=== PATIENT | male | born 1970 | race Caucasian/White ===

== ENCOUNTER → 2018-10-06 16:59 | Outpatient (CLI) | payer BC, SELFPAY | PROVIDERS: Family Provider Preventive Medicine Occupational Medicine; PCP Preventive Medicine Occupational Medicine; Referring Provider Urology; Visit Provider Urology | DX: R31.9 Hematuria, unspecified (principal) | CPT/HCPCS: 87086 ==

== ENCOUNTER → 2019-03-13 12:06 | Outpatient (CLI) | payer BC, SELFPAY ==
--- NOTE | 2019-03-13 14:14 | NEURO ---
NCS and/or EMG Patient Report HPI: Patient is a 48-year-old male who presented with complaints of numbness, tingling and pain in her forearms and hands, left hand worse than the right hand. He is right-hand dominant and had left shoulder rotator cuff surgery 10 years ago. 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 Symptoms have been present for several years and pain, numbness and tingling are awakening him at night. He denies being diabetic or or any H/O neck injuries. He feels that his left hand and arm is weaker. Physical Exam: Mild tenderness of the left and right wrists anteriorly. Tinel's sign slightly positive on the left wrist and negative on right wrist. Tinel's sign negative over left elbow. Mild tenderness at left elbow. No tenderness at right elbow. Tenderness at left shoulder joint. Range of motion slightyl limited at left shoulder joint. spasm and tenderness at cervical spine. ROM slightly limited at cervical spine. Findings: 1. There is evidence of prolongation of distal latency of the right median sensory nerve response. 2. There is evidence of prolongation of latencies of left median sensory and motor nerve responses 3. Normal right and left ulnar nerve conduction studies 4. Normal needle examination of bilateral upper extremities including bilateral cervical paraspinal muscle Impression: 1. 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 2. No electrodiagnostic evidence of cervical radiculopathy, brachial plexopathy or ulnar neuropathy in bilateral upper extremities Recommendation: 1. Patient recommended to wear hand splints as much as possible. 2. Patient recommended to avoid repetitive use of both hands and heavy lifting from both. 3. Patient recommended to see a hand surgeon for evaluation and possible surgical release of carpal tunnel syndrome.
== END ==
PROVIDERS: Family Provider Preventive Medicine Occupational Medicine; PCP Preventive Medicine Occupational Medicine; Referring Provider Orthopaedic Surgery; Visit Provider Orthopaedic Surgery
DX: G56.03 Carpal tunnel syndrome, bilateral upper limbs (principal)
CPT/HCPCS: 95886; 95910

== ENCOUNTER → 2021-03-01 07:00 | Outpatient (CLI) | payer BC, SELFPAY ==
--- NOTE | 2021-03-01 07:02 | CT_ITS ---
STUDY: CT LUMBAR SPINE WITHOUT CONTRAST REASON FOR EXAM: Male, 50 years old. SPINAL STENOSIS LUMBAR RADIATION DOSAGE (If Supplied By Facility): CTDIvol = ( 43.24 ) mGy, DLP = ( 1300.04 ) mGycm TECHNIQUE: The patient was scanned in a multi detector CT scanner. High resolution transaxial imaging was performed. Images were obtained from L1 to S1 vertebral levels. Sagittal and coronal images were reconstructed. Individualized dose optimization techniques were used for this CT. COMPARISON: Comparison is made with prior examination dated 10/08/2013. FINDINGS: Normal lumbar lordosis. There is no substantial scoliosis. Normal vertebrae of the lumbar spine. L1-2: Normal endplates. Normal disc height and morphology. Normal bilateral facet joints. Normal central canal and bilateral lateral recesses. Normal bilateral intervertebral neural foramina. L2-3: Normal endplates. Normal disc height and morphology. Normal bilateral facet joints. Normal central canal and bilateral lateral recesses. Normal bilateral intervertebral neural foramina. L3-4: Normal endplates. Normal disc height and morphology. Normal bilateral facet joints. Normal central canal and bilateral lateral recesses. Normal bilateral intervertebral neural foramina. L4-5: Minimal anterior listhesis of L4 on L5. Facet joint osteoarthritis and hypertrophy with bilateral neural foraminal stenosis is worse on the right side. Mild degree of diffuse posterior disc bulge slightly more prominent on the left side of the midline. L5-S1: The patient is status post laminectomy and interpedicular screw fixation at the L5-S1 level with prosthetic disc placement. Normal visualized paraspinous soft tissue structures. CT/Spine Lumbar without Contrast IMPRESSION: Minimal degree of anterolisthesis of L4 on L5 with bilateral neural foraminal stenosis worse on the right side and mild degree of diffuse posterior disc bulge. Electronically Signed: Corky Yi MD at 9:41 EDT , Service support ,
--- NOTE | 2021-03-01 07:08 | CT_ITS ---
STUDY: CT LUMBAR SPINE WITHOUT CONTRAST REASON FOR EXAM: Male, 50 years old. SPINAL STENOSIS LUMBAR RADIATION DOSAGE (If Supplied By Facility): CTDIvol = ( 43.24 ) mGy, DLP = ( 1300.04 ) mGycm TECHNIQUE: The patient was scanned in a multi detector CT scanner. High resolution transaxial imaging was performed. Images were obtained from L1 to S1 vertebral levels. Sagittal and coronal images were reconstructed. Individualized dose optimization techniques were used for this CT. COMPARISON: Comparison is made with prior examination dated 10/08/2013. FINDINGS: Normal lumbar lordosis. There is no substantial scoliosis. Normal vertebrae of the lumbar spine. L1-2: Normal endplates. Normal disc height and morphology. Normal bilateral facet joints. Normal central canal and bilateral lateral recesses. Normal bilateral intervertebral neural foramina. L2-3: Normal endplates. Normal disc height and morphology. Normal bilateral facet joints. Normal central canal and bilateral lateral recesses. Normal bilateral intervertebral neural foramina. L3-4: Normal endplates. Normal disc height and morphology. Normal bilateral facet joints. Normal central canal and bilateral lateral recesses. Normal bilateral intervertebral neural foramina. L4-5: Minimal anterior listhesis of L4 on L5. Facet joint osteoarthritis and hypertrophy with bilateral neural foraminal stenosis is worse on the right side. Mild degree of diffuse posterior disc bulge slightly more prominent on the left side of the midline. L5-S1: The patient is status post laminectomy and interpedicular screw fixation at the L5-S1 level with prosthetic disc placement. Normal visualized paraspinous soft tissue structures. CT/Coronals Sag Multi Obl 3-D Rec IMPRESSION: Minimal degree of anterolisthesis of L4 on L5 with bilateral neural foraminal stenosis worse on the right side and mild degree of diffuse posterior disc bulge. Electronically Signed: Corky Yi MD at 9:41 EDT , Service support ,
== END ==
PROVIDERS: PCP Preventive Medicine Occupational Medicine; Visit Provider Orthopaedic Surgery
DX: M96.1 Postlaminectomy syndrome, not elsewhere classified (principal); M48.061 Spinal stenosis, lumbar region without neurogenic claudication
CPT/HCPCS: 72131; 76377

== ENCOUNTER 2021-05-30 07:10 | Inpatient (IN) | payer BC, OTHER, SELFPAY ==
--- NOTE | 2021-05-23 09:25 | EKG12_ITS ---
Test Reason : ROUTINE Blood Pressure : / mmHG Vent. Rate : 076 BPM Atrial Rate : 076 BPM P-R Int : 166 ms QRS Dur : 092 ms QT Int : 392 ms P-R-T Axes : 059 022 004 degrees QTc Int : 441 ms Normal sinus rhythm Low voltage QRS Borderline ECG Confirmed by NELY CONCEPCION, CALEB ([id number]), editor newspaper SHAINA HUNT ([id number]) on 05/24/2021 9:59:12 AM Referred By: Huy Kilpatrick Confirmed By:CLAEB MCKAY MD
--- NOTE | 2021-05-23 09:33 | RAD_ITS ---
STUDY: X-RAY CHEST REASON FOR EXAM: Male, 50 years old. PREOP TECHNIQUE: PA and lateral views of the chest. COMPARISON: None. FINDINGS: The lungs are clear and expanded. There is no demonstrated pleural abnormality. There is borderline cardiomegaly. Normal mediastinum and ramirez. Normal visualized pulmonary arteries. Normal visualized aortic arch and descending thoracic aorta. There is no demonstrated abnormality of the visualized soft tissue structures of the upper abdomen. RAD/Chest PA and Lateral IMPRESSION: No acute abnormal cardiac pulmonary finding. Electronically Signed: Cameron Snachez MD at 6:01 EST Tel , Service support ,
[2021-05-23 11:09] LABS: Absolute Lymphocyte Count 2.15 X10^3/uL (0.83-4.51); Absolute Neutrophil Count 6.2 X10^3/uL (2.0-7.7); Basophil# 0.04 X10^3/uL; Basophil% 0.4 % (0-1); Eosinophil# 0.18 X10^3/uL; Eosinophils% 1.9 % (0-5); Hematocrit 48.4 % (40-54); Hemoglobin 16.3 g/dL (13.0-16.5); Lymphocyte # 2.15 X10^3/ul (0.83-4.51); Lymphocyte % 23.1 % (19-41); Mean Corp Hgb Conc 33.7 g/dL (32-36); Mean Corpuscular Hgb 31.7 pg (27.0-32.0); Mean Platelet Vol. 9.4 fl (6.2-12.0); Monocyte# 0.76 X10^3/uL; Monocyte% 8.2 % (0-10); NRBC Flagged by Analyzer 0 % (0-5); Neutrophil # 6.15 X10^3/uL (2.7-7.7); Platelet Count 249 K/mm3 (150-450); RBC Distribution Width CV 12.7 % (11.6-14.6); RBC Distribution Width SD 43.8 fl (35.1-43.9); Red Blood Count 5.15 M/mm3 (4.6-6.2); White Blood Count 9.3 K/mm3 (4.4-11.0)
[2021-05-23 11:18] LABS: Prothrombin Time (Protime)PT. 12.6 SECONDS (11.7-14.9)
[2021-05-23 11:19] LABS: Partial Thromboplast Time 30.2 Seconds (24.1-36.2)
[2021-05-23 11:41] LABS: Anion Gap 6 (5-15); BUN 14 mg/dL (7-18); Calcium,Total 9.5 mg/dL (8.5-10.1); Chloride 105 mmol/L (98-107); Creatinine, Serum 0.88 mg/dL (0.70-1.30); EST Glomerular Filtration Rate 98 mL/min (>60); Est Glom Filt Rate - Afr Amer 119 mL/min (>60); Glucose 123 mg/dL (74-106); Potassium 3.7 mmol/L (3.5-5.1); Sodium Level 139 mmol/L (136-145)
[2021-05-30] VITALS (19 sets, daily range): BP systolic 115–154; BP diastolic 63–93; PULSE 83–109; RESP 16–28; TEMP 36.3–36.9; O2SAT 88–96; BMI 41.5; BMI 43.1
[2021-05-30] MEDS: Lactated Ringers 1,000 ML 15 ML IV (06:22)
--- NOTE | 2021-05-30 07:08 | PCM.OPRPT ---
Problems Associated Problem List Diagnoses (1) Lumbar stenosis: Report of Operation Date of Procedure: 05/30/21 Pre-Operative Diagnosis: 1. Lumbar stenosis L4-5 with spondylosis 2. Lumbar degenerative disc disease L4-5 3. Postlaminectomy syndrome Post-Operative Diagnosis: 1. Lumbar stenosis L4-5 with spondylosis 2. Lumbar degenerative disc disease L4-5 3. Postlaminectomy syndrome Surgery/Procedure Performed:: 1. L4-5 posterior lumbar interbody fusion 2. Insertion of intervertebral biomechanical device x1 3. Structural allograft for spinal fusion 4. L4 bilateral laminectomies, foraminotomies, facetectomies, decompression of bilateral L4 nerve roots 5. L5 bilateral foraminotomies, decompression of bilateral L5 nerve roots 6. Hardware removal L5-S1 7. L4-5 posterior lateral fusion 8. Revision L5-S1 posterior lateral fusion 9. Pedicle screw fixation 10. Local autograft for spinal fusion 11. Neuro monitoring bilateral upper and bilateral lower extremities Description of Surgical Findings:: Statement of medical necessity: The patient is a 50-year-old male with intractable back and leg pain. Image studies confirm the above diagnoses. He has failed conservative treatment to include medication, physical therapy, and injections. The patient opted for operative intervention understanding the risks to include, but not limited to, infection, bleeding, damage to nerves arteries and veins, possibility of spinal fluid leak, nonunion, hardware failure, continued pain, need for further surgery, deep vein thrombosis, pulmonary embolism, heart attack, risk of stroke or . Description of the procedure: The patient was identified in the preoperative holding area. There, he received preoperative IV antibiotics, Ancef, and was then transferred to the operative suite. Once in the operative suite, after general endotracheal anesthesia was established, the patient was transferred to the [facility] operating table in the prone position. All bony prominences were padded accordingly. The lumbar spine was prepped and draped in a standard surgical fashion. Bear hugger's were not turned on until the drapes were placed and sealed with Ioban. A midline incision was made and taken down to the level of the lumbodorsal fascia. The fascia was then divided and subperiosteal dissection was taken down to the level of the transverse processes of L4 and L5 and the sacral ala of S1 bilaterally. Deep retractors were placed. The setscrews, rods, and pedicle screws were removed from L5 and S1 bilaterally. Then a bone scalpel was used to make cuts in the lamina of L4. A series of rongeurs and Kerrisons were then used removing the spinous process and lamina at L4. Then facetectomies of greater than 50% were performed as well as foraminotomies, decompressing the bilateral L4 and L5 nerve roots. Given the severity of the stenosis, I needed to perform wide bilateral laminectomies and near complete facetectomies in order to decompress the neural elements, therefore creating instability and necessitating the fusion. At this point the dura and nerve roots were retracted medially and a left-sided annulotomy was performed at L4-5. A series of curettes and pituitaries were used to remove disc material. The endplates were prepared with a rasp. An appropriate sized intervertebral peek cage device measuring 10 mm in height was packed with morselized cancellous allograft and then impacted into position completing the posterior lumbar interbody fusion at L4-5. I then proceeded with pedicle screw fixation. The starting points were found at the junction of the superior articular process and transverse process of L4. A power bur was used for the starting points. Pedicle probes were placed bilaterally and then 6.5 x 45 mm screws were placed at L4 and L5 on the left. 6.5 x 40 mm screws were placed at L4 and L5 on the right, and at S1 bilaterally. The screws were tested with intraoperative neurophysiologic monitoring and they tested within normal limits. Connector rods were then placed and secured to place with set screws. I then proceeded with the posterior lateral fusion. This was accomplished by decorticating the transverse processes bilaterally at L4 and L5 and the sacral ala bilaterally at S1. This decorticated bone was then bridged with local autograft from the decompression as well as morselized cancellous allograft, completing the posterior lateral fusion at L4-5 and L5-S1. The incision was then thoroughly irrigated. Tisseel was placed over the dura as a hemostatic agent. A deep drain was placed. The fascia was closed with #1 Vicryl, subcutaneous with 2-0 Vicryl, and skin with 2-0 nylon. A sterile dressing was applied with 4 x 4's ABDs and tape. Sponge instrument needle counts were correct at the end of the case. Neurophysiologic monitoring was maintained at baseline during the entire duration of the case. The patient was extubated and taken to the PACU without incident. Surgeon: Huy Kilpatrick Type of Anesthesia: General Specimen's removed: None Drains: Hemovac Estimated Blood Loss (mL): 700 cc. Fluids Replaced: 4300 cc Grafts/Implants Used: Unified spine, Jihan Elite biologic, DBM by [employer] Squared[employer] [place] Complications None Admit VTE Documentation VTE Present on Admission: No
--- NOTE | 2021-05-30 07:09 | DS.PCM_ITS ---
Providers Date of Admission: 05/30/21 Primary Care Physician: Dr. Rainer Mills DO Reason For Visit: LUMBAR 4 LAMINECTOMY DECOMPRESSION L4-5..... Diagnosis Discharge Diagnosis (1) Lumbar stenosis: Status: Acute Code(s): M48.061 - Spinal stenosis, lumbar region without neurogenic claudication Medications at Discharge Home Medications albuterol sulfate 1 puff INHALATION Q6H PRN 05/17/21 amlodipine-benazepril 1 cap PO DAILY 05/17/21 budesonide-formoterol [Symbicort] 2 puff INHALATION BID 05/17/21 montelukast [Singulair] 10 mg PO DAILY 05/17/21 multivitamin 1 cap PO DAILY 05/17/21 omeprazole 40 mg PO DAILY 05/17/21 hydrocodone-acetaminophen 1 tab PO Q6H 7 Days #28 tab 05/30/21 Hospital Course Operations - (L4 laminectomy decompression, L4-5 posterior lumbar interbody fusion, L5-S1 hardware removal, posterior spinal fusion with instrumentation L4-5, L5-S1, use of allograftt) Summary of Care Provided Hospital Course: The patient is a 50-year-old male who underwent revision lumbar fusion on 05/30/2021. He was subsequently admitted to the floor. The hospitalist was consulted for medical management. At about 5:00 in the morning on postoperative day 1 he was complaining of increasing pain, paresthesias, and swelling in the anterior lateral thighs bilaterally. He was also complaining of paresthesias in the right upper extremity. The patient was seen and examined by myself, and compartment syndrome of the bilateral anterolateral thighs was a concern. I subsequently contacted [facility], and spoke with Dr. Cruzito Lombardi, who agreed to have the patient transferred there for evaluation and management of possible compartment syndrome. He was subsequently transferred on 05/31/21. His drain was pulled before transfer. Physical Exam Const alert and oriented x3 Constitutional Narrative: The patient was seen and examined postoperative day 1. He is sitting up in a chair. He is complaining of pain and paresthesias in the bilateral anterolateral thighs. He also is complaining of decreased sensation in the right upper extremity. The patient is in obvious discomfort because of pain in the bilateral anterolateral thighs. General Appearance: cooperative Orientation / Consciousness: awake, oriented to person, oriented to place and oriented to time HEENT HEENT Narrative: There is a small superficial blister underneath the bottom lip Eyes EOMs intact bilaterally and conjunctivae normal Neck full ROM General: normal visual inspection Chest Chest Narrative: There is an area of mild erythema over the anterior chest and upper abdomen with minimal tenderness Resp normal respiratory effort and normal air movement Cardio regular rate, regular rhythm and peripheral pulses 2+ throughout Peripheral Pulses: pulses 2+ throughout GI soft to palpation, non-tender and non-distended Back/Spine Back/Spine Narrative: Dressing clean dry and intact. Incision well approximated with interrupted sutures in place. Minimal tenderness. Minimal erythema. Minimal drainage. No fluctuance. Drain pulled intact without complication Cervical Spine: cervical ROM normal Thoracic Spine / Upper Back: normal to inspection Lumbar Spine / Lower Back: normal to inspection Extremity normal capillary refill and no calf tenderness Extremity Narrative: Examination of the bilateral lower extremity shows significant tenderness to light touch on the anterolateral thighs bilaterally. Decreased sensation in the bilateral lateral thighs. Otherwise sensation intact grossly in the lower extremities and remaining dermatomes. Some firmness of the anterior compartments of the thighs on palpation. 4 out of 5 strength in bilateral hip flexion, 4 out of 5 strength in bilateral knee extension. 5 out o f 5 strength in ankle dorsiflexion and EHL bilaterally. Pain in the anterior thighs with 45 degrees of knee flexion passively bilaterally. Peripheral Pulses: Yes pulses 2+ throughout Skin no rashes or lesions noted General Skin Exam: no breakdown Neuro oriented x3, CN's II-XII intact bilaterally, moves all extremities, no focal motor deficits and deep tendon reflexes 2+ bilaterally Neuro Narrative: Examination of the right upper extremity shows decreased sensation in the brachium and forearm. Strength is normal in the right upper extremity and finger flexion, finger abduction, wrist flexion and extension, elbow flexion and extension. Examination of the left upper extremity shows sensation and motor intact grossly, with no focal deficits Weight / BMI Weight Weight: 314 lb 13.121 oz Body Mass Index (BMI) 41.5 ABG / Lab / Microbiology Data Result Diagrams: 05/31/21 06:32 05/31/21 06:32 D/C Instructions Discharge Diet: No restrictions Discharge Activity: - (No repetitive bending twisting or lifting greater than 5 pounds) Weight Bearing Status: Weight bearing as tolerated Lifting Restricted to (Lbs): 5 Lifting Restrictions: 5 pounds Additional Activity Instructions: No repetitive bending twisting or lifting greater than 5 pounds Call your doctor if your incision/area has: Continuous Slow Oozing, Sudden Increased Bleeding, Increased Pain/ Swelling, Increased Redness, Foul Smelling Discharge and Swelling at the incision site Call your doctor if you observe: Fever of 101 or Higher, Coldness, Increased Pain, Numbness or Tingling, Change in Color, Inability to urinate, Inability to have a bowel movement, Using more than 1 pad per hour, Shortness of breath, Diz ziness, Fainting spells, Swelling in the ankles, Chest pain, Prolonged hiccupping, Increased palpitations (irregular heartbeat), Calf discomfort and Uncontrolled pain Change Dressing in: Daily Remove Dressing in: Daily Additional Dressing/Incision Instructions: Daily dressing changes with iodine to incision. Gauze and tape. [place] dressing for shower Please Follow Up With: Huy Kilpatrick DO When: 3 weeks Meaningful Use Info Meaningful Use Diagnoses (Choose all that apply): None applicable Discharge Plan Admission Admit Date/Time: 05/30/21 07:10 Attending Provider: Huy Kilpatrick Primary Care Provider: Rainer Mills Consulting Providers: Yana Torrez ; Naomi Mike ; Stuart Myers ; Chris Torres ; Placido Buck ; Luisito Avendano ; Duncan Ritchie ; Joe Waters ; Dominguez Nascimento ; Sudheer Herrera ; Roxy Boateng ; Vinicius Hendrickson ; Ana Winn ; Jaison Bonilla ; Sebastián Roa ; Cameron Reed ; Ravindra Hong ; Diandra Sullivan ; Aminta Kelly NP ; Namita Barnes ; Bhavana Jennings Instructions Additional Instructions / Restrictions: 1. During your procedure, you received sedation through your IV. Please follow these instructions for the next 24 hours: Do not drive a motor vehicle, do not drink any alcoholic beverages, and do not sign any legal documents or make personal or business decisions. A responsible adult should stay with you at least 6 hours after the procedure. 2. Keep your surgical site/incision clean and the dressing dry and intact. You may sponge bathe, but no showering or sitting in a bathtub. You may use an ice pack at the surgical site to reduce any swelling or discomfort. 3. Monitor the incision site for any signs or symptoms of infection. Watch for redness, excessive swelling or drainage, or continued pain at the incision site after 3 days. Contact your physician immediately for a fever, chills or a temperature of 101.5? F or greater. 4. Take your medication exactly as prescribed by your physician. Do not attempt to wean yourself off any of your medications even though your pain is improving. This process needs to be carefully monitored by your doctor. Take any antibio tics prescribed exactly as directed and until they are gone. 5. Avoid stretching, bending, pulling, twisting or any sudden movements. Do not bend or twist at the waist. 6. No lifting greater than 5 pounds. 7. Do not operate a motor vehicle, equipment or a power tool while taking pain medication 8. Do not have any manipulation done by a chiropractor or any other physician without first consulting with the surgeon 9. Please contact our office if you are even scheduled for a CT scan or an MRI. 10. Please call us if you have any questions, problems or concerns. Follow-up with Dr. Kilpatrick in 3 weeks Discharge Orders/Prescriptions Prescriptions: New hydrocodone-acetaminophen 5-325 mg tablet 1 tab PO Q6H 7 Days Qty: 28 RF: 0 Continued omeprazole 40 mg Capsule,Delayed Release(Dr/Ec) 40 mg PO DAILY RF: 0 montelukast [Singulair] 10 mg Tablet 10 mg PO DAILY RF: 0 albuterol sulfate 90 mcg/actuation Hfa Aerosol Inhaler 1 puff INHALATION Q6H PRN (Reason: SOB) RF: 0 multivitamin Capsule 1 cap PO DAILY RF: 0 amlodipine-benazepril 10-20 mg Capsule 1 cap PO DAILY RF: 0 budesonide-formoterol [Symbicort] 160-4.5 mcg/actuation Hfa Aerosol Inhaler 2 puff INHALATION BID RF: 0 Discontinued aspirin [Aspir-81] 81 mg Tablet,Delayed Release (Dr/Ec) 81 mg PO DAILY RF: 0 Referrals / Follow Up: Huy Kilpatrick DO [STAFF PHYSICIAN] - Rainer Mills DO [Primary Care Provider] -
--- NOTE | 2021-05-30 07:09 | PCM.PN.ORT ---
Subjective Subjective The patient was seen postoperatively in the PACU. He is resting comfortably. He is having some soreness at the surgery site in his lower back. He denies any other complaints including numbness tingling or weakness. Objective Data Objective Data Vital Signs: Vital Signs Temp Pulse Resp BP Pulse Ox 97.9 F 84 16 154/87 H 96 05/30/21 06:17 05/30/21 06:17 05/30/21 06:17 05/30/21 06:17 05/30/21 06:17 Oxygen Delivery Method Room Air Weight: 314 lb 13.121 oz Body Mass Index (BMI) 41.5 Lab / Micro Data Result Diagrams: 05/23/21 09:41 05/23/21 09:41 Physical Exam Const alert, oriented x3 and no apparent distress General Appearance: cooperative and comfortable HEENT head/scalp atraumatic Eyes EOMs intact bilaterally and conjunctivae normal Neck full ROM General: normal visual inspection Resp normal respiratory effort and normal air movement Cardio regular rate and regular rhythm Peripheral Pulses: pulses 2+ throughout GI soft to palpation, non-tender and non-distended Back/Spine Back/Spine Narrative: Dressing clean dry and intact. Drain in place and functioning. A small amount of serosanguineous fluid present in the drain Cervical Spine: cervical ROM normal Thoracic Spine / Upper Back: normal to inspection Lumbar Spine / Lower Back: normal to inspection Extremity normal to inspection, full ROM, normal capillary refill, no clubbing, cyanosis or edema and no calf tenderness Peripheral Pulses: Yes pulses 2+ throughout Skin no rashes or lesions noted General Skin Exam: no breakdown Neuro oriented x3, CN's II-XII intact bilaterally, moves all extremities, no focal motor deficits, no sensory deficits noted and deep tendon reflexes 2+ bilaterally Motor Exam: strength 5/5 throughout and muscle tone normal throughout Assessment & Plan Assessment/Plan (1) Lumbar stenosis: PLAN: Admit to floor See orders Back brace on at all times, okay to remove brace to sleep Continue antibiotics while drain in place Pain control and mobilization as tolerated Advance diet as tolerated
[2021-05-30] MEDS: Heparin 10,000 UNITS/10 ML Vial 10000 UNITS (07:30)
[2021-05-30] MEDS: THROMBIN (RECOMBINANT) 20,000 UNIT VIAL 20000 UNIT TOPICAL (07:30)
--- NOTE | 2021-05-30 07:30 | RAD_ITS ---
PROCEDURE: Lumbar spine X-ray DATE OF EXAMINATION: 05/30/2021 INDICATION: Male, 50 years old intraoperative study. PHYSICIAN: Addy Queen MD FLUOROSCOPY TIME (if supplied): (3:49 minutes/seconds) FLUOROSCOPY IMAGES: 8 FINDINGS: Bipedicular posterior internal fixation of the L4, L5 and S1 vertebral bodies is seen. Intervertebral disc spaces visualized at L4-L5 and L5-S1. Lumbar spine is visualized from L4 No radiologist was present for the procedure. Please refer to operative report for details. RAD/Lumbar Spine 2 or 3 Views IMPRESSION: Intraoperative fluoroscopy. Please refer to operative report for details. Electronically Signed: Andre Queen MD at 16:59 EST Tel , Service support ,
[2021-05-30] MEDS: Bupivacaine 0.25% 30 ML Vial (15:26)
--- NOTE | 2021-05-30 17:07 | SUR.PREOP ---
unable to follow commands, restless and flinging arms and legs
[2021-05-30] MEDS: Cefazolin 1 GM/50 ML BAG IV (17:43)
[2021-05-30] MEDS: Lactated Ringers 1,000 ML 100 ML IV (17:46)
--- NOTE | 2021-05-30 20:45 | PCM.PN.HOSP ---
Subjective Subjective Mr. Buchanan is a 50-year-old morbidly obese white male who was admitted following an elective lumbar fusion/laminectomy/decompression at L4-L5. He had failed outpatient nonoperative therapy including medications, physical therapy, and lumbar injections and was feeling that his symptoms were affecting his activities of daily living and therefore wanted to proceed with surgical options. His procedure was performed on 05/30/2021 and we were consulted for postoperative management. Patient is currently lying in bed with his at the bedside. He is complaining of right upper extremity numbness but able to move his arm without any issue. This apparently, per discussion with nursing, was discussed in PACU with Dr. Kilpatrick and evidently the patient had an extended period of time lying on his right side and its felt that this was related to nerve compression. Other than sensory changes, his neurological exam is normal with normal cranial nerves. He is still fairly groggy and evidently got 8 mg of Dilaudid in PACU. Objective Data Objective Data Vital Signs: Vital Signs Temp Pulse Resp BP Pulse Ox 98.4 F 109 H 18 139/91 H 93 05/30/21 20:04 05/30/21 20:04 05/30/21 20:04 05/30/21 20:04 05/30/21 20:04 Oxygen Flow Rate (L/min) 4 Oxygen Delivery Method Nasal Cannula Weight: 147.5 kg Body Mass Index (BMI) 43.1 Intake & Output: Intake and Output for Last 24 Hours 05/28/21 05/29/21 05/30/21 23:59 23:59 23:59 Intake Total 4165 / 4165 Output Total 650 / 650 Balance 3515 / 3515 Lab / Micro Data Result Diagrams: 05/23/21 09:41 05/23/21 09:41 Radiography Diagnostic Testing: Radiology Impression Lumbar Spine X-Ray 05/30/21 07:30 IMPRESSION: Intraoperative fluoroscopy. Please refer to operative report for details. Electronically Signed: Andre Queen MD at 16:59 EST Tel , Service support , Physical Exam Const alert, oriented x3 and no apparent distress Constitutional Narrative: Morbidly obese white male lying in bed, at bedside, nursing at bedside, appears comfortable in no acute distress, currently being placed on his nocturnal CPAP Exam Limitations: no limitations HEENT head/scalp atraumatic HEENT Narrative: Mucous membranes are dry, dentition is fair, Mallampati is 3 Head and Scalp: normocephalic Neck Neck Narrative: Short thick neck Resp normal respiratory effort, no retractions, no use of accessory muscles and clear to auscultation bilaterally Resp Narrative: Distant secondary to body habitus Auscultation: Negative for crackles, rales, rhonchi or wheezes Cardio regular rate, regular rhythm, S1 normal heart sound, S2 normal heart sound, no murmurs, no rub, no gallops, no clicks and no JVD GI normal to inspection, nondistended, normoactive bowel sounds, soft to palpation, non-tender and non-distended Extremity no clubbing, cyanosis or edema Peripheral Pulses: Yes pulses 2+ throughout Neuro oriented x3, CN's II-XII intact bilaterally, moves all extremities, no focal motor deficits and No no sensory deficits noted Neuro Narrative: Decreased sensation right lower extremity and right upper extremity Sensorium / Orientation: awake and alert Speech: speech normal Assessment & Plan Assessment/Plan (1) Lumbar stenosis: (2) Paresthesia of right upper extremity: PLAN: Lumbar stenosis status post L4-L5 posterior lumbar interbody fusion with allograft and bilateral laminectomies, for an at the knees, facetectomies and decompression/pedicle screw fixation/hardware removal from L5-S1 -Operative management per primary service -Pain management per primary service -We will add bowel regimen -Consider decreasing or discontinuing IV fluids if p.o. intake is adequate -Check a.m. lab Right upper paresthesias -This was addressed in PACU with Dr. Kilpatrick -Evidently patient was lying on his right side for an extended period of time and is felt that this is related to ulnar nerve compression given distribution -Patient is otherwise neurologically intact other than his baseline deficits related to his low back issues -Continue to monitor and consider further work-up if is persistent History of hypertension -Continue amlodipine/lisinopril GERD -Continue PPI History of asthma -Continue home Singulair -Continue home Symbicort -Continue as needed albuterol FEDE -Continue home CPAP -O2 bleed as needed Morbid obesity -Recommend weight loss -BMI is 43.1 -Complicates overall treatment, prognosis, outcomes DVT prophylaxis -Per primary service Charges/Coding Visit Charges OBSV E&M: 89892 Initial observation care L2
[2021-05-30] MEDS: 0.9% Saline Lock 10 ML Syringe IV ×2 (20:53→22:56)
[2021-05-30] MEDS: Morphine 2 MG/ML Syringe IV ×2 (20:53→22:56)
[2021-05-31] VITALS (18 sets, daily range): BP systolic 127–166; BP diastolic 60–107; PULSE 100–113; RESP 16–20; TEMP 35.9–38.2; O2SAT 91–96; BMI 43.1
[2021-05-31] MEDS: Cefazolin 1 GM/50 ML BAG IV (00:14)
[2021-05-31] MEDS: 0.9% Saline Lock 10 ML Syringe IV ×7 (01:26→23:49)
[2021-05-31] MEDS: Lidocaine/Prilocaine HCl 5 GM Tube 1 GM TOPICAL (01:27)
[2021-05-31] MEDS: Morphine 2 MG/ML Syringe IV ×3 (01:27→06:10)
--- NOTE | 2021-05-31 01:46 | PCS.PANDOC ---
PANDEMIC DOCUMENTATION INITIATED: Date:05/29/2021 Time: 1951
[2021-05-31] MEDS: oxyCODONE 5 MG Tablet PO ×2 (03:39→20:17)
[2021-05-31] MEDS: Ondansetron 4 MG/2 ML Vial IV (03:41)
[2021-05-31] MEDS: Lactated Ringers 1,000 ML 100 ML IV ×2 (04:03→16:00)
[2021-05-31] MEDS: DiphenhydrAMINE 50 MG/ML Syringe 25 MG IV (05:33)
[2021-05-31] MEDS: MethylPREDNISolone 125 MG/2 ML Vial IV (05:33)
--- NOTE | 2021-05-31 06:43 | PCM.HOSP.N ---
Hospitalist Note Called secondary to the development of an erythematous patch in his upper central abdomen and bilateral thighs. The patient states his thighs also feel swollen and tender. Upon evaluation he has a round area of erythema on his abdomen and bilateral patches that are rectangular in his bilateral thighs. They are tender to touch and firm in the area of the erythema. Right upper extremity is also still with paresthesias although motor function appears to be intact and reflexes are normal. Will check CT head. It does appear that these erythematous patches are more related to areas of pressure during surgery. Will check stat CK given tenderness. Dr. Kilpatrick was notified by nursing.
[2021-05-31 07:08] LABS: Absolute Lymphocyte Count 0.95 X10^3/uL (0.83-4.51); Absolute Neutrophil Count 14.9 X10^3/uL (2.0-7.7); Basophil# 0.04 X10^3/uL; Basophil% 0.2 % (0-1); Eosinophil# 0.01 X10^3/uL; Eosinophils% 0.1 % (0-5); Hematocrit 44.3 % (40-54); Hemoglobin 14.9 g/dL (13.0-16.5); Lymphocyte # 0.95 X10^3/ul (0.83-4.51); Lymphocyte % 5.4 % (19-41); Mean Corp Hgb Conc 33.6 g/dL (32-36); Mean Corpuscular Hgb 31.7 pg (27.0-32.0); Mean Corpuscular Volume 94.3 fL (80-94); Mean Platelet Vol. 9.2 fl (6.2-12.0); Monocyte# 1.64 X10^3/uL; Monocyte% 9.3 % (0-10); NRBC Flagged by Analyzer 0 % (0-5); Neutrophil % 84.5 % (47-70); POSITIVE DIFFERENTIAL YES; Platelet Count 170 K/mm3 (150-450); RBC Distribution Width CV 13.2 % (11.6-14.6); RBC Distribution Width SD 46.3 fl (35.1-43.9); White Blood Count 17.6 K/mm3 (4.4-11.0)
[2021-05-31 07:12] LABS: Differential Indicated SCAN CRITERIA MET
[2021-05-31 07:28] LABS: Anion Gap 11 (5-15); BUN 19 mg/dL (7-18); BUN/Creat Ratio 10.3 RATIO (10-20); Chloride 100 mmol/L (98-107); Creatinine, Serum 1.85 mg/dL (0.70-1.30); EST Glomerular Filtration Rate 41 mL/min (>60); Est Glom Filt Rate - Afr Amer 50 mL/min (>60); Estimated Creatinine Clearance 53.02 ml/min; Glucose 190 mg/dL (74-106); Potassium 4.5 mmol/L (3.5-5.1); Sodium Level 134 mmol/L (136-145)
--- NOTE | 2021-05-31 07:56 | CPS ---
started by nursing
--- NOTE | 2021-05-31 08:42 | PN.HOSP_ITS ---
Subjective Subjective Seen and examined. Discussed with the spine surgeon Dr. Kilpatrick. Patient has severe muscle pain in anterior aspect of thigh and calf and numbness in feet and toes. Had a lumbar spine surgery in prone position with pressure on thighs and upper extremities and trunk. Objective Data Objective Data Vital Signs: Vital Signs Temp Pulse Resp BP Pulse Ox 97.7 F L 111 H 18 147/98 H 96 05/31/21 04:00 05/31/21 04:00 05/31/21 04:00 05/31/21 04:00 05/31/21 04:00 Oxygen Flow Rate (L/min) 3 Oxygen Delivery Method Nasal Cannula Weight: 325 lb 2.909 oz Body Mass Index (BMI) 43.1 Intake & Output: Intake and Output for Last 24 Hours 05/29/21 05/30/21 05/31/21 23:59 23:59 23:59 Intake Total 4165 / 4815 3250 / 3250 Output Total 650 / 1250 1360 / 1360 Balance 3515 / 3565 1890 / 1890 Lab / Micro Data Result Diagrams: 05/31/21 06:32 05/31/21 06:32 Labs: Laboratory Results - last 24 hr 05/31/21 06:32: WBC 17.6 H, RBC 4.70, Hgb 14.9, Hct 44.3, MCV 94.3 H, MCH 31.7, MCHC 33.6, RDW Std Deviation 46.3 H, RDW Coeff of [place] 13.2, Plt Count 170, MPV 9.2, Immature Gran % (Auto) 0.500, Neut % (Auto) 84.5 H, Lymph % (Auto) 5.4 L, [place] % (Auto) 9.3, Eos % (Auto) 0.1, Baso % (Auto) 0.2, Absolute Neuts (auto) 14.9 H, Absolute Lymphs (auto) 0.95, Nucleated RBC % 0, Diff Path Review October05/31/21 06:32: Sodium 134 L, Potassium 4.5, Chloride 100, Carbon Dioxide 23.0, Anion Gap 11, BUN 19 H, Creatinine 1.85 H, Estim Creat Clear Calc 53.02, Est GFR (MDRD) Af Amer 50 L, Est GFR (MDRD) Non-Af 41 L, BUN/Creatinine Ratio 10.3, Glucose 190 H, Calcium 8.0 L Radiography Diagnostic Testing: Radiology Impression Lumbar Spine X-Ray 05/30/21 07:30 IMPRESSION: Intraoperative fluoroscopy. Please refer to operative report for details. Electronically Signed: Andre Queen MD at 16:59 EST Tel , Service support , Physical Exam Narrative General: Alert, Oriented x3, Cooperative in severe pain HEENT: Atraumatic, PERRLA, EOMI, Normocephalic Oral: No Gingival or Mucosal Lesions/ Ulcerations Neck: Supple, No JVD, Negative Carotid Bruits Lungs: Air entry diminished in bilateral lung bases. No crepitation/rhonchi Cardiovascular: Regular rate, Regular Rhythm, Normal S1, Normal S2, No murmurs Abdomen: Bowel Sounds sluggish, soft, Non Tender, nondistended : No renal angle tenderness. No suprapubic tenderness. Extremities: Mild edema of lower legs Skin: Erythematous patch over bilateral thighs and abdominal area on the point of contact during position during surgery Musculoskeletal: Tenderness present over thigh muscles bilaterally. No Tenderness to Palpation of Joints or Extremities Neurological: Cranial nerves II-XII grossly intact, paresthesia over feet and toes Psych/Mental Status: Flat affect. Assessment & Plan Assessment/Plan (1) Lumbar stenosis: (2) Paresthesia of right upper extremity: PLAN: Lumbar stenosis status post L4-L5 posterior lumbar interbody fusion with allograft and bilateral laminectomies, for an at the knees, facetectomies and decompression/pedicle screw fixation/hardware removal from L5-S1: Discussed with the surgeon Dr. Kilpatrick today. Patient has symptoms complex of compartment syndrome with severe pain in thighs, paresthesia but toes and feet and erythe matous patch over thigh and central abdomen on point of contact during surgery. CK is ordered but results pending. Dr. Kilpatrick has already talked to accepting physician for evaluation for compartment syndrome. Patient has been on prone position, right upper Leslee as he was on prone position for extended period of time during surgery. Patient also has low-grade fever, T-max 100.7 Fahrenheit with leukocytosis with left shift. On IV cefazolin. hypertension -Continue amlodipine/lisinopril GERD -Continue PPI asthma: On Singulair Symbicort and as needed albuterol FEDE -Continue home CPAP -O2 bleed as needed Morbid obesity -BMI is 43.1 -Complicates overall treatment, prognosis, outcomes DVT prophylaxis As per primary service. Pharmacological prophylaxis recommended depending on risk/benefit evaluation Charges/Coding Visit Charges Inpatient E&M: 87499 Subs Hosp L2
[2021-05-31] MEDS: HYDROmorphone 1 MG/ML Syringe IV ×5 (08:46→23:50)
[2021-05-31] MEDS: Pantoprazole Sodium 40 MG Tablet PO (08:51)
[2021-05-31] MEDS: Lisinopril 20 MG Tablet PO (08:51)
[2021-05-31] MEDS: amLODIPine 10 MG Tablet PO (08:51)
[2021-05-31 08:52] LABS: CPK Total, Creatine Kinase 36790 U/L (39-308)
--- NOTE | 2021-05-31 09:51 | CASEMGMT ---
Insurance review for hospitals In-network with [place] Insurance is as follows: [facility], [facility], [facility], [facility], [facility], [facility], [facility]), and . Jesi JOHNSONN RN CM
--- NOTE | 2021-05-31 12:34 | PN.ORTHO_ITS ---
Subjective Subjective The patient was seen and examined postoperative day 1. He has been complaining of increasing pain and tenderness in the anterior thighs since about 5 AM. He is also describing decreased sensation in the lateral thighs and anterolateral legs below the knees. Objective Data Objective Data Vital Signs: Vital Signs Temp Pulse Resp BP Pulse Ox 99.0 F 107 H 20 H 137/86 H 92 05/31/21 12:20 05/31/21 12:20 05/31/21 12:20 05/31/21 12:20 05/31/21 12:20 Oxygen Flow Rate (L/min) 2 Oxygen Delivery Method Nasal Cannula Weight: 325 lb 2.909 oz Body Mass Index (BMI) 43.1 Intake & Output: Intake and Output for Last 24 Hours 05/29/21 05/30/21 05/31/21 23:59 23:59 23:59 Intake Total 4165 / 4815 3250 / 3250 Output Total 650 / 1250 2510 / 2510 Balance 3515 / 3565 740 / 740 Lab / Micro Data Result Diagrams: 05/31/21 06:32 05/31/21 06:32 Labs: Laboratory Results - last 24 hr 05/31/21 06:32: WBC 17.6 H, RBC 4.70, Hgb 14.9, Hct 44.3, MCV 94.3 H, MCH 31.7, MCHC 33.6, RDW Std Deviation 46.3 H, RDW Coeff of [place] 13.2, Plt Count 170, MPV 9.2, Immature Gran % (Auto) 0.500, Neut % (Auto) 84.5 H, Lymph % (Auto) 5.4 L, [place] % (Auto) 9.3, Eos % (Auto) 0.1, Baso % (Auto) 0.2, Absolute Neuts (auto) 14.9 H, Absolute Lymphs (auto) 0.95, Nucleated RBC % 0, Diff Path Review October oll 05/31/21 06:32: Sodium 134 L, Potassium 4.5, Chloride 100, Carbon Dioxide 23.0, Anion Gap 11, BUN 19 H, Creatinine 1.85 H, Estim Creat Clear Calc 53.02, Est GFR (MDRD) Af Amer 50 L, Est GFR (MDRD) Non-Af 41 L, BUN/Creatinine Ratio 10.3, Glucose 190 H, Calcium 8.0 L 05/31/21 06:32: Total Creatine Kinase 54705 H Radiography Diagnostic Testing: Radiology Impression Lumbar Spine X-Ray 05/30/21 07:30 IMPRESSION: Intraoperative fluoroscopy. Please refer to operative report for details. Electronically Signed: Andre Queen MD at 16:59 EST Tel , Service support , Physical Exam Const alert and oriented x3 General Appearance: cooperative HEENT HEENT Narrative: Small superficial blister below the bottom lip on the anterior chin Head and Scalp: normal to inspection Eyes EOMs intact bilaterally and conjunctivae normal Neck full ROM General: normal visual inspection Chest Chest Narrative: Mild erythema to the anterior chest and upper abdomen. Minimal tenderness. Resp normal respiratory effort and normal air movement Effort and Inspection: able to speak in complete sentences Cardio regular rate, regular rhythm and peripheral pulses 2+ throughout Peripheral Pulses: pulses 2+ throughout GI soft to palpation, non-tender and non-distended Back/Spine Back/Spine Narrative: Dressing clean dry and intact. Drain in place and functioning with small amount of serosanguineous fluid in the drain. Incision well approximated with interrupted sutures in place. Minimal erythema and tenderness. No drainage or fluctuance Cervical Spine: cervical ROM normal Thoracic Spine / Upper Back: normal to inspection Lumbar Spine / Lower Back: normal to inspection Extremity Extremity Narrative: The patient has firmness on the anterior compartments of cristiana th thighs with tenderness to light touch on the anterior and lateral bilateral thighs. The patient describes decreased sensation on the lateral aspects of the bilateral thighs. 4 - strength in bilateral hip flexion and knee extension. Pain in the anterior lateral thighs with passive knee flexion of about 30 degrees. 5 out of 5 strength in ankle dorsiflexion, EHL, ankle plantar flexion bilaterally. The patient also has decreased sensation globally in the right upper extremity with 5 out of 5 strength in elbow flexion and extension, wrist flexion and extension, finger flexion and abduction. Examination of the left upper extremity shows sensation and motor intact without focal deficits. Peripheral Pulses: Yes pulses 2+ throughout Skin no rashes or lesions noted General Skin Exam: no breakdown Neuro oriented x3, CN's II-XII intact bilaterally and deep tendon reflexes 2+ bilaterally Assessment & Plan Assessment/Plan (1) Lumbar stenosis: (2) Paresthesia of right upper extremity: (3) Compartment syndrome of both lower extremities due to exertion: PLAN: I had a lengthy discussion with the patient and his , who was present. The patient has clinical signs of compartment syndrome of the bilateral anterior thigh compartments. I feel this is likely secondary to the patient's weight during prone positioning for his revision lumbar fusion. After discussing the risks, benefits, and alternatives and answering all of his questions I recommend a bilateral thigh fasciotomy with application of wound VAC. We discussed the procedure in detail along with expected outcome and recovery. I did explain to the patient that this is an emergent surgery to prevent any worsening of the condition, and that any musculoskeletal or neurologic deficits that are present are not guaranteed to return after surgery. The patient agrees to proceed. We will get him scheduled for emergent surgery. He understands and agrees with the treatment plan.
--- NOTE | 2021-05-31 12:43 | PCM.OPRPT ---
Problems Associated Problem List Diagnoses (1) Compartment syndrome of both lower extremities due to exertion: Report of Operation Date of Procedure: 05/31/21 Pre-Operative Diagnosis: 1. Compartment syndrome of the bilateral thighs, anterior/lateral compartments Post-Operative Diagnosis: 1. Compartment syndrome of the bilateral thighs, anterior/lateral compartments Surgery/Procedure Performed:: 1. Bilateral anterolateral thigh fasciotomies 2. Application of wound VAC to bilateral thighs Surgeon: Huy Kilpatrick Type of Anesthesia: General Specimen's removed: None Drains: None Complications None Admit VTE Documentation VTE Present on Admission: No
--- NOTE | 2021-05-31 13:11 | CONS.ORTHO ---
HPI Consult Data Date of Consult: 05/31/21 HPI Narrative HPI Narrative: ARNOLD BETH is an emergent consult from my partner Dr. Kilpatrick after a routine multilevel spinal surgery where he is in the prone position yesterday. Patient had exquisite pain and tenderness in his anterior thighs as well as profound swelling noted this morning. There is concern for compartment syndrome. Dr. Kilpatrick attempted to transfer the patient but was unable to in a timely fashion. He elected to proceed with emergent anterior compartment fasciotomies of bilateral thighs. Due to lack of privileges for fasciotomies, Dr. Tong contacted me to be involved in patient's care. I saw the patient in the preoperative holding area prior to the fasciotomies. At time of examination he was noting severe pain in the anterior thighs which was not present prior to surgery. He notes some numbness and tingling in both feet, noted some right lower extremity paresthesias prior to surgery. [facility] Medical History (Updated 05/31/21 @ 12:[address] Huy Kilpatrick, DO) Alcohol use Anxiety Arthritis Asthma Back pain CPAP (continuous positive airway pressure) dependence Gastric reflux History of pain when walking Hx of pilonidal cyst Hypertension Migraine headache Non-smoker Restless legs Wears glasses Home Medications albuterol sulfate 1 puff INHALATION Q6H PRN 05/17/21 [History Last Taken 05/30/21 05:15] amlodipine-benazepril 1 cap PO DAILY 05/17/21 [History Last Taken 05/30/21 05:15] budesonide-formoterol [Symbicort] 2 puff INHALATION BID 05/17/21 [History Last Taken 05/30/21 05:15] montelukast [Singulair] 10 mg PO DAILY 05/17/21 [History Last Taken 05/30/21 05:15] multivitamin 1 cap PO DAILY 05/17/21 [History Last Taken Unknown] omeprazole 40 mg PO DAILY 05/17/21 [History Last Taken 05/30/21 05:15] hydrocodone-acetaminophen 1 tab PO Q6H 7 Days #28 tab 05/30/21 [Rx Last Taken Unknown] Allergy/AdvReac Type Severity Reaction Status Date / Time No Known Allergies Allergy Verified 05/30/21 06:16 Surgical History (Updated 05/17/21 @ 15:25 by Nichelle Ling) History of ankle surgery History of carpal tunnel surgery of left wrist History of carpal tunnel surgery of right wrist History of cystoscopy History of esophagogastroduodenoscopy (EGD) History of lumbar fusion Hx of appendectomy Hx of myringotomy Hx of repair of left rotator cuff Hx of tonsillectomy Social History Smoking Status: Never smoker ROS ROS Narrative Negative unless otherwise noted in HPI. Vital Signs Vital Signs Vital Signs: 05/30/21 16:01 05/30/21 16:15 05/30/21 16:30 Temperature 98.3 F Temperature Source Temporal Pulse Rate 83 84 86 Pulse Strength Respiratory Rate 18 28 H 20 H Respiratory Effort Respiratory Depth Respiratory Pattern Normal Blood Pressure 115/63 128/75 H 136/85 H Blood Pressure Mean 80 92 102 Blood Pressure Source Monitor Monitor Monitor Blood Pressure Position Semi-Fowlers Semi-Fowlers Semi-Fowlers Blood Pressure Location Left Arm Left Arm Left Arm Baseline BP 154/87 154/87 154/87 Pulse Ox 94 92 88 Oxygen Delivery Method Simple Mask Nasal Cannula Nasal Cannula Oxygen Flow Rate (L/min) 10 6 6 05/30/21 16:45 05/30/21 17:00 05/30/21 17:15 Temperature Temperature Source Pulse Rate 89 88 91 Pulse Strength Respiratory Rate 22 H 18 20 H Respiratory Effort Respiratory Depth Respiratory Pattern Blood Pressure 134/83 H 139/86 H 137/83 H Blood Pressure Mean 100 103 101 Blood Pressure Source Monitor Monitor Monitor Blood Pressure Position Semi-Fowlers Semi-Fowlers Semi-Fowlers Blood Pressure Location Left Arm Left Arm Left Arm Baseline BP 154/87 154/87 154/87 Pulse Ox 93 90 88 Oxygen Delivery Method Nasal Cannula CPAP CPAP Oxygen Flow Rate (L/min) 6 05/30/21 17:30 05/30/21 17:45 05/30/21 18:00 Temperature Temperature Source Pulse Rate 94 90 Pulse Strength Respiratory Rate 20 H 20 H 20 H Respiratory Effort Respiratory Depth Respiratory Pattern Blood Pressure 153/86 H 147/90 H 145/83 H Blood Pressure Mean 108 109 103 Blood Pressure Source Monitor Monitor Monitor Blood Pressure Position Semi-Fowlers Semi-Fowlers Semi-Fowlers Blood Pressure Location Left Arm Left Arm Left Arm Baseline BP 154/87 154/87 154/87 Pulse Ox 92 93 91 Oxygen Delivery Method CPAP CPAP Nasal Cannula Oxygen Flow Rate (L/min) 4 4 4 05/30/21 18:15 05/30/21 18:30 05/30/21 18:45 Temperature 97.4 F L Temperature Source Temporal Pulse Rate 95 99 103 H Pulse Strength Respiratory Rate 24 H 20 H 20 H Respiratory Effort Respiratory Depth Respiratory Pattern Blood Pressure 139/82 H 134/87 H 138/75 H Blood Pressure Mean 101 102 96 Blood Pressure Source Monitor Monitor Monitor Blood Pressure Position Semi-Fowlers Semi-Fowlers Semi-Fowlers Blood Pressure Location Left Arm Left Arm Left Arm Baseline BP 154/87 154/87 154/87 Pulse Ox 93 94 93 Oxygen Delivery Method Nasal Cannula Nasal Cannula Nasal Cannula Oxygen Flow Rate (L/min) 4 4 4 05/30/21 19:00 05/30/21 19:15 05/30/21 20:04 Temperature 98.4 F Temperature Source Oral Pulse Rate 95 109 H Pulse Strength Respiratory Rate 18 18 Respiratory Effort Normal Respiratory Depth Normal Respiratory Pattern Normal Blood Pressure 140/78 H 139/91 H Blood Pressure Mean 98 107 Blood Pressure Source Monitor Monitor Blood Pressure Position Left Lateral Left Lateral Blood Pressure Location Right Arm Left Forearm Baseline BP 154/87 154/87 Pulse Ox 93 93 Oxygen Delivery Method CPAP Nasal Cannula Oxygen Flow Rate (L/min) 4 4 05/30/21 20:41 05/30/21 21:24 05/30/21 22:03 Temperature Temperature Source Pulse Rate 109 H Pulse Strength Normal (2+) Respiratory Rate Respiratory Effort Respiratory Depth Respiratory Pattern Blood Pressure Blood Pressure Mean Blood Pressure Source Blood Pressure Position Blood Pressure Location Baseline BP Pulse Ox 92 Oxygen Delivery Method CPAP Oxygen Flow Rate (L/min) 3 05/30/21 22:10 05/31/21 00:03 05/31/21 00:04 Temperature 98.1 F 100.7 F H 98.7 F Temperature Source Oral Axillary Oral Pulse Rate 103 H 113 H Pulse Strength Respiratory Rate 18 18 Respiratory Effort Respiratory Depth Respiratory Pattern Blood Pressure 153/93 H 146/100 H Blood Pressure Mean 113 115 Blood Pressure Source Monitor Monitor Blood Pressure Position Semi-Fowlers Semi-Fowlers Blood Pressure Location Left Arm Left Arm Baseline BP Pulse Ox 91 94 Oxygen Delivery Method Room Air Room Air Oxygen Flow Rate (L/min) 05/31/21 00:27 05/31/21 02:01 05/31/21 04:00 Temperature 97.7 F L Temperature Source Oral Pulse Rate 100 113 H 111 H Pulse Strength Respiratory Rate 18 Respiratory Effort Respiratory Depth Respiratory Pattern Blood Pressure 147/98 H Blood Pressure Mean 114 Blood Pressure Source Monitor Blood Pressure Position Sitting Blood Pressure Location Left Arm Baseline BP Pulse Ox 91 96 Oxygen Delivery Method CPAP Nasal Cannula Oxygen Flow Rate (L/min) 4 3 05/31/21 07:55 05/31/21 08:30 05/31/21 12:20 Temperature 97.6 F L 99.0 F Temperature Source Oral Temporal Pulse Rate 112 H 107 H Pulse Strength Respiratory Rate 16 20 H Respiratory Effort Respiratory Depth Respiratory Pattern Blood Pressure 166/107 H 137/86 H Blood Pressure Mean 126 103 Blood Pressure Source Monitor Monitor Blood Pressure Position Semi-Fowlers Sitting Blood Pressure Location Left Arm Left Arm Baseline BP Pulse Ox 94 92 Oxygen Delivery Method Nasal Cannula Nasal Cannula Nasal Cannula Oxygen Flow Rate (L/min) 3 2 2 Weight Weight: 325 lb 2.909 oz Body Mass Index (BMI) 43.1 Physical Exam Narrative General-alert and oriented x3, appears uncomfortable Respiratory -normal work of breathing, no intercostal retractions. CV -pulses regular, brisk capillary refill ?4 limbs. Abdomen-soft, nontender, nondistended. No guarding, rigidity, rebound tenderness. Musculoskeletal/neurologic -tenderness palpation along the entirety of the anterior compartments bilaterally. Soft tissue swelling is noted. Compartments are firm. DF, PF, EHL intact. DP, PT 2+. Skin of the lower extremities is intact without lacerations, abrasions. No ecchymosis noted. Sensation is intact to light touch throughout all dermatomes of the lower extremities. Pain with passive stretch of the quads bilaterally. Lab / Micro Data Result Diagrams: 05/31/21 06:32 05/31/21 06:32 Labs: Laboratory Results - last 24 hr 05/31/21 06:32: WBC 17.6 H, RBC 4.70, Hgb 14.9, Hct 44.3, MCV 94.3 H, MCH 31.7, MCHC 33.6, RDW Std Deviation 46.3 H, RDW Coeff of Ambrose 13.2, Plt Count 170, MPV 9.2, Immature Gran % (Auto) 0.500, Neut % (Auto) 84.5 H, Lymph % (Auto) 5.4 L, [place] % (Auto) 9.3, Eos % (Auto) 0.1, Baso % (Auto) 0.2, Absolute Neuts (auto) 14.9 H, Absolute Lymphs (auto) 0.95, Nucleated RBC % 0, Diff Path Review October05/31/21 06:32: Sodium 134 L, Potassium 4.5, Chloride 100, Carbon Dioxide 23.0, Anion Gap 11, BUN 19 H, Creatinine 1.85 H, Estim Creat Clear Calc 53.02, Est GFR (MDRD) Af Amer 50 L, Est GFR (MDRD) Non-Af 41 L, BUN/Creatinine Ratio 10.3, Glucose 190 H, Calcium 8.0 L 05/31/21 06:32: Total Creatine Kinase 84048 H Radiology Impression Lumbar Spine X-Ray 05/30/21 07:30 IMPRESSION: Intraoperative fluoroscopy. Please refer to operative report for details. Electronically Signed: Andre Queen MD at 16:59 EST Tel , Service support , Assessment & Plan Assessment/Plan (1) Compartment syndrome of both lower extremities due to exertion: PLAN: Patient's exam is consistent with bilateral anterior compartment compartment syndrome. Plan to proceed with emergent anterior compartment fasciotomies. The risks, benefits, terms of the procedure reviewed with patient at length and he agreed to proceed. Further recommendations pending surgery.
--- NOTE | 2021-05-31 13:36 | WOUNDNOTE ---
Received a call from Dr Kilpatrick about plan for bilateral thigh fasciotomy d/t compartment syndrome. plan is for wound VAC placement in the OR and hoping for discharge home tomorrow with the wound VAC and home health for VAC changes. the wound VAC authorization form initiated. discussed with MARISA Hutchinson CM as well who will start working on finding a home health agency.
--- NOTE | 2021-05-31 14:28 | OP.PCM_ITS ---
Report of Operation Date of Procedure: 05/31/21 Description of Surgical Findings:: Preoperative diagnosis: Bilateral anterior thigh compartment syndrome Postoperative diagnosis: Bilateral anterior thigh compartment syndrome Procedure: Bilateral anterior compartment fasciotomy with application of bilateral wound vacs Primary Surgeon: Jaison Omalley DO Cosurgeon: Huy Kilpatrick DO EBL: 50 cc IV fluids: 300 cc crystalloid Urine output: 200 emptied from Torres catheter Implants: None Complications: None apparent Specimen: None Packing/drains: Wound VAC black sponge bilateral lateral thighs Intraoperative findings: Bilateral anterior compartment compartment syndrome with contractile quadriceps musculature. Herniation of muscle past the skin after fascia release. Preoperative indications: This was an emergent consult from my partner Dr. Kilpatrick after a routine multilevel spinal surgery where he is in the prone position yesterday. Patient had exquisite pain and tenderness in his anterior thighs as well as profound swelling noted this morning. There is concern for compartment syndrome. Dr. Kilpatrick attempted to transfer the patient but was unable to in a timely fashion. He elected to proceed with emergent anterior compartment fasciotomies of bilateral thighs. Due to lack of privileges for fasciotomies, Dr. Tong contacted me to be involved in patient's care. I saw the patient in the preoperative holding area prior to the fasciotomies. At time of examination he was noting severe pain in the anterior thighs which was not present prior to surgery. He notes some numbness and tingling in both feet, noted some right lower extremity paresthesias prior to surgery. His exam was consistent with bilateral anterior thigh compartment syndrome. I recommended bilateral anterior compartment thigh fasciotomies with application wound vacs. The risks, benefits, and alternatives to procedure reviewed with patient at length he agreed to proceed. Risks included but were not limited to bleeding, infection, loss of life or limb, need for additional surgery, necrotic muscle tissue, rhabdomyolysis, neurovascular injury, nonhealing wounds, need for reconstructive soft tissue procedures, persistent pain. Patient expressed understands risks and wished to proceed with surgery. He also expressed understanding of the emergent nature of his conditions. Description of procedure: Patient was identified in the preoperative holding area where I perform my consultation. Informed consent was obtained. All questions were answered to patient satisfaction. His bilateral thighs were marked with a surgical marker. He was then brought to the operative suite and positioned supine on a standard operating table. Prior to transferring the patient to the table for pain control, he was induced with anesthesia and intubated successfully. After securing the tube, he was transferred to a stand ebatris operating table with all bony prominences well-padded. I performed a anal examination under anesthesia which confirmed my concern for compartment syndrome of both anterior compartments. His medial and posterior compartments of his thigh were soft. We then prepped and draped bilateral thighs in a normal, sterile orthopedic fashion. We performed a timeout with all parties in attendance in agreement with the sides, sites, and operations to be performed. No concerns were voiced and we elected to proceed with surgery. 3 g Ancef was administered prior to the incision by the anesthesia staff. Working simultaneously to expedite the procedure, Dr. Kilpatrick and myself made incisions on the lateral aspect of the thighs approximately 20 cm in length. Skin was sharply incised with 10 blade scalpel. Superficial hemostasis obtained with Bovie cautery. The anterior compartment fascia was then encountered and noted to be bulging. The fascia was released sharply and immediate herniation of the muscle past the skin edge was noted from the anterior compartment. The muscle appeared to be well perfused, normal red color, and contractile. Using Metzenbaum scissors the fascia was subsequently released proximal and distal to the skin incisions approximately another 10 cm in each direction. The anterior compartment was then palpated through the anterior skin and felt to be much softer. There was some bowstringing of the anterior posterior edges of the fascia. We performed perpendicular relief cuts in the fascia approximately 2 cm in either direction, which further relieve pressure in the compartment. We bluntly dissected with her fingers across the anterior compartment freeing any intracompartmental adhesions. Wounds were then copiously irrigated with normal saline solution. A black sponge wound VAC was placed over top of the vastus lateralis musculature and secured down with Bioclusive dressings in standard fashion for application of the wound VAC. The wound VAC was then attached to suction at 125 mmHg continuous. Anesthesia was then reversed. Patient was safely extubated in the operative suite and transferred to his hospital bed in stable condition.
--- NOTE | 2021-05-31 14:48 | PN.ORTHO_ITS ---
Subjective Subjective The patient was seen and examined postop in the PACU. He is resting comfortably. He states the pain in his thighs has improved significantly. He denies any other complaints at this time. Objective Data Objective Data Vital Signs: Vital Signs Temp Pulse Resp BP Pulse Ox 99.0 F 107 H 20 H 137/86 H 92 05/31/21 12:20 05/31/21 12:20 05/31/21 12:20 05/31/21 12:20 05/31/21 12:20 Oxygen Flow Rate (L/min) 2 Oxygen Delivery Method Nasal Cannula Weight: 325 lb 2.909 oz Body Mass Index (BMI) 43.1 Intake & Output: Intake and Output for Last 24 Hours 05/29/21 05/30/21 05/31/21 23:59 23:59 23:59 Intake Total 4165 / 4815 3365 / 3365 Output Total 650 / 1250 2710 / 2710 Balance 3515 / 3565 655 / 655 Lab / Micro Data Result Diagrams: 05/31/21 06:32 05/31/21 06:32 Labs: Laboratory Results - last 24 hr 05/31/21 06:32: WBC 17.6 H, RBC 4.70, Hgb 14.9, Hct 44.3, MCV 94.3 H, MCH 31.7, MCHC 33.6, RDW Std Deviation 46.3 H, RDW Coeff of Ambrose 13.2, Plt Count 170, MPV 9.2, Immature Gran % (Auto) 0.500, Neut % (Auto) 84.5 H, Lymph % (Auto) 5.4 L, [place] % (Auto) 9.3, Eos % (Auto) 0.1, Baso % (Auto) 0.2, Absolute Neuts (auto) 14.9 H, Absolute Lymphs (auto) 0.95, Nucleated RBC % 0, Diff Path Review October05/31/21 06:32: Sodium 134 L, Potassium 4.5, Chloride 100, Carbon Dioxide 23.0, Anion Gap 11, BUN 19 H, Creatinine 1.85 H, Estim Creat Clear Calc 53.02, Est GFR (MDRD) Af Amer 50 L, Est GFR (MDRD) Non-Af 41 L, BUN/Creatinine Ratio 10.3, Glucose 190 H, Calcium 8.0 L 05/31/21 06:32: Total Creatine Kinase 85500 H Radiography Diagnostic Testing: Radiology Impression Lumbar Spine X-Ray 05/30/21 07:30 IMPRESSION: Intraoperative fluoroscopy. Please refer to operative report for details. Electronically Signed: Andre Queen MD at 16:59 EST Tel , Service support , Physical Exam Const alert, oriented x3 and no apparent distress General Appearance: cooperative and comfortable HEENT HEENT Narrative: Small superficial blister on the anterior chin below the bottom lip Head and Scalp: normal to inspection Eyes EOMs intact bilaterally and conjunctivae normal Neck full ROM Resp normal respiratory effort and normal air movement Cardio regular rate and regular rhythm Peripheral Pulses: pulses 2+ throughout GI soft to palpation, non-tender and non-distended Back/Spine Back/Spine Narrative: Back dressing clean dry and intact. Bilateral lower extremity wound vacs in place and functioning Cervical Spine: cervical ROM normal Thoracic Spine / Upper Back: normal to inspection Lumbar Spine / Lower Back: normal to inspection Extremity normal to inspection, full ROM, normal capillary refill, no clubbing, cyanosis or edema and no calf tenderness Peripheral Pulses: Yes pulses 2+ throughout Skin no rashes or lesions noted General Skin Exam: no breakdown Neuro oriented x3, CN's II-XII intact bilaterally, moves all extremities, no focal motor deficits and deep tendon reflexes 2+ bilaterally Neuro Narrative: Patient does have global decreased sensation in the right upper extremity consistent with preop exam, no significant weakness. Left upper extremity shows sensation and motor intact grossly without focal defi cit. Bilateral lower extremity shows mild tingling in the bilateral lateral thighs. 4 out of 5 strength in hip flexion and knee extension bilaterally. 5 out of 5 strength in ankle dorsiflexion, EHL, plantar flexion bilaterally Motor Exam: muscle tone normal throughout Assessment & Plan Assessment/Plan (1) Compartment syndrome of both lower extremities due to exertion: PLAN: Okay to transfer back to floor Continue preop orders Wound care nurse consulted for discharge planning, likely home health care for wound VAC changes Plan for discharge home to follow-up with Dr. Kilpatrick next week (2) Lumbar stenosis:
--- NOTE | 2021-05-31 15:34 | CASEMGMT ---
Addendum entered by Jasper Cobb 05/31/21 17:08: Pt has arrived to room from surgery. @ bedside. RN CM to room to discuss discharge planning. Pt states wishes to return home and pt and are agreeable to HHC. They were made aware of HHC staffing issues and many are unable to accept, but still are awaiting response back from [facility]. , Luz, states their's daughter's boyfriends mother is a nurse (her name is Gabi Acosta) and she used to be a wound nurse and has experience w/wound vac's and has offered to assist them, if needed. Addendum entered by Jasper Cobb 05/31/21 15:58: TC back from Nichelle @ [facility]--they do not service pt's area. Addendum entered by Jasper Cobb 05/31/21 15:41: Referral packet faxed to [facility]. Spoke w/Jackie @ [facility]--she was made aware anticipate d/c tomorrow and SOC to be Fri or Sat as next wound vac change will be due at that time. Original Note: RN JOYCE NOTE: Per wound nurse, Lissy, wound vac to be applied today and plan is for discharge home tomorrow. Pt will need HHC. Call placed to the following agencies and none of them are able to accept d/t staffing: [facility], [facility], [facility], [facility], [facility], [facility], [facility], [facility], [facility], [facility], and [facility]. Call placed to [facility]--they are not able to accept d/t not currently taking [place]. VM left w/[facility]--awaiting call back. TC to [facility] and referral packet faxed--awaiting response. Jesi JOHNSONN MARISA COOK
[2021-05-31 15:46] LABS: Pathologist Review Reviewed
[2021-05-31] MEDS: dexAMETHasone 4 MG/ML Vial 6 MG IV ×2 (17:33→23:49)
[2021-05-31 17:48] LABS: Anion Gap 7 (5-15); BUN 21 mg/dL (7-18); Calcium,Total 8.3 mg/dL (8.5-10.1); Chloride 102 mmol/L (98-107); Creatinine, Serum 1.91 mg/dL (0.70-1.30); EST Glomerular Filtration Rate 40 mL/min (>60); Est Glom Filt Rate - Afr Amer 48 mL/min (>60); Estimated Creatinine Clearance 51.35 ml/min; Glucose 172 mg/dL (74-106); Potassium 4.7 mmol/L (3.5-5.1); Sodium Level 136 mmol/L (136-145)
[2021-05-31] MEDS: 0.9% Normal Saline 1,000 ML 150 ML IV (20:18)
[2021-06-01] VITALS (9 sets, daily range): BP systolic 131–146; BP diastolic 68–89; PULSE 85–104; RESP 16–18; TEMP 36.5–37.2; O2SAT 91–96
[2021-06-01] MEDS: HYDROmorphone 1 MG/ML Syringe IV ×4 (02:50→15:31)
[2021-06-01] MEDS: 0.9% Saline Lock 10 ML Syringe IV ×2 (02:51→06:08)
[2021-06-01] MEDS: 0.9% Normal Saline 1,000 ML 150 ML IV ×4 (02:53→23:07)
[2021-06-01 06:00] LABS: Absolute Lymphocyte Count 0.78 X10^3/uL (0.83-4.51); Absolute Neutrophil Count 17.8 X10^3/uL (2.0-7.7); Basophil# 0.02 X10^3/uL; Basophil% 0.1 % (0-1); Hematocrit 37.6 % (40-54); Hemoglobin 12.5 g/dL (13.0-16.5); Lymphocyte # 0.78 X10^3/ul (0.83-4.51); Lymphocyte % 3.8 % (19-41); Mean Corp Hgb Conc 33.2 g/dL (32-36); Mean Corpuscular Hgb 31.4 pg (27.0-32.0); Mean Corpuscular Volume 94.5 fL (80-94); Mean Platelet Vol. 9.2 fl (6.2-12.0); Monocyte# 1.58 X10^3/uL; Monocyte% 7.8 % (0-10); NRBC Flagged by Analyzer 0 % (0-5); Neutrophil # 17.77 X10^3/uL (2.7-7.7); Neutrophil % 87.6 % (47-70); POSITIVE DIFFERENTIAL YES; Platelet Count 137 K/mm3 (150-450); RBC Distribution Width CV 13.2 % (11.6-14.6); RBC Distribution Width SD 45.3 fl (35.1-43.9); Red Blood Count 3.98 M/mm3 (4.6-6.2); White Blood Count 20.3 K/mm3 (4.4-11.0)
[2021-06-01 06:01] LABS: Differential Indicated SCAN CRITERIA MET
[2021-06-01] MEDS: dexAMETHasone 4 MG/ML Vial 6 MG IV ×4 (06:07→23:06)
[2021-06-01 06:51] LABS: ALB/GLOB Ratio 0.6 RATIO (0.9-2.4); AST(SGOT) 905 U/L (15-37); Alanine Aminotransfer ALT/SGPT 869 U/L (16-61); Albumin, Serum 2.2 g/dL (3.2-5.0); Alkaline Phosphatase 93 U/L (45-117); Anion Gap 5 (5-15); BUN 23 mg/dL (7-18); BUN/Creat Ratio 14.4 RATIO (10-20); Calcium,Total 8.3 mg/dL (8.5-10.1); Chloride 105 mmol/L (98-107); EST Glomerular Filtration Rate 49 mL/min (>60); Est Glom Filt Rate - Afr Amer 59 mL/min (>60); Globulin 3.5 g/dL (2.2-4.2); Glucose 169 mg/dL (74-106); Potassium 4.8 mmol/L (3.5-5.1); Protein, Total 5.7 g/dL (6.4-8.2); Sodium Level 136 mmol/L (136-145)
--- NOTE | 2021-06-01 07:14 | PCM.PN.ORT ---
Subjective Subjective The patient was seen and examined. He is postop day 1 status post bilateral thigh fasciotomies, and postop day 2 status post revision lumbar fusion. He is doing well. He is in bed resting comfortably. His pain in the legs has improved dramatically since his fasciotomies. 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 He has not yet been up and walking with physical therapy. Objective Data Objective Data Vital Signs: Vital Signs Temp Pulse Resp BP Pulse Ox 98.9 F 85 18 131/72 H 93 06/01/21 06:17 06/01/21 06:17 06/01/21 06:17 06/01/21 06:17 06/01/21 06:17 Oxygen Flow Rate (L/min) 3 Oxygen Delivery Method Room Air Weight: 328 lb 7.82 oz Body Mass Index (BMI) 43.1 Intake & Output: Intake and Output for Last 24 Hours 05/30/21 05/31/21 06/01/21 23:59 23:59 23:59 Intake Total 4165 / 4815 5035 / 5435 2107.5 / 2107.5 Output Total 650 / 1250 2960 / 3885 1775 / 1775 Balance 3515 / 3565 2075 / 1550 332.5 / 332.5 Lab / Micro Data Result Diagrams: 06/01/21 05:36 06/01/21 05:36 Labs: Laboratory Results - last 24 hr 05/31/21 06:32: Diff Path Review Reviewed 05/31/21 06:32: Sodium 134 L, Potassium 4.5, Chloride 100, Carbon Dioxide 23.0, Anion Gap 11, BUN 19 H, Creatinine 1.85 H, Estim Creat Clear Calc 53.02, Est GFR (MDRD) Af Amer 50 L, Est GFR (MDRD) Non-Af 41 L, BUN/Creatinine Ratio 10.3, Glucose 190 H, Calcium 8.0 L 05/31/21 06:32: Total Creatine Kinase 95545 H 05/31/21 17:30: Sodium 136, Potassium 4.7, Chloride 102, Carbon Dioxide 27.0, Anion Gap 7, BUN 21 H, Creatinine 1.91 H, Estim Creat Clear Calc 51.35, Est GFR (MDRD) Af Amer 48 L, Est GFR (MDRD) Non-Af 40 L, BUN/Creatinine Ratio 11.0, Glucose 172 H, Calcium 8.3 L 06/01/21 05:36: WBC 20.3 H, RBC 3.98 L, Hgb 12.5 L, Hct 37.6 L, MCV 94.5 H, MCH 31.4, MCHC 33.2, RDW Std Deviation 45.3 H, RDW Coeff of [place] 13.2, Plt Count 137 L, MPV 9.2, Immature Gran % (Auto) 0.700, Neut % (Auto) 87.6 H, Lymph % (Auto) 3.8 L, [place] % (Auto) 7.8, Eos % (Auto) 0.0, Baso % (Auto) 0.1, Absolute Neuts (auto) 17.8 H, Absolute Lymphs (auto) 0.78 L, Nucleated RBC % 0, Diff Path Review October06/01/21 05:36: Sodium 136, Potassium 4.8, Chloride 105, Carbon Dioxide 26.0, Anion Gap 5, BUN 23 H, Creatinine 1.60 H, Estim Creat Clear Calc 61.30, Est GFR (MDRD) Af Amer 59 L, Est GFR (MDRD) Non-Af 49 L, BUN/Creatinine Ratio 14.4, Glucose 169 H, Calcium 8.3 L, Magnesium 2.0, Total Bilirubin 0.60, AST 905 H, ALT 869 H, Alkaline Phosphatase 93, Total Protein 5.7 L, Albumin 2.2 L, Globulin 3.5, Albumin/Globulin Ratio 0.6 L Physical Exam Const alert, oriented x3 and no apparent distress General Appearance: cooperative and comfortable HEENT HEENT Narrative: Superficial blister noted to the anterior chin Eyes EOMs intact bilaterally and conjunctivae normal Neck full ROM General: normal visual inspection Chest inspection of chest normal Chest Narrative: Area of superficial ecchymosis and tenderness to the upper chest has mostly resolved Resp normal respiratory effort and normal air movement Cardio regular rate and regular rhythm GI soft to palpation, non-tender and non-distended Back/Spine Back/Spine Narrative: Back dressing clean dry and intact. Bilateral lower extremity wound vacs in place and functioning Cervical Spine: cervical ROM normal Lumbar Spine / Lower Back: normal to inspection Extremity Extremity Narrative: Examination of the right upper extremity shows some decrease sensation in the right ulnar hand, ring and small fingers. 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 Sensation in the remainder of the right upper extremity is within normal limits. Motor function is functionally intact and the remainder of the upper extremity Examination of the left upper extremity shows sensation and motor intact grossly without focal deficits. Examination of the bilateral lower extremity shows bilateral wound vacs applied to the lateral thighs which are in place and functioning properly. The patient has mild tenderness of the anterior thighs. Sensation intact grossly without focal deficits. 3+ out of 5 strength in hip flexion and knee extension. 5 out of 5 strength in ankle dorsiflexion and plantar flexion and EHL function. Thigh compartments are soft and supple bilaterally. Peripheral Pulses: Yes pulses 2+ throughout Skin no rashes or lesions noted General Skin Exam: no breakdown Neuro oriented x3, CN's II-XII intact bilaterally and deep tendon reflexes 2+ bilaterally Assessment & Plan Assessment/Plan (1) Compartment syndrome of both lower extremities due to exertion: PLAN: Keep wound vacs intact and functioning on continuous at 125 mmHg (2) Lumbar stenosis: PLAN: Daily dressing changes to the back with iodine to incision. Back brace on at all times. Mobilize with physical therapy Continue pain control Okay to discontinue Torres catheter Plan for discharge once pain is controlled and patient is mobilizing independently
--- NOTE | 2021-06-01 08:11 | PN.HOSP_ITS ---
Subjective Subjective Patient had bilateral anterior thigh compartment fasciectomy with application of bilateral wound vacs for bilateral anterior thigh compartment syndrome yesterday done as emergent surgery. Earlier there is plan to transfer the patient but could not get that in a timely fashion therefore emergent surgery was done. Objective Data Objective Data Vital Signs: Vital Signs Temp Pulse Resp BP Pulse Ox 98.9 F 85 18 131/72 H 93 06/01/21 06:17 06/01/21 06:17 06/01/21 06:17 06/01/21 06:17 06/01/21 06:17 Oxygen Flow Rate (L/min) 3 Oxygen Delivery Method Room Air Weight: 328 lb 7.82 oz Body Mass Index (BMI) 43.1 Intake & Output: Intake and Output for Last 24 Hours 05/30/21 05/31/21 06/01/21 23:59 23:59 23:59 Intake Total 4165 / 4815 5035 / 5435 2107.5 / 2107.5 Output Total 650 / 1250 2960 / 3885 1775 / 1775 Balance 3515 / 3565 2075 / 1550 332.5 / 332.5 Lab / Micro Data Result Diagrams: 06/01/21 05:36 06/01/21 05:36 Labs: Laboratory Results - last 24 hr 05/31/21 06:32: Diff Path Review Reviewed 05/31/21 06:32: Total Creatine Kinase 32193 H 05/31/21 17:30: Sodium 136, Potassium 4.7, Chloride 102, Carbon Dioxide 27.0, Anion Gap 7, BUN 21 H, Creatinine 1.91 H, Estim Creat Clear Calc 51.35, Est GFR (MDRD) Af Amer 48 L, Est GFR (MDRD) Non-Af 40 L, BUN/Creatinine Ratio 11.0, Glucose 172 H, Calcium 8.3 L 06/01/21 05:36: WBC 20.3 H, RBC 3.98 L, Hgb 12.5 L, Hct 37.6 L, MCV 94.5 H, MCH 31.4, MCHC 33.2, RDW Std Deviation 45.3 H, RDW Coeff of [place] 13.2, Plt Count 137 L, MPV 9.2, Immature Gran % (Auto) 0.700, Neut % (Auto) 87.6 H, Lymph % (Auto) 3.8 L, [place] % (Auto) 7.8, Eos % (Auto) 0.0, Baso % (Auto) 0.1, Absolute Neuts (auto) 17.8 H, Absolute Lymphs (auto) 0.78 L, Nucleated RBC % 0, Diff Path Review October06/01/21 05:36: Sodium 136, Potassium 4.8, Chloride 105, Carbon Dioxide 26.0, Anion Gap 5, BUN 23 H, Creatinine 1.60 H, Estim Creat Clear Calc 61.30, Est GFR (MDRD) Af Amer 59 L, Est GFR (MDRD) Non-Af 49 L, BUN/Creatinine Ratio 14.4, Glucose 169 H, Calcium 8.3 L, Magnesium 2.0, Total Bilirubin 0.60, AST 905 H, ALT 869 H, Alkaline Phosphatase 93, Total Protein 5.7 L, Albumin 2.2 L, Globulin 3.5, Albumin/Globulin Ratio 0.6 L Physical Exam Narrative General: Alert, Oriented x3, Cooperative in severe pain HEENT: Atraumatic, PERRLA, EOMI, Normocephalic Oral: No Gingival or Mucosal Lesions/ Ulcerations Neck: Supple, No JVD, Negative Carotid Bruits Lungs: Air entry diminished in bilateral lung bases. On CPAP no crepitation/rhonchi Cardiovascular: Regular rate, Regular Rhythm, Normal S1, Normal S2, No murmurs Abdomen: Bowel Sounds sluggish, soft, Non Tender, nondistended : No renal angle tenderness. No suprapubic tenderness. Extremities: Mild edema of lower legs Skin: Mild erythema over abdomen. Mostly tender resolved Musculoskeletal: Bilateral fasciectomy with wound VAC. Ankle and toe extension 4+/5. Did not perform quadriceps muscle testing. Neurological: Cranial nerves II-XII grossly intact, tingling sensation over feet otherwise better than yesterday Psych/Mental Status: Flat affect. Assessment & Plan Assessment/Plan (1) Lumbar stenosis: (2) Paresthesia of right upper extremity: PLAN: Lumbar stenosis status post L4-L5 posterior lumbar interbody fusion with allograft and bilateral laminectomies, for an at the knees, facetectomies and decompression/pedicle screw fixation/hardware removal from L5-S1: Discussed with the surgeon Dr. Kilpatrick today. Patient has symptoms complex of compartment syndrome with severe pain in thighs, paresthesia but toes and feet and erythematous patch over thigh and central abdomen on point of contact during surgery. CK is ordered but results pending. Dr. Kilpatrick has already talked to accepting physician for evaluation for compartment syndrome. Patient has been on prone position, right upper Leslee as he was on prone position for extended period of time during surgery. Patient also has low-grade fever, T-max 100.7 Fahrenheit with leukocytosis with left shift. On IV cefazolin. 06/01: Patient had bilateral anterior thigh fasciectomy with wound VAC for bilateral thigh compartment syndrome with neurological symptoms. Pain improved after fasciectomy. Currently neurovascular system is intact. Seen by Ortho and orthospine surgeon. hypertension and ANA: Serial creatinine is getting better. Lisinopril dose was decreased. Continue amlodipine Rhabdomyolysis: CK, ALT and AST are elevated. Magnesium level normal.. Serum phosphorus ordered GERD -Continue PPI asthma: On Singulair Symbicort and as needed albuterol FEDE -Continue home CPAP -O2 bleed as needed Morbid obesity -BMI is 43.1 -Complicates overall treatment, prognosis, outcomes DVT prophylaxis As per primary service. Pharmacological prophylaxis recommended depending on risk/benefit evaluation Charges/Coding Visit Charges Inpatient E&M: 52891 Subs Hosp L2
[2021-06-01 08:53] LABS: CPK Total, Creatine Kinase 14781 U/L (39-308)
[2021-06-01] MEDS: Polyethylene Glycol 3350 17 GM PACKET PO (09:14)
[2021-06-01] MEDS: amLODIPine 10 MG Tablet PO (09:15)
[2021-06-01] MEDS: Pantoprazole Sodium 40 MG Tablet PO (09:15)
--- NOTE | 2021-06-01 09:39 | CASEMGMT ---
MARISA COOK received call from Alfredo at [facility] that they are able to accept the patient with anticipated start of care for Saturday06/02/21. MARISA COOK updated Dr. Kilpatrick regarding [facility] setup. Dr Kilpatrick stated that patient is requiring assistance with ambulation and will not discharge today. Per Dr. Kilpatrick patient may discharge over the weekend and return Saturday to go back to OR for wound closure. MARISA COOK updated Alfredo at [facility] regarding possible discharge over the weekend and planned start of care for Saturday. MARISA COOK updated chargeback specialist regarding plan. MARISA COOK updated patient and , no questions or concerns at this time.
[2021-06-01 09:40] LABS: Phosphorus 2.8 mg/dL (2.5-4.9)
[2021-06-01] MEDS: oxyCODONE 5 MG Tablet PO ×3 (11:02→23:06)
[2021-06-01] MEDS: Lisinopril 10 MG Tablet PO (11:03)
--- NOTE | 2021-06-01 12:01 | WOUNDNOTE ---
wound photo: chin
--- NOTE | 2021-06-01 12:01 | WOUNDNOTE ---
wound photo: chest
--- NOTE | 2021-06-01 13:25 | CASEMGMT ---
RN CM in to discuss with patient and had any further needs at discharge. states that patient has walker at home and decline further DME needs at discharge. Green sheet placed on chart for [facility] at discharge. CM will continue to follow this patient and plan for safe discharge.
[2021-06-01 13:48] LABS: Pathologist Review Reviewed
[2021-06-02 03:54] VITALS: BP 135/78; PULSE 84; RESP 16; TEMP 36.6; O2SAT 92
[2021-06-02] MEDS: oxyCODONE 5 MG Tablet PO ×5 (04:09→21:42)
[2021-06-02] MEDS: 0.9% Normal Saline 1,000 ML 150 ML IV ×4 (04:12→23:47)
[2021-06-02] MEDS: dexAMETHasone 4 MG/ML Vial 6 MG IV ×4 (06:05→23:46)
--- NOTE | 2021-06-02 06:31 | PCM.DC.SUM ---
Providers Date of Admission: 05/30/21 Primary Care Physician: Dr. Rainer Mills, DO Consultations 05/30/21 16:00 Consult: Hospitalist Routine Consulting Provider: Lilia Alexis Reason for Consult: Medical Management EMERGENT Consult: No MD Notified: Yes Date Notified: 05/30/21 Time Notified: 07:11 Method of Notification: Text Comments:: Dr Boateng Called this nurse to discuss patient. Reason For Visit: LUMBAR 4 LAMINECTOMY DECOMPRESSION L4-5..... Diagnosis Discharge Diagnosis (1) Lumbar stenosis: Status: Acute Code(s): M48.061 - Spinal stenosis, lumbar region without neurogenic claudication (2) Paresthesia of right upper extremity: Status: Acute Code(s): R20.2 - Paresthesia of skin (3) Compartment syndrome of both lower extremities due to exertion: Status: Acute Code(s): M79.A21 - Nontraumatic compartment syndrome of right lower extremity; M79.A22 - Nontraumatic compartment syndrome of left lower extremity Medications at Discharge Home Medications albuterol sulfate 1 puff INHALATION Q6H PRN 05/17/21 amlodipine-benazepril 1 cap PO DAILY 05/17/21 budesonide-formoterol [Symbicort] 2 puff INHALATION BID 05/17/21 montelukast [Singulair] 10 mg PO DAILY 05/17/21 multivitamin 1 cap PO DAILY 05/17/21 omeprazole 40 mg PO DAILY 05/17/21 hydrocodone-acetaminophen 1 tab PO Q6H 7 Days #28 tab 05/30/21 Hospital Course Operations - (1. L4-5 decompression, posterior lumbar interbody fusion, revision lumbar fusion L4-S1. 2. Bilateral thigh fasciotomies) Summary of Care Provided Hospital Course: The patient is a 50-year-old male who underwent L4-5 decompression, posterior lumbar interbody fusion, L5-S1 hardware removal, and revision L4-S1 posterior spinal fusion with instrumentation with use of allograft on 05/30/2021. He was subsequently admitted to the floor. He was seen and evaluated postoperative day 1 and found to have compartment syndrome of the bilateral thighs. Orthopedics was consulted on 05/31/2021 and concurred that the patient did indeed have compartment syndrome of the bilateral anterior thighs. He was taken for emergent bilateral thigh fasciotomy on 05/31/2021 with application of wound vacs. He was subsequently readmitted to the floor. The hospitalist was consulted for medical management. The patient's pain was controlled and he progressed with physical therapy eventually able to walk around the room with a walker. The patient was taken back to the OR on 06/06/2021 for closure of fasciotomies of the bilateral thighs. He was deemed stable for discharge and He was subsequently discharged to rehab on 06/08/21 to follow-up with Dr. Kilpatrick in 2 weeks. Physical Exam Const alert, oriented x3 and no apparent distress General Appearance: cooperative and comfortable HEENT HEENT Narrative: Superficial pressure sore to the anterior chin, resolving Eyes EOMs intact bilaterally and conjunctivae normal Neck full ROM General: normal visual inspection Chest inspection of chest normal and palpation of chest normal Resp normal respiratory effort and normal air movement Cardio regular rate and regular rhythm Peripheral Pulses: pulses 2+ throughout GI soft to palpation, non-tender and non-distended Back/Spine Back/Spine Narrative: Dressing clean dry and intact. Incision well approximated with interrupted sutures in place. No erythema tenderness drainage or fluctuance Cervical Spine: cervical ROM normal Thoracic Spine / Upper Back: normal to inspection Lumbar Spine / Lower Back: normal to inspection Extremity Extremity Narrative: Dressings CDI Examination of the lower extremities shows sensation intact grossly bilaterally. Strength 4- out of 5 in hip flexion and knee extension. Strength 5 out of 5 in ankle dorsiflexion and plantar flexion and EHL. Examination of the right upper extremity Examination of the left upper extremity shows sensation motor intact grossly without focal deficit. Skin no rashes or lesions noted General Skin Exam: no breakdown Neuro oriented x3, CN's II-XII intact bilaterally, moves all extremities and deep tendon reflexes 2+ bilaterally Weight / BMI Weight Weight: 330 lb 7.567 oz Body Mass Index (BMI) 43.1 ABG / Lab / Microbiology Data Result Diagrams: 06/08/21 06:22 06/08/21 06:22 Laboratory: Laboratory Results - last 24 hr 06/01/21 05:36: Diff Path Review Reviewed 06/01/21 05:36: Sodium 136, Potassium 4.8, Chloride 105, Carbon Dioxide 26.0, Anion Gap 5, BUN 23 H, Creatinine 1.60 H, Estim Creat Clear Calc 61.30, Est GFR (MDRD) Af Amer 59 L, Est GFR (MDRD) Non-Af 49 L, BUN/Creatinine Ratio 14.4, Glucose 169 H, Calcium 8.3 L, Magnesium 2.0, Total Bilirubin 0.60, AST 905 H, ALT 869 H, Alkaline Phosphatase 93, Total Protein 5.7 L, Albumin 2.2 L, Globulin 3.5, Albumin/Globulin Ratio 0.6 L 06/01/21 05:36: Total Creatine Kinase 24848 H 06/01/21 05:36: Phosphorus 2.8 D/C Instructions Discharge Diet: No restrictions Weight Bearing Status: Weight bearing as tolerated Lifting Restricted to (Lbs): 5 Additional Activity Instructions: No repetitive bending twisting or lifting greater than 5 pounds Call your doctor if your incision/area has: Continuous Slow Oozing, Sudden Increased Bleeding, Increased Pain/ Swelling, Increased Redness, Foul Smelling Discharge and Swelling at the incision site Call your doctor if you observe: Fever of 101 or Higher, Coldness, Increased Pain, Numbness or Tingling, Change in Color, Inability to urinate, Inability to have a bowel movement, Using more than 1 pad per hour, Shortness of breath, Dizziness, Fainting spells, Swelling in the ankles, Chest pain, Prolonged hiccupping, Increased palpitations (irregular heartbeat), Calf discomfort and Uncontrolled pain Additional Dressing/Incision Instructions: Daily dressing changes with iodine to incisions (Back and Legs). Gauze and tape. Palms dressings for shower Please Follow Up With: Huy Kilpatrick DO When: 2 weeks Meaningful Use Info Meaningful Use Diagnoses (Choose all that apply): None applicable Discharge Plan Admission Admit Date/Time: 05/30/21 19:52 Attending Provider: Roxy Boateng Primary Care Provider: Rainer Mills Consulting Providers: Yana Torrez ; Naomi Mike ; Stuart Myers ; Chris Torres ; Placido Buck ; Luisito Avendano ; Duncan Ritchie ; Joe Waters ; Dominguez Nascimento ; Sudheer Herrera ; Roxy Boateng ; Vinicius Hendrickson ; Ana Winn ; Jaison Bonilla ; Sebastián Roa ; Cameron Reed ; Ravindra Hong ; Diandra Sullivan ; Aminta Kelly PHARMACY BUYER ; Namita Barnes ; Bhavana Jennings Instructions Additional Instructions / Restrictions: 1. Keep your surgical sites/incisions clean and the dressing dry and intact. Change dressings daily with iodine to incisions, gauze and tape. You may use an ice pack at the surgical sites to reduce any swelling or discomfort. Change all dressings daily with iodine to incisions and gauze and tape 3. Monitor the incision site for any signs or symptoms of infection. Watch for redness, excessive swelling or drainage, or continued pain at the incision site after 3 days. Contact your physician immediately for a fever, chills or a temperature of 101.5? F or greater. 4. Take your medication exactly as prescribed by your physician. Do not attempt to wean yourself off any of your medications even though your pain is improving. This process needs to be carefully monitored by your doctor. Take any antibiotics prescribed exactly as directed and until they are gone. 5. Avoid stretching, bending, pulling, twisting or any sudden movements. Do not bend or twist at the waist. 6. No lifting greater than 5 pounds. Wear back brace at all times when out of bed. 7. Do not operate a motor vehicle, equipment or a power tool while taking pain medication 8. Do not have any manipulation done by a chiropractor or any other physician without first consulting with the surgeon 9. Please contact our office if you are even scheduled for a CT scan or an MRI. 10. Please call us if you have any questions, problems or concerns. Follow-up with Dr. Kilpatrick in 2 weeks Discharge Orders/Prescriptions Prescriptions: New hydrocodone-acetaminophen 5-325 mg tablet 1 tab PO Q6H 7 Days Qty: 28 RF: 0 Continued omeprazole 40 mg Capsule,Delayed Release(Dr/Ec) 40 mg PO DAILY RF: 0 montelukast [Singulair] 10 mg Tablet 10 mg PO DAILY RF: 0 albuterol sulfate 90 mcg/actuation Hfa Aerosol Inhaler 1 puff INHALATION Q6H PRN (Reason: SOB) RF: 0 multivitamin Capsule 1 cap PO DAILY RF: 0 amlodipine-benazepril 10-20 mg Capsule 1 cap PO DAILY RF: 0 budesonide-formoterol [Symbicort] 160-4.5 mcg/actuation Hfa Aerosol Inhaler 2 puff INHALATION BID RF: 0 Discontinued aspirin [Aspir-81] 81 mg Tablet,Delayed Release (Dr/Ec) 81 mg PO DAILY RF: 0 Referrals / Follow Up: Huy Kilpatrick DO [STAFF PHYSICIAN] - Rainer Mills DO [Primary Care Provider] - Disposition Discharge Orders: Discharge Patient (Routine); Ordered 06/08/21 Ordered By: Dr. Huy Kilpatrick
--- NOTE | 2021-06-02 06:38 | PCM.PN.ORT ---
Subjective Subjective The patient was seen and examined postoperative day 3 status post revision lumbar fusion, postoperative day 2 status post bilateral thigh fasciotomy. He is lying in bed resting comfortably. His pain is controlled. He did get out of bed yesterday with assistance and urinated without complication. He is still having some tenderness in the bilateral thighs. No other complaints of pain elsewhere. He is complaining of some weakness in bilateral hip flexion and knee extension that is noticeable when standing. His right upper extremity paresthesias have improved dramatically and are mostly localized to the ulnar hand and ring and small finger. He denies any other acute numbness tingling weakness or changes in bowel or bladder function. Objective Data Objective Data Vital Signs: Vital Signs Temp Pulse Resp BP Pulse Ox 97.9 F 84 16 135/78 H 92 06/02/21 03:54 06/02/21 03:54 06/02/21 03:54 06/02/21 03:54 06/02/21 03:54 Oxygen Flow Rate (L/min) 3 Oxygen Delivery Method Room Air Weight: 330 lb 7.567 oz Body Mass Index (BMI) 43.1 Intake & Output: Intake and Output for Last 24 Hours 05/31/21 06/01/21 06/02/21 23:59 23:59 23:59 Intake Total 5035 / 5435 5680.0 / 5680.0 1762.5 / 1762.5 Output Total 2960 / 3885 2925 / 2925 1999 / 1999 Balance 2075 / 1550 2755.0 / 2755.0 -237.5 / -237.5 Lab / Micro Data Result Diagrams: 06/01/21 05:36 06/01/21 05:36 Labs: Laboratory Results - last 24 hr 06/01/21 05:36: Diff Path Review Reviewed 06/01/21 05:36: Sodium 136, Potassium 4.8, Chloride 105, Carbon Dioxide 26.0, Anion Gap 5, BUN 23 H, Creatinine 1.60 H, Estim Creat Clear Calc 61.30, Est GFR (MDRD) Af Amer 59 L, Est GFR (MDRD) Non-Af 49 L, BUN/Creatinine Ratio 14.4, Glucose 169 H, Calcium 8.3 L, Magnesium 2.0, Total Bilirubin 0.60, AST 905 H, ALT 869 H, Alkaline Phosphatase 93, Total Protein 5.7 L, Albumin 2.2 L, Globulin 3.5, Albumin/Globulin Ratio 0.6 L 06/01/21 05:36: Total Creatine Kinase 82826 H 06/01/21 05:36: Phosphorus 2.8 Physical Exam Const alert, oriented x3 and no apparent distress General Appearance: cooperative and comfortable HEENT HEENT Narrative: Superficial pressure sore to the anterior chin is resolving Eyes EOMs intact bilaterally and conjunctivae normal Neck full ROM General: normal visual inspection Chest inspection of chest normal and palpation of chest normal Resp normal respiratory effort and normal air movement Cardio regular rate, regular rhythm and peripheral pulses 2+ throughout GI soft to palpation, non-tender and non-distended Back/Spine Back/Spine Narrative: Back dressing clean dry and intact. Lumbar incision well approximated with interrupted sutures in place. No erythema tenderness drainage or fluctuance. Cervical Spine: cervical ROM normal Thoracic Spine / Upper Back: normal to inspection Lumbar Spine / Lower Back: normal to inspection Extremity normal capillary refill, no clubbing, cyanosis or edema and no calf tenderness Extremity Narrative: Examination of the bilateral lower extremities shows wound vacs in place and functioning bilaterally. Thigh compartments soft and supple. Mild tenderness to palpation of the anterior thighs. Hip flexion strength 4- out of 5 bilaterally. Knee extension strength 4- out of 5 bilaterally. Ankle dorsiflexion, plantarflexion, and EHL 5 out of 5. Sensation intact grossly. Examination of the right upper extremity shows mild decrease sensation in the right ulnar hand and small and ring finger. Otherwise sensation intact. Strength 4+ out of 5 throughout the right upper extremity Examination of the left upper extremity shows sensation and motor intact grossly without focal deficits. Peripheral Pulses: Yes pulses 2+ throughout Skin no rashes or lesions noted General Skin Exam: no breakdown Neuro oriented x3, CN's II-XII intact bilaterally, moves all extremities and deep tendon reflexes 2+ bilaterally Assessment & Plan Assessment/Plan (1) Compartment syndrome of both lower extremities due to exertion: (2) Lumbar stenosis: PLAN: Continue pain control and mobilization as tolerated, back brace on at all times while out of bed Maintain wound vacs in place and functioning Continue daily dressing changes to back with iodine to incision Daily BMP and CPK Continue IV fluids at 125 Plan for return to OR on Saturday for primary closure of bilateral thigh fasciotomies
[2021-06-02 07:22] LABS: Absolute Lymphocyte Count 0.76 X10^3/uL (0.83-4.51); Absolute Neutrophil Count 14.8 X10^3/uL (2.0-7.7); Basophil# 0.02 X10^3/uL; Basophil% 0.1 % (0-1); Hematocrit 35.7 % (40-54); Lymphocyte # 0.76 X10^3/ul (0.83-4.51); Lymphocyte % 4.4 % (19-41); Mean Corp Hgb Conc 33.6 g/dL (32-36); Mean Corpuscular Hgb 31.7 pg (27.0-32.0); Mean Corpuscular Volume 94.2 fL (80-94); Mean Platelet Vol. 9.5 fl (6.2-12.0); Monocyte# 1.34 X10^3/uL; Monocyte% 7.8 % (0-10); NRBC Flagged by Analyzer 0 % (0-5); Neutrophil # 14.78 X10^3/uL (2.7-7.7); Neutrophil % 86.5 % (47-70); Platelet Count 157 K/mm3 (150-450); RBC Distribution Width SD 44.8 fl (35.1-43.9); Red Blood Count 3.79 M/mm3 (4.6-6.2); White Blood Count 17.1 K/mm3 (4.4-11.0)
[2021-06-02 07:48] LABS: Anion Gap 4 (5-15); BUN 24 mg/dL (7-18); BUN/Creat Ratio 18.9 RATIO (10-20); Calcium,Total 8.5 mg/dL (8.5-10.1); Chloride 102 mmol/L (98-107); Creatinine, Serum 1.27 mg/dL (0.70-1.30); EST Glomerular Filtration Rate 64 mL/min (>60); Est Glom Filt Rate - Afr Amer 77 mL/min (>60); Estimated Creatinine Clearance 77.23 ml/min; Glucose 154 mg/dL (74-106); Potassium 4.7 mmol/L (3.5-5.1); Sodium Level 136 mmol/L (136-145)
[2021-06-02 07:50] VITALS: BP 144/75; PULSE 78; RESP 16; TEMP 36.6; O2SAT 93
[2021-06-02 07:56] LABS: Phosphorus 2.8 mg/dL (2.5-4.9)
[2021-06-02] MEDS: Pantoprazole Sodium 40 MG Tablet PO (07:57)
[2021-06-02] MEDS: Polyethylene Glycol 3350 17 GM PACKET PO (07:57)
[2021-06-02] MEDS: amLODIPine 10 MG Tablet PO (07:57)
[2021-06-02] MEDS: Lisinopril 10 MG Tablet PO (07:58)
--- NOTE | 2021-06-02 09:31 | PN.HOSP_ITS ---
Subjective Subjective Patient sitting on the toilet seat. Bilateral thighs are painful but able to extend knees. Transfer out of bed. Objective Data Objective Data Vital Signs: Vital Signs Temp Pulse Resp BP Pulse Ox 98 F 78 16 144/75 H 93 06/02/21 07:50 06/02/21 07:50 06/02/21 07:50 06/02/21 07:50 06/02/21 07:50 Oxygen Flow Rate (L/min) 3 Oxygen Delivery Method Room Air Weight: 330 lb 7.567 oz Body Mass Index (BMI) 43.1 Intake & Output: Intake and Output for Last 24 Hours 05/31/21 06/01/21 06/02/21 23:59 23:59 23:59 Intake Total 5035 / 5435 5680.0 / 5680.0 1762.5 / 1762.5 Output Total 2960 / 3885 2925 / 2925 1999 / 1999 Balance 2075 / 1550 2755.0 / 2755.0 -237.5 / -237.5 Lab / Micro Data Result Diagrams: 06/02/21 06:44 06/02/21 06:44 Labs: Laboratory Results - last 24 hr 06/01/21 05:36: Diff Path Review Reviewed 06/01/21 05:36: Phosphorus 2.8 06/02/21 06:44: Sodium 136, Potassium 4.7, Chloride 102, Carbon Dioxide 30.0, Anion Gap 4 L, BUN 24 H, Creatinine 1.27, Estim Creat Clear Calc 77.23, Est GFR (MDRD) Af Amer 77, Est GFR (MDRD) Non-Af 64, BUN/Creatinine Ratio 18.9, Glucose 154 H, Calcium 8.5 06/02/21 06:44: WBC 17.1 H, RBC 3.79 L, Hgb 12.0 L, Hct 35.7 L, MCV 94.2 H, MCH 31.7, MCHC 33.6, RDW Std Deviation 44.8 H, RDW Coeff of [place]rose 13.0, Plt Count 157, MPV 9.5, Immature Gran % (Auto) 1.200 H, Neut % (Auto) 86.5 H, Lymph % (Auto) 4.4 L, [place] % (Auto) 7.8, Eos % (Auto) 0.0, Baso % (Auto) 0.1, Absolute Neuts (auto) 14.8 H, Absolute Lymphs (auto) 0.76 L, Nucleated RBC % 0 06/02/21 06:44: Phosphorus 2.8 Physical Exam Narrative General: Alert, Oriented x3, Cooperative in severe pain HEENT: Atraumatic, PERRLA, EOMI, Normocephalic Oral: No Gingival or Mucosal Lesions/ Ulcerations Neck: Supple, No JVD, Negative Carotid Bruits Lungs: Air entry diminished in bilateral lung bases. On home CPAP. No crepitation/rhonchi Cardiovascular: Regular rate, Regular Rhythm, Normal S1, Normal S2, No murmurs Abdomen: Bowel Sounds sluggish, soft, Non Tender, nondistended : No renal angle tenderness. No suprapubic tenderness. Extremities: Mild edema of upper thighs. Tenderness of bilateral thighs present . Skin: Mild erythema over abdomen. Mostly tender resolved Musculoskeletal: Bilateral fasciectomy with wound VAC. Ankle and toe extension 4+/5. Did not perform quadriceps muscle testing. Neurological: Cranial nerves II-XII grossly intact Psych/Mental Status: Flat affect. Assessment & Plan Assessment/Plan (1) Lumbar stenosis: (2) Paresthesia of right upper extremity: PLAN: Lumbar stenosis status post L4-L5 posterior lumbar interbody fusion with allograft and bilateral laminectomies, for an at the knees, facetectomies and decompression/pedicle screw fixation/hardware removal from L5-S1: Discussed with the surgeon Dr. Kilpatrick today. Patient has symptoms complex of compartment syndrome with severe pain in thighs, paresthesia but toes and feet and erythematous patch over thigh and central abdomen on point of contact during surgery. CK is ordered but results pending. Dr. Kilpatrick has already talked to accepting physician for evaluation for compartment syndrome. Patient has been on prone position, right upper Leslee as he was on prone position for extended period of time during surgery. Patient also has low-grade fever, T-max 100.7 Fahrenheit with leukocytosis with left shift. On IV cefazolin. 06/01: Patient had bilateral anterior thigh fasciectomy with wound VAC for bilateral thigh compartment syndrome with neurological symptoms. Pain improved after fasciectomy. Currently neurovascular system is intact. Seen by Ortho and orthospine surgeon. 06/02: Plan for OR on Saturday for closure of fasciotomy wound. Seen by orthospine surgeon.No fever. PT and OT on board. hypertension and ANA: Serial creatinine is getting better. Lisinopril dose was decreased. Continue amlodipine Rhabdomyolysis: CK, ALT and AST are elevated. Magnesium level normal.. Serum phosphorus ordered 06/02: CK, liver profile, magnesium are pending. Phosphorus 2.8. Calcium 8.5 GERD -Continue PPI asthma: On Singulair Symbicort and as needed albuterol FEDE -Continue home CPAP -O2 bleed as needed Morbid obesity -BMI is 43.1 -Complicates overall treatment, prognosis, outcomes DVT prophylaxis As per primary service. Pharmacological prophylaxis recommended depending on risk/benefit evaluation Charges/Coding Visit Charges Inpatient E&M: 12959 Subs Hosp L2
[2021-06-02 09:36] LABS: AST(SGOT) 435 U/L (15-37); Alanine Aminotransfer ALT/SGPT 605 U/L (16-61); Albumin, Serum 2.3 g/dL (3.2-5.0); Alkaline Phosphatase 85 U/L (45-117); Bilirubin, Direct 0.12 mg/dL (0.00-0.30); Globulin 3.9 g/dL (2.2-4.2); Protein, Total 6.2 g/dL (6.4-8.2)
[2021-06-02 10:04] LABS: CPK Total, Creatine Kinase 10287 U/L (39-308); Magnesium 2.4 mg/dL (1.6-2.6)
[2021-06-02] MEDS: Bisacodyl 10 MG Suppository RC (10:15)
[2021-06-02] MEDS: HYDROmorphone 1 MG/ML Syringe IV (14:03)
[2021-06-02 14:11] VITALS: BP 137/73; PULSE 76; RESP 16; TEMP 36.6; O2SAT 92
[2021-06-02 20:42] VITALS: BP 143/75; PULSE 77; RESP 18; TEMP 36.4; O2SAT 94
[2021-06-02] MEDS: Montelukast 10 MG Tablet PO (21:00)
[2021-06-03 03:55] VITALS: BP 142/93; PULSE 74; RESP 18; TEMP 36.6; O2SAT 95
[2021-06-03 04:13] LABS: Absolute Lymphocyte Count 0.87 X10^3/uL (0.83-4.51); Absolute Neutrophil Count 13.3 X10^3/uL (2.0-7.7); Basophil# 0.04 X10^3/uL; Basophil% 0.3 % (0-1); Hematocrit 37.8 % (40-54); Hemoglobin 12.4 g/dL (13.0-16.5); Lymphocyte # 0.87 X10^3/ul (0.83-4.51); Lymphocyte % 5.5 % (19-41); Mean Corp Hgb Conc 32.8 g/dL (32-36); Mean Corpuscular Hgb 30.9 pg (27.0-32.0); Mean Corpuscular Volume 94.3 fL (80-94); Mean Platelet Vol. 9.2 fl (6.2-12.0); NRBC Flagged by Analyzer 0 % (0-5); Neutrophil # 13.32 X10^3/uL (2.7-7.7); Neutrophil % 84.4 % (47-70); Platelet Count 222 K/mm3 (150-450); RBC Distribution Width SD 44.6 fl (35.1-43.9); Red Blood Count 4.01 M/mm3 (4.6-6.2); White Blood Count 15.8 K/mm3 (4.4-11.0)
[2021-06-03] MEDS: 0.9% Saline Lock 10 ML Syringe IV ×2 (04:23→17:50)
[2021-06-03] MEDS: oxyCODONE 5 MG Tablet PO ×4 (04:26→23:51)
[2021-06-03 04:45] LABS: Anion Gap 7 (5-15); BUN 30 mg/dL (7-18); BUN/Creat Ratio 24.2 RATIO (10-20); Calcium,Total 8.5 mg/dL (8.5-10.1); Chloride 102 mmol/L (98-107); Creatinine, Serum 1.24 mg/dL (0.70-1.30); EST Glomerular Filtration Rate 66 mL/min (>60); Est Glom Filt Rate - Afr Amer 80 mL/min (>60); Estimated Creatinine Clearance 79.09 ml/min; Glucose 172 mg/dL (74-106); Magnesium 2.8 mg/dL (1.6-2.6); Potassium 4.1 mmol/L (3.5-5.1); Sodium Level 137 mmol/L (136-145)
[2021-06-03 04:56] LABS: Phosphorus 3.4 mg/dL (2.5-4.9)
[2021-06-03 05:33] LABS: AST(SGOT) 276 U/L (15-37); Alanine Aminotransfer ALT/SGPT 434 U/L (16-61); Albumin, Serum 2.6 g/dL (3.2-5.0); Alkaline Phosphatase 86 U/L (45-117); Bilirubin, Direct 0.13 mg/dL (0.00-0.30); CPK Total, Creatine Kinase 7827 U/L (39-308); Globulin 3.9 g/dL (2.2-4.2); Protein, Total 6.5 g/dL (6.4-8.2)
[2021-06-03] MEDS: 0.9% Normal Saline 1,000 ML 150 ML IV (07:00)
[2021-06-03] MEDS: dexAMETHasone 4 MG/ML Vial 6 MG IV (07:00)
--- NOTE | 2021-06-03 07:49 | PCM.PN.HOSP ---
Subjective Subjective No fever. Leukocytosis improving. Improvement in pain and swelling in the thighs. Objective Data Objective Data Vital Signs: Vital Signs Temp Pulse Resp BP Pulse Ox 97.8 F 74 18 142/93 H 95 06/03/21 03:55 06/03/21 03:55 06/03/21 03:55 06/03/21 03:55 06/03/21 03:55 Oxygen Flow Rate (L/min) 3 Oxygen Delivery Method Room Air Weight: 334 lb 14.115 oz Body Mass Index (BMI) 43.1 Intake & Output: Intake and Output for Last 24 Hours 06/01/21 06/02/21 06/03/21 23:59 23:59 23:59 Intake Total 5680.0 / 5680.0 5892.5 / 5892.5 1000 / 1000 Output Total 2925 / 2925 2150 / 2150 825 / 825 Balance 2755.0 / 2755.0 3742.5 / 3742.5 175 / 175 Lab / Micro Data Result Diagrams: 06/03/21 03:55 06/03/21 03:55 Labs: Laboratory Results - last 24 hr 06/02/21 06:44: Magnesium 2.4, Total Creatine Kinase 12557 H 06/02/21 06:44: Phosphorus 2.8 06/02/21 06:44: Total Bilirubin 0.40, Direct Bilirubin 0.12, AST 435 H, ALT 605 H, Alkaline Phosphatase 85, Total Protein 6.2 L, Albumin 2.3 L, Globulin 3.9 06/03/21 03:55: Sodium 137, Potassium 4.1, Chloride 102, Carbon Dioxide 28.0, Anion Gap 7, BUN 30 H, Creatinine 1.24, Estim Creat Clear Calc 79.09, Est GFR (MDRD) Af Amer 80, Est GFR (MDRD) Non-Af 66, BUN/Creatinine Ratio 24.2 H, Glucose 172 H, Calcium 8.5, Magnesium 2.8 H 06/03/21 03:55: WBC 15.8 H, RBC 4.01 L, Hgb 12.4 L, Hct 37.8 L, MCV 94.3 H, MCH 30.9, MCHC 32.8, RDW Std Deviation 44.6 H, RDW Coeff of [place] 13.0, Plt Count 222, MPV 9.2, Immature Gran % (Auto) 2.800 H, Neut % (Auto) 84.4 H, Lymph % (Auto) 5.5 L, [place] % (Auto) 7.0, Eos % (Auto) 0.0, Baso % (Auto) 0.3, Absolute Neuts (auto) 13.3 H, Absolute Lymphs (auto) 0.87, Nucleated RBC % 0 06/03/21 03:55: Phosphorus 3.4 06/03/21 03:55: Total Bilirubin 0.40, Direct Bilirubin 0.13, AST 276 H, ALT 434 H, Alkaline Phosphatase 86, Total Creatine Kinase 7827 H, Total Protein 6.5, Albumin 2.6 L, Globulin 3.9 Physical Exam Narrative No fever. Patient had good sleep. General: Alert, Oriented x3, Cooperative in severe pain HEENT: Atraumatic, PERRLA, EOMI, Normocephalic Oral: No Gingival or Mucosal Lesions/ Ulcerations Neck: Supple, No JVD, Negative Carotid Bruits Lungs: Air entry diminished in bilateral lung bases. On home CPAP. No crepitation/rhonchi Cardiovascular: Regular rate, Regular Rhythm, Normal S1, Normal S2, No murmurs Abdomen: Bowel Sounds sluggish, soft, Non Tender, nondistended : No renal angle tenderness. No suprapubic tenderness. Extremities: Improvement in tenderness, edema of upper thighs. Skin: Mild erythema over abdomen. Mostly tender resolved Musculoskeletal: Bilateral fasciectomy with wound VAC. Ankle and toe extension 4+/5. Limited ROM at knee and hip joints Neurological: Cranial nerves II-XII grossly intact Psych/Mental Status: Appropriate Assessment & Plan Assessment/Plan (1) Lumbar stenosis: (2) Paresthesia of right upper extremity: PLAN: Lumbar stenosis status post L4-L5 posterior lumbar interbody fusion with allograft and bilateral laminectomies, with intraoperative bilateral thigh compartment syndrome with neurological symptoms status post bilateral fasciotomy and decompression/pedicle screw fixation/hardware removal from L5-S1: Patient has symptoms complex of compartment syndrome with severe pain in thighs, paresthesia but toes and feet and erythematous patch over thigh and central abdomen on point of contact during surgery. Dr. Kilpatrick has already talked to accepting physician for evaluation for compartment syndrome. Patient has been on prone position, right upper Leslee as he was on prone position for extended period of time during surgery. Patient also has low-grade fever, T-max 100.7 Fahrenheit with leukocytosis with left shift. On IV cefazolin. 06/01: Patient had bilateral anterior thigh fasciectomy with wound VAC for bilateral thigh compartment syndrome with neurological symptoms. Pain improved after fasciectomy. Currently neurovascular system is intact. Seen by Ortho and orthospine surgeon. 06/02: Plan for OR on Saturday for closure of fasciotomy wound. Seen by orthospine surgeon.No fever. PT and OT on board. 06/03: Magnesium 2.8, phosphorus 3.4, potassium 4.1. Leukocytosis improving. hypertension and ANA: Serial creatinine is getting better. Lisinopril dose was decreased. Continue amlodipine 06/03 creatinine 1.24. BUN 30 Rhabdomyolysis: CK, ALT and AST are elevated. Magnesium level normal.. Serum phosphorus ordered 06/02: CK, liver profile, magnesium are pending. Phosphorus 2.8. Calcium 8.5 GERD -Continue PPI 06/03/2021: CK improving. From about 37,000 to 7827. asthma: On Singulair Symbicort and as needed albuterol FEDE -Continue home CPAP -O2 bleed as needed Morbid obesity -BMI is 43.1 -Complicates overall treatment, prognosis, outcomes DVT prophylaxis As per primary service. Pharmacological prophylaxis recommended depending on risk/benefit evaluation Charges/Coding Visit Charges Inpatient E&M: 96744 Subs Hosp L2
[2021-06-03 08:30] VITALS: O2SAT 93
[2021-06-03 09:55] VITALS: BP 148/77; PULSE 76; RESP 16; TEMP 36.4; O2SAT 95
--- NOTE | 2021-06-03 10:45 | PN.ORTHO_ITS ---
Subjective Subjective The patient was seen and examined. He is lying in bed resting comfortably. He is accompanied by his who contributed to the medical history. He is doing well and his pain continues to improve. He still has some tenderness in the bilateral anterior thighs. He is progressing well with mobilization and walked around the room 4 times yesterday with physical therapy. His back pain is minimal. His right upper extremity paresthesias continue to improve. He did have a small bowel movement yesterday. Objective Data Objective Data Vital Signs: Vital Signs Temp Pulse Resp BP Pulse Ox 97.5 F L 76 16 148/77 H 95 06/03/21 09:55 06/03/21 09:55 06/03/21 09:55 06/03/21 09:55 06/03/21 09:55 Oxygen Flow Rate (L/min) 3 Oxygen Delivery Method Room Air Weight: 334 lb 14.115 oz Body Mass Index (BMI) 43.1 Intake & Output: Intake and Output for Last 24 Hours 06/01/21 06/02/21 06/03/21 23:59 23:59 23:59 Intake Total 5680.0 / 5680.0 5892.5 / 5892.5 1000 / 1000 Output Total 2925 / 2925 2150 / 2150 825 / 825 Balance 2755.0 / 2755.0 3742.5 / 3742.5 175 / 175 Lab / Micro Data Result Diagrams: 06/03/21 03:55 06/03/21 03:55 Labs: Laboratory Results - last 24 hr 06/03/21 03:55: Sodium 137, Potassium 4.1, Chloride 102, Carbon Dioxide 28.0, Anion Gap 7, BUN 30 H, Creatinine 1.24, Estim Creat Clear Calc 79.09, Est GFR (MDRD) Af Amer 80, Est GFR (MDRD) Non-Af 66, BUN/Creatinine Ratio 24.2 H, Glucose 172 H, Calcium 8.5, Magnesium 2.8 H 06/03/21 03:55: WBC 15.8 H, RBC 4.01 L, Hgb 12.4 L, Hct 37.8 L, MCV 94.3 H, MCH 30.9, MCHC 32.8, RDW Std Deviation 44.6 H, RDW Coeff of [place]rose 13.0, Plt Count 222, MPV 9.2, Immature Gran % (Auto) 2.800 H, Neut % (Auto) 84.4 H, Lymph % (Auto) 5.5 L, [place] % (Auto) 7.0, Eos % (Auto) 0.0, Baso % (Auto) 0.3, Absolute Neuts (auto) 13.3 H, Absolute Lymphs (auto) 0.87, Nucleated RBC % 0 06/03/21 03:55: Phosphorus 3.4 06/03/21 03:55: Total Bilirubin 0.40, Direct Bilirubin 0.13, AST 276 H, ALT 434 H, Alkaline Phosphatase 86, Total Creatine Kinase 7827 H, Total Protein 6.5, Albumin 2.6 L, Globulin 3.9 Physical Exam Const alert, oriented x3 and no apparent distress General Appearance: cooperative and comfortable HEENT HEENT Narrative: Superficial blister on anterior chin resolving Eyes EOMs intact bilaterally and conjunctivae normal Neck full ROM General: normal visual inspection Chest inspection of chest normal and palpation of chest normal Chest Narrative: Mild tenderness on the lower chest upper abdomen Resp normal respiratory effort and normal air movement Cardio regular rate and regular rhythm Peripheral Pulses: pulses 2+ throughout GI soft to palpation, non-tender and non-distended Back/Spine Back/Spine Narrative: Dressing clean dry and intact Cervical Spine: cervical ROM normal Thoracic Spine / Upper Back: normal to inspection Lumbar Spine / Lower Back: normal to inspection Extremity Extremity Narrative: Wound vacs intact and functioning on bilateral thighs. Sensation of the lower extremities intact grossly. Mild tingling in the bilateral feet. Hip flexion and knee extension 4 out of 5 bilaterally. Ankle dorsiflexion plantarflexion and EHL 5 out of 5 bilaterally Left upper extremity shows sensation and motor intact grossly without focal def icit Examination of the right upper extremity shows sensation decreased in the right small finger. Otherwise sensation intact grossly. 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 Otherwise normal strength in the right upper extremity Peripheral Pulses: Yes pulses 2+ throughout Skin no rashes or lesions noted General Skin Exam: no breakdown Neuro oriented x3, CN's II-XII intact bilaterally, moves all extremities and deep tendon reflexes 2+ bilaterally Assessment & Plan Assessment/Plan (1) Compartment syndrome of both lower extremities due to exertion: (2) Lumbar stenosis: PLAN: I had a lengthy discussion with the patient. AST, ALT, and T CK are still elevated, but improving. The plan is to keep him here with the wound vacs in place. Return to OR on Saturday to attempt closure of bilateral thigh fasciotomies. Continue pain control and mobilization as tolerated in the meantime. Plan for discharge home versus rehab depending on how patient is mobilizing independently. If unable to perform primary closure of the bilateral thigh fasciotomies, the patient will follow up with plastics for possible grafting. The patient understands and agrees with the treatment plan.
[2021-06-03] MEDS: Polyethylene Glycol 3350 17 GM PACKET PO (13:02)
[2021-06-03] MEDS: Lisinopril 10 MG Tablet PO (13:02)
[2021-06-03] MEDS: Pantoprazole Sodium 40 MG Tablet PO (13:03)
[2021-06-03] MEDS: amLODIPine 10 MG Tablet PO (13:03)
[2021-06-03] MEDS: dexAMETHasone 4 MG/ML Vial IV ×2 (13:23→21:17)
[2021-06-03 14:18] VITALS: BP 156/87; PULSE 80; RESP 16; TEMP 36.4; O2SAT 95
--- NOTE | 2021-06-03 15:07 | NURSING ---
Pt sat up in chair for 2hrs today. Back in bed now.
[2021-06-03] MEDS: HYDROmorphone 1 MG/ML Syringe IV (17:50)
[2021-06-03 21:12] VITALS: BP 154/96; PULSE 77; RESP 18; TEMP 36.8; O2SAT 96
[2021-06-03] MEDS: Montelukast 10 MG Tablet PO (21:17)
[2021-06-04 02:45] VITALS: BP 144/94; PULSE 69; RESP 18; TEMP 36.4; O2SAT 94
[2021-06-04] MEDS: oxyCODONE 5 MG Tablet PO ×4 (04:49→19:13)
[2021-06-04] MEDS: dexAMETHasone 4 MG/ML Vial IV ×3 (04:51→21:27)
[2021-06-04 05:14] LABS: Absolute Lymphocyte Count 0.89 X10^3/uL (0.83-4.51); Absolute Neutrophil Count 12.9 X10^3/uL (2.0-7.7); Basophil# 0.06 X10^3/uL; Basophil% 0.4 % (0-1); Hematocrit 37.4 % (40-54); Hemoglobin 12.6 g/dL (13.0-16.5); Lymphocyte # 0.89 X10^3/ul (0.83-4.51); Lymphocyte % 5.7 % (19-41); Mean Corp Hgb Conc 33.7 g/dL (32-36); Mean Corpuscular Hgb 31.4 pg (27.0-32.0); Mean Corpuscular Volume 93.3 fL (80-94); Mean Platelet Vol. 9.2 fl (6.2-12.0); Monocyte# 1.07 X10^3/uL; Monocyte% 6.9 % (0-10); NRBC Flagged by Analyzer 0 % (0-5); Neutrophil # 12.92 X10^3/uL (2.7-7.7); Neutrophil % 83.1 % (47-70); Platelet Count 224 K/mm3 (150-450); RBC Distribution Width SD 44.3 fl (35.1-43.9); Red Blood Count 4.01 M/mm3 (4.6-6.2); White Blood Count 15.6 K/mm3 (4.4-11.0)
[2021-06-04 05:39] LABS: Anion Gap 10 (5-15); BUN 29 mg/dL (7-18); BUN/Creat Ratio 21.8 RATIO (10-20); Calcium,Total 8.5 mg/dL (8.5-10.1); Chloride 99 mmol/L (98-107); Creatinine, Serum 1.33 mg/dL (0.70-1.30); EST Glomerular Filtration Rate 61 mL/min (>60); Est Glom Filt Rate - Afr Amer 73 mL/min (>60); Estimated Creatinine Clearance 73.74 ml/min; Glucose 221 mg/dL (74-106); Potassium 4.1 mmol/L (3.5-5.1); Sodium Level 135 mmol/L (136-145)
[2021-06-04 06:23] LABS: AST(SGOT) 155 U/L (15-37); Alanine Aminotransfer ALT/SGPT 333 U/L (16-61); Albumin, Serum 2.5 g/dL (3.2-5.0); Alkaline Phosphatase 81 U/L (45-117); Bilirubin, Direct 0.13 mg/dL (0.00-0.30); CPK Total, Creatine Kinase 3591 U/L (39-308); Globulin 3.7 g/dL (2.2-4.2); Protein, Total 6.2 g/dL (6.4-8.2)
[2021-06-04] MEDS: Polyethylene Glycol 3350 17 GM PACKET PO (07:18)
--- NOTE | 2021-06-04 07:46 | PN.HOSP_ITS ---
Subjective Subjective Patient has wound VAC on bilateral thigh fasciotomy wounds. Wound gaping increasing. Edema both eyes. No fever. Leukocytosis but did not increase Objective Data Objective Data Vital Signs: Vital Signs Temp Pulse Resp BP Pulse Ox 97.6 F L 69 18 144/94 H 94 06/04/21 02:45 06/04/21 02:45 06/04/21 02:45 06/04/21 02:45 06/04/21 02:45 Oxygen Flow Rate (L/min) 3 Oxygen Delivery Method Room Air Weight: 328 lb 10.061 oz Body Mass Index (BMI) 43.1 Intake & Output: Intake and Output for Last 24 Hours 06/02/21 06/03/21 06/04/21 23:59 23:59 23:59 Intake Total 5892.5 / 5892.5 2900 / 2900 600 / 600 Output Total 2150 / 2150 2100 / 2100 925 / 925 Balance 3742.5 / 3742.5 800 / 800 -325 / -325 Lab / Micro Data Result Diagrams: 06/04/21 04:50 06/04/21 04:50 Labs: Laboratory Results - last 24 hr 06/04/21 04:50: Sodium 135 L, Potassium 4.1, Chloride 99, Carbon Dioxide 26.0, Anion Gap 10, BUN 29 H, Creatinine 1.33 H, Estim Creat Clear Calc 73.74, Est GFR (MDRD) Af Amer 73, Est GFR (MDRD) Non-Af 61, BUN/Creatinine Ratio 21.8 H, Glucose 221 H, Calcium 8.5 06/04/21 04:50: WBC 15.6 H, RBC 4.01 L, Hgb 12.6 L, Hct 37.4 L, MCV 93.3, MCH 31.4, MCHC 33.7, RDW Std Deviation 44.3 H, RDW Coeff of [place]rose 13.0, Plt Count 224, MPV 9.2, Immature Gran % (Auto) 3.900 H, Neut % (Auto) 83.1 H, Lymph % (Auto) 5.7 L, [place] % (Auto) 6.9, Eos % (Auto) 0.0, Baso % (Auto) 0.4, Absolute Neuts (auto) 12.9 H, Absolute Lymphs (auto) 0.89, Nucleated RBC % 0 06/04/21 04:50: Total Bilirubin 0.50, Direct Bilirubin 0.13, AST 155 H, ALT 333 H, Alkaline Phosphatase 81, Total Creatine Kinase 3591 H, Total Protein 6.2 L, Albumin 2.5 L, Globulin 3.7 Physical Exam Narrative General: Alert, Oriented x3, Cooperative in severe pain HEENT: Atraumatic, PERRLA, EOMI, Normocephalic Oral: No Gingival or Mucosal Lesions/ Ulcerations Neck: Supple, No JVD, Negative Carotid Bruits Lungs: Air entry diminished in bilateral lung bases. On home CPAP. No crepitation/rhonchi Cardiovascular: Regular rate, Regular Rhythm, Normal S1, Normal S2, No murmurs Abdomen: Bowel Sounds sluggish, soft, Non Tender, nondistended : No renal angle tenderness. No suprapubic tenderness. Extremities: Improvement in tenderness, edema of upper thighs. Skin: Erythema resolved. Wound gap over bilateral surgical fasciotomy wounds Musculoskeletal: Bilateral fasciotomy with wound VAC. Ankle and toe extension 4+/5. Limited ROM at knee and hip joints Neurological: Cranial nerves II-XII grossly intact Psych/Mental Status: Appropriate Assessment & Plan Assessment/Plan (1) Lumbar stenosis: (2) Paresthesia of right upper extremity: PLAN: Lumbar stenosis status post L4-L5 posterior lumbar interbody fusion with allograft and bilateral laminectomies, with intraoperative bilateral thigh compartment syndrome with neurological symptoms status post bilateral fasciotomy and decompression/pedicle screw fixation/hardware removal from L5-S1: Patient has symptoms complex of compartment syndrome with severe pain in thighs, paresthesia but toes and feet and erythematous patch over thigh and central abdomen on point of contact during surgery. Dr. Kilpatrick has already talked to accepting physician for evaluation for compartment syndrome. Patient has been on prone position, right upper Leslee as he was on prone position for extended period of time during surgery. Patient also has low-grade fever, T-max 100.7 Fahrenheit with leukocytosis with left shift. On IV cefazolin. 06/01: Patient had bilateral anterior thigh fasciectomy with wound VAC for bilateral thigh compartment syndrome with neurological symptoms. Pain improved after fasciectomy. Currently neurovascular system is intact. Seen by Ortho and orthospine surgeon. 06/02: Seen by orthospine surgeon.No fever. PT and OT on board. 06/03: Magnesium 2.8, phosphorus 3.4, potassium 4.1. Leukocytosis improving. 06/04: Recommend surgeon follow-up as there is one gap increasing on bilateral thigh fasciotomy. Plan for OR on Saturday hypertension and ANA: Serial creatinine is getting better. Lisinopril dose was decreased. Continue amlodipine 06/03 creatinine 1.24. BUN 30. CK 3591. ALT and AST are improving. 06/04: Creatinine 1.33 on baseline. ANA resolved Rhabdomyolysis: CK, ALT and AST are elevated. Magnesium level normal.. Serum phosphorus ordered 06/02: CK, liver profile, magnesium are pending. Phosphorus 2.8. Calcium 8.5 06/04: CK 3591. ALT and AST are improving. GERD -Continue PPI 06/03/2021: CK improving. From about 37,000 to 7827. asthma: On Singulair Symbicort and as needed albuterol FEDE -Continue home CPAP -O2 bleed as needed Morbid obesity -BMI is 43.1 -Complicates overall treatment, prognosis, outcomes DVT prophylaxis As per primary service. Pharmacological prophylaxis recommended depending on risk/benefit evaluation Charges/Coding Visit Charges Inpatient E&M: 02482 Subs Hosp L2
[2021-06-04 09:42] VITALS: BP 141/79; PULSE 69; RESP 18; TEMP 36.3; O2SAT 95
[2021-06-04] MEDS: Lisinopril 10 MG Tablet PO (09:44)
[2021-06-04] MEDS: Pantoprazole Sodium 40 MG Tablet PO (09:45)
[2021-06-04] MEDS: amLODIPine 10 MG Tablet PO (09:45)
[2021-06-04] MEDS: Senna/Docusate Sodium 1 Tablet 2 TABLET PO ×2 (11:08→21:27)
[2021-06-04 15:49] VITALS: BP 141/87; PULSE 69; RESP 18; TEMP 36.6; O2SAT 96
[2021-06-04] MEDS: HYDROmorphone 1 MG/ML Syringe IV (15:55)
--- NOTE | 2021-06-04 18:45 | PN.ORTHO_ITS ---
Subjective Subjective The patient was seen and examined. He is accompanied by his who contributed to the medical history. He is doing well. His pain is controlled with medications. He was out of bed and walking around the room today with physical therapy. No bowel movement today. He is tolerating his diet. Objective Data Objective Data Vital Signs: Vital Signs Temp Pulse Resp BP Pulse Ox 97.8 F 69 18 141/87 H 96 06/04/21 15:49 06/04/21 15:49 06/04/21 15:49 06/04/21 15:49 06/04/21 15:49 Oxygen Flow Rate (L/min) 3 Oxygen Delivery Method Room Air Weight: 328 lb 10.061 oz Body Mass Index (BMI) 43.1 Intake & Output: Intake and Output for Last 24 Hours 06/02/21 06/03/21 06/04/21 23:59 23:59 23:59 Intake Total 5892.5 / 5892.5 2900 / 2900 1200 / 1200 Output Total 2150 / 2150 2100 / 2100 1225 / 1225 Balance 3742.5 / 3742.5 800 / 800 -25 / -25 Lab / Micro Data Result Diagrams: 06/04/21 04:50 06/04/21 04:50 Labs: Laboratory Results - last 24 hr 06/04/21 04:50: Sodium 135 L, Potassium 4.1, Chloride 99, Carbon Dioxide 26.0, Anion Gap 10, BUN 29 H, Creatinine 1.33 H, Estim Creat Clear Calc 73.74, Est GFR (MDRD) Af Amer 73, Est GFR (MDRD) Non-Af 61, BUN/Creatinine Ratio 21.8 H, Glucose 221 H, Calcium 8.5 06/04/21 04:50: WBC 15.6 H, RBC 4.01 L, Hgb 12.6 L, Hct 37.4 L, MCV 93.3, MCH 31.4, MCHC 33.7, RDW Std Deviation 44.3 H, RDW Coeff of Ambrose 13.0, Plt Count 224, MPV 9.2, Immature Gran % (Auto) 3.900 H, Neut % (Auto) 83.1 H, Lymph % (Auto) 5.7 L, [place] % (Auto) 6.9, Eos % (Auto) 0.0, Baso % (Auto) 0.4, Absolute Neuts (auto) 12.9 H, Absolute Lymphs (auto) 0.89, Nucleated RBC % 0 06/04/21 04:50: Total Bilirubin 0.50, Direct Bilirubin 0.13, AST 155 H, ALT 333 H, Alkaline Phosphatase 81, Total Creatine Kinase 3591 H, Total Protein 6.2 L, Albumin 2.5 L, Globulin 3.7 Physical Exam Const alert, oriented x3 and no apparent distress General Appearance: cooperative and comfortable HEENT HEENT Narrative: Superficial blister to the anterior chin continues to heal Eyes EOMs intact bilaterally and conjunctivae normal Neck full ROM Resp normal respiratory effort Cardio regular rate and regular rhythm Peripheral Pulses: pulses 2+ throughout GI soft to palpation, non-tender and non-distended Back/Spine Back/Spine Narrative: Dressing clean dry and intact on lower back Cervical Spine: cervical ROM normal Thoracic Spine / Upper Back: normal to inspection Lumbar Spine / Lower Back: normal to inspection Extremity normal capillary refill and no calf tenderness Extremity Narrative: Wound vacs in place and functioning on bilateral thighs. Thigh compartments soft and supple Sensation and motor intact grossly in bilateral lower extremities. 4 out of 5 strength in bilateral hip flexion and knee extension. 5 out of 5 strength in bilateral dorsiflexion, plantarflexion, EHL Sensation and motor intact grossly in the left upper extremity, no focal deficits The patient does have some decrease sensation in the right ulnar hand, ring and small finger. Otherwise sensation normal and good functional strength in all muscle groups Peripheral Pulses: Yes pulses 2+ throughout Skin no rashes or lesions noted General Skin Exam: no breakdown Neuro oriented x3, CN's II-XII intact bilaterally, moves all extremities and deep tendon reflexes 2+ bilaterally Assessment & Plan Assessment/Plan (1) Compartment syndrome of both lower extremities due to exertion: (2) Lumbar stenosis: PLAN: Continue pain control and mobilization Lab work trends continue to improve including TCK Plan for return to OR Saturday for primary closure of bilateral thigh fasciotomies If unable to close fasciotomies plan for reapplication of bilateral thigh wound vacs and referral to plastics Discharge, likely inpatient rehab on Saturday
[2021-06-04] MEDS: Montelukast 10 MG Tablet PO (21:27)
[2021-06-04 21:28] VITALS: BP 158/92; PULSE 72; RESP 18; TEMP 36.4; O2SAT 96
[2021-06-05] VITALS (7 sets, daily range): BP systolic 142–167; BP diastolic 84–96; PULSE 58–90; RESP 16–18; TEMP 36.2–36.9; O2SAT 94–99
[2021-06-05] MEDS: oxyCODONE 5 MG Tablet PO ×5 (01:17→21:00)
[2021-06-05] MEDS: 0.9% Saline Lock 10 ML Syringe IV ×3 (05:52→13:09)
[2021-06-05] MEDS: dexAMETHasone 4 MG/ML Vial IV ×2 (05:52→21:00)
[2021-06-05 05:55] LABS: Absolute Lymphocyte Count 1.01 X10^3/uL (0.83-4.51); Absolute Neutrophil Count 14.9 X10^3/uL (2.0-7.7); Basophil# 0.11 X10^3/uL; Basophil% 0.6 % (0-1); Hematocrit 38.1 % (40-54); Hemoglobin 12.9 g/dL (13.0-16.5); Lymphocyte # 1.01 X10^3/ul (0.83-4.51); Lymphocyte % 5.6 % (19-41); Mean Corp Hgb Conc 33.9 g/dL (32-36); Mean Corpuscular Hgb 31.1 pg (27.0-32.0); Mean Corpuscular Volume 91.8 fL (80-94); Mean Platelet Vol. 9.3 fl (6.2-12.0); Monocyte# 1.34 X10^3/uL; Monocyte% 7.4 % (0-10); NRBC Flagged by Analyzer 0.1 % (0-5); Neutrophil # 14.93 X10^3/uL (2.7-7.7); Neutrophil % 82.4 % (47-70); Platelet Count 263 K/mm3 (150-450); RBC Distribution Width CV 12.9 % (11.6-14.6); RBC Distribution Width SD 42.9 fl (35.1-43.9); Red Blood Count 4.15 M/mm3 (4.6-6.2); White Blood Count 18.1 K/mm3 (4.4-11.0)
[2021-06-05 06:20] LABS: AST(SGOT) 98 U/L (15-37); Alanine Aminotransfer ALT/SGPT 254 U/L (16-61); Albumin, Serum 2.4 g/dL (3.2-5.0); Alkaline Phosphatase 76 U/L (45-117); Anion Gap 8 (5-15); BUN 29 mg/dL (7-18); BUN/Creat Ratio 25.9 RATIO (10-20); Bilirubin, Direct 0.15 mg/dL (0.00-0.30); Calcium,Total 8.5 mg/dL (8.5-10.1); Chloride 100 mmol/L (98-107); Creatinine, Serum 1.12 mg/dL (0.70-1.30); EST Glomerular Filtration Rate 74 mL/min (>60); Est Glom Filt Rate - Afr Amer 90 mL/min (>60); Estimated Creatinine Clearance 87.57 ml/min; Globulin 3.7 g/dL (2.2-4.2); Glucose 205 mg/dL (74-106); Potassium 4.5 mmol/L (3.5-5.1); Protein, Total 6.1 g/dL (6.4-8.2); Sodium Level 134 mmol/L (136-145)
[2021-06-05] MEDS: HYDROmorphone 1 MG/ML Syringe IV ×4 (07:38→23:42)
[2021-06-05 08:49] LABS: CPK Total, Creatine Kinase 1616 U/L (39-308)
--- NOTE | 2021-06-05 09:04 | PN.HOSP_ITS ---
Subjective Subjective Patient was seen by orthopedic surgeon Dr. Kilpatrick last night. CK level has come down. Plan for OR Saturday. Objective Data Objective Data Vital Signs: Vital Signs Temp Pulse Resp BP Pulse Ox 97.2 F L 58 L 16 145/96 H 97 06/05/21 08:17 06/05/21 08:17 06/05/21 08:17 06/05/21 08:17 06/05/21 08:17 Oxygen Flow Rate (L/min) 3 Oxygen Delivery Method Room Air Weight: 318 lb 2.032 oz Body Mass Index (BMI) 43.1 Intake & Output: Intake and Output for Last 24 Hours 06/03/21 06/04/21 06/05/21 23:59 23:59 23:59 Intake Total 2900 / 2900 1200 / 1200 600 / 600 Output Total 2100 / 2100 1875 / 1875 1175 / 1175 Balance 800 / 800 -675 / -675 -575 / -575 Lab / Micro Data Result Diagrams: 06/05/21 05:25 06/05/21 05:25 Labs: Laboratory Results - last 24 hr 06/05/21 05:25: Sodium 134 L, Potassium 4.5, Chloride 100, Carbon Dioxide 26.0, Anion Gap 8, BUN 29 H, Creatinine 1.12, Estim Creat Clear Calc 87.57, Est GFR (MDRD) Af Amer 90, Est GFR (MDRD) Non-Af 74, BUN/Creatinine Ratio 25.9 H, Glucose 205 H, Calcium 8.5, Total Bilirubin 0.50, Direct Bilirubin 0.15, AST 98 H, ALT 254 H, Alkaline Phosphatase 76, Total Protein 6.1 L, Albumin 2.4 L, Gl obulin 3.7 06/05/21 05:25: WBC 18.1 H, RBC 4.15 L, Hgb 12.9 L, Hct 38.1 L, MCV 91.8, MCH 31.1, MCHC 33.9, RDW Std Deviation 42.9, RDW Coeff of Ambrose 12.9, Plt Count 263, MPV 9.3, Immature Gran % (Auto) 4.000 H, Neut % (Auto) 82.4 H, Lymph % (Auto) 5.6 L, [place] % (Auto) 7.4, Eos % (Auto) 0.0, Baso % (Auto) 0.6, Absolute Neuts (auto) 14.9 H, Absolute Lymphs (auto) 1.01, Nucleated RBC % 0.1 06/05/21 05:25: Total Creatine Kinase 1616 H Physical Exam Narrative Patient is still complaining of pain over bilateral thighs. General: Alert, Oriented x3, Cooperative in severe pain HEENT: Atraumatic, PERRLA, EOMI, Normocephalic Oral: No Gingival or Mucosal Lesions/ Ulcerations Neck: Supple, No JVD, Negative Carotid Bruits Lungs: Air entry diminished in bilateral lung bases. On home CPAP. No crepita tion/rhonchi Cardiovascular: Regular rate, Regular Rhythm, Normal S1, Normal S2, No murmurs Abdomen: Bowel Sounds sluggish, soft, Non Tender, nondistended : No renal angle tenderness. No suprapubic tenderness. Extremities: Improvement in tenderness, edema of upper thighs. Skin: Erythema resolved. Wound gap over bilateral surgical fasciotomy wounds Musculoskeletal: Bilateral thigh fasciotomy with wound VAC. Ankle and toe extension 4+/5. Limited ROM at knee and hip joints Neurological: Cranial nerves II-XII grossly intact Psych/Mental Status: Appropriate Assessment & Plan Assessment/Plan (1) Lumbar stenosis: (2) Paresthesia of right upper extremity: PLAN: Lumbar stenosis status post L4-L5 posterior lumbar interbody fusion with allograft and bilateral laminectomies, with intraoperative bilateral thigh compartment syndrome with neurological symptoms status post bilateral fasciotomy and decompression/pedicle screw fixation/hardware removal from L5-S1: Patient has symptoms complex of compartment syndrome with severe pain in thighs, paresthesia but toes and feet and erythematous patch over thigh and central abdomen on point of contact during surgery. Dr. Kilpatrick has already talked to accepting physician for evaluation for compartment syndrome. Patient has been on prone position, right upper Leslee as he was on prone position for extended period of time during surgery. Patient also has low-grade fever, T-max 100.7 Fahrenheit with leukocytosis with left shift. On IV cefazolin. 06/01: Patient had bilateral anterior thigh fasciectomy with wound VAC for bilateral thigh compartment syndrome with neurological symptoms. Pain improved after fasciectomy. Currently neurovascular system is intact. Seen by Ortho and orthospine surgeon. 06/02: Seen by orthospine surgeon.No fever. PT and OT on board. 06/03: Magnesium 2.8, phosphorus 3.4, potassium 4.1. Leukocytosis improving. 06/04: Recommend surgeon follow-up as there is one gap increasing on bilateral thigh fasciotomy. Plan for OR on Monday 06/05: Patient was seen by Dr. Kilpatrick and planning for OR on Saturday. We will try to close the thigh fasciotomy wound but if not then will take help of plastic surgeon. Hypertension and ANA: Serial creatinine is getting better. Lisinopril dose was decreased. Continue amlodipine 06/03 creatinine 1.24. BUN 30. CK 3591. ALT and AST are improving. 06/04: Creatinine 1.33 on baseline. ANA resolved Rhabdomyolysis: CK, ALT and AST are elevated. Magnesium level normal.. Serum phosphorus ordered 06/02: CK, liver profile, magnesium are pending. Phosphorus 2.8. Calcium 8.5 06/04: CK 3591. ALT and AST are improving. 06/05 CK 1616. ALT AST downward trend. GERD -Continue PPI 06/03/2021: CK improving. From about 37,000 to 7827. asthma: On Singulair Symbicort and as needed albuterol FEDE -Continue home CPAP -O2 bleed as needed Morbid obesity -BMI is 43.1 -Complicates overall treatment, prognosis, outcomes DVT prophylaxis As per primary service. Pharmacological prophylaxis recommended depending on risk/benefit evaluation Charges/Coding Visit Charges Inpatient E&M: 24090 Subs Hosp L2
[2021-06-05] MEDS: Polyethylene Glycol 3350 17 GM PACKET PO (09:45)
[2021-06-05] MEDS: Pantoprazole Sodium 40 MG Tablet PO (09:46)
[2021-06-05] MEDS: amLODIPine 10 MG Tablet PO (09:46)
[2021-06-05] MEDS: Senna/Docusate Sodium 1 Tablet 2 TABLET PO ×2 (09:47→21:01)
[2021-06-05] MEDS: Lisinopril 5 MG Tablet PO (09:47)
[2021-06-05] MEDS: Bisacodyl 10 MG Suppository RC (11:04)
--- NOTE | 2021-06-05 12:01 | CASEMGMT ---
Social Work Note SW updated that pt is requesting [facility] at discharge. SW placed a call to Patricia with [facility] and provided referral. [facility] is able to accept pt pending pre-cert. SW in to speak with pt. Pt's Luz met this worker in the doorway stating pt is currently on commode. SW spoke with pt and Luz regarding discharge. Luz confirms that plan is [facility]. SW informed Luz that [facility] is able to accept pt pending pre-cert. Luz states understanding. Luz was provided a list of SNF providers including quality and resource use data and consistent with the patient?s preferred geographic region, medical needs, and insurance network Plan: [facility] pending pre-cert Jackie Bansal BLIND CLEANER, WASTEWATER TREATMENT PLANT OPERATOR
--- NOTE | 2021-06-05 12:49 | PCM.PN.ORT ---
Subjective Subjective The patient was seen and examined. He is sitting up on the side of the bed accompanied by his . He is currently bathing at bedside. He is doing very well. He has been up mobilizing around the room today with a walker and he feels his legs are getting stronger. He did have a bowel movement today. His back pain is minimal. His right upper extremity still shows some decrease sensation mostly localized to the right ulnar hand, ring and small finger. He also complains of some tingling in the skin of the lower chest upper abdomen. He denies any other acute numbness tingling weakness or changes in bowel or bladder function. Objective Data Objective Data Vital Signs: Vital Signs Temp Pulse Resp BP Pulse Ox 97.2 F L 58 L 16 145/96 H 98 06/05/21 08:17 06/05/21 08:17 06/05/21 08:17 06/05/21 08:17 06/05/21 08:25 Oxygen Flow Rate (L/min) 3 Oxygen Delivery Method Room Air Weight: 318 lb 2.032 oz Body Mass Index (BMI) 43.1 Intake & Output: Intake and Output for Last 24 Hours 06/03/21 06/04/21 06/05/21 23:59 23:59 23:59 Intake Total 2900 / 2900 1200 / 1200 1050 / 1050 Output Total 2100 / 2100 1875 / 1875 1175 / 1175 Balance 800 / 800 -675 / -675 -125 / -125 Lab / Micro Data Result Diagrams: 06/05/21 05:25 06/05/21 05:25 Labs: Laboratory Results - last 24 hr 06/05/21 05:25: Sodium 134 L, Potassium 4.5, Chloride 100, Carbon Dioxide 26.0, Anion Gap 8, BUN 29 H, Creatinine 1.12, Estim Creat Clear Calc 87.57, Est GFR (MDRD) Af Amer 90, Est GFR (MDRD) Non-Af 74, BUN/Creatinine Ratio 25.9 H, Glucose 205 H, Calcium 8.5, Total Bilirubin 0.50, Direct Bilirubin 0.15, AST 98 H, ALT 254 H, Alkaline Phosphatase 76, Total Protein 6.1 L, Albumin 2.4 L, Globulin 3.7 06/05/21 05:25: WBC 18.1 H, RBC 4.15 L, Hgb 12.9 L, Hct 38.1 L, MCV 91.8, MCH 31.1, MCHC 33.9, RDW Std Deviation 42.9, RDW Coeff of Ambrose 12.9, Plt Count 263, MPV 9.3, Immature Gran % (Auto) 4.000 H, Neut % (Auto) 82.4 H, Lymph % (Auto) 5.6 L, [place] % (Auto) 7.4, Eos % (Auto) 0.0, Baso % (Auto) 0.6, Absolute Neuts (auto) 14.9 H, Absolute Lymphs (auto) 1.01, Nucleated RBC % 0.1 06/05/21 05:25: Total Creatine Kinase 1616 H Physical Exam Const alert, oriented x3 and no apparent distress General Appearance: cooperative and comfortable HEENT HEENT Narrative: Resolving superficial blister to the anterior chin with scab formation Eyes EOMs intact bilaterally and conjunctivae normal Neck full ROM General: normal visual inspection Chest Chest Narrative: Mild decrease sensation across the lower chest/upper abdomen Resp normal respiratory effort and normal air movement Cardio regular rate, regular rhythm and peripheral pulses 2+ throughout Peripheral Pulses: pulses 2+ throughout GI soft to palpation, non-tender and non-distended Back/Spine no thoracic nor lumbar tenderness Back/Spine Narrative: Back dressing clean dry and intact Cervical Spine: cervical ROM normal Thoracic Spine / Upper Back: normal to inspection Lumbar Spine / Lower Back: normal to inspection Extremity Extremity Narrative: Wound vacs in place and functioning on the bilateral thighs. Thigh compartments soft and supple Sensation in the lower extremities intact grossly Strength 4 out of 5 in bilateral hip flexion and knee extension. 5 out of 5 in bilateral dorsiflexion, plantarflexion, EHL Sensation in the right upper extremity is decreased in the right ulnar hand, small and ring fingers. Otherwise sensation intact in the right upper extremity. Good functional strength throughout the right upper extremity Sensation of the left upper extremity shows sensation and motor intact without focal deficit Skin no rashes or lesions noted General Skin Exam: no breakdown Neuro oriented x3, CN's II-XII intact bilaterally, moves all extremities and deep tendon reflexes 2+ bilaterally Assessment & Plan Assessment/Plan (1) Compartment syndrome of both lower extremities due to exertion: PLAN: Continue pain control and mobilization Maintain wound vacs to bilateral lower extremities N.p.o. after midnight Plan for return to OR tomorrow for attempted closure of bilateral thigh fasciotomies Plan for discharge to rehab tomorrow Labs reviewed, T CK continues to trend down (2) Lumbar stenosis:
[2021-06-05] MEDS: Juven (unflavored) Packet 1 PACKET PO (17:01)
[2021-06-05] MEDS: Montelukast 10 MG Tablet PO (21:01)
[2021-06-06] VITALS (14 sets, daily range): BP systolic 122–177; BP diastolic 74–102; PULSE 64–93; RESP 16–18; TEMP 36.2–37.6; O2SAT 93–98; BMI 41.1
[2021-06-06] MEDS: oxyCODONE 5 MG Tablet PO ×2 (02:29→19:29)
--- NOTE | 2021-06-06 07:23 | PN.HOSP_ITS ---
Subjective Subjective Seen and examined. Plan for OR today Objective Data Objective Data Vital Signs: Vital Signs Temp Pulse Resp BP Pulse Ox 97.8 F 67 18 159/102 H 96 06/06/21 03:00 06/06/21 03:00 06/06/21 03:00 06/06/21 03:00 06/06/21 03:00 Oxygen Flow Rate (L/min) 3 Oxygen Delivery Method Room Air Weight: 310 lb 8 oz Body Mass Index (BMI) 43.1 Intake & Output: Intake and Output for Last 24 Hours 06/04/21 06/05/21 06/06/21 23:59 23:59 23:59 Intake Total 1200 / 1200 1700 / 2100 450 / 450 Output Total 1875 / 1875 1575 / 1575 400 / 400 Balance -675 / -675 125 / 525 50 / 50 Lab / Micro Data Result Diagrams: 06/06/21 07:35 06/06/21 07:35 Labs: Laboratory Results - last 24 hr 06/05/21 05:25: Total Creatine Kinase 1616 H Physical Exam Narrative Patient is still complaining of pain over bilateral thighs. Patient had bowel movement yesterday. Right upper extremity decreased sensation over right distal ulnar nerve distribution, ring and small finger. Bilateral thighs soft and less painful General: Alert, Oriented x3, Cooperative in severe pain HEENT: Atraumatic, PERRLA, EOMI, Normocephalic Oral: No Gingival or Mucosal Lesions/ Ulcerations Neck: Supple, No JVD, Negative Carotid Bruits Lungs: Air entry diminished in bilateral lung bases. On home CPAP. No crepitation/rhonchi Cardiovascular: Regular rate, Regular Rhythm, Normal S1, Normal S2, No murmurs Abdomen: Bowel Sounds sluggish, soft, Non Tender, nondistended : No renal angle tenderness. No suprapubic tenderness. Extremities: Improvement in tenderness, edema of upper thighs. Skin: Erythema resolved. Wound gap over bilateral surgical fasciotomy wounds Musculoskeletal: Bilateral thigh fasciotomy with wound VAC. Ankle and toe e xtension 4+/5. Limited ROM at knee and hip joints Neurological: Cranial nerves II-XII grossly intact. Decreased touch sensation to right little and ring finger and overall right forearm and arm sensory less than left upper extremity. Sensation in left lower extremity decreased in right lower extremity mainly over thigh region. Psych/Mental Status: Appropriate Assessment & Plan Assessment/Plan (1) Lumbar stenosis: (2) Paresthesia of right upper extremity: PLAN: Lumbar stenosis status post L4-L5 posterior lumbar interbody fusion with allograft and bilateral laminectomies, with intraoperative bilateral thigh compartment syndrome with neurological symptoms status post bilateral fasciotomy and decompression/pedicle screw fixation/hardware removal from L5-S1: Patient has symptoms complex of compartment syndrome with severe pain in thighs, paresthesia but toes and feet and erythematous patch over thigh and central abdomen on point of contact during surgery. Dr. Kilpatrick has already talked to accepting physician for evaluation for compartment syndrome. Patient has been on prone position, right upper Leslee as he was on prone position for extended period of time during surgery. Patient also has low-grade fever, T-max 100.7 Fahrenheit with leukocytosis with left shift. On IV cefazolin. 06/01: Patient had bilateral anterior thigh fasciectomy with wound VAC for bilateral thigh compartment syndrome with neurological symptoms. Pain improved after fasciectomy. Currently neurovascular system is intact. Seen by Ortho and orthospine surgeon. 06/02: Seen by orthospine surgeon.No fever. PT and OT on board. 06/03: Magnesium 2.8, phosphorus 3.4, potassium 4.1. Leukocytosis improving. 06/04: Recommend surgeon follow-up as there is one gap increasing on bilateral thigh fasciotomy. Plan for OR on Monday 06/05: Patient was seen by Dr. Kilpatrick and planning for OR on Saturday. We will try to close the thigh fasciotomy wound but if not then will take help of plastic surgeon. 06/06: Plan for OR today and closure of fasciotomy wound. Leukocytosis due to dexamethasone. Dose decreased Hypertension and ANA: Serial creatinine is getting better. Lisinopril dose was decreased. Continue amlodipine 06/03 creatinine 1.24. BUN 30. CK 3591. ALT and AST are improving. 06/04: Creatinine 1.33 on baseline. ANA resolved Rhabdomyolysis: CK, ALT and AST are elevated. Magnesium level normal.. Serum phosphorus ordered 06/02: CK, liver profile, magnesium are pending. Phosphorus 2.8. Calcium 8.5 06/04: CK 3591. ALT and AST are improving. 06/05 CK 1616. ALT AST downward trend. 06/06 CK 702. GERD -Continue PPI 06/03/2021: CK improving. From about 37,000 to 7827. asthma: On Singulair Symbicort and as needed albuterol FEDE -Continue home CPAP -O2 bleed as needed Morbid obesity -BMI is 43.1 -Complicates overall treatment, prognosis, outcomes DVT prophylaxis As per primary service. Pharmacological prophylaxis recommended depending on risk/benefit evaluation Patient hemodynamically stable for surgery today Charges/Coding Visit Charges Inpatient E&M: 92806 Subs Hosp L2
[2021-06-06 07:51] LABS: Absolute Lymphocyte Count 1.49 X10^3/uL (0.83-4.51); Absolute Neutrophil Count 18.7 X10^3/uL (2.0-7.7); Basophil# 0.14 X10^3/uL; Basophil% 0.6 % (0-1); Eosinophil# 0.01 X10^3/uL; Hematocrit 41.4 % (40-54); Hemoglobin 13.8 g/dL (13.0-16.5); Lymphocyte # 1.49 X10^3/ul (0.83-4.51); Lymphocyte % 6.4 % (19-41); Mean Corp Hgb Conc 33.3 g/dL (32-36); Mean Corpuscular Hgb 31.3 pg (27.0-32.0); Mean Corpuscular Volume 93.9 fL (80-94); Monocyte# 1.89 X10^3/uL; Monocyte% 8.1 % (0-10); NRBC Flagged by Analyzer 0 % (0-5); Neutrophil # 18.74 X10^3/uL (2.7-7.7); Neutrophil % 80.7 % (47-70); POSITIVE DIFFERENTIAL YES; Platelet Count 307 K/mm3 (150-450); RBC Distribution Width CV 13.2 % (11.6-14.6); RBC Distribution Width SD 45.1 fl (35.1-43.9); Red Blood Count 4.41 M/mm3 (4.6-6.2); White Blood Count 23.3 K/mm3 (4.4-11.0)
[2021-06-06 07:53] LABS: Differential Indicated SCAN CRITERIA MET
[2021-06-06] MEDS: HYDROmorphone 1 MG/ML Syringe IV ×4 (08:00→21:01)
[2021-06-06 08:27] LABS: Anion Gap 7 (5-15); BUN 29 mg/dL (7-18); BUN/Creat Ratio 24.8 RATIO (10-20); CPK Total, Creatine Kinase 702 U/L (39-308); Calcium,Total 8.6 mg/dL (8.5-10.1); Chloride 100 mmol/L (98-107); Creatinine, Serum 1.17 mg/dL (0.70-1.30); EST Glomerular Filtration Rate 70 mL/min (>60); Est Glom Filt Rate - Afr Amer 85 mL/min (>60); Estimated Creatinine Clearance 83.83 ml/min; Glucose 133 mg/dL (74-106); Potassium 4.1 mmol/L (3.5-5.1); Sodium Level 136 mmol/L (136-145)
[2021-06-06 08:38] LABS: Differential Comment SCANNED
[2021-06-06] MEDS: dexAMETHasone 4 MG/ML Vial IV (10:54)
[2021-06-06] MEDS: 0.9% Normal Saline 1,000 ML 125 ML IV ×2 (11:07→19:28)
--- NOTE | 2021-06-06 12:12 | CASEMGMT ---
SOCIAL WORK Reviewed chart. Patient to have surgery this afternoon. Call to Patricia with [facility]. Gomez to submit for precert tomorrow with [employer]. Maxwell Valenzuela, ASSISTANT BOILER OPERATOR, GAS PLANT SPECIALIST
--- NOTE | 2021-06-06 12:47 | PCM.OPRPT ---
Problems Associated Problem List Diagnoses (1) Compartment syndrome of both lower extremities due to exertion: Report of Operation Date of Procedure: 06/06/21 Pre-Operative Diagnosis: Status post bilateral thigh fasciotomies Post-Operative Diagnosis: Status post bilateral thigh fasciotomies Surgery/Procedure Performed:: 1. Irrigation and debridement, wound exploration, bilateral thigh fasciotomies 2. Primary closure bilateral thigh fasciotomies Description of Surgical Findings:: The patient is a 50-year-old male who underwent bilateral thigh fasciotomies on 05/31/2021 for acute compartment syndrome. Wound vacs were applied after his fasciotomies and the patient was readmitted to the floor. He was closely monitored. He was seen and examined today and found to have soft and supple thigh compartments. He was brought back to the OR today for primary closure of his bilateral thigh fasciotomies understanding the risks to include, but not limited to, infection, bleeding, damage to nerves arteries and veins, continued pain, need for further surgery, deep vein thrombosis, pulmonary embolism, heart attack, risk of stroke or . The patient was identified in the preoperative holding area. There he received preoperative IV antibiotics, Ancef, and was then transferred to the operative suite. Once in the operative suite after general endotracheal anesthesia was established, the patient was positioned supine on the operating table. All bony prominences were padded accordingly. Bear hugger's were not turned on until the drapes were applied and sealed with Ioban. The bilateral lower extremities were prepped and draped in a sterile fashion. Prior wound vacs were removed showing viable muscle and soft tissue at the bilateral fasciotomy sites. No significant drainage or bleeding was encountered. The bilateral wounds were thoroughly irrigated with 3000 cc from a pulse improvement coordinator. Then the fasciotomies were closed with #1 Vicryl for deep, 2-0 Vicryl for subcutaneous, and 2-0 nylon for skin. Sterile dressings were applied with Xeroform, 4 x 4's, ABDs, web roll, Cueva cotton, and Layo bandages. Sponge instrument and needle counts were correct at the end of the case. The patient was extubated and taken to the PACU without incident. Surgeon: Huy Kilpatrick Type of Anesthesia: General Specimen's removed: None Drains: None Estimated Blood Loss (mL): 25 cc Fluids Replaced: 700 cc Grafts/Implants Used: None Complications None Admit VTE Documentation VTE Present on Admission: No
--- NOTE | 2021-06-06 12:48 | PCM.PN.ORT ---
Subjective Subjective The patient was seen and examined postoperatively in the PACU status post closure of bilateral thigh fasciotomies. He is resting comfortably. His pain is controlled. He denies any complaints at this time. Objective Data Objective Data Vital Signs: Vital Signs Temp Pulse Resp BP Pulse Ox 97.5 F L 82 16 122/82 H 97 06/06/21 11:56 06/06/21 11:56 06/06/21 11:56 06/06/21 11:56 06/06/21 11:56 Oxygen Flow Rate (L/min) 3 Oxygen Delivery Method Room Air Weight: 310 lb 8 oz Body Mass Index (BMI) 41.1 Intake & Output: Intake and Output for Last 24 Hours 06/04/21 06/05/21 06/06/21 23:59 23:59 23:59 Intake Total 1200 / 1200 1700 / 2100 450 / 450 Output Total 1875 / 1875 1575 / 1575 400 / 400 Balance -675 / -675 125 / 525 50 / 50 Lab / Micro Data Result Diagrams: 06/06/21 07:35 06/06/21 07:35 Labs: Laboratory Results - last 24 hr 06/06/21 07:35: WBC 23.3 H, RBC 4.41 L, Hgb 13.8, Hct 41.4, MCV 93.9, MCH 31.3, MCHC 33.3, RDW Std Deviation 45.1 H, RDW Coeff of Ambrose 13.2, Plt Count 307, MPV 9.0, Immature Gran % (Auto) 4.200 H, Neut % (Auto) 80.7 H, Lymph % (Auto) 6.4 L, [place] % (Auto) 8.1, Eos % (Auto) 0.0, Baso % (Auto) 0.6, Absolute Neuts (auto) 18.7 H, Absolute Lymphs (auto) 1.49, Nucleated RBC % 0, Differential Comment SCANNED, Diff Path Review October06/06/21 07:35: Sodium 136, Potassium 4.1, Chloride 100, Carbon Dioxide 29.0, Anion Gap 7, BUN 29 H, Creatinine 1.17, Estim Creat Clear Calc 83.83, Est GFR (MDRD) Af Amer 85, Est GFR (MDRD) Non-Af 70, BUN/Creatinine Ratio 24.8 H, Glucose 133 H, Calcium 8.6, Total Creatine Kinase 702 H Physical Exam Const alert, oriented x3 and no apparent distress General Appearance: cooperative and comfortable HEENT head/scalp atraumatic HEENT Narrative: Prior superficial blister scab noted to the anterior chin. Eyes EOMs intact bilaterally and conjunctivae normal Neck full ROM General: normal visual inspection Chest inspection of chest normal and palpation of chest normal Resp normal respiratory effort and normal air movement Cardio regular rate and regular rhythm Peripheral Pulses: pulses 2+ throughout GI soft to palpation, non-tender and non-distended Back/Spine Back/Spine Narrative: Back dressing clean dry and intact Cervical Spine: cervical ROM normal Thoracic Spine / Upper Back: normal to inspection Lumbar Spine / Lower Back: normal to inspection Extremity normal to inspection, normal capillary refill, no clubbing, cyanosis or edema and no calf tenderness Extremity Narrative: Bilateral lower extremities clean dry and intact. All compartments soft and supple. Peripheral Pulses: Yes pulses 2+ throughout Skin no rashes or lesions noted General Skin Exam: no breakdown Neuro oriented x3, CN's II-XII intact bilaterally, moves all extremities and deep tendon reflexes 2+ bilaterally Assessment & Plan Assessment/Plan (1) Compartment syndrome of both lower extremities due to exertion: PLAN: Okay to readmit to floor. Pain control and mobilization as tolerated Leave bilateral lower extremity dressings in place for the next 3 days Continue with daily dressing changes for back dressing Plan for discharge to TCU
[2021-06-06] MEDS: Lisinopril 5 MG Tablet PO (17:45)
[2021-06-06] MEDS: amLODIPine 10 MG Tablet PO (17:46)
[2021-06-06] MEDS: 0.9% Saline Lock 10 ML Syringe IV (17:53)
--- NOTE | 2021-06-06 18:07 | WOUNDNOTE ---
Pt resting in bed. dressings and MARIA ESTHER wraps to bilateral thighs dry and intact. Pt medicated with IV dilaudid per request. states bilateral thighs with some burning. present at bedside. pt denies further needs at this time. water and coke given per request. small scab noted to lópez. pressure injury much improved. minimal redness noted to chest as well.
[2021-06-06] MEDS: Montelukast 10 MG Tablet PO (21:08)
[2021-06-06] MEDS: Senna/Docusate Sodium 1 Tablet 2 TABLET PO (21:08)
[2021-06-07] MEDS: HYDROmorphone 1 MG/ML Syringe IV ×6 (00:45→20:15)
[2021-06-07] MEDS: 0.9% Normal Saline 1,000 ML 125 ML IV (03:14)
[2021-06-07] MEDS: oxyCODONE 5 MG Tablet PO ×2 (03:14→10:17)
[2021-06-07 05:20] VITALS: BP 134/80; PULSE 75; RESP 18; TEMP 36.8; O2SAT 96
--- NOTE | 2021-06-07 05:39 | NURSING ---
b/l legs parul wrap re-wrapped. sutures intact. minimal drng noted.
[2021-06-07 05:48] LABS: Absolute Lymphocyte Count 1.62 X10^3/uL (0.83-4.51); Absolute Neutrophil Count 14.6 X10^3/uL (2.0-7.7); Basophil# 0.09 X10^3/uL; Basophil% 0.5 % (0-1); Eosinophil# 0.06 X10^3/uL; Eosinophils% 0.3 % (0-5); Hematocrit 38.2 % (40-54); Hemoglobin 12.5 g/dL (13.0-16.5); Lymphocyte # 1.62 X10^3/ul (0.83-4.51); Lymphocyte % 8.5 % (19-41); Mean Corp Hgb Conc 32.7 g/dL (32-36); Mean Corpuscular Hgb 31.3 pg (27.0-32.0); Mean Corpuscular Volume 95.5 fL (80-94); Mean Platelet Vol. 8.8 fl (6.2-12.0); Monocyte# 1.74 X10^3/uL; Monocyte% 9.2 % (0-10); NRBC Flagged by Analyzer 0 % (0-5); Neutrophil # 14.59 X10^3/uL (2.7-7.7); Neutrophil % 76.9 % (47-70); POSITIVE DIFFERENTIAL YES; Platelet Count 282 K/mm3 (150-450); RBC Distribution Width CV 13.5 % (11.6-14.6); RBC Distribution Width SD 47.1 fl (35.1-43.9)
[2021-06-07 05:50] LABS: Differential Indicated SCAN CRITERIA MET
[2021-06-07 06:07] LABS: Differential Comment SCANNED
[2021-06-07 06:13] LABS: Anion Gap 6 (5-15); BUN 24 mg/dL (7-18); BUN/Creat Ratio 22.9 RATIO (10-20); CPK Total, Creatine Kinase 517 U/L (39-308); Calcium,Total 7.9 mg/dL (8.5-10.1); Chloride 102 mmol/L (98-107); Creatinine, Serum 1.05 mg/dL (0.70-1.30); EST Glomerular Filtration Rate 80 mL/min (>60); Est Glom Filt Rate - Afr Amer 96 mL/min (>60); Estimated Creatinine Clearance 93.41 ml/min; Glucose 113 mg/dL (74-106); Potassium 3.9 mmol/L (3.5-5.1); Sodium Level 136 mmol/L (136-145)
[2021-06-07] MEDS: 0.9% Saline Lock 10 ML Syringe IV ×5 (08:24→20:13)
--- NOTE | 2021-06-07 08:47 | CASEMGMT ---
Social Work SW spoke w/Patricia in Rehab, she is starting precert. She will let SW know if pt's insurance approves him, SW will continue to follow. TABATHA Echavarria
[2021-06-07 10:13] VITALS: BP 140/81; PULSE 82; RESP 18; TEMP 36.4; O2SAT 94
[2021-06-07] MEDS: Pantoprazole Sodium 40 MG Tablet PO (10:18)
[2021-06-07] MEDS: Juven (unflavored) Packet 1 PACKET PO ×2 (10:18→17:51)
[2021-06-07] MEDS: amLODIPine 10 MG Tablet PO (10:18)
[2021-06-07] MEDS: Lisinopril 5 MG Tablet PO (10:19)
[2021-06-07] MEDS: Senna/Docusate Sodium 1 Tablet 2 TABLET PO ×2 (10:19→22:14)
--- NOTE | 2021-06-07 12:09 | NURSING ---
PT VERY PAINFUL THIS MORNING EVEN AFTER RECEIVING PAIN MEDICATIONS. REFUSED TO WORK WITH THERAPY EARLIER IN AM DUE TO PAIN. PT DID JUST NOW WORK WITH THERAPY. SPOKE TO DR BRADLEY REGARDING ADJUSTING PAIN MEDICATIONS - NEW ORDERS RECEIVED.
[2021-06-07] MEDS: oxyCODONE HCl Cr 10 MG Tablet 20 MG PO ×2 (13:15→22:12)
[2021-06-07 13:19] LABS: Pathologist Review Reviewed
[2021-06-07 13:23] LABS: Pathologist Review Reviewed
[2021-06-07 14:07] VITALS: O2SAT 94
--- NOTE | 2021-06-07 14:17 | CASEMGMT ---
Social Work Pt is approved to go to rehab. SW let pt know, he is agreeable when ready. TABATHA Echavarria
[2021-06-07 16:00] VITALS: BP 129/84; PULSE 96; RESP 18; TEMP 36.3; O2SAT 96
--- NOTE | 2021-06-07 17:30 | PN.HOSP_ITS ---
Subjective Subjective Patient with closure of bilateral thigh fasciotomies yesterday and is having increased pain today. No paresthesias at this time. Patient indicates he slept poorly last night. Objective Data Objective Data Vital Signs: Vital Signs Temp Pulse Resp BP Pulse Ox 97.5 F L 82 18 140/81 H 94 06/07/21 10:13 06/07/21 10:13 06/07/21 10:13 06/07/21 10:13 06/07/21 14:07 Oxygen Flow Rate (L/min) 2 Oxygen Delivery Method Room Air Weight: 140.5 kg Body Mass Index (BMI) 41.1 Intake & Output: Intake and Output for Last 24 Hours 06/05/21 06/06/21 06/07/21 23:59 23:59 23:59 Intake Total 1700 / 2100 1565 / 1565 2847.91 / 2847.91 Output Total 1575 / 1575 1900 / 1900 950 / 950 Balance 125 / 525 -335 / -335 1897.91 / 1897.91 Lab / Micro Data Result Diagrams: 06/07/21 05:25 06/07/21 05:25 Labs: Laboratory Results - last 24 hr 06/06/21 07:35: Diff Path Review Reviewed 06/07/21 05:25: WBC 19.0 H, RBC 4.00 L, Hgb 12.5 L, Hct 38.2 L, MCV 95.5 H, MCH 31.3, MCHC 32.7, RDW Std Deviation 47.1 H, RDW Coeff of Ambrose 13.5, Plt Count 282, MPV 8.8, Immature Gran % (Auto) 4.600 H, Neut % (Auto) 76.9 H, Lymph % (Auto) 8.5 L, [place] % (Auto) 9.2, Eos % (Auto) 0.3, Baso % (Auto) 0.5, Absolute Neuts (auto) 14.6 H, Absolute Lymphs (auto) 1.62, Nucleated RBC % 0, Differential Comment SCANNED, Diff Path Review Reviewed 06/07/21 05:25: Sodium 136, Potassium 3.9, Chloride 102, Carbon Dioxide 28.0, Anion Gap 6, BUN 24 H, Creatinine 1.05, Estim Creat Clear Calc 93.41, Est GFR (MDRD) Af Amer 96, Est GFR (MDRD) Non-Af 80, BUN/Creatinine Ratio 22.9 H, Glucose 113 H, Calcium 7.9 L, Total Creatine Kinase 517 H Physical Exam Const alert, oriented x3, no apparent distress and well nourished Constitutional Narrative: Middle-aged morbidly obese white male lying in bed with CPAP in place however awakens easily and appropriately interactive Exam Limitations: no limitations Nutritional Appearance: morbidly obese HEENT head/scalp atraumatic and moist oral mucous membranes HEENT Narrative: Mallampati 4, good dentition, no thrush Head and Scalp: normocephalic Resp normal respiratory effort, no retractions, no use of accessory muscles and clear to auscultation bilaterally Auscultation: Negative for crackles, rales, rhonchi or wheezes Cardio regular rate, regular rhythm, S1 normal heart sound, S2 normal heart sound, no murmurs, no rub, no gallops, no clicks and no JVD GI normal to inspection, nondistended, normoactive bowel sounds, soft to palpation, non-tender and non-distended Extremity Extremity Narrative: Bilateral thigh dressings in place, mild edema, no clubbing or cyanosis Peripheral Pulses: Yes pulses 2+ throughout Neuro oriented x3 and moves all extremities Sensorium / Orientation: awake and alert Speech: speech normal Psych Psych Narrative: Affect is flat Mood & Affect: depressed Assessment & Plan Assessment/Plan (1) Lumbar stenosis: (2) Paresthesia of right upper extremity: (3) Compartment syndrome of both lower extremities due to exertion: (4) Rhabdomyolysis: (5) ANA (acute kidney injury): PLAN: Lumbar stenosis status post L4-L5 posterior lumbar interbody fusion with allograft and bilateral laminectomies, with intraoperative bilateral thigh compartment syndrome with neurological symptoms status post bilateral fasciotomy and decompression/pedicle screw fixation/hardware removal from L5-S1 -Patient is clinically stable at this time -Pain management per primary service Bilateral thigh compartment syndrome -related to prone positioning during surgery -Patient underwent bilateral thigh fasciotomies on 05/31/2021 -Bilateral wound vacs placed in the immediate postoperative period -Significant clinical improvement after surgery -Status post wound closure at fasciotomy sites on 06/06/2020 -Pain management per primary service -Plan is for discharge to rehab once stable--> possibly the next 24 hours of pain is managed well Acute rhabdomyolysis -Solved Hypertension -Continue amlodipine 10 mg daily -Continue lisinopril 5 mg daily ANA secondary to rhabdomyolysis -Resolved GERD -Continue PPI Asthma -On Singulair Symbicort and as needed albuterol FEDE -Continue home CPAP -O2 bleed as needed Insomnia -Add low-dose Ambien Morbid obesity -BMI is 43.1 -Complicates overall treatment, prognosis, outcomes DVT prophylaxis -SCDs with management per primary service Charges/Coding Visit Charges Inpatient E&M: 36762 Subs Hosp L2
[2021-06-07] MEDS: dexAMETHasone 4 MG/ML Vial IV (17:42)
--- NOTE | 2021-06-07 18:34 | PN.ORTHO_ITS ---
Subjective Subjective The patient was seen and examined. He is postoperative day 1 status post closure of bilateral thigh fasciotomy sites. He is up in a chair resting and eating dinner. He is accompanied by his who contributed to the medical history. He is doing well. He states his pain is controlled on his medications. He did get up and walk around the room today. He is complaining of some soreness in the thighs as well as in the lower back. He denies any other complaints at this time. Objective Data Objective Data Vital Signs: Vital Signs Temp Pulse Resp BP Pulse Ox 97.4 F L 96 18 129/84 H 96 06/07/21 16:00 06/07/21 16:00 06/07/21 16:00 06/07/21 16:00 06/07/21 16:00 Oxygen Flow Rate (L/min) 2 Oxygen Delivery Method Room Air Weight: 309 lb 11.991 oz Body Mass Index (BMI) 41.1 Intake & Output: Intake and Output for Last 24 Hours 06/05/21 06/06/21 06/07/21 23:59 23:59 23:59 Intake Total 1700 / 2100 1565 / 1565 3687.91 / 3687.91 Output Total 1575 / 1575 1900 / 1900 950 / 950 Balance 125 / 525 -335 / -335 2737.91 / 2737.91 Lab / Micro Data Result Diagrams: 06/07/21 05:25 06/07/21 05:25 Labs: Laboratory Results - last 24 hr 06/06/21 07:35: Diff Path Review Reviewed 06/07/21 05:25: WBC 19.0 H, RBC 4.00 L, Hgb 12.5 L, Hct 38.2 L, MCV 95.5 H, MCH 31.3, MCHC 32.7, RDW Std Deviation 47.1 H, RDW Coeff of Ambrose 13.5, Plt Count 282, MPV 8.8, Immature Gran % (Auto) 4.600 H, Neut % (Auto) 76.9 H, Lymph % (Auto) 8.5 L, [place] % (Auto) 9.2, Eos % (Auto) 0.3, Baso % (Auto) 0.5, Absolute Neuts (auto) 14.6 H, Absolute Lymphs (auto) 1.62, Nucleated RBC % 0, Differential Comment SCANNED, Diff Path Review Reviewed 06/07/21 05:25: Sodium 136, Potassium 3.9, Chloride 102, Carbon Dioxide 28.0, Anion Gap 6, BUN 24 H, Creatinine 1.05, Estim Creat Clear Calc 93.41, Est GFR (MDRD) Af Amer 96, Est GFR (MDRD) Non-Af 80, BUN/Creatinine Ratio 22.9 H, Glucose 113 H, Calcium 7.9 L, Total Creatine Kinase 517 H Physical Exam Const alert, oriented x3 and no apparent distress General Appearance: cooperative and comfortable HEENT normocephalic HEENT Narrative: Superficial blister on anterior chin continues to resolve Eyes EOMs intact bilaterally and conjunctivae normal Neck full ROM General: normal visual inspection Chest inspection of chest normal and palpation of chest normal Resp normal respiratory effort and normal air movement Cardio regular rate, regular rhythm and peripheral pulses 2+ throughout Peripheral Pulses: pulses 2+ throughout GI soft to palpation, non-tender and non-distended Back/Spine Back/Spine Narrative: Dressing clean dry and intact Cervical Spine: cervical ROM normal Thoracic Spine / Upper Back: normal to inspection Lumbar Spine / Lower Back: normal to inspection Extremity normal capillary refill, no clubbing, cyanosis or edema and no calf tenderness Extremity Narrative: Bilateral thigh dressings clean dry and intact Skin no rashes or lesions noted General Skin Exam: no breakdown Neuro oriented x3, CN's II-XII intact bilaterally, moves all extremities and deep tendon reflexes 2+ bilaterally Neuro Narrative: Strength 3+ out of 5 in bilateral hip flexion and knee extension. 5 out of 5 strength in bilateral dorsiflexion plantarflexion and EHL Sensation and motor intact grossly in the bilateral upper extremities, mild decrease sensation in the right ulnar hand and ring and small finger. Assessment & Plan Assessment/Plan (1) Compartment syndrome of both lower extremities due to exertion: PLAN: Keep postoperative dressings in place, reinforce as needed. (2) Lumbar stenosis: PLAN: Continue daily dressing changes with iodine to incision. Continue pain control and mobilization Plan for discharge to rehab once pain is controlled on oral medications.
[2021-06-07 19:58] VITALS: BP 130/74; PULSE 80; RESP 16; TEMP 36.6; O2SAT 96
[2021-06-07] MEDS: Zolpidem Tartrate 5 MG Tablet PO (22:12)
[2021-06-07] MEDS: Montelukast 10 MG Tablet PO (22:19)
[2021-06-08] MEDS: oxyCODONE 5 MG Tablet PO ×3 (00:14→13:50)
[2021-06-08] MEDS: dexAMETHasone 4 MG/ML Vial IV ×3 (00:18→11:21)
[2021-06-08] MEDS: 0.9% Saline Lock 10 ML Syringe IV ×3 (00:19→11:22)
[2021-06-08 06:42] VITALS: BP 153/87; PULSE 68; RESP 16; TEMP 36.3; O2SAT 96
[2021-06-08 06:47] LABS: Absolute Lymphocyte Count 1.01 X10^3/uL (0.83-4.51); Absolute Neutrophil Count 16.2 X10^3/uL (2.0-7.7); Basophil# 0.06 X10^3/uL; Basophil% 0.3 % (0-1); Eosinophil# 0.01 X10^3/uL; Eosinophils% 0.1 % (0-5); Hematocrit 41.7 % (40-54); Hemoglobin 13.5 g/dL (13.0-16.5); Lymphocyte # 1.01 X10^3/ul (0.83-4.51); Lymphocyte % 5.3 % (19-41); Mean Corp Hgb Conc 32.4 g/dL (32-36); Mean Corpuscular Hgb 30.7 pg (27.0-32.0); Mean Corpuscular Volume 94.8 fL (80-94); Mean Platelet Vol. 8.9 fl (6.2-12.0); Monocyte# 0.93 X10^3/uL; Monocyte% 4.9 % (0-10); NRBC Flagged by Analyzer 0 % (0-5); Neutrophil # 16.16 X10^3/uL (2.7-7.7); Platelet Count 287 K/mm3 (150-450); RBC Distribution Width CV 13.3 % (11.6-14.6)
[2021-06-08 07:16] LABS: ALB/GLOB Ratio 0.6 RATIO (0.9-2.4); AST(SGOT) 44 U/L (15-37); Alanine Aminotransfer ALT/SGPT 126 U/L (16-61); Albumin, Serum 2.6 g/dL (3.2-5.0); Alkaline Phosphatase 79 U/L (45-117); Anion Gap 5 (5-15); BUN 23 mg/dL (7-18); BUN/Creat Ratio 21.7 RATIO (10-20); Chloride 99 mmol/L (98-107); Creatinine, Serum 1.06 mg/dL (0.70-1.30); EST Glomerular Filtration Rate 79 mL/min (>60); Est Glom Filt Rate - Afr Amer 95 mL/min (>60); Estimated Creatinine Clearance 92.53 ml/min; Globulin 4.1 g/dL (2.2-4.2); Glucose 148 mg/dL (74-106); Potassium 4.4 mmol/L (3.5-5.1); Protein, Total 6.7 g/dL (6.4-8.2); Sodium Level 135 mmol/L (136-145)
[2021-06-08 09:02] VITALS: BP 163/84; PULSE 73; RESP 16; TEMP 36.6; O2SAT 95
[2021-06-08] MEDS: Polyethylene Glycol 3350 17 GM PACKET PO (09:22)
[2021-06-08] MEDS: Pantoprazole Sodium 40 MG Tablet PO (09:23)
[2021-06-08] MEDS: Lisinopril 5 MG Tablet PO (09:23)
[2021-06-08] MEDS: Senna/Docusate Sodium 1 Tablet 2 TABLET PO (09:23)
[2021-06-08] MEDS: oxyCODONE HCl Cr 10 MG Tablet 20 MG PO (09:26)
[2021-06-08] MEDS: amLODIPine 10 MG Tablet PO (09:27)
--- NOTE | 2021-06-08 11:19 | PN.HOSP_ITS ---
Subjective Subjective Patient states his pain is better controlled today. He was able to get up early this morning to get to the chair. He did sit up yesterday in the chair although he had more pain with this. The long-acting oxycodone has helped significantly. There is a possibility for discharge to rehab later today. Objective Data Objective Data Vital Signs: Vital Signs Temp Pulse Resp BP Pulse Ox 97.9 F 73 16 163/84 H 95 06/08/21 09:02 06/08/21 09:02 06/08/21 09:02 06/08/21 09:02 06/08/21 09:02 Oxygen Flow Rate (L/min) 2 Oxygen Delivery Method Room Air Weight: 136.259 kg Body Mass Index (BMI) 41.1 Intake & Output: Intake and Output for Last 24 Hours 06/06/21 06/07/21 06/08/21 23:59 23:59 23:59 Intake Total 1565 / 1565 3687.91 / 3687.91 Output Total 1900 / 1900 1350 / 1750 800 / 800 Balance -335 / -335 2337.91 / 1937.91 -800 / -800 Lab / Micro Data Result Diagrams: 06/08/21 06:22 06/08/21 06:22 Labs: Laboratory Results - last 24 hr 06/06/21 07:35: Diff Path Review Reviewed 06/07/21 05:25: Diff Path Review Reviewed 06/08/21 06:22: WBC 19.0 H, RBC 4.40 L, Hgb 13.5, Hct 41.7, MCV 94.8 H, MCH 30.7, MCHC 32.4, RDW Std Deviation 47.0 H, RDW Coeff of Ambrose 13.3, Plt Count 287, MPV 8.9, Immature Gran % (Auto) 4.400 H, Neut % (Auto) 85.0 H, Lymph % (Auto) 5.3 L, [place] % (Auto) 4.9, Eos % (Auto) 0.1, Baso % (Auto) 0.3, Absolute Neuts (auto) 16.2 H, Absolute Lymphs (auto) 1.01, Nucleated RBC % 0 06/08/21 06:22: Sodium 135 L, Potassium 4.4, Chloride 99, Carbon Dioxide 31.0, Anion Gap 5, BUN 23 H, Creatinine 1.06, Estim Creat Clear Calc 92.53, Est GFR (MDRD) Af Amer 95, Est GFR (MDRD) Non-Af 79, BUN/Creatinine Ratio 21.7 H, Glucose 148 H, Calcium 9.0, Total Bilirubin 0.60, AST 44 H, ALT 126 H, Alkaline Phosphatase 79, Total Protein 6.7, Albumin 2.6 L, Globulin 4.1, Albumin/Globulin Ratio 0.6 L Physical Exam Const alert, oriented x3, no apparent distress and well nourished Constitutional Narrative: Middle-aged morbidly obese white male sitting up in chair at the bedside, appears comfortable, appropriately interactive Exam Limitations: no limitations Nutritional Appearance: morbidly obese HEENT head/scalp atraumatic and moist oral mucous membranes HEENT Narrative: Mallampati 3-4, well-healing lesion on his chin related to pressure Head and Scalp: normocephalic Resp normal respiratory effort, no retractions, no use of accessory muscles and clear to auscultation bilaterally Auscultation: Negative for crackles, rales, rhonchi or wheezes Cardio regular rate, regular rhythm, S1 normal heart sound, S2 normal heart sound, no murmurs, no rub, no gallops, no clicks and no JVD GI normal to inspection, nondistended, normoactive bowel sounds, soft to palpation, non-tender and non-distended Extremity no clubbing, cyanosis or edema Extremity Narrative: Bilateral thigh dressings in place, mild edema, no clubbing or cyanosis, tenderness proximal but not distal to fasciotomy sites Skin Skin Narrative: See above Neuro oriented x3, moves all extremities and no focal motor deficits Sensorium / Orientation: awake and alert Speech: speech normal Psych Psych Narrative: Affect was less flat today and patient was more interactive Assessment & Plan Assessment/Plan (1) Lumbar stenosis: (2) Paresthesia of right upper extremity: (3) Compartment syndrome of both lower extremities due to exertion: (4) Rhabdomyolysis: (5) ANA (acute kidney injury): PLAN: Lumbar stenosis status post L4-L5 posterior lumbar interbody fusion with allograft and bilateral laminectomies, with intraoperative bilateral thigh compartment syndrome with neurological symptoms status post bilateral fasciotomy and decompression/pedicle screw fixation/hardware removal from L5-S1 -Patient is clinically stable at this time -Pain management per primary service Bilateral thigh compartment syndrome -related to prone positioning during surgery -Patient underwent bilateral thigh fasciotomies on 05/31/2021 -Bilateral wound vacs placed in the immediate postoperative period -Significant clinical improvement after surgery -Status post wound closure at fasciotomy sites on 06/06/2020 -Pain management per primary service -Pain is much improved in last 24 hours -Plan is for discharge to rehab possible discharge today -Patient is stable for discharge from a medical standpoint Acute rhabdomyolysis -Resolved Hypertension -Continue amlodipine 10 mg daily -Continue lisinopril 5 mg daily ANA secondary to rhabdomyolysis -Resolved GERD -Continue PPI Asthma -On Singulair Symbicort and as needed albuterol FEDE -Continue home CPAP -O2 bleed as needed Insomnia -low-dose Ambien Morbid obesity -BMI is 43.1 -Complicates overall treatment, prognosis, outcomes DVT prophylaxis -SCDs with management per primary service Charges/Coding Visit Charges Inpatient E&M: 58066 Subs Hosp L2
[2021-06-08 13:42] VITALS: BP 141/82; PULSE 91; RESP 18; TEMP 36.6; O2SAT 94
--- NOTE | 2021-06-08 15:01 | CASEMGMT ---
Social Work SW spoke with Patricia in [facility] and they are able to accept pt when he is medically ready. SW met with pt in room and he is agreeable to transfer to inpatient rehab and to 3 hours of therapy a day. Pt aware he can be discharged to Rehab unit when physician allows. Green Sheet placed on chart in event of discharge later today. Plan: Inpaitent Rehab, when medically ready TEVIN Hoover
--- NOTE | 2021-06-09 09:28 | PCM.OPRPT ---
Problems Associated Problem List Diagnoses (1) Compartment syndrome of both lower extremities due to exertion: Report of Operation Date of Procedure: 05/31/21 Pre-Operative Diagnosis: Bilateral anterior thigh compartment syndrome Post-Operative Diagnosis: Bilateral anterior thigh compartment syndrome Surgery/Procedure Performed:: Bilateral anterior compartment thigh fasciotomy with application of bilateral wound vacs Description of Surgical Findings:: The patient is a 50-year-old male who underwent a revision lumbar fusion on 05/30/21. He was subsequently seen and evaluated on postoperative day 1 complaints of pain and tenderness of the bilateral thighs. He was determined to have acute compartment syndrome of the bilateral anterior thighs. Orthopedics was consulted for evaluation and concurred that the patient did in fact have acute anterior compartment syndrome of the bilateral thighs. After discussing the risks benefits and alternatives and answering all of the patient's questions he was recommended that he undergo emergent bilateral thigh fasciotomy. The patient agreed to proceed understanding the risks to include but not limited to Infection, Loss of life or limb, need for additional surgery, necrotic muscle tissue, rhabdomyolysis, neurovascular injury, nonhealing wounds, need for reconstructive soft tissue procedures, persistent pain. The patient was identified in the preoperative holding area. The patient's identity and surgery site were confirmed by the patient, staff, anesthesia and the surgeon. The patient was given perioperative antibiotics, Ancef. Dr. Jaison Omalley was co-surgeon And did evaluate the patient preoperatively as well. He was brought to the operative suite, Given the appropriate amount of sedation by anesthesia, and positioned supine on the operative table. All bony prominences were padded.We then prepped and draped the bilateral anterior thighs in standard surgical fashion. Working simultaneously to expedite the procedure, Dr. Omalley and myself made incisions on the lateral aspect of the thighs, Dr. Omalley On the right lower extremity and myself on the left lower extremity, Approximately 20 cm in length. The skin was sharply incised with a 10 blade scalpel. Superficial hemostasis was obtained with Bovie cautery. The anterior compartment fascia was then encountered and noted to be bulging. The fascia was released sharply in line with the skin incision. Immediate herniation of the muscle was noted. The muscle was tested with Bovie cautery and found to be contractile. Using scissors, the fascia release was then extended superiorly and inferiorly past the extent of the skin incision to release the full compartment. The muscles of the anterior compartment were then palpated and found to be soft and supple. Perpendicular relief cuts made to the fascia about 1 inch in length anteriorly and posteriorly to prevent bowstringing of the fascia. Blunt dissection was performed underneath the fascia to release any adhesions. The wounds were then copiously irrigated with normal saline solution. A black sponge wound vacs were placed in the bilateral incisions. These were then secured with Bioclusive dressings in the standard application of a wound VAC system. The wound vacs were then attached and suction was turned on to 125 mmHg continuous. Sponge instrument needle counts were correct at the end of the case. The patient was extubated and taken to the PACU without incident. Co-surgeon: Dr. Omalley Surgeon: Huy Kilpatrick Type of Anesthesia: General Specimen's removed: None Drains: Wound vacs to bilateral thighs Estimated Blood Loss (mL): 50 cc Fluids Replaced: 300 cc Complications None Admit VTE Documentation VTE Present on Admission: No
== END 2021-06-08 17:55 | DRG 460 ==
LOC: SDC 16:31 → MS2 16:31
PROVIDERS: Internal Medicine; Student in an Organized Health Care Education/Training Program; Admitting Provider Orthopaedic Surgery; PCP Preventive Medicine Occupational Medicine; Referring Provider Orthopaedic Surgery; Visit Provider Internal Medicine
PROC: 01NB0ZZ Release Lumbar Nerve, Open Approach (ICD-10-PCS; principal; 2021-05-30 07:00)
PROC: 0KNR0ZZ Release Left Upper Leg Muscle, Open Approach (ICD-10-PCS; principal; 2021-05-31 14:35)
PROC: 0JDM0ZZ Extraction of Left Upper Leg Subcutaneous Tissue and Fascia, Open Approach (ICD-10-PCS; principal; 2021-06-06 13:00)
DX: M48.061 Spinal stenosis, lumbar region without neurogenic claudication (principal); Z68.41 Body mass index [BMI] 40.0-44.9, adult; T79.A22A Traumatic compartment syndrome of left lower extremity, initial encounter; T79.A21A Traumatic compartment syndrome of right lower extremity, initial encounter; M62.82 Rhabdomyolysis; N17.9 Acute kidney failure, unspecified; T88.8XXA Other specified complications of surgical and medical care, not elsewhere classified, initial encounter; R20.2 Paresthesia of skin; I10 Essential (primary) hypertension; K21.9 Gastro-esophageal reflux disease without esophagitis; G47.33 Obstructive sleep apnea (adult) (pediatric); E66.01 Morbid (severe) obesity due to excess calories; J45.909 Unspecified asthma, uncomplicated; M51.36 Other intervertebral disc degeneration, lumbar region; G25.81 Restless legs syndrome; M96.1 Postlaminectomy syndrome, not elsewhere classified; Z90.49 Acquired absence of other specified parts of digestive tract
CPT/HCPCS: 36415; 71046; 72100; 76000; 80048; 80053; 80076; 82550; 83735; 84100; 85025; 85610; 85730; 93005; 97110; 97116; 97162; 97166; 97530; 97802; 97803; 99251; 99406; C1713; J7030; J7120; A4216; G0463; J1940; J2405

== ENCOUNTER 2021-06-08 18:29 | Inpatient (IN) | payer BC, OTHER, SELFPAY ==
[2021-06-08 18:36] VITALS: BP 158/88; PULSE 83; RESP 16; TEMP 36.3; O2SAT 83; BMI 40.7
--- NOTE | 2021-06-08 18:36 | HP.PCM_ITS ---
HPI - General General Date of Admission: 06/08/21 HPI Narrative ARNODL BETH, is a 50 YO male M who present presented to [facility] on 05/30/21 for an elective lumbar laminectomy by Dr. Kilpatrick. After reviewing the records it looks like he checked in at 0600 and got to PACU around 4. On POD# 1 he had severe BL thigh pain and had a erythema on the central abdomen and the BL anterior thighs. There was also a pressure ulcer on the chin. The thighs were markedly swollen and he had decreased sensation in the lateral thighs and the anterolateral legs distal to the knees. A stat CK was obtained and was markedly elevated at 36,790. He returned to surgery on 05/31/21 and had BL anterior fasciotomies. Wound vacs were applied. He went to surgery again on 06/06/21 and the fasciotomies were closed. He was seen by PT/OT during his admission and they felt he would be a good candidate for acute rehab. He was transferred to the acute rehab unit at [facility] on 06/08/21 for 3 hours of therapy daily to restore function at or near his prior level of function. Kory is c/o numbness in the upper abd and the lower chest and is also having numbness of the 4th and 5th fingers of the R hand due to ulnar neuropathy. He continues to have pain in the anterior thighs and also in the BL groin and the lateral thighs. It gets worse with sitting. The pain is described as burning. He has a eschar on the chin due to a pressure ulcer and it is unstageable at this time due to eschar. there is no DC from the ulcer and there is no erythema. The numbness and weakness in the R ring and little fingers has improved somewhat and he is able to make a loose fist at this time. Fine motor coordination in the R hand is still impaired. He has not been sleeping well due to the pain. I can not find that he has been on any pharmacologic DVT prophylaxis.....will discuss with pharmacy in the AM. Due to his limited mobility, prolonged hospitalization and obesity I feel he should be getting pharmacologic prophylaxis. He is 9 days Post op after laminectomy. Hospitalist service has been deferring to orthopedics for DVT prophylaxis. [facility] Medical History (Updated 06/12/21 @ 15:[address] Jana Houser, ) Alcohol use Anxiety Arthritis Asthma Back pain CPAP (continuous positive airway pressure) dependence Esophageal stenosis Gastric reflux History of nephrolithiasis History of pain when walking Hx of pilonidal cyst Hypertension Migraine headache Non-smoker FEDE (obstructive sleep apnea) Restless legs Wears glasses Home Medications albuterol sulfate 1 puff INHALATION Q6H PRN 05/17/21 [History Last Taken 05/30/21 05:15] amlodipine-benazepril 1 cap PO DAILY 05/17/21 [History Last Taken 05/30/21 05:15] budesonide-formoterol [Symbicort] 2 puff INHALATION BID 05/17/21 [History Last Taken 05/30/21 05:15] montelukast [Singulair] 10 mg PO DAILY 05/17/21 [History Last Taken 05/30/21 05:15] multivitamin 1 cap PO DAILY 05/17/21 [History Last Taken Unknown] omeprazole 40 mg PO DAILY 05/17/21 [History Last Taken 05/30/21 05:15] oxycodone [OxyContin] 20 mg PO BID 06/08/21 [History Last Taken Unknown] Allergy/AdvReac Type Severity Reaction Status Date / Time No Known Allergies Allergy Verified 05/30/21 06:16 Family History unable to obtain Surgical History (Updated 06/12/21 @ 15:[address] Jana Houser DO) History of ankle surgery History of carpal tunnel surgery of left wrist History of carpal tunnel surgery of right wrist History of cystoscopy History of esophagogastroduodenoscopy (EGD) History of fasciotomy History of lumbar fusion History of lumbar laminectomy Hx of appendectomy Hx of myringotomy Hx of repair of left rotator cuff Hx of tonsillectomy Social History (Updated 06/12/21 @ 15:[address] Jana Houser DO) household members: spouse housing: other details: Has a bilevel house. Smoking Status: Never smoker details: occasional ETOH substance use type: does not use ROS Constitutional Constitutional: Reports change in weight, difficulty sleeping, weakness and other Details: wt has been increased since he had his last sleep study in 2012 ; Denies anorexia, chills, fatigue, fever(s), headache(s) or night sweats Eyes Eyes: Denies blurry vision, change in vision, eye pain or loss of vision ENT HEENT: Denies abnormal hearing, dysphagia, headache(s), hearing loss, nasal congestion or sore throat Cardiovascular Cardiovascular: Denies chest pain, dyspnea on exertion, edema, lightheadedness, orthopnea, palpitations, paroxysmal nocturnal dyspnea or syncope Respiratory/Chest Respiratory/Chest: Denies change in mental status, chest tightness, cough, dyspnea, shortness of breath at rest, shortness of breath with exertion or wheezing Gastrointestinal Gastrointestinal: Denies abdominal pain, constipation, diarrhea, dyspepsia, hematemesis, hematochezia, nausea or vomiting Genitourinary Genitourinary: Denies dysuria, hematuria, nocturia, urinary frequency, urinary hesitancy, urinary incontinence or urinary urgency Musculoskeletal Musculoskeletal: Reports difficulty walking, extremity pain, muscle weakness, myalgias, radiating pain into limb and other Details: denies back pain since he had the laminectomy on 05/30/21 ; Denies back pain, joint pain, joint swelling or neck pain Integumentary Integumentary: Reports skin swelling and other Details: BL lateral fasciotomy incisions of the thighs and a pressure ulcer on the chin which is unstageable ; Denies change in pigmentation, changing lesions or jaundice Neurologic Neurologic: Reports focal weakness and paresthesias; Denies confusion, disequilibrium, dizziness, headache(s), seizures or tremor(s) Psychiatric Psychiatric: Denies anxiety, depression, homicidal ideation or suicidal ideation Endocrine Endocrinology: Denies change in body appearance, polydipsia or polyuria Hematologic/Lymphatic Hematologic/Lymphatic: Denies easy bleeding, easy bruising or lymphadenopathy Allergic/Immunologic Allergic/Immunologic: Reports asthma; Denies rhinitis or eczemia Physical Exam Const alert and oriented x3 Constitutional Narrative: Appears to be in pain but, he is pleasant and making good eye contact and is talkative. General Appearance: well kempt and well developed HEENT normocephalic HEENT Narrative: He has a pressure ulcer of the chin with a dry dark eschar - unstageable Eyes PERRL, EOMs intact bilaterally, conjunctivae normal and no scleral icterus Neck no meningeal signs General: normal visual inspection and trachea midline Chest Chest Narrative: He has decreased sensation of the anterior chest since the laminectomy Chest: symmetrical chest wall rise Resp normal respiratory effort, normal air movement and clear to auscultation bilaterally Effort and Inspection: able to speak in complete sentences Cardio regular rate, regular rhythm, S1 normal heart sound, S2 normal heart sound, no murmurs, no rub and no gallops Cardio Narrative: No ectopy GI normal to inspection, nondistended, normoactive bowel sounds, soft to palpation and non-tender GI Narrative: mild decreased sensation in the upper abdomen Back/Spine Back/Spine Narrative: incision is intact with no dehiscence and with no erythema or purulent DC. No tender to palpation in the venus-incisional areas Extremity no calf tenderness Extremity Narrative: No clubbing. the DP and PT pulses in both LE's are 3/3. He is able to feel me touch his toes and has equal sensation in both feet. Minimal ankle edema. No swollen joints on the extremities. Decreased fine motor coordination of the Left hand and decreased sensation in the ring finger and the little finger. General Extremity: Negative for cyanosis Skin Skin Narrative: see above for the description of the wounds and incisions Rashes: no rashes Neuro oriented x3 and CN's II-XII intact bilaterally Neuro Narrative: The anterolateral thighs are extremely sensitive to even light touch. Psych mental status grossly normal, thought process normal, cooperative, affect normal, speech normal, activity/motor behavior normal, denies hallucinations, denies homicidal ideation and denies suicidal ideation Results Lab / Micro Data Result Diagrams: 06/10/21 08:35 06/12/21 11:10 Assessment & Plan Assessment/Plan (1) Physical debility: (2) Lumbar stenosis: (3) History of lumbar laminectomy: (4) Compartment syndrome: (5) History of fasciotomy: (6) Weakness of both legs: (7) Pain aggravated by physical activity: (8) Neuropathy: (9) Pressure ulcer: (10) ANA (acute kidney injury): (11) Rhabdomyolysis: (12) FEDE (obstructive sleep apnea): PLAN: PLAN PT for gait stability OT for ADL's Analgesics as needed - if he is going to be able to do therapy it is imperative we get the pain under control and we get him comfortable enough to sleep/rest Bowel protocol Fall precautions Assess for Anxiety/Depression GI prophylaxis with Protonix....which he takes for GERD DVT prophylaxis with enoxaparin Follow up with Ortho/PCP/pain management following DC from IP Rehab Add Gabapentin for neuropathic pain in the thighs Consider pain management consult if pain is not adequately controlled by Saturday Must be able to do steps prior to DC so that he can get into and around his house. check lab on Saturday AM including CBCDIFF/BMP/CPK Try a lidocaine patch to anterior thighs to see if this helps with pain control and also try icing MARIA ESTHER wraps to the BL LE's to the knees. He can not tolerate thigh highs due to pain. Unit Exclusion This patient is an acute care inpatient being housed in the excluded unit because of capacity issues related to the disaster or emergency.: Yes Charges/Coding Visit Charges Inpatient E&M: 89651 Init Hosp L3
[2021-06-08 19:31] VITALS: BP 146/89; PULSE 84; RESP 18; TEMP 36.3; O2SAT 95
[2021-06-08] MEDS: oxyCODONE 5 MG Tablet 10 MG PO (19:38)
[2021-06-08] MEDS: Senna/Docusate Sodium 1 Tablet 2 TABLET PO (21:06)
[2021-06-08] MEDS: Gabapentin 400 MG Capsule PO (21:07)
[2021-06-08] MEDS: oxyCODONE HCl Cr 10 MG Tablet 20 MG PO (22:27)
[2021-06-08] MEDS: Montelukast 10 MG Tablet PO (22:27)
[2021-06-08] MEDS: Fluticasone/Salmeterol 232-14 Inhaler 1 PUFF INHALATION (22:28)
[2021-06-09] MEDS: oxyCODONE 5 MG Tablet 10 MG PO ×5 (00:44→23:34)
[2021-06-09 07:21] VITALS: BP 149/94; PULSE 69; RESP 18; TEMP 36.4; O2SAT 94
[2021-06-09] MEDS: Gabapentin 300 MG Capsule PO (07:56)
[2021-06-09] MEDS: amLODIPine 10 MG Tablet PO (07:56)
[2021-06-09] MEDS: Lisinopril 20 MG Tablet PO (07:57)
[2021-06-09] MEDS: Senna/Docusate Sodium 1 Tablet 2 TABLET PO ×2 (07:57→21:55)
[2021-06-09] MEDS: Fluticasone/Salmeterol 232-14 Inhaler 1 PUFF INHALATION ×2 (07:58→21:55)
[2021-06-09] MEDS: Pantoprazole Sodium 40 MG Tablet PO (07:58)
[2021-06-09] MEDS: Multivitamins,Therapeutic Tablet 1 TABLET PO (07:58)
[2021-06-09] MEDS: oxyCODONE HCl Cr 10 MG Tablet 20 MG PO ×2 (10:07→21:55)
--- NOTE | 2021-06-09 10:50 | REHABEVAL_ITS ---
Admission Information Primary Diagnosis:: Physical debility due to recent Lumbar laminectomy followed by fasciotomies BL thighs for compartment S. Status Changes from Prescreening?: No changes Identified Actual Problem List:: Skin Intergrity, Pain, ALteration in Cmfrt, Alteration in Sleep, Mobility Impaired, Self Care Deficit, BP, Hypertension and Alteration- Leisure Activ. Potential Problem List:: DVT, Infection, Skin Integrity and Depression Risk of Complications DVT: LMWH and CAITLIN Hose Bleeding: Monitor Lab Values, Nursing to Teach Precautions for anti-coagulation therapy., Wound, if applicable, to be assessed every shift. and Stroke patients assessed for lethargy or change in status. Infection: Clinical Staff to Monitor for S/S of infection: and S/S of infection include fever, redness, warmth, etc. Urinary Tract Infection: Monitor for frequency, burning, discomfort, or incontinence. and Nursing will obtain urine sample for urinalysis and C&S when ordered. Aspiration: Clinical staff will monitor for coughing, drooling, congestion., Speech will evaluate swallowing and dsyphasia. and Nursing will monitor patient swallowing during meals. Falls: Patient will be evaluated for Fall Precautions and Patient will be placed on Fall Precautions as indicated per protocol. Skin Breakdown: Nursing will assess skin daily using assessment tool. and Nursing will place on Skin Breakdown Precautions as indicated. Pain: Clinical staff will assess patient's pain level per protocol., Medications will be given, if needed, and the pain level reassessed. and Other methods: Massage, distraction, decrease stimulus, etc. used PRN. Plan of Care Patient requires physician specializing in physical medicine and rehab oversight to provide close medical supervision of rehab issues including: Pain Management, Sleep Problems, Bowel and Bladder, Medical and co-morbidity Management, DVT prophylaxis, Rehabilitation Leadership and Coordination of treatment team Patient needs Physical Therapy: For a minimum of 1 hour and At least 5 out of 7 days Patient needs Physical Therapy to improve:: Mobility, Strengthening, Transfers, Stretching, ROM, Endurance, Stairs, Gait and Balance Patient needs Occupational Therapy: For a minimum of 1 hour and At least 5 out of 7 days Patient needs Occupational Therapy to improve ADL's incl.: Eating, Grooming, Bathing, Dressing, Toileting, Toilet transfers, Community Reintegration, Higher functioning activities, Household tasks, Adaptive Equipment, Splinting and Other activities as determined Patient requires 24/ Rehabilitation Nursing for: Pain Issues, Identifying and preventing risk factors, Monitoring and reporting current medical conditions, Assisting with ambulation, transfer, and all ADL's, Teaching patients about disease process and medications, Family teaching, Providing safe environment, Bowel and Bladder Issues, Skin integrity and Medication Management Patient needs Admissions Evaluator/ Case Management for: Discharge Planning, Arranging Home Equipment or Services and Family Interventions Patient needs Dietary and Nutrition Services for: Adequate Nutrition, Nutritional Supplements and Nutritional Education Goals Patient will remain: free from falls and or injury at time of discharge. Patient will perform bed mobility at: MOD I level of assist. Patient will complete transfers from bed to chair at: MOD I level of assist. Patient will ambulate: with LRD and - (300 feet) Patient will complete upper body dressing at: MOD I level of assist. Patient will complete lower body dressing at: MOD I level of assist. (using Adaptive equipment ) Patient will complete toileting at: - (Will need adaptive equipment for posterior hygiene or min assist by his with wiping ) Patient will perform bathing at: MOD I level of assist. (PATRICIA or SBA) Patient will complete grooming at: MOD I level of assist. Patient will complete home management skills at: MOD I level of assist. Patient will achieve: - (1 curb step and 7 regular steps with 1 handrail and standby assist to enter his house and allow access to the bedroom/bathroom while in his house.) Patient will have pain level of: of 3 or less Patient's skin will: remain intact Patient will receive: adequate nutrition. Discharge Planning Pt Prognosis for Sig. Practical Improv. w/in Reasonable Time: Good Anticipated D/C Destination: Home Was Preadmission Assessment Accurate?: Yes
--- NOTE | 2021-06-09 11:04 | PCM.PN.BLA ---
Progress Note Afebrile VSS - BP's are elevated....suspect due to pain Maintaining appropriate oxygen saturation on RA This is day #3 without a BM. Discussed with nursing - no problems that need addressed Reviewed the PT/OT notes Medication list reviewed. States he slept the best he has slept since being in the hospital last night. Pain is better with the addition of the Gabapentin but, He was having severe pain after PT. He has hyperaesthesia of the skin on the anterolateral thighs......I can barely touch the skin without him withdrawing. He denies CP, SOB, calf pain. R leg is weak and he tells me that prior to surgery he had numbness and weakness in the R leg. Denies shaking chills. Denies back pain. Has not had a sleep study since 2012 and admits to gaining wt since then. Physical Exam Const alert and oriented x3 General Appearance: cooperative Chest Chest Narrative: Decreased sensation in the lower chest wall due to neuropathy Resp normal respiratory effort and clear to auscultation bilaterally Effort and Inspection: able to speak in complete sentences and symmetric chest movement Cardio regular rate, regular rhythm, S1 normal heart sound, S2 normal heart sound, no rub and no gallops GI normal to inspection, nondistended, normoactive bowel sounds, soft to palpation and non-tender Extremity Extremity Narrative: There is edema in both thighs.......not pitting. He is super sensitive to any touch of the anterolateral thighs....causes pain. No redness. Some ankle edema BL. Psych mental status grossly normal, thought process normal, cooperative and affect normal Assessment & Plan Assessment/Plan (1) Neuropathy: (2) Physical debility: (3) Pressure ulcer: (4) History of fasciotomy: (5) Weakness of both legs: (6) Compartment syndrome: (7) ANA (acute kidney injury): (8) Pain aggravated by physical activity: (9) Elevated BP without diagnosis of hypertension: PLAN: 1. Increase gabapentin to 400 mg twice daily and 600 mg at bedtime. Give the bedtime Gabapentin at 1999. 2. Add a Lidocaine patch to each anterolateral thigh. 3. Start Lovenox 40 mg SQ daily. DC the SCD's. 4. Check a CPK today - if this is elevated will discuss with Dr. Kilpatrick. 5. CBC with diff, Mag and a BMP in the AM. 6. Add Hydralazine PRN for BP > 160/90 Visit Charges Inpatient E&M: 97400 Subs Hosp L2
[2021-06-09] MEDS: Enoxaparin 40 MG/0.4 ML Syringe SC (11:37)
[2021-06-09] MEDS: Lidocaine 5% Patch 2 PATCH TOPICAL (11:46)
[2021-06-09 12:28] LABS: CPK Total, Creatine Kinase 341 U/L (39-308)
[2021-06-09 13:23] VITALS: O2SAT 94
[2021-06-09] MEDS: Gabapentin 400 MG Capsule PO (15:23)
[2021-06-09] MEDS: 0.9% Saline Lock 10 ML Syringe IV (15:23)
[2021-06-09] MEDS: Gabapentin 300 MG Capsule 600 MG PO (19:04)
[2021-06-09 19:26] VITALS: BP 141/70; PULSE 86; RESP 17; TEMP 36.5; O2SAT 93
[2021-06-09] MEDS: Psyllium 1 PACKET PO (21:55)
[2021-06-09] MEDS: Montelukast 10 MG Tablet PO (21:56)
[2021-06-09 22:00] VITALS: PULSE 82; RESP 17
[2021-06-09] MEDS: Acetaminophen 325 MG Tablet 650 MG PO (23:34)
--- NOTE | 2021-06-09 23:43 | NURSING ---
Oxyir and Tylenol PRN meds provided for pt. Pt claims he is unable to get comfortable or get to sleep. Staff assisted with repositioning pillows under bilat thighs and pt states he hopes he can finally get some sleep. Will continue to monitor
[2021-06-10] MEDS: oxyCODONE 5 MG Tablet 10 MG PO ×5 (03:56→20:27)
[2021-06-10 08:00] VITALS: BP 123/74; PULSE 78; RESP 16; TEMP 36.6; O2SAT 97
[2021-06-10] MEDS: Pantoprazole Sodium 40 MG Tablet PO (08:10)
[2021-06-10] MEDS: Gabapentin 400 MG Capsule PO ×2 (08:10→16:32)
[2021-06-10] MEDS: Lisinopril 20 MG Tablet PO (08:10)
[2021-06-10] MEDS: Multivitamins,Therapeutic Tablet 1 TABLET PO (08:10)
[2021-06-10] MEDS: Senna/Docusate Sodium 1 Tablet 2 TABLET PO ×2 (08:11→22:24)
[2021-06-10] MEDS: amLODIPine 10 MG Tablet PO (08:11)
[2021-06-10] MEDS: Enoxaparin 40 MG/0.4 ML Syringe SC (08:11)
[2021-06-10] MEDS: Fluticasone/Salmeterol 232-14 Inhaler 1 PUFF INHALATION ×2 (08:16→22:24)
[2021-06-10 08:42] LABS: Absolute Lymphocyte Count 1.93 X10^3/uL (0.83-4.51); Absolute Neutrophil Count 13.2 X10^3/uL (2.0-7.7); Basophil# 0.06 X10^3/uL; Basophil% 0.3 % (0-1); Eosinophil# 0.12 X10^3/uL; Eosinophils% 0.7 % (0-5); Hematocrit 39.5 % (40-54); Hemoglobin 13.3 g/dL (13.0-16.5); Lymphocyte # 1.93 X10^3/ul (0.83-4.51); Mean Corp Hgb Conc 33.7 g/dL (32-36); Mean Corpuscular Hgb 31.8 pg (27.0-32.0); Mean Corpuscular Volume 94.5 fL (80-94); Mean Platelet Vol. 8.7 fl (6.2-12.0); Monocyte# 1.74 X10^3/uL; Monocyte% 9.9 % (0-10); NRBC Flagged by Analyzer 0 % (0-5); Neutrophil % 75.1 % (47-70); POSITIVE DIFFERENTIAL YES; Platelet Count 287 K/mm3 (150-450); RBC Distribution Width CV 13.9 % (11.6-14.6); RBC Distribution Width SD 48.2 fl (35.1-43.9); Red Blood Count 4.18 M/mm3 (4.6-6.2); White Blood Count 17.6 K/mm3 (4.4-11.0)
[2021-06-10 08:43] LABS: Differential Indicated SCAN CRITERIA MET
[2021-06-10 09:02] LABS: Hemoglobin A1c 6.2 % (3.8-5.6)
[2021-06-10 09:04] LABS: Anion Gap 7 (5-15); BUN 26 mg/dL (7-18); Calcium,Total 8.5 mg/dL (8.5-10.1); Chloride 102 mmol/L (98-107); EST Glomerular Filtration Rate 62 mL/min (>60); Est Glom Filt Rate - Afr Amer 75 mL/min (>60); Estimated Creatinine Clearance 75.44 ml/min; Glucose 176 mg/dL (74-106); Potassium 4.3 mmol/L (3.5-5.1); Sodium Level 135 mmol/L (136-145)
[2021-06-10] MEDS: oxyCODONE HCl Cr 10 MG Tablet 20 MG PO ×2 (09:48→22:25)
[2021-06-10] MEDS: Psyllium 1 PACKET PO (09:49)
[2021-06-10] MEDS: Magnesium Hydroxide 30 ML UDC PO (10:02)
[2021-06-10] MEDS: Acetaminophen 325 MG Tablet 650 MG PO (11:49)
[2021-06-10] MEDS: Lidocaine 5% Patch 2 PATCH TOPICAL (11:49)
[2021-06-10 12:52] VITALS: O2SAT 97
[2021-06-10] MEDS: Bisacodyl 10 MG Suppository RC (18:22)
[2021-06-10 19:30] VITALS: BP 152/70; PULSE 80; RESP 17; TEMP 36.4; O2SAT 96
[2021-06-10] MEDS: Gabapentin 300 MG Capsule 600 MG PO (20:28)
[2021-06-10] MEDS: Montelukast 10 MG Tablet PO (22:25)
[2021-06-11] MEDS: oxyCODONE 5 MG Tablet 10 MG PO ×5 (00:33→18:31)
--- NOTE | 2021-06-11 02:01 | NURSING ---
Pt c/o pain in bilateral lower legs 01/10. States it is burning pain with radiation to back. Medicated per orders with good pain relief for pt.
[2021-06-11 08:00] VITALS: BP 133/78; PULSE 77; RESP 18; TEMP 36.3; O2SAT 97
[2021-06-11] MEDS: Lisinopril 20 MG Tablet PO (08:35)
[2021-06-11] MEDS: amLODIPine 10 MG Tablet PO (08:35)
[2021-06-11] MEDS: Multivitamins,Therapeutic Tablet 1 TABLET PO (08:36)
[2021-06-11] MEDS: Acetaminophen 325 MG Tablet 650 MG PO (08:36)
[2021-06-11] MEDS: Gabapentin 400 MG Capsule PO ×2 (08:36→16:33)
[2021-06-11] MEDS: Fluticasone/Salmeterol 232-14 Inhaler 1 PUFF INHALATION ×2 (08:39→20:45)
[2021-06-11] MEDS: Pantoprazole Sodium 40 MG Tablet PO (08:39)
[2021-06-11] MEDS: Senna/Docusate Sodium 1 Tablet 2 TABLET PO ×2 (08:40→20:47)
[2021-06-11] MEDS: Enoxaparin 40 MG/0.4 ML Syringe SC (09:46)
[2021-06-11] MEDS: oxyCODONE HCl Cr 10 MG Tablet 20 MG PO ×2 (09:46→22:00)
[2021-06-11 19:35] VITALS: BP 140/79; PULSE 104; RESP 18; TEMP 36; O2SAT 95
[2021-06-11] MEDS: Gabapentin 300 MG Capsule 600 MG PO (20:45)
[2021-06-11] MEDS: Montelukast 10 MG Tablet PO (20:47)
[2021-06-12] MEDS: oxyCODONE 5 MG Tablet 10 MG PO ×5 (01:26→23:15)
[2021-06-12] MEDS: Acetaminophen 325 MG Tablet 650 MG PO ×2 (03:49→23:16)
[2021-06-12 07:38] VITALS: BP 131/72; PULSE 88; RESP 18; TEMP 36.4; O2SAT 94
[2021-06-12] MEDS: Multivitamins,Therapeutic Tablet 1 TABLET PO (08:24)
[2021-06-12] MEDS: Gabapentin 400 MG Capsule PO (08:24)
[2021-06-12] MEDS: Pantoprazole Sodium 40 MG Tablet PO (08:25)
[2021-06-12] MEDS: Senna/Docusate Sodium 1 Tablet 2 TABLET PO ×2 (08:25→21:23)
[2021-06-12] MEDS: Fluticasone/Salmeterol 232-14 Inhaler 1 PUFF INHALATION ×2 (08:25→21:22)
[2021-06-12] MEDS: amLODIPine 10 MG Tablet PO (08:25)
[2021-06-12] MEDS: Enoxaparin 40 MG/0.4 ML Syringe SC (08:26)
[2021-06-12] MEDS: Lisinopril 20 MG Tablet PO (08:26)
[2021-06-12] MEDS: Povidone-Iodine Swabstick 3 PACKET TOPICAL (08:43)
--- NOTE | 2021-06-12 10:37 | PN_ITS ---
Progress Note Kory was seen on team rounds today. His Luz participated by phone. All questions were addressed and answered. Afebrile VSS Maintaining appropriate oxygen saturation on RA Oral intake is good Discussed with nursing - no problems that need addressed Reviewed the PT/OT notes. Not able to do stairs and he has a split level home and must be able to do stairs. Medication list reviewed. Creat had increased to 1.3 on Saturday with a BUN of 26. The CPK on Saturday was down to 341. HGB is WNL. All lab from today was personally reviewed. The WBC is still elevated at 17.6 which is down from 19.0 the end of last week. Left shift persists. Creatinine is back down to 1.1. CPK is normal at 308 today. Myoglobin is pending. HGBA1C is mildly elevated at 6.2 which is consistent with glucose intolerance. He continues to c/o burning in his thighs. It waxes and wanes. Had been sleeping better but had a few naps yesterday and then did not sleep well last night. Swelling in the ankles is down significantly today. No SOB, no calf pain. Denies back pain. Upper abd is still numb and also the lower chest wall. He has some mild atrophy in the Left pectoralis muscle inferiorly. Only really noticeable when standing. the Right hand ring and little finger are still numb and he has less coordination when writing but, this has been improving. Physical Exam Const alert and oriented x3 Constitutional Narrative: In obvious pain when he does anything that makes the quads contract. HEENT moist oral mucous membranes Resp clear to auscultation bilaterally Cardio regular rate and regular rhythm GI normal to inspection, nondistended, normoactive bowel sounds, soft to palpation and non-tender GI Narrative: numb with palpation in the upper quadrants. Extremity no calf tenderness Extremity Narrative: The ankle edema is much improved with the MARIA ESTHER wraps to the knee. Thigh high TEDS increased the pain greatly. He can not tolerate even light touch on the anterior thighs due to pain, he guards and retracts. He can not even tolerate the ice packs on the thighs. He has intact sensation in the toes and both feet are warm to the touch. Can wiggle the toes on both feet. The thighs have less edema and the skin is softer anteriorly but still with edema lateral thighs, likely because they are dependent . The R leg was weak prior to the laminectomy but when he is trying to do stairs now it is the left leg that he is circumducting to lift? Skin Skin Narrative: He has what appears to be heat rash or rash due to irritation from the tape. It is on the thighs mostly around the incisions and there are small non-confluent red papules, some with a white head. Denies pruritus. The incisions are intact and dry with no serosanguineous or purulent discharge. The dressings were dry when removed. There is some erythema of the R incision, mostly on the side facing down toward the bed......there is no warmth to touch.......this may be due to this being a dependent area of the body but, could be due to tight suture as well. It does not appear to be infected. The eschar on the chin continues to decrease in size and there is no erythema of the surrounding skin and no DC. There is no redness of the abd wall any longer. General Skin Exam: no breakdown Neuro Neuro Narrative: Decreased sensation in the R ring and little finger and in the lower chest/upper abdomen area. Burning pain in both thighs anterior and latera l. Psych mental status grossly normal, thought process normal, cooperative and affect normal Psych Narrative: Feels more tired with the increase in the dose of the Gabapentin. Assessment & Plan Assessment/Plan (1) Neuropathy: (2) Compartment syndrome: (3) Ulnar neuropathy: (4) History of lumbar laminectomy: (5) History of fasciotomy: (6) ANA (acute kidney injury): (7) Rhabdomyolysis: (8) Pain aggravated by physical activity: (9) Weakness of both legs: PLAN: 1. Pain is not adequately controlled. Pain is exacerbated by exercise and even light touch to the anterolateral thighs BL. I suspect this is due to injury plus neuropathy due to the compartment syndrome. Will increase the Gabapentin to 600 mg TID and increase the Oxycontin to 30 mg BID. Will consult Dr. Arauz to assist in pain management and then Kory will have someone to follow for pain control following DC. Would consider using Lyrica rather than Gabapentin because Yumiko is dosed twice a day. 2. Continue therapy 3. Reminded Kory he has medication to use for breakthrough pain if necessary.......he has not been taking this. 4. Check a myoglobin. 5. I examined the wounds with the wound care nurse who saw him when he was on the acute side and the swelling is much better. Will DC the dressing and allow the incisions to be open to the air.......will monitor the rash daily to see if it improves without the tape/bandage 6. Acute renal failure has resolved. Visit Charges Inpatient E&M: 08410 Subs Hosp L3
[2021-06-12] MEDS: oxyCODONE HCl Cr 10 MG Tablet 20 MG PO (10:50)
[2021-06-12 11:54] LABS: Anion Gap 6 (5-15); BUN 18 mg/dL (7-18); BUN/Creat Ratio 16.4 RATIO (10-20); CPK Total, Creatine Kinase 308 U/L (39-308); Calcium,Total 8.8 mg/dL (8.5-10.1); Chloride 102 mmol/L (98-107); EST Glomerular Filtration Rate 76 mL/min (>60); Est Glom Filt Rate - Afr Amer 91 mL/min (>60); Estimated Creatinine Clearance 89.16 ml/min; Glucose 112 mg/dL (74-106); Potassium 4.1 mmol/L (3.5-5.1); Sodium Level 136 mmol/L (136-145)
[2021-06-12] MEDS: Gabapentin 600 MG Tablet PO ×2 (13:17→21:22)
[2021-06-12 13:40] LABS: Pathologist Review Reviewed
--- NOTE | 2021-06-12 14:43 | WOUNDNOTE ---
wound photo: left lateral thigh
--- NOTE | 2021-06-12 14:43 | WOUNDNOTE ---
wound photo: right lateral thigh
--- NOTE | 2021-06-12 14:44 | WOUNDNOTE ---
wound photo: chin
[2021-06-12 19:01] VITALS: BP 141/67; PULSE 97; RESP 92; TEMP 36.5; O2SAT 98
[2021-06-12] MEDS: oxyCODONE CR 15 MG Tablet 30 MG PO (21:20)
[2021-06-12] MEDS: Montelukast 10 MG Tablet PO (21:25)
[2021-06-12 22:00] VITALS: PULSE 55; RESP 16; O2SAT 99
[2021-06-13] MEDS: oxyCODONE 5 MG Tablet 10 MG PO ×4 (03:30→23:32)
[2021-06-13] MEDS: Gabapentin 600 MG Tablet PO ×3 (05:46→21:01)
[2021-06-13 07:51] VITALS: BP 129/73; PULSE 77; RESP 16; TEMP 36.3; O2SAT 97
[2021-06-13] MEDS: amLODIPine 10 MG Tablet PO (08:45)
[2021-06-13] MEDS: Lisinopril 20 MG Tablet PO (08:45)
[2021-06-13] MEDS: Senna/Docusate Sodium 1 Tablet 2 TABLET PO ×2 (08:45→21:01)
[2021-06-13] MEDS: Psyllium 1 PACKET PO ×2 (08:45→21:02)
[2021-06-13] MEDS: Multivitamins,Therapeutic Tablet 1 TABLET PO (08:45)
[2021-06-13] MEDS: Pantoprazole Sodium 40 MG Tablet PO (08:45)
[2021-06-13 08:49] LABS: Myoglobin, Serum 334 ng/mL (28-72)
--- NOTE | 2021-06-13 10:02 | PCM.PN.BLA ---
Progress Note Afebrile VSS Maintaining appropriate oxygen saturation on RA Oral intake is good Discussed with nursing - no problems that need addressed Reviewed the PT/OT notes - He was able to do his therapy today with no complaints of pain. Medication list reviewed. Myoglobin yesterday was elevated at 334 but the total CK was normal at 308 and the creatinine came down from 1.3-1.0. I stressed to him it is important to drink a lot of water to wash the myoglobin out. He slept well last night and is comfortable with his pain relief as it is. He was seen by Dr. Arauz last evening and he will be following with Dr. Arauz post DC for pain management. He is asking why his left leg is now weak and I explained he had spinal stenosis and the left leg might have been weak as well prior to the surgery but the R leg was so bad he did not notice. I also explained the surgery causes some swelling and inflammation that may be causing some neuropathy in the left leg......he has pain in the buttock on the L also. I also told him there was muscle damage/loss due compression/compartment S and this is also likely contributing. I told him I suspect this will be transient. He denies calf pain, CP, SOB, hemoptysis, dysuria. Physical Exam Const alert, oriented x3 and no apparent distress Constitutional Narrative: pleasant. Making good eye contact. Smiling. Talkative. General Appearance: cooperative and comfortable Resp normal respiratory effort and clear to auscultation bilaterally Effort and Inspection: able to speak in complete sentences Cardio regular rate, regular rhythm and no murmurs GI normal to inspection, nondistended, normoactive bowel sounds, soft to palpation and non-tender GI Narrative: Still decreased sensation in the upper abd due to neuropathy. Extremity no calf tenderness and no pedal edema Extremity Narrative: the R ring and little fingers are still numb......some difficulty with fine motor control R hand.....noticeable difference when signing his signature Skin Wound Narrative: the fasciotomy incisions have no discharge and they are intact with no dehiscence The eschar/pressure ulcer on the chin continues to shrink in size Psych mental status grossly normal, thought process normal, cooperative and affect normal Assessment & Plan Assessment/Plan (1) Elevated BP without diagnosis of hypertension: PLAN: Blood pressure is now within normal limits since the pain has been adequately controlled. (2) Physical debility: PLAN: Continue therapy. Must be able to do stairs prior to discharge from rehab so that he may navigate in and around his home. (3) Pressure ulcer: PLAN: The pressure ulcer/eschar on the chin continues to shrink and requires no further attention at this time. (4) History of fasciotomy: PLAN: Incisions are clean, dry, intact with no dehiscence, no erythema and no purulent discharge. (5) Weakness of both legs: (6) Neuropathy: PLAN: Ulnar neuropathy on the right, neuropathy with decreased sensation in the upper abdominal wall and lower chest wall, neuropathy in the bilateral anterolateral thighs due to compartment syndrome with compression/dysfunction of the nerves (7) History of lumbar laminectomy: PLAN: Denies back pain. (8) Rhabdomyolysis: PLAN: resolved Visit Charges Inpatient E&M: 64161 Subs Hosp L2
[2021-06-13] MEDS: Enoxaparin 40 MG/0.4 ML Syringe SC (11:10)
[2021-06-13] MEDS: Fluticasone/Salmeterol 232-14 Inhaler 1 PUFF INHALATION ×2 (11:11→21:01)
[2021-06-13] MEDS: Povidone-Iodine Swabstick 3 PACKET TOPICAL (11:43)
[2021-06-13] MEDS: oxyCODONE CR 15 MG Tablet 30 MG PO ×2 (11:43→21:00)
[2021-06-13 19:26] VITALS: BP 125/75; PULSE 75; RESP 14; TEMP 36.6; O2SAT 95
[2021-06-13] MEDS: Montelukast 10 MG Tablet PO (21:01)
[2021-06-13 22:00] VITALS: PULSE 73; RESP 16; O2SAT 99
[2021-06-14] MEDS: oxyCODONE 5 MG Tablet 10 MG PO ×3 (05:35→18:25)
[2021-06-14] MEDS: Gabapentin 600 MG Tablet PO ×3 (05:35→20:57)
[2021-06-14] MEDS: Acetaminophen 325 MG Tablet 650 MG PO (05:36)
[2021-06-14 07:26] VITALS: BP 143/80; PULSE 86; RESP 20; TEMP 36.5; O2SAT 95
[2021-06-14] MEDS: Pantoprazole Sodium 40 MG Tablet PO (09:43)
[2021-06-14] MEDS: Lisinopril 20 MG Tablet PO (09:43)
[2021-06-14] MEDS: Multivitamins,Therapeutic Tablet 1 TABLET PO (09:43)
[2021-06-14] MEDS: Fluticasone/Salmeterol 232-14 Inhaler 1 PUFF INHALATION ×2 (09:43→20:56)
[2021-06-14] MEDS: amLODIPine 10 MG Tablet PO (09:43)
[2021-06-14] MEDS: Psyllium 1 PACKET PO ×2 (09:43→20:57)
[2021-06-14] MEDS: Senna/Docusate Sodium 1 Tablet 2 TABLET PO ×2 (09:43→20:57)
[2021-06-14] MEDS: oxyCODONE CR 15 MG Tablet 30 MG PO ×2 (09:44→21:06)
[2021-06-14] MEDS: Enoxaparin 40 MG/0.4 ML Syringe SC (09:44)
[2021-06-14] MEDS: Magnesium Hydroxide 30 ML UDC PO (09:46)
--- NOTE | 2021-06-14 11:03 | NURSING ---
spoke with Dr walker office to get lumbar suture dc date. office is to return call
[2021-06-14] MEDS: Povidone-Iodine Swabstick 3 PACKET TOPICAL (12:08)
[2021-06-14 19:22] VITALS: BP 148/84; PULSE 94; RESP 18; TEMP 36.1; O2SAT 97
[2021-06-14 20:51] VITALS: PULSE 74; RESP 16; O2SAT 98
[2021-06-14] MEDS: Montelukast 10 MG Tablet PO (20:58)
[2021-06-15] MEDS: oxyCODONE 5 MG Tablet 10 MG PO ×4 (01:09→18:01)
[2021-06-15] MEDS: Acetaminophen 325 MG Tablet 650 MG PO ×2 (01:10→22:01)
[2021-06-15] MEDS: Gabapentin 600 MG Tablet PO ×3 (05:00→21:15)
[2021-06-15 07:37] VITALS: BP 123/72; PULSE 80; RESP 16; TEMP 36.2; O2SAT 96
[2021-06-15] MEDS: Senna/Docusate Sodium 1 Tablet 2 TABLET PO ×2 (08:00→21:14)
[2021-06-15] MEDS: amLODIPine 10 MG Tablet PO (08:00)
[2021-06-15] MEDS: Fluticasone/Salmeterol 232-14 Inhaler 1 PUFF INHALATION ×2 (08:00→21:15)
[2021-06-15] MEDS: Pantoprazole Sodium 40 MG Tablet PO (08:00)
[2021-06-15] MEDS: Psyllium 1 PACKET PO ×2 (08:00→21:15)
[2021-06-15] MEDS: Multivitamins,Therapeutic Tablet 1 TABLET PO (08:00)
[2021-06-15] MEDS: Enoxaparin 40 MG/0.4 ML Syringe SC (08:00)
[2021-06-15] MEDS: Lisinopril 20 MG Tablet PO (08:01)
[2021-06-15] MEDS: oxyCODONE CR 15 MG Tablet 30 MG PO ×2 (11:28→22:01)
[2021-06-15] MEDS: Povidone-Iodine Swabstick 3 PACKET TOPICAL (13:44)
[2021-06-15 19:20] VITALS: BP 147/71; PULSE 99; RESP 14; TEMP 36.6; O2SAT 95
--- NOTE | 2021-06-15 19:20 | PCM.PN.BLA ---
Progress Note Afebrile VSS Maintaining appropriate oxygen saturation on RA Oral intake is good Discussed with nursing - no problems that need addressed Reviewed the PT/OT/ST notes Medication list reviewed. He is c/o more burning in the R thigh today. Feels as though it is more swollen. He slept well last night. He denies chest pain, shortness of breath, hemoptysis, calf pain, shaking chills, dysuria, cough, nausea/vomiting/abdominal pain. Physical Exam Resp normal respiratory effort and clear to auscultation bilaterally Effort and Inspection: able to speak in complete sentences Cardio regular rate, regular rhythm, no murmurs and no gallops GI normal to inspection, nondistended, normoactive bowel sounds, soft to palpation and non-tender Skin Skin Narrative: The R LE fasciotomy incision is intact but, there is increasing erythema, increased swelling, increased warmth to touch and there is increased rash on both LE's of the periwound area with papules and small white heads. Denies pruritus. The Left Leg incision has mild erythema at the proximal pole and increased papular rash despite leaving the incision open to air /eliminating tape. The lumbar incision is intact and has no erythema, no purulent DC and is healing nicely. Assessment & Plan Assessment/Plan (1) Cellulitis: (2) History of fasciotomy: PLAN: Open one of the pustules and send the Discharge for GM stain with C&S and also for MRSA PCR. Start Ancef 1 GM IV q 8H IF the PCR is + for MRSA will transition to VAncomycin Check a CBC with diff, BMP in the AM As an OP will focus on therapy but, also on weight loss to decreased the stress on the low back in hopes that he will not need any additional surgery going forward and that he will not develop DM II. Will have the clinical project assistant talk to him and his about weight loss and carb control prior to his DC. Will need ongoing PT/OT following DC Visit Charges Inpatient E&M: 75272 Subs Hosp L2
[2021-06-15] MEDS: Cefazolin 1 GM/50 ML BAG IV (20:27)
[2021-06-15 21:10] LABS: M R Staph aureus DNA By PCR Negative (Negative); Probe Check PASS; Specimen Processing Control PASS; Staph aureus DNA By PCR NEGATIVE (Negative)
[2021-06-15] MEDS: 0.9% Saline Lock 10 ML Syringe IV (21:11)
[2021-06-15] MEDS: Montelukast 10 MG Tablet PO (21:15)
[2021-06-16] MEDS: oxyCODONE 5 MG Tablet 10 MG PO ×5 (00:41→23:07)
[2021-06-16] MEDS: Acetaminophen 325 MG Tablet 650 MG PO ×3 (04:30→23:42)
[2021-06-16] MEDS: Gabapentin 600 MG Tablet PO ×3 (04:30→21:00)
[2021-06-16] MEDS: Cefazolin 1 GM/50 ML BAG IV ×3 (04:46→22:10)
[2021-06-16] MEDS: 0.9% Saline Lock 10 ML Syringe IV ×3 (05:15→23:35)
[2021-06-16 05:45] LABS: Absolute Lymphocyte Count 1.56 X10^3/uL (0.83-4.51); Absolute Neutrophil Count 5.7 X10^3/uL (2.0-7.7); Basophil# 0.03 X10^3/uL; Basophil% 0.4 % (0-1); Eosinophils% 1.2 % (0-5); Hemoglobin 10.8 g/dL (13.0-16.5); Lymphocyte # 1.56 X10^3/ul (0.83-4.51); Lymphocyte % 18.3 % (19-41); Mean Corp Hgb Conc 31.8 g/dL (32-36); Mean Corpuscular Hgb 30.3 pg (27.0-32.0); Mean Corpuscular Volume 95.5 fL (80-94); Mean Platelet Vol. 8.6 fl (6.2-12.0); Monocyte% 12.9 % (0-10); NRBC Flagged by Analyzer 0 % (0-5); Neutrophil # 5.69 X10^3/uL (2.7-7.7); Neutrophil % 66.5 % (47-70); Platelet Count 233 K/mm3 (150-450); RBC Distribution Width CV 13.3 % (11.6-14.6); RBC Distribution Width SD 47.3 fl (35.1-43.9); Red Blood Count 3.56 M/mm3 (4.6-6.2); White Blood Count 8.5 K/mm3 (4.4-11.0)
[2021-06-16 06:24] LABS: Anion Gap 5 (5-15); BUN 14 mg/dL (7-18); BUN/Creat Ratio 14.1 RATIO (10-20); Calcium,Total 8.7 mg/dL (8.5-10.1); Chloride 102 mmol/L (98-107); EST Glomerular Filtration Rate 85 mL/min (>60); Est Glom Filt Rate - Afr Amer 102 mL/min (>60); Estimated Creatinine Clearance 98.08 ml/min; Glucose 111 mg/dL (74-106); Sodium Level 136 mmol/L (136-145)
[2021-06-16 07:38] VITALS: BP 145/84; PULSE 84; RESP 16; TEMP 36.2; O2SAT 94
[2021-06-16] MEDS: Psyllium 1 PACKET PO (07:45)
[2021-06-16] MEDS: Enoxaparin 40 MG/0.4 ML Syringe SC (07:45)
[2021-06-16] MEDS: Fluticasone/Salmeterol 232-14 Inhaler 1 PUFF INHALATION ×2 (07:45→21:00)
[2021-06-16] MEDS: Multivitamins,Therapeutic Tablet 1 TABLET PO (07:45)
[2021-06-16] MEDS: Pantoprazole Sodium 40 MG Tablet PO (07:45)
[2021-06-16] MEDS: amLODIPine 10 MG Tablet PO (07:45)
[2021-06-16] MEDS: Lisinopril 20 MG Tablet PO (07:46)
[2021-06-16] MEDS: Senna/Docusate Sodium 1 Tablet 2 TABLET PO ×2 (07:46→21:00)
[2021-06-16] MEDS: oxyCODONE CR 15 MG Tablet 30 MG PO ×2 (10:45→22:07)
[2021-06-16] MEDS: Povidone-Iodine Swabstick 3 PACKET TOPICAL (10:45)
--- NOTE | 2021-06-16 11:11 | PCM.PN.BLA ---
Progress Note Day #2 Ancef Afebrile VSS Maintaining appropriate oxygen saturation on RA Oral intake is good Discussed with nursing - no problems that need addressed Reviewed the PT/OT notes Medication list reviewed. All lab was personally reviewed. The white blood cell count today is 8.5 with an unremarkable differential. Creatinine today is 1 which is within his baseline. The BUN is 14. Electrolytes are within normal limits. The staff aureus protein a PCR and MRSA PCR are both negative. Preliminary on the wound culture is rare staph species. There were no organisms seen on the Gram stain. Kory slept well last night. He states the increased warmth in the right thigh has decreased since yesterday and he feels the muscle is less tense. He denies chest pain but continues to have numbness in the lower chest wall and the upper abdomen. There is still some numbness in the right ring and little finger but his dexterity is improving. He denies chest pain, calf pain, shortness of breath. He would like to talk to someone from the hospital about what has happened to him since the laminectomy. Pain is adequately controlled. Had a BM last night and continues to take stool softeners. Physical Exam Const alert, oriented x3 and no apparent distress General Appearance: cooperative, comfortable, well kempt and well developed HEENT moist oral mucous membranes HEENT Narrative: the eschar on the chin continues to contract and there is no erythema and no DC from the wound. Cardio regular rate and regular rhythm Back/Spine Back/Spine Narrative: the sutures are intact and there is no dehiscence. Dr. Kilpatrick saw him today and okayed us to remove the sutures. There is no DC and no venus-incisional erythema. Still with quad weakness BL. He continues to circumduct the left leg when ambulating and when climbing steps........has done 3 steps with 2 HR's with some difficulty clearing the left foot due to quad weakness. He tells me that one of his neighbors has put a second HR in the house so that he can get up the stairs at home. Extremity no calf tenderness Extremity Narrative: The erythema of the R lateral thigh is less intense today and there is decreased warmth to touch. The white heads have decreased and the red papules are also decreasing. There is no purulent drainage from the incision. The rash on the left lateral thigh is much better today and the erythema at the proximal end of the incision has resolved. No white heads today. No increased warmth to touch. No DC from the incision which is intact. Neuro Neuro Narrative: hyperaesthesia of the anterior thighs has improved and he is able to do therapy without too much discomfort. Psych mental status grossly normal, thought process normal, cooperative and affect normal Assessment & Plan Assessment/Plan (1) Physical debility: (2) History of lumbar laminectomy: (3) Compartment syndrome: (4) History of fasciotomy: (5) Rhabdomyolysis: (6) Myopathy: (7) Neuropathy: (8) Cellulitis: PLAN: 1. Continue the IV Ancef through the weekend and transition to Duricef Saturday if everything is looking better (it is looking better already). 2. Remove the sutures from the lumbar incision today. 3. await the results of the culture of the drainage from 1 of the pustules 4. Continue therapy - needs to do better at stairs so that he can be safe at home Walked 110' slowly with cane today. Less steady when using the cane and was CGA still. 5. I called Luz (Kory's ) and updated her on the progress Kory has had this week and the infection. All questions were answered. She is anxious to have him home and if everything continues to improve I suspect we will be able to discharge him next week. Visit Charges Inpatient E&M: 06854 Subs Hosp L2
[2021-06-16 20:22] VITALS: BP 125/74; PULSE 86; RESP 18; TEMP 36.7; O2SAT 96
[2021-06-16] MEDS: Montelukast 10 MG Tablet PO (21:00)
--- NOTE | 2021-06-17 01:25 | PCM.HOSP.N ---
Hospitalist Note Patient with recent start on ancef and following 1st dose RN reported lip swelling. Will d/c this regimen and administer IV benadryl x 2 doses, IV famotidine x 2 doses and IV solumedrol dose x 1. Will change to doxycycline.
[2021-06-17] MEDS: Famotidine 200 MG/20 ML MDV 20 MG in 0.9% Normal Saline (Pres. free 8 ML 300 MG IV ×2 (02:15→09:53)
[2021-06-17] MEDS: DiphenhydrAMINE 50 MG/ML Syringe 25 MG IV ×3 (02:23→18:20)
[2021-06-17] MEDS: 0.9% Saline Lock 10 ML Syringe IV ×4 (02:25→22:32)
[2021-06-17] MEDS: oxyCODONE 5 MG Tablet 10 MG PO ×4 (03:13→21:04)
--- NOTE | 2021-06-17 04:10 | NURSING ---
0110; Spoke with Dr. Mike regarding pt swollen lower lip. Started with swelling on r side with pt stating it began around 1700. Pt received 2200 dose of ancef and lower lip swelled all the way across. at approx 0000. Pt denies any tongue swelling, sob, numbness, tingling, no rashes other than the once previously noted on legs and abd. No other complaints than swollen lower lip. Orders received. Pt given IVP pepcid, IVP benedryl, IVP solumedrol. See MAR for dosage and times. 0315; Pt is feeling better. Lip has gone down slightly.No issues with breathing or any other symptoms of swelling or rashes.
[2021-06-17] MEDS: Gabapentin 600 MG Tablet PO ×3 (05:45→21:13)
[2021-06-17 07:45] VITALS: BP 158/80; PULSE 90; RESP 18; TEMP 36.1; O2SAT 97
[2021-06-17] MEDS: Fluticasone/Salmeterol 232-14 Inhaler 1 PUFF INHALATION ×2 (08:35→21:14)
[2021-06-17] MEDS: Enoxaparin 40 MG/0.4 ML Syringe SC (08:35)
[2021-06-17] MEDS: Lisinopril 20 MG Tablet PO (08:36)
[2021-06-17] MEDS: amLODIPine 10 MG Tablet PO (08:36)
[2021-06-17] MEDS: Multivitamins,Therapeutic Tablet 1 TABLET PO (08:36)
[2021-06-17] MEDS: Pantoprazole Sodium 40 MG Tablet PO (08:36)
[2021-06-17] MEDS: Senna/Docusate Sodium 1 Tablet 2 TABLET PO ×2 (08:36→21:13)
[2021-06-17] MEDS: Povidone-Iodine Swabstick 3 PACKET TOPICAL (08:54)
[2021-06-17] MEDS: oxyCODONE CR 15 MG Tablet 30 MG PO ×2 (09:29→22:16)
[2021-06-17 19:24] VITALS: BP 136/78; PULSE 90; RESP 18; TEMP 36.8; O2SAT 98
[2021-06-17] MEDS: Montelukast 10 MG Tablet PO (21:13)
[2021-06-17] MEDS: Psyllium 1 PACKET PO (21:14)
[2021-06-18] MEDS: Acetaminophen 325 MG Tablet 650 MG PO ×3 (02:45→20:29)
[2021-06-18] MEDS: oxyCODONE 5 MG Tablet 10 MG PO ×5 (02:45→21:16)
[2021-06-18] MEDS: Gabapentin 600 MG Tablet PO ×2 (05:36→13:06)
[2021-06-18] MEDS: Multivitamins,Therapeutic Tablet 1 TABLET PO (07:23)
[2021-06-18] MEDS: Fluticasone/Salmeterol 232-14 Inhaler 1 PUFF INHALATION ×2 (07:23→20:31)
[2021-06-18] MEDS: Enoxaparin 40 MG/0.4 ML Syringe SC (07:23)
[2021-06-18] MEDS: amLODIPine 10 MG Tablet PO (07:24)
[2021-06-18] MEDS: Pantoprazole Sodium 40 MG Tablet PO (07:24)
[2021-06-18] MEDS: Senna/Docusate Sodium 1 Tablet 2 TABLET PO ×2 (07:24→20:30)
[2021-06-18] MEDS: Lisinopril 20 MG Tablet PO (07:25)
[2021-06-18 07:54] VITALS: BP 104/75; PULSE 82; RESP 16; TEMP 36.2; O2SAT 94
--- NOTE | 2021-06-18 09:30 | NURSING ---
pt ambulated around unit x2 with a SBA and wheeled walker. pt tolerated well. denies pain or discomfort. pt ambulates back to recliner. pt denies further needs. call light within reach.
[2021-06-18] MEDS: oxyCODONE CR 15 MG Tablet 30 MG PO (09:37)
[2021-06-18] MEDS: 0.9% Saline Lock 10 ML Syringe IV (09:37)
[2021-06-18] MEDS: Povidone-Iodine Swabstick 3 PACKET TOPICAL (09:37)
--- NOTE | 2021-06-18 11:55 | PCM.PN.BLA ---
Progress Note Day #4 antibiotics Day #2 doxycycline. Had angioedema of lips and the night hospitalist transitioned from Ancef to Doxy. No recurrence of angioedema......will continue to monitor because he is also on an MARIA ESTHER. Afebrile VSS Maintaining appropriate oxygen saturation on RA Oral intake is good Discussed with nursing - no problems that need addressed Reviewed the PT/OT notes Medication list reviewed. Wound culture is positive for methicillin sensitive staph aureus. Had some trouble sleeping last night due to burning in the thighs. Reported having some vivid dreams since the increasing the Oxycontin to 30 mg. He is having less pain now and may be able to decrease back to 20 mg and increase Gabapentin at HS. I can touch his thighs now without him withdrawing in severe pain. Still has some pain with a little deeper pressure. Physical Exam Const alert, oriented x3 and no apparent distress General Appearance: cooperative, comfortable, well kempt and well developed Resp normal respiratory effort Effort and Inspection: able to speak in complete sentences Cardio regular rate and regular rhythm Extremity no calf tenderness and no pedal edema Extremity Narrative: The incision on the R leg is still significantly erythematous......In fact I think it looks worse now that he is on Doxycycline than it did after 2 dose of Ancef. The Left leg incision looks good. No more pustules but he has a maculopapular rash the is on the thighs and extends up into the back and sides which is likely due to Ancef/allergic dermatitis. No purulent DC. the incisions are dry. there is still swelling in both of the thighs anteriorly, R>L. Assessment & Plan Assessment/Plan (1) Glucose intolerance: PLAN: I talked with Kory and Luz today and we discussed glucose intolerance and weight loss. They would like to talk with the sheet rock taper helper and get some meal plans prior to being discharged. They have worked out together in the past and enjoy doing so. When the pain and the weakness in the R leg got bad and he was off work he started to eat/gain weight. He stopped working out. I reinforced the need for regular exercise/core strengthening to help prevent need for additional surgeries going forward and losing weight to decrease strain on the back. Both of them are on board with this. (2) Myopathy: PLAN: Getting stronger. I observed him ambulating with a cane today and he has a good vilma with no LOB. (3) Cellulitis: PLAN: I am going to DC the Doxycycline because it is bacteriostatic and not bacteriocidal. Will avoid PCN because of the allergy to Ancef. Will start Levaquin. If the erythema does not improve significantly over the next few days will get a CT of the R thigh. (4) Physical debility: PLAN: Making good progress. Once the cellultis improves significantly will DC home. Recommend PT in [facility] pool at [facility] once the sutures are all removed. (5) History of fasciotomy: (6) Pain aggravated by physical activity: PLAN: Having increased pain at night. Will increase the Neurontin at Bedtime to 900 mg and decrease the Oxycontin to 20 mg Q12H to help with the vivid dreams. Continue the PRN Oxycodone. (7) Neuropathy: (8) Compartment syndrome: (9) History of lumbar laminectomy: (10) Obesity: PLAN: We discussed wt loss, diet, exercise today and he is on board with this. Will start Wellbutrin to help decrease appetite and help with some of the depression related to the many complications and prolonged hospitalization. Visit Charges Inpatient E&M: 45600 Subs Hosp L3
[2021-06-18] MEDS: levoFLOXacin 500 MG Tablet PO (17:17)
[2021-06-18 19:08] VITALS: BP 119/87; PULSE 88; RESP 16; TEMP 36.6; O2SAT 98
[2021-06-18] MEDS: Gabapentin 300 MG Capsule 900 MG PO (20:30)
[2021-06-18] MEDS: Psyllium 1 PACKET PO (20:30)
[2021-06-18] MEDS: Montelukast 10 MG Tablet PO (20:30)
[2021-06-18] MEDS: oxyCODONE HCl Cr 10 MG Tablet 20 MG PO (22:26)
[2021-06-19] MEDS: Acetaminophen 325 MG Tablet 650 MG PO ×2 (00:35→06:55)
[2021-06-19] MEDS: oxyCODONE 5 MG Tablet 10 MG PO ×4 (02:38→17:48)
[2021-06-19] MEDS: Gabapentin 600 MG Tablet PO ×2 (06:27→14:28)
[2021-06-19] MEDS: levoFLOXacin 500 MG Tablet PO (06:27)
[2021-06-19 07:39] VITALS: BP 144/77; PULSE 77; RESP 18; TEMP 36.3; O2SAT 94
[2021-06-19] MEDS: Fluticasone/Salmeterol 232-14 Inhaler 1 PUFF INHALATION ×2 (09:32→21:15)
[2021-06-19] MEDS: Enoxaparin 40 MG/0.4 ML Syringe SC (09:32)
[2021-06-19] MEDS: Pantoprazole Sodium 40 MG Tablet PO (09:33)
[2021-06-19] MEDS: Lisinopril 20 MG Tablet PO (09:33)
[2021-06-19] MEDS: amLODIPine 10 MG Tablet PO (09:33)
[2021-06-19] MEDS: Multivitamins,Therapeutic Tablet 1 TABLET PO (09:33)
[2021-06-19] MEDS: Senna/Docusate Sodium 1 Tablet 2 TABLET PO ×2 (09:33→21:16)
[2021-06-19] MEDS: buPROPion (XL) 150 MG TABLET.XL PO (09:33)
--- NOTE | 2021-06-19 09:55 | PCM.PN.BLA ---
Progress Note Day # 5 antibiotics......day #2 of Levaquin Afebrile VSS - BP is sometimes mildly elevated but he is not at his baseline. Will differ adjusting antihypertensives to PCP when he is home and the pain/stress is better Maintaining appropriate oxygen saturation on RA Oral intake is good Discussed with nursing - no problems that need addressed Reviewed the PT/OT notes Medication list reviewed. Starting Wellbutrin today to assist with appetite control/weight loss Slept well with the increase in the Neurontin at HS. Very alert today. Pain is adequately controlled. Walking with a cane today. Denies chest pain, shortness of breath, hemoptysis, calf pain, nausea/vomiting/abdominal pain, lightheadedness. Physical Exam Resp clear to auscultation bilaterally Cardio regular rate and regular rhythm Extremity Extremity Narrative: The incision in the R lateral thigh is less erythematous today. The swelling is down and the thigh is less tense. No complaint of pain or withdrawal with light touch today. The rash due to the Ancef is fading. No pustules. Very mild increase in warmth to touch around the wound. No purulent DC. The incision on the left lateral thigh is looking good with no erythema, no DC and the rash is fading. Psych mental status grossly normal, thought process normal, cooperative and affect normal Psych Narrative: pleasant, cooperative. Assessment & Plan Assessment/Plan (1) Cellulitis: (2) Myopathy: (3) History of fasciotomy: (4) Neuropathy: PLAN: 1. continue the Levaquin for a full 7 days. 2. Add a probiotic 3. Continue the current pain regimen. 4. Will follow up with Dr. Arauz post DC for pain management Visit Charges Inpatient E&M: 29647 Subs Hosp L2
[2021-06-19] MEDS: oxyCODONE HCl Cr 10 MG Tablet 20 MG PO ×2 (10:05→21:16)
[2021-06-19] MEDS: Povidone-Iodine Swabstick 3 PACKET TOPICAL (10:06)
--- NOTE | 2021-06-19 14:13 | WOUNDNOTE ---
Pt was seen in the therapy room. incisions to bilateral lateral thighs with some mild redness noted. edema and redness are both improved. patient states pain has improved as well. there is no drainage noted so incisions are JERED. patient states plan is for discharge home tomorrow and follow up appt with Dr Kilpatrick on 06/21/21.
--- NOTE | 2021-06-19 15:00 | CASEMGMT ---
Social Work IDT met with patient and via conference call with for Team meeting. Discussed patient's progress in PT/OT and nursing. Pt progressing well and requesting to DC home 06/20. IDT agreeable. Pt does have any DME needs. Pt agreeable to outpatient aquatic therapy at [facility] per recommendation. Referral made to [facility]. Plan: DC home with 06/20, [facility] aquatic PT Ashlee Taylor MSW PRODUCT DISTRIBUTION SPECIALIST
--- NOTE | 2021-06-19 18:09 | NURSING ---
Reviewed and agree with [employer]ES [employer]IVE [employer] charting and documentation
[2021-06-19 19:12] VITALS: BP 136/72; PULSE 76; RESP 17; TEMP 36.6; O2SAT 96
[2021-06-19 20:40] VITALS: PULSE 76; RESP 16
[2021-06-19] MEDS: Gabapentin 300 MG Capsule 900 MG PO (21:15)
[2021-06-19] MEDS: Psyllium 1 PACKET PO (21:15)
[2021-06-19] MEDS: Montelukast 10 MG Tablet PO (21:17)
[2021-06-20] MEDS: oxyCODONE 5 MG Tablet 10 MG PO ×2 (05:28→13:43)
[2021-06-20] MEDS: Gabapentin 600 MG Tablet PO ×2 (05:31→13:43)
[2021-06-20] MEDS: levoFLOXacin 500 MG Tablet PO (05:31)
[2021-06-20 07:15] VITALS: BP 134/70; PULSE 73; RESP 16; TEMP 36.6; O2SAT 99
--- NOTE | 2021-06-20 09:30 | PCM.DC ---
Discharge Instructions Follow Up Care Test Results: Test results from this visit will be discussed in further detail at your follow-up appointment, if applicable. Discharge Plan Admission Admit Date/Time: 06/08/21 18:29 Primary Reason for Your Visit: debility due to myopathy/neuropathy post compartment S. and BL fasciotomies Attending Provider: Jana Houser Primary Care Provider: Rainer Mills Consulting Providers: Amilcar Arauz Instructions Forms: Work / School Excuse Patient Instructions: Weight Management: Getting Started, Weight Management: Fact and Fiction, Metabolic Syndrome Weight Loss Additional Instructions / Restrictions: 1. WOW! You have a rough course since the back surgery. The back surgery went well and you no longer have back pain but, you have had many complications. Nerves heal slowly so be patient. You may get all the nerve function back and you might be left with some lingering problems. Hang in there.....it can take 1-2 years for a nerve to heal sometimes. 2. Being off work and unable to walk prior to the back surgery added some extra pounds. Time to get back to exercising. The pool is a great place for you to exercise because the water offloads weight making it easier on your back to exercise. Just walking in the pool is good exercise because the water provides resistance to make the walking harder. 3. Eat a healthy diet. Do not plan on losing weight quickly because it will come right back. Plan on losing 1/2 to 1 lb a week. Sometimes men can lose 2 lbs a week because they have more muscle mass than women. NO FAD DIETS! FAD diets do not work. I have had success with the paleo diet because it is a healthy diet and it helps decrease inflammation from arthritis. You have arthritis in your back. Arthritis gets worse as we age and losing weight will take strain off your back. 4. It is often easier to work out if you have a partner to work out with. Treat exercise like a prescription.......you would not miss your BP pill so DON'T miss scheduled workouts. 5. I am so sorry you experienced so many complications but, I am very glad to have met you and Luz! You are going to do well. It is just going to be slower than you want. I have started you on a medication called Wellbutrin. Wellbutrin is an antidepressant. It helps to suppress appetite and it also does NOT make you tired. Take it first thing in the morning when you are eating breakfast. If you take it too late in the day it can cause insomnia. Massimo of the biggest side effects with Wellbutrin are dry eyes and mouth and headaches. If you have any adverse reactions please discuss it with Dr. Mills, don't just stop the medication. There is another drug called Effexor that also helps suppress appetite, helps with depression/lack of motivation AND it can help with chronic pain. That would be an option if you don't tolerate the Wellbutrin. 6. If you have any questions after you leave please do not hesitate to call me. Office [phone] Stay healthy friend and be friendly to your back. Remember your back precautions. Discharge Orders/Prescriptions Prescriptions: New acetaminophen [Tylenol] 325 mg Tablet 650 mg PO Q4H PRN PRN (Reason: TEMP > 100.5 F) Qty: 0 RF: 0 bupropion HCl 150 mg Tablet Extended Release 24 Hr 150 mg PO DAILY Qty: 30 RF: 0 gabapentin 600 mg tablet See Rx Instructions .ROUTE .COMPLEX Qty: 105 RF: 0 sennosides-docusate sodium [Stool Softener-Stimulant Laxat] 8.6-50 mg Tablet 2 tab PO BID Qty: 60 RF: 0 levofloxacin 500 mg Tablet 500 mg PO DAILY@0600 Qty: 4 RF: 0 acidophilus-pectin, citrus 25 million cell -100 mg Tablet 1 tab PO TID Qty: 30 RF: 0 oxycodone 10 mg tablet 10 mg PO Q4H PRN (Reason: pain) 7 Days Qty: 30 RF: 0 oxycodone [OxyContin] 10 mg Tablet,Oral Only,Ext.Rel.12 Hr 20 mg PO BID 14 Days Qty: 56 RF: 0 Continued omeprazole 40 mg Capsule,Delayed Release(Dr/Ec) 40 mg PO DAILY RF: 0 montelukast [Singulair] 10 mg Tablet 10 mg PO DAILY RF: 0 albuterol sulfate 90 mcg/actuation Hfa Aerosol Inhaler 1 puff INHALATION Q6H PRN (Reason: SOB) RF: 0 multivitamin Capsule 1 cap PO DAILY RF: 0 amlodipine-benazepril 10-20 mg Capsule 1 cap PO DAILY RF: 0 budesonide-formoterol [Symbicort] 160-4.5 mcg/actuation Hfa Aerosol Inhaler 2 puff INHALATION BID RF: 0 Discontinued oxycodone [OxyContin] 10 mg tablet,oral only,ext.rel.12 hr 20 mg PO BID RF: 0 Referrals / Follow Up: Amilcar Arauz MD [STAFF PHYSICIAN] - 07/03/21 11:30 am Huy Kilpatrick DO [STAFF PHYSICIAN] - 06/21/21 1:45 am Rainer Mills DO [Primary Care Provider] - 06/26/21 10:00 am Disposition Disposition (needs filled in before D/C Order can be placed): Home, Self Care
[2021-06-20] MEDS: buPROPion (XL) 150 MG TABLET.XL PO (09:34)
[2021-06-20] MEDS: Multivitamins,Therapeutic Tablet 1 TABLET PO (09:34)
[2021-06-20] MEDS: Enoxaparin 40 MG/0.4 ML Syringe SC (09:34)
[2021-06-20] MEDS: Pantoprazole Sodium 40 MG Tablet PO (09:34)
[2021-06-20] MEDS: Lisinopril 20 MG Tablet PO (09:34)
[2021-06-20] MEDS: Fluticasone/Salmeterol 232-14 Inhaler 1 PUFF INHALATION (09:34)
[2021-06-20] MEDS: amLODIPine 10 MG Tablet PO (09:34)
[2021-06-20] MEDS: oxyCODONE HCl Cr 10 MG Tablet 20 MG PO (09:34)
[2021-06-20] MEDS: Senna/Docusate Sodium 1 Tablet 2 TABLET PO (09:35)
--- NOTE | 2021-06-20 10:31 | PCM.DC.SUM ---
Providers Date of Admission: 06/08/21 Primary Care Physician: Dr. Rainer Mills, DO Consultations 06/12/21 12:59 Consult: Pain Management Routine Consulting Provider: Amilcar Arauz Reason for Consult: pain EMERGENT Consult: No MD Notified: Yes Date Notified: 06/12/21 Time Notified: 12:59 Method of Notification: Answering Service Reason For Visit: LAMINECTOMY Diagnosis Discharge Diagnosis (1) Physical debility: Status: Acute Code(s): R53.81 - Other malaise (2) Lumbar stenosis: Status: Acute Code(s): M48.061 - Spinal stenosis, lumbar region without neurogenic claudication (3) History of lumbar laminectomy: Status: Acute Code(s): Z98.890 - Other specified postprocedural states (4) Compartment syndrome: Status: Resolved Code(s): T79.A0XA - Compartment syndrome, unspecified, initial encounter (5) History of fasciotomy: Status: Acute Code(s): Z98.890 - Other specified postprocedural states (6) Pressure ulcer: Status: Acute Code(s): L89.90 - Pressure ulcer of unspecified site, unspecified stage (7) Rhabdomyolysis: Status: Resolved Code(s): M62.82 - Rhabdomyolysis (8) ANA (acute kidney injury): Status: Resolved Code(s): N17.9 - Acute kidney failure, unspecified (9) Myopathy: Status: Acute Code(s): G72.9 - Myopathy, unspecified (10) Neuropathy: Status: Acute Code(s): G62.9 - Polyneuropathy, unspecified (11) Cellulitis: Status: Acute Code(s): L03.90 - Cellulitis, unspecified (12) Weakness of both legs: Status: Acute Code(s): R29.898 - Other symptoms and signs involving the musculoskeletal system (13) Pain aggravated by physical activity: Status: Acute Code(s): R52 - Pain, unspecified Plan: DC home for follow up with Dr. Kilpatrick, Dr. Arauz and Dr. Mills. OP PT at [facility] in the pool after suture removal 06/23/21. Medications at Discharge Home Medications albuterol sulfate 1 puff INHALATION Q6H PRN 05/17/21 amlodipine-benazepril 1 cap PO DAILY 05/17/21 budesonide-formoterol [Symbicort] 2 puff INHALATION BID 05/17/21 montelukast [Singulair] 10 mg PO DAILY 05/17/21 multivitamin 1 cap PO DAILY 05/17/21 omeprazole 40 mg PO DAILY 05/17/21 acetaminophen [Tylenol] 650 mg PO Q4H PRN PRN #0 tab 06/20/21 acidophilus-pectin, citrus 1 tab PO TID #30 tab 06/20/21 bupropion HCl 150 mg PO DAILY #30 tab 06/20/21 gabapentin See Rx Instructions .ROUTE .COMPLEX #105 tab 06/20/21 levofloxacin 500 mg PO DAILY@0600 #4 tab 06/20/21 morphine [MS Contin] 15 mg PO Q12H 14 Days #28 tab 06/20/21 oxycodone 10 mg PO Q4H PRN 7 Days #30 tab 06/20/21 sennosides-docusate sodium [Stool Softener-Stimulant Laxat] 2 tab PO BID #60 tab 06/20/21 Hospital Course Operations - (Lumbar lamiectomy followed by BL fasiotomies lateral thighs) Procedures None Summary of Care Provided Minutes Spent on Discharge: 45 Hospital Course: ARNOLD BETH, is a 50 YO male who presented to [facility] on 05/30/21 for an elective lumbar laminectomy for lumbar canal stenosis with neuropathy and myopathy by Dr. Kilpatrick. At night on the day of surgery he had severe BL thigh pain and had erythema on the central abdomen, chest, chin and the BL anterior thighs. The thighs were markedly swollen and he had decreased sensation in the lateral thighs and the anterolateral legs distal to the knees. A stat CK was obtained and was markedly elevated at 36,790. He returned to surgery on 05/31/21 and had BL fasciotomies of the thighs. Wound vacs were applied. He went to surgery again on 06/06/21 and the fasciotomies were closed. He was seen by PT/OT during his admission and they felt he would be a good candidate for acute rehab. He was transferred to the acute rehab unit at [facility] on 06/08/21 for 3 hours of therapy daily to restore function at or near his prior level of function. The pain was severe and Kory had not slept in several nights due to pain. The pain was described as burning in his thighs and lateral upper legs. He also had numbness in the upper abd/lower chest but, the erythema had resolved. There was some atrophy of the lower Pectoralis muscles, L>R. There was an eschar on the chin from a pressure ulcer. He had tingling in the ring and little finger of his hand and difficulty with fine motor coordination. Gabapentin was added to the drug regimen and this helped. The dose of the Gabapentin was walked up and the Oxycontin was increased to 20 mg BID and then to 30 mg BID before the pain was adequately controlled to allow him to do therapy for 3 hours and climb stairs which he had to be able to do prior to going home. He was seen in consult by Dr. Arauz to assist in pain management. Kory will follow up with Dr. Arauz for pain management as an OP. The R leg had been weak due to the spinal stenosis but, following the compartment S. and fasciotomies the left leg also got weak and he was circumducting the left leg with ambulation and unable to go up steps due to catching the Left foot on the step. He also had difficulty getting up out of a chair and was relying heavily on his arms. During the course of admission to rehab Kory developed cellulitis of the R thigh incision. He was started on Ancef and the culture grew MSSA. Unfortunately he developed a rash, swelling and angioedema of the lips while on Ancef and he was transitioned to Levaquin which he tolerated without adverse reaction. On the day he was discharged he had taken 3 doses of Levaquin and the erythema, swelling and pain have all regressed. There was no purulent DC and the incisions were intact. He was discharged home with a RX for 4 additional doses of Levaquin. Once the pain was controlled he did better with therapy and strength increased. The poison information specialist in his R hand increased and prior to DC the poison information specialist was back to baseline but, he still had some paresthesias of the ring and little finger. He has ambulated up to 500' in a reciprocal fashion at [facility] with a WW. He walked 110' with a ST cane using the wall as a support to maintain balance. He had ascended and descended 12 steps with 2 handrails. He was independent with eating, grooming, upper body dressing, toilet transfer. He requires some assistance with lower body dressing and showering. He still needs max assist with posterior care with toileting. His Luz was brought in for family training prior to DC to learn how best to safely assist Kory. 1 day prior to DC Luz and Kory practised getting in and out of the car and they were safely able to achieve this. He has an appt with Dr. Kilpatrick on 06/21/21 and the thigh sutures are due to come out on 06/23/21. He will get OP PT in the pool at [facility] after the sutures have been removed. He was seen by the oil field technician while in house and instructed in a healthy weight loss diet with carb control. He was started on Wellbutrin to help suppress his appetite and help with the depression associated with the many complications and prolonged hospital admission. He will follow up with Dr. Mills for primary Care. The BP has at times been mildly elevated in the hospital but, I suspect this is due to anxiety and pain. I think it will improve once he is home and I did not change his antihypertensives. HGBA1C is is elevated at 6.2 which is consistent with glucose intolerance/prediabetes. I suspect the HGBA1C and HTN will both improve with some weight loss. Kory was discharged home on 06/20/21. His pain was adequately controlled and his strength continues to improve. Physical Exam Const alert, oriented x3 and well nourished Constitutional Narrative: Sitting in the recliner and looks comfortable. He is pleasant and appropriate. He has been very cooperative throughout his admission to rehab and has worked hard. General Appearance: cooperative and well developed HEENT normocephalic and head/scalp atraumatic HEENT Narrative: The eschar on the chin is very small now. There is no erythema and no DC from the eschar. Eyes PERRL and EOMs intact bilaterally Eyes Narrative: no scleral icterus and no conjunctival irritation Neck supple Resp normal respiratory effort and clear to auscultation bilaterally Resp Narrative: Able to speak in complete sentencse Effort and Inspection: Negative for tachypneic or uses accessory muscles Auscultation: Negative for rales, rhonchi or wheezes Cardio regular rate, regular rhythm, S1 normal heart sound, S2 normal heart sound, no murmurs, no rub, no gallops and peripheral pulses 2+ throughout GI normal to inspection, nondistended, normoactive bowel sounds, soft to palpation and non-tender Extremity Extremity Narrative: He has mild pitting pretibial edema but, he does not have his compression stocking on because they were washed and are still drying. The edema in the thighs continues to decrease and the tissue is now soft and he does not complain of pain or withdraw when I touch the anterior thighs. He could not even tolerate very light touch at presentation to rehab. The R thigh incision has some erythema surrounding the incision but the incision is intact and has no purulent DC. The increased warmth to touch has resolved. There is still some residual rash due to the allergic reaction to Ancef. The incision on the left thigh is intact, dry and without erythema or purulent DC. There is some resolving allergic rash on the upper thigh and the L flank. General Extremity: edema; Negative for clubbing or cyanosis Skin General Skin Exam: no breakdown Neuro CN's II-XII intact bilaterally Neuro Narrative: The Legs are both weak, L>R now. He still has decreased sensation in the upper abdomen/lower chest and also in the R ring and little fingers. Psych affect normal Psych Narrative: He is anxious about finally getting out of the hospital after 3 weeks and he did not sleep well last night but, he had been sleeping well prior to last night. He is having some vivid freams and I suspect this is related to the narcotics. He is not bothered by these dreams. Appearance: appropriate Activity / Motor Behavior: Negative for restless Mood & Affect: anxious Weight / BMI Weight Weight: 308 lb 10.354 oz Body Mass Index (BMI) 40.7 ABG / Lab / Microbiology Data Result Diagrams: 06/16/21 05:27 06/16/21 05:27 Microbiology: Microbiology 06/15/21 18:00 Lesion - Leg Gram Stain - Final 06/15/21 18:00 Lesion - Leg Wound Culture - Final Staphylococcus aureus Gram positive bjorn Meaningful Use Info Meaningful Use Diagnoses (Choose all that apply): None applicable Discharge Plan Admission Admit Date/Time: 06/08/21 18:29 Primary Reason for Your Visit: debility due to myopathy/neuropathy post compartment S. and BL fasciotomies Attending Provider: Jana Houser Primary Care Provider: Rainer Mills Consulting Providers: Basali,Ayman Instructions Forms: Work / School Excuse Patient Instructions: Weight Management: Getting Started, Weight Management: Fact and Fiction, Metabolic Syndrome Weight Loss Additional Instructions / Restrictions: 1. WOW! You have a rough course since the back surgery. The back surgery went well and you no longer have back pain but, you have had many complications. Nerves heal slowly so be patient. You may get all the nerve function back and you might be left with some lingering problems. Hang in there.....it can take 1-2 years for a nerve to heal sometimes. 2. Being off work and unable to walk prior to the back surgery added some extra pounds. Time to get back to exercising. The pool is a great place for you to exercise because the water offloads weight making it easier on your back to exercise. Just walking in the pool is good exercise because the water provides resistance to make the walking harder. 3. Eat a healthy diet. Do not plan on losing weight quickly because it will come right back. Plan on losing 1/2 to 1 lb a week. Sometimes men can lose 2 lbs a week because they have more muscle mass than women. NO FAD DIETS! FAD diets do not work. I have had success with the paleo diet because it is a healthy diet and it helps decrease inflammation from arthritis. You have arthritis in your back. Arthritis gets worse as we age and losing weight will take strain off your back. 4. It is often easier to work out if you have a partner to work out with. Treat exercise like a prescription.......you would not miss your BP pill so DON'T miss scheduled workouts. 5. I am so sorry you experienced so many complications but, I am very glad to have met you and Luz! You are going to do well. It is just going to be slower than you want. I have started you on a medication called Wellbutrin. Wellbutrin is an antidepressant. It helps to suppress appetite and it also does NOT make you tired. Take it first thing in the morning when you are eating breakfast. If you take it too late in the day it can cause insomnia. Massimo of the biggest side effects with Wellbutrin are dry eyes and mouth and headaches. If you have any adverse reactions please discuss it with Dr. Mills, don't just stop the medication. There is another drug called Effexor that also helps suppress appetite, helps with depression/lack of motivation AND it can help with chronic pain. That would be an option if you don't tolerate the Wellbutrin. 6. If you have any questions after you leave please do not hesitate to call me. Office [phone] Stay healthy friend and be friendly to your back. Remember your back precautions. Discharge Orders/Prescriptions Prescriptions: New acetaminophen [Tylenol] 325 mg Tablet 650 mg PO Q4H PRN PRN (Reason: TEMP > 100.5 F) Qty: 0 RF: 0 bupropion HCl 150 mg Tablet Extended Release 24 Hr 150 mg PO DAILY Qty: 30 RF: 0 gabapentin 600 mg tablet See Rx Instructions .ROUTE .COMPLEX Qty: 105 RF: 0 sennosides-docusate sodium [Stool Softener-Stimulant Laxat] 8.6-50 mg Tablet 2 tab PO BID Qty: 60 RF: 0 levofloxacin 500 mg Tablet 500 mg PO DAILY@0600 Qty: 4 RF: 0 acidophilus-pectin, citrus 25 million cell -100 mg Tablet 1 tab PO TID Qty: 30 RF: 0 oxycodone 10 mg tablet 10 mg PO Q4H PRN (Reason: pain) 7 Days Qty: 30 RF: 0 morphine [MS Contin] 15 mg tablet extended release 15 mg PO Q12H 14 Days Qty: 28 RF: 0 Continued omeprazole 40 mg Capsule,Delayed Release(Dr/Ec) 40 mg PO DAILY RF: 0 montelukast [Singulair] 10 mg Tablet 10 mg PO DAILY RF: 0 albuterol sulfate 90 mcg/actuation Hfa Aerosol Inhaler 1 puff INHALATION Q6H PRN (Reason: SOB) RF: 0 multivitamin Capsule 1 cap PO DAILY RF: 0 amlodipine-benazepril 10-20 mg Capsule 1 cap PO DAILY RF: 0 budesonide-formoterol [Symbicort] 160-4.5 mcg/actuation Hfa Aerosol Inhaler 2 puff INHALATION BID RF: 0 Discontinued oxycodone [OxyContin] 10 mg tablet,oral only,ext.rel.12 hr 20 mg PO BID RF: 0 Referrals / Follow Up: Amilcar Arauz MD [STAFF PHYSICIAN] - 07/03/21 11:30 am Huy Kilpatrick DO [STAFF PHYSICIAN] - 06/21/21 1:45 am Rainer Mills DO [Primary Care Provider] - 06/26/21 10:00 am Disposition Disposition (needs filled in before D/C Order can be placed): Home, Self Care Charges/Coding Visit Charges Inpatient E&M: 38081 Disch Hosp
[2021-06-20] MEDS: Povidone-Iodine Swabstick 3 PACKET TOPICAL (12:02)
--- NOTE | 2021-06-20 15:30 | NURSING ---
discharged home with . discharge instruction, medications and appointments reviewed with pt and . denies questions or concerns
[2021-06-20 15:32] VITALS: BP 134/70; PULSE 76; RESP 16; TEMP 36.6; O2SAT 99
== END 2021-06-20 15:15 | disposition home or self-care (01) | DRG 560 ==
PROVIDERS: Admitting Provider Internal Medicine; PCP Preventive Medicine Occupational Medicine; Visit Provider Internal Medicine
DX: Z47.89 Encounter for other orthopedic aftercare (principal); L03.115 Cellulitis of right lower limb; Z68.41 Body mass index [BMI] 40.0-44.9, adult; L89.810 Pressure ulcer of head, unstageable; M48.061 Spinal stenosis, lumbar region without neurogenic claudication; G56.21 Lesion of ulnar nerve, right upper limb; K21.9 Gastro-esophageal reflux disease without esophagitis; G62.9 Polyneuropathy, unspecified; I10 Essential (primary) hypertension; G47.33 Obstructive sleep apnea (adult) (pediatric); M19.90 Unspecified osteoarthritis, unspecified site; J45.909 Unspecified asthma, uncomplicated; B95.61 Methicillin susceptible Staphylococcus aureus infection as the cause of diseases classified elsewhere; R73.03 Prediabetes; Z79.51 Long term (current) use of inhaled steroids; E66.9 Obesity, unspecified; T78.3XXA Angioneurotic edema, initial encounter; T79.A0XD Compartment syndrome, unspecified, subsequent encounter
CPT/HCPCS: 36415; 80048; 82550; 83036; 83735; 83874; 84100; 85025; 87070; 87077; 87186; 87205; 87640; 97110; 97116; 97162; 97166; 97530; 97535; 97802; 97803; A4216; J3490

== ENCOUNTER 2021-09-06 14:37 | Outpatient (CLI) | payer BC, SELFPAY ==
--- NOTE | 2021-09-06 14:44 | VDLE_ITS ---
Reason For Study: Compartment Syndrome RIGHT LEFT GSV is normal. GSV is normal. CFV is compressible, spontaneous, phasic, CFV is compressible, spontaneous, phasic, competent and demonstrates normal competent, and demonstrates normal augmentation. augmentation. FV is compressible, spontaneous, phasic, FV is compressible, spontaneous, phasic, competent and demonstrates normal competent and demonstrates normal augmentation. augmentation. POP V is compressible, spontaneous, phasic, POP V is compressible, spontaneous, phasic, competent and demonstrates normal competent and demonstrates normal augmentation. augmentation. T/P Trunk is compressible. T/P Trunk is compressible. PTV is compressible. PTV is compressible. RT PerV is compressible. LT PerV is compressible. Patient unable to tolerate compressions at Patient unable to tolerate compressions at mid/distal thigh; relied on color doppler. mid/distal thigh; relied on color doppler. Procedure This is a venous duplex using B-mode, color flow and spectral Doppler. Exam performed in department. A preliminary report was called and/or faxed to Carol Dumont. VL/Venous Duplex US - Lb Extrem Interpretation Summary No evidence for acute deep venous thrombosis bilateral lower extremities with p atent and compressible bilateral great saphenous veins. Technical limitations noted and t hat the patient was unable to tolerate bilateral mid and distal thigh compression so interpretation was made upon color Doppler flow. Ordering Physician: Huy Kilpatrick Referring Physician: Rainer Mills Performed By: Lenka Ashby RDCS, RVT
== END 2021-09-06 23:59 | disposition home or self-care (01) ==
LOC: CVS 14:37
PROVIDERS: PCP Preventive Medicine Occupational Medicine; Visit Provider Orthopaedic Surgery
DX: T79.A22A Traumatic compartment syndrome of left lower extremity, initial encounter (principal); T79.A21A Traumatic compartment syndrome of right lower extremity, initial encounter
CPT/HCPCS: 93970

== ENCOUNTER → 2021-10-10 | Outpatient (CLI) | payer BC, SELFPAY ==
--- NOTE | 2021-10-10 18:48 | CT_ITS ---
STUDY: CT LUMBAR SPINE WITHOUT CONTRAST REASON FOR EXAM: Male, 50 years old. SPINAL STENOSIS RADIATION DOSAGE (If Supplied By Facility): CTDIvol = ( 43.26 ) mGy, DLP = ( 1397.84 ) mGycm TECHNIQUE: The patient was scanned in a multi detector CT scanner. High resolution transaxial imaging was performed. Images were obtained from L1 to S1 level. Sagittal and coronal images were reconstructed. Individualized dose optimization techniques were used for this CT. COMPARISON: Comparison is made with prior examination dated 03/01/2021. FINDINGS: Normal lumbar lordosis. There is no substantial scoliosis. Normal vertebrae of the lumbar spine. L1-2: Normal endplates. Normal disc height and morphology. Normal bilateral facet joints. Normal central canal and bilateral lateral recesses. Normal bilateral intervertebral neural foramina. L2-3: Normal endplates. Normal disc height and morphology. Normal bilateral facet joints. Normal central canal and bilateral lateral recesses. Normal bilateral intervertebral neural foramina. L3-4: Normal endplates. Normal disc height and morphology. Normal bilateral facet joints. Normal central canal and bilateral lateral recesses. Normal bilateral intervertebral neural foramina. L4-5: Mild degree of anterior spondylosis. Since prior study, the patient underwent laminectomy and interpedicular screw fixation. Facet joint osteoarthritis and hypertrophy. Prosthetic disc is seen. Since prior study, there is irregular appearance of the inferior endplate of the L4 vertebrae. Possible inflammatory changes should be ruled out. Prominence of the ligamenta flava. L5-S1: Moderate degree of disc space narrowing and disc degeneration. The patient is status post prior laminectomy and interpedicular screw fixation with prosthetic disc placement. Normal visualized paraspinous soft tissue structures. CT/Spine Lumbar without Contrast IMPRESSION: Since prior study, the patient underwent laminectomy and fusion at the L4-L5 level. At this time, there is irregular appearance of the inferior endplate of the L4 vertebrae with prominent soft tissue changes. Discitis should be ruled out. Electronically Signed: Corky Yi MD at 11:11 EDT ,
== END | disposition home or self-care (01) ==
LOC: CT 18:48
PROVIDERS: PCP Preventive Medicine Occupational Medicine; Visit Provider Orthopaedic Surgery
DX: M96.1 Postlaminectomy syndrome, not elsewhere classified (principal); M48.061 Spinal stenosis, lumbar region without neurogenic claudication; M47.26 Other spondylosis with radiculopathy, lumbar region
CPT/HCPCS: 72131

== ENCOUNTER 2021-11-28 10:00 | Outpatient (RCR) | payer BC, OTHER, SELFPAY ==
--- NOTE | 2021-06-22 13:19 | HP.PTEVAL_ITS ---
Patient's Visit Information ARNOLD BETH is a 50 year old M referred to Physical Therapy by Dr. Jana Houser DO with a diagnosis of L/S laminectomy. Date of Evaluation: 06/22/21 Physical Therapist: Se Rivas, PT, ATC - Visit Plan Frequency: 2-3x /Week Duration: 4-6 Weeks Plan: Postural edu, core stab ex's, B LE stretching and strengthening, balance and proprio, nustep, and HEP. May transition to aquatic therapy once incisions heal - Subjective DOS: 05/30/21. Pt reports he had surgery for L/S laminectomy at that time. Pt reports he was placed with inappropriate padding during his surgery with lead to a pressure ulcer on his chin. Pt also notes he developed compartment syndrome in B thighs which had to be released as well. Pt notes he has little LBP today, but that might be due to the large amount of pain he is in in his legs at this time. Pt also notes he has R UE numbness which extends to his fingertips of Lateral 2 digits. Pt reports he still has some numbness in his legs. Pt notes he also has burning pain in his legs which is severe without the use of his nerve meds. Pt reports significant sleep difficulty since surgery secondary to pain. Pt reports he works at [employer] in the [employer] which requires heavy lifting at times. Pt reports he had been in the hospital for 22 days after surgery where he received PT which focused on his core strengthening and LE strengthening. Pt is scheduled to get his stitches out next week. 6/10 pain at rest, 10/10 pain at worst. Pt lives in a split level house and has to negotiate many stairs which is very difficult. - Pain LBP Pain Intensity (Out of 10): 6 Pain Intensity Range: 6 B leg pain Pain Intensity (Out of 10): 6 Pain Intensity Range: 10 - Objective Neuro: B lateral thigh regions are numb to light touch at this time. All other B LE sensation is WNL to light touch. MMT: B LE's are grossly rated at 3+/5 to 4- /5. ROM: B LE's are WFL. Stairs: Pt is able to negotiate a flight of stairs one step at a time with the use of 2 handrails I. Gait: Pt is able to ambulate approximately 300 feet with the use of his WW and SBAx1 until feeling fatigued in UE's and requesting a break - Balance/Special Test Scores Oswestry Low Back Score: 38 - Goals Goal 1:: Decrease LBP x 50% to aid with sleep Goal Time Frame: 4-6 Weeks Goal 2:: Increase B LE strength x 1 grade to aid with stair negotiation Goal Time Frame: 4-6 Weeks Goal 3:: Pt will be able to ambulate greater than 600' with LRD to aid with community ambulation Goal Time Frame: 4-6 Weeks Goal 4:: I with HEP Goal Time Frame: 4-6 Weeks - Rehabilitation Potential Physical Therapy Diagnosis: Pt has LE weakness, LBP and LE pain, and difficulty with ambulation secondary to L/S laminecotmy Rehabilitation Potential: Good - Anticipated Interventions Patient/Client Instruction: Educate patient on: Condition, Plan of Care For the Purpose of:: To improve self management Therapeutic Exercise to Include: Strength training, Endurance training, Balance training, Postural training, Gait and locomotor training, Active ROM, Dynamic Lumbar Stabilization For the Purpose of:: To decrease pain, To increase ROM, To improve muscle performance and motor function Cryotherapy (ice pack, ice massage): Yes For the Purpose of:: To decrease pain Thank you for the opportunity to evaluate your patient. For Medicare and Medicare HMO plans, please review the plan of care and approve it. It will need to be FAXED BACK to us at [phone] for Medicare purposes. For Medicare only, by signing this I certify the plan of care. Please let me know if there are questions or concerns regarding this plan of care. Physician Signature: Date:
--- NOTE | 2021-08-28 16:38 | HP.PTREVAL ---
Dr. Jana Houser, DO, It has been my pleasure to treat ARNOLD BETH over the last 16 visits for L/S laminectomy. Please see the progress note below for an update on the physical therapy plan of care! Subjective: Pt reports he is feeling a noticeable difference with PT Objective/Function: B LE pain 10/10 this date. B LE MMT is grossly 4-/5 and still painful with testing. Pt is able to ambulate greater than 600' without difficulty. Pt is progressing well but still displays a lot of pain and functional limitations secondary to core and LE weakness Plan Plan: aquatic therapy consisting of Postural edu, core stab ex's, B LE stretching and strengthening, balance and proprio, nustep, and HEP. Balance/Gait/Functional tests - Balance/Special Test Scores Oswestry Low Back Score: 38 Lower Extremity Functional Score: 15 Goals Goal 1:: Decrease LBP x 50% to aid with sleep Goal Time Frame: 4-6 Weeks Goal Progress: Progressing Goal 2:: Increase B LE strength x 1 grade to aid with stair negotiation Goal Time Frame: 4-6 Weeks Goal Progress: Progressing Goal 3:: Pt will be able to ambulate greater than 600' with LRD to aid with community ambulation Goal Time Frame: 4-6 Weeks Goal Progress: Goal Met Goal 4:: I with HEP Goal Time Frame: 4-6 Weeks Goal Progress: Goal Met Anticipated Interventions Patient/Client Instruction: Educate patient on: Condition, Plan of Care For the Purpose of:: To improve self management Therapeutic Exercise to Include: Strength training, Endurance training, Balance training, Postural training, Gait and locomotor training, Active ROM, Dynamic Lumbar Stabilization For the Purpose of:: To decrease pain, To increase ROM, To improve muscle performance and motor function Cryotherapy (ice pack, ice massage): Yes For the Purpose of:: To decrease pain Please do not hesitate to contact me at [phone] by phone or if you have questions or concerns regarding this new plan of care! Sincerely, Se Rivas, PT, ATC
== END 2021-11-28 19:00 | disposition home or self-care (01) ==
LOC: PT 10:00
PROVIDERS: PCP Preventive Medicine Occupational Medicine; Referring Provider Preventive Medicine Occupational Medicine; Visit Provider Preventive Medicine Occupational Medicine
DX: Z47.89 Encounter for other orthopedic aftercare (principal); Z98.1 Arthrodesis status
CPT/HCPCS: 97110; 97113; 97161; 97164

== ENCOUNTER → 2022-11-26 | Outpatient (CLI) | payer BC, SELFPAY ==
--- NOTE | 2022-11-26 | ASPOS_PTH ---
PATIENT: LJ BETH LOC: [facility] U#:[id number] AGE/SX: 51/M ROOM: RE11/26/[address]: Dr. Lj Madera MD : 1970 BED: DIS: 11/26/2022 SPEC #: [id number] RECD: 11/26/22 11:38 STATUS: PRADEEP GONZALEZKat #: [id number] BRIAN: 11/26/22 00:[address]: Lj Madera DEPT: CYTOLOGY RECD BY: Michelle Glover ENTERED: 11/26/22 11:39 SP TYPE: ASP HERE OTHR DR: Dr. Rainer Mills, DO Tissues: Neck, NOS Procedures: Surgery Specimen Level IV Cytology Other Fine Needle Asp on Site HEADER OPERATION: Fine needle aspiration right neck mass PRE-OP DIAGNOSIS: Right neck mass TISSUE SUBMITTED: Right neck mass DIAGNOSIS CYTOLOGY Fine needle aspiration, right neck mass (smears and cell block): Benign salivary gland tissue and mild chronic inflammation. AM:serge 11/27/2022 COMMENT A FNA is performed and the specimen is evaluated at the time of FNA by Dr. Yoder. Immediate Evaluation = Benign salivary gland tissue and blood. Case has been reviewed in consultation with Dr. Hawkins who concurs with the above diagnosis. IDC:SJ CYTOLOGY STUDY Slides are reviewed. CYTOLOGY GROSS Received is 0.2 ml of reddish-beckford fluid labeled with the patient's name, and designated right neck mass. Five imprints and three paps are made from the submitted fluid and the rest is added to CytoLyt for cell block preparation. Submitted for cytology study. / AM:serge 11/26/2022 TC:5 CPT: 50211, 97499, 59352, 11895
== END | disposition home or self-care (01) ==
PROVIDERS: PCP Preventive Medicine Occupational Medicine; Visit Provider Otolaryngology
DX: R22.1 Localized swelling, mass and lump, neck (principal)
CPT/HCPCS: 10021; 88161; 88305

== ENCOUNTER 2023-02-27 00:22 | Emergency (ER) | payer BC, SELFPAY ==
[2023-02-27 00:23] VITALS: BP 195/96; PULSE 75; RESP 20; TEMP 35.8; O2SAT 95
[2023-02-27 00:25] VITALS: BMI 42.2
[2023-02-27 01:56] LABS: Mucous, Urine 0 SEEN /hpf (<or=2+); Squamous Epithelial Cells - UA 0 SEEN /hpf (0-5)
[2023-02-27 01:57] LABS: Color, Urine Yellow (Yellow); Glucose, Dipstick 1000 mg/dl (Normal); Ketone-Dipstick 5 mg/dl (Negative); Leukocyte Esterase-Dipstick Negative /ul (Negative); Nitrite-Dipstick Negative (Negative); Occult Blood-Urine 50 /ul (Negative); Protein-Dipstick Negative (Negative); Urine Bilirubin Dipstick Negative (Negative); Urine Clarity Clear (Clear); Urine Urobilinogen Normal (Normal)
[2023-02-27 01:58] LABS: Absolute Lymphocyte Count 2.58 X10^3/uL (0.83-4.51); Absolute Neutrophil Count 7.8 X10^3/uL (2.0-7.7); Basophil# 0.05 X10^3/uL; Basophil% 0.4 % (0-1); Eosinophil# 0.13 X10^3/uL; Eosinophils% 1.1 % (0-5); Hematocrit 48.3 % (40-54); Lymphocyte # 2.58 X10^3/ul (0.83-4.51); Lymphocyte % 22.2 % (19-41); Mean Corp Hgb Conc 33.1 g/dL (32-36); Mean Corpuscular Hgb 31.3 pg (27.0-32.0); Mean Corpuscular Volume 94.5 fL (80-94); Mean Platelet Vol. 9.8 fl (6.2-12.0); Monocyte# 1.02 X10^3/uL; Monocyte% 8.8 % (0-10); NRBC Flagged by Analyzer 0 % (0-5); Neutrophil # 7.77 X10^3/uL (2.7-7.7); Platelet Count 263 K/mm3 (150-450); RBC Distribution Width CV 12.9 % (11.6-14.6); RBC Distribution Width SD 44.7 fl (35.1-43.9); Red Blood Count 5.11 M/mm3 (4.6-6.2); White Blood Count 11.6 K/mm3 (4.4-11.0)
[2023-02-27 02:07] LABS: Amorphous Sediment R; Bacteria RARE /hpf (None Seen); Red Blood Cells-Urine 0-5 SEEN /hpf (0-5); White Blood Cells 0 SEEN /hpf (0-5)
--- NOTE | 2023-02-27 02:22 | CT_ITS ---
EXAM: CT ABDOMEN AND PELVIS WITHOUT INTRAVENOUS CONTRAST CLINICAL INDICATION: right flank pain TECHNIQUE: Helically acquired images were obtained of the abdomen and pelvis without intravenous contrast. This CT exam was performed using one or more of the following dose reduction techniques: automated exposure control, adjustment of the mA and/or kV according to patient size, and/or use of iterative reconstruction technique. RADIATION DOSE: CTDIvol = 23.86 mGy, DLP = 1358.96 mGy-cm. COMPARISON: Lumbar spine CT March 01, 2021, there were postoperative changes of the lower lumbar spine, no battery type device or epidural leads present at that time. FINDINGS: LOWER THORAX: Right coronary artery calcification versus stent. The heart is not fully included. Lung bases are clear. No significant pericardial effusion. ABDOMEN: LIVER: Hepatomegaly and fatty liver, the right lobe of the liver is 24.7 cm craniocaudal. Almost diffuse low-attenuation fatty infiltration of the liver with the exception of focal sparing near the gallbladder and rogelio. GALLBLADDER AND BILE DUCTS: Unremarkable. No calcified gallstones. No gallbladder distention or wall edema. No intra- or extrahepatic biliary ductal dilation. PANCREAS: Fatty replaced atrophic pancreas, no dilated duct or inflammation. No focal cystic mass. SPLEEN: Unremarkable. Normal size without focal cystic or solid mass. ADRENALS: Unremarkable. No nodules. KIDNEYS AND URETERS: Mild right hydronephrosis to the level of a irregular stone or less likely 2 adjacent stones in the proximal left ureter, overall confluent size 10 mm craniocaudal by 7 mm AP by 5 mm transverse. Right renal pelvis is 1.9 cm AP. Mild right perinephric soft tissue stranding and trace fluid density. No loculated fluid collections. At least 3 nonobstructing stones in the left kidney. Single tiny nonobstructing stone in the right kidney. Normal renal size and position. STOMACH AND BOWEL: Moderate mixed density fluid stomach. Mild fluid and gas in the small bowel. Mild to moderate stool in most of the proximal half of the colon. Collapsed segments of some of the distal colon. Mild sigmoid diverticulosis. No evidence of diverticulitis. No stomach or bowel distention. PELVIS: APPENDIX: Presumed appendectomy clip. BLADDER: See below. REPRODUCTIVE: Mild prostatomegaly, 6 cm x 5.7 cm x 4.7 cm with mild impression on the bladder base. ABDOMEN and PELVIS: INTRAPERITONEAL SPACE: Unremarkable. No ascites or other fluid collection. No free air. BONES/JOINTS: There are sclerotic bone density spacers with at least partial fusion at L5-S1. Small middle markers in the disc space at L4-5. Resection of posterior elements at L4 and L5 and intact posterior stabilization hardware at L4-S1. Apparently recent placement of epidural leads, entering at T12-L1 and extending cephalad, tip at T8. No evidence of spinal stenosis. SOFT TISSUES: Mild gas bubbles in the right posterior paraspinous soft tissues. No loculated body wall fluid collection. Small fat-containing left inguinal hernia. VASCULATURE: See above. LYMPH NODES: Unremarkable. No enlarged lymph nodes. CT/Abdomen/Pelvis without Cont IMPRESSION: 1. Mild right hydronephrosis to the level of a elongated stone versus 2 closely adjacent stones in the proximal right ureter, 1-2 cm distal to the right UPJ. 2. Bilateral nephrolithiasis. 3. Soft tissue stranding and slight fluid density near the right kidney. 4. Hepatomegaly and fatty liver. 5. Sigmoid diverticulosis. No evidence of diverticulitis. Appendectomy. 6. Small fat-containing left inguinal hernia. 7. Postoperative changes of the spine. 8. Prostatomegaly. Electronically Signed: Mai Jean-Baptiste MD at 3:16 EDT ,
[2023-02-27] MEDS: Ondansetron 4 MG/2 ML Vial IV (02:32)
[2023-02-27] MEDS: Ketorolac 30 MG/ML Syringe IV (02:33)
[2023-02-27] MEDS: Morphine 4 MG/ML Syringe IV (02:34)
[2023-02-27] MEDS: 0.9% Normal Saline (1000mL) 1,000 ML 999 ML IV (02:34)
[2023-02-27 02:47] LABS: ALB/GLOB Ratio 0.9 RATIO (0.9-2.4); AST(SGOT) 50 U/L (15-37); Alanine Aminotransfer ALT/SGPT 77 U/L (16-61); Albumin, Serum 3.6 g/dL (3.2-5.0); Alkaline Phosphatase 88 U/L (45-117); Anion Gap 8 (5-15); BUN 14 mg/dL (7-18); BUN/Creat Ratio 10.5 RATIO (10-20); Calcium,Total 8.8 mg/dL (8.5-10.1); Chloride 101 mmol/L (98-107); Creatinine, Serum 1.33 mg/dL (0.70-1.30); EST Glomerular Filtration Rate 60 mL/min (>60); Est Glom Filt Rate - Afr Amer 73 mL/min (>60); Estimated Creatinine Clearance 74.26 ml/min; Globulin 3.9 g/dL (2.2-4.2); Glucose 270 mg/dL (74-106); Potassium 4.2 mmol/L (3.5-5.1); Protein, Total 7.5 g/dL (6.4-8.2); Sodium Level 135 mmol/L (136-145)
--- NOTE | 2023-02-27 03:45 | EX.ED.DYSGE1 ---
HPI History of Present Illness Chief Complaint: Abd Pain Informant: patient and spouse/S.O. Narrative Narrative: Patient is a 52-year-old male with past medical history of chronic back pain and hypertension. He states that Saturday night into Saturday morning he developed some sharp pain along the right back/abdomen. He states that there was no excessive activity or trauma prior to the pain starting. He states that it was sharp in nature and lasted a few hours and resolved. He states that today he went and had his external spinal stimulator placed as this is a trial for a permanent stimulator secondary to his chronic back pain. He states he was doing well but awoke roughly 2 hours prior to arrival with sudden onset sharp abdominal pain wrapping towards his right groin. He states he tried medication without any improvement and secondary to this comes in for evaluation [facility] Medical History (Updated 02/27/23 @ 03:[address] Dominguez Delgado, ) Alcohol use Anxiety Arthritis Asthma Back pain Compartment syndrome CPAP (continuous positive airway pressure) dependence Esophageal stenosis Gastric reflux History of nephrolithiasis History of pain when walking Hx of pilonidal cyst Hypertension Migraine headache Non-smoker Obesity FEDE (obstructive sleep apnea) Restless legs Wears glasses Home Medications albuterol sulfate 90 mcg/actuation aerosol inhaler 1 puff inhalation Q6H PRN SOB 05/17/21 [History Last Taken 05/30/21 05:15] amlodipine 10 mg-benazepril 20 mg capsule 1 cap PO DAILY Check with primary doctor 05/17/21 [History Last Taken 05/30/21 05:15] budesonide-formoterol HFA 160 mcg-4.5 mcg/actuation aerosol inhaler (Symbicort) 2 puff inhalation BID sob 05/17/21 [History Last Taken 05/30/21 05:15] montelukast 10 mg tablet (Singulair) 10 mg PO DAILY Check with primary doctor 05/17/21 [History Last Taken 05/30/21 05:15] multivitamin 1 cap PO DAILY supplement 05/17/21 [History Last Taken Unknown] omeprazole 40 mg capsule,delayed release 40 mg PO DAILY Check with primary doctor 05/17/21 [History Last Taken 05/30/21 05:15] acetaminophen 325 mg tablet (Tylenol) 650 mg (2 x 325 mg) PO Q4H PRN PRN TEMP > 100.5 F #0 tabs 06/20/21 [Rx Last Taken Unknown] gabapentin 600 mg tablet See Rx Instructions .Route .COMPLEX #105 tabs 06/20/21 [Rx Last Taken Unknown] amoxicillin 875 mg-potassium clavulanate 125 mg tablet 1 tab PO BID 7 days #14 tabs 02/27/23 [Rx Last Taken Unknown] clindamycin HCl 300 mg capsule 300 mg PO Q12H 02/27/23 [History Last Taken Unknown] ketorolac 10 mg tablet 10 mg PO 4X/DAY PRN PRN pain 5 days #20 tabs 02/27/23 [Rx Last Taken Unknown] oxycodone-acetaminophen 5 mg-325 mg tablet (Percocet) 1 tab PO Q6H PRN pain 3 days #12 tabs 02/27/23 [Rx Last Taken Unknown] tamsulosin 0.4 mg capsule (Flomax) 0.4 mg PO DAILY #14 caps 02/27/23 [Rx Last Taken Unknown] tramadol 50 mg tablet 50 mg PO Q8H 02/27/23 [History Last Taken Unknown] Allergy/AdvReac Type Severity Reaction Status Date / Time cefazolin [From [facility]] Allergy Swelling Verified 10/10/21 18:44 Family History unable to obtain Surgical History History of ankle surgery History of carpal tunnel surgery of left wrist History of carpal tunnel surgery of right wrist History of cystoscopy History of esophagogastroduodenoscopy (EGD) History of fasciotomy History of lumbar fusion History of lumbar laminectomy Hx of appendectomy Hx of myringotomy Hx of repair of left rotator cuff Hx of tonsillectomy Social History (Updated 06/12/21 @ 15:[address] Jana Houser DO) household members: spouse housing: other details: Has a bilevel house. Smoking Status: Never smoker details: occasional ETOH substance use type: does not use ROS ROS ED Constitutional Constitutional ED: Denies chills or fever(s) ENT ENT ED: Denies sore throat Cardiovascular Cardiovascular: Denies chest pain Respiratory/Chest Respiratory/Chest: Denies cough or dyspnea Gastrointestinal Gastrointestinal: Reports abdominal pain and nausea; Denies diarrhea or vomiting Genitourinary Genitourinary ED: Denies dysuria, hematuria or urinary frequency Musculoskeletal Musculoskeletal: Reports back pain Integumentary Denies rash Neurologic Neurologic: Denies headache(s) Hematologic/Lymphatic Hematologic/Lymphatic: Denies easy bleeding or easy bruising EXAM Physical Exam Const Vital Signs: 02/27/23 00:23 Temperature 96.5 F L Temperature Source Temporal Pulse Rate 75 Respiratory Rate 20 H Blood Pressure 195/96 H Blood Pressure Mean 129 Pulse Ox 95 Oxygen Delivery Method Room Air Positive well nourished, well developed and obese General Appearance ED: well developed Nutritional Appearance: obese HEENT HEENT Narrative: Normocephalic atraumatic Eyes PERRL and EOMs intact bilaterally General Eye ED: Negative for scleral icterus Neck supple Resp normal respiratory effort and clear to auscultation bilaterally Cardio regular rate and regular rhythm Rate: other Other Details: Radial and carotid pulses are equal and symmetric GI non-distended GI Narrative: Abdomen is soft and nondistended with normal active bowel sounds. Patient has pain with palpation in the right lower abdomen with mild guarding at the site. No pulsatile mass or fluid wave. No rigidity. Auscultation: normoactive bowel sounds Palpation: soft Back/Spine Back/Spine Narrative: Positive right CVA pain noted Extremity normal to inspection Neuro oriented x3 and CN's II-XII intact bilaterally Sensorium / Orientation: alert Motor Exam: strength 5/5 throughout Psych mental status grossly normal Skin no rashes or lesions noted Skin Narrative: Postoperative changes consistent with recent external spinal stimulator and no secondary soft tissue changes to suggest infection MDM MDM MDM Narrative Medical decision making narrative: Patient presented to the ER hypertensive but has a past medical history of this. He reported sudden onset of sharp pain along the right lower abdomen and therefore differential is for acute appendicitis versus kidney stone versus pyelonephritis. With the patient's right CVA pain and sudden onset of symptoms this is most likely kidney stone. Secondary to his basic blood work and urine sample were obtained and a noncontrast CT was ordered. Labs revealed no signs of acute kidney injury or urosepsis. CT scan did confirm a stone in the right distal ureter with mild obstruction. After treatment with IV fluids Toradol morphine patient had near resolution of his pain. His work-up does not show changes for acute kidney injury or urosepsis and with pain control there is no need then for admission to the hospital. Patient will be placed on symptomatic medications and will follow-up with urology for repeat evaluation. History & Record Review Discussion w/independent historian: Patient and Significant other Lab Data Attestation: I reviewed the patient's lab results. Labs: Laboratory Results - last 24 hr 02/27/23 02/27/23 01:00 01:40 WBC 11.6 H RBC 5.11 Hgb 16.0 Hct 48.3 MCV 94.5 H MCH 31.3 MCHC 33.1 RDW Std Deviation 44.7 H RDW Coeff of [place]rose 12.9 Plt Count 263 MPV 9.8 Immature Gran % (Auto) 0.500 Neut % (Auto) 67.0 Lymph % (Auto) 22.2 [place] % (Auto) 8.8 Eos % (Auto) 1.1 Baso % (Auto) 0.4 Absolute Neuts (auto) 7.8 H Absolute Lymphs (auto) 2.58 Nucleated RBC % 0 Sodium 135 L Potassium 4.2 Chloride 101 Carbon Dioxide 26.0 Anion Gap 8 BUN 14 Creatinine 1.33 H Estim Creat Clear Calc 74.26 Est GFR (MDRD) Af Amer 73 Est GFR (MDRD) Non-Af 60 BUN/Creatinine Ratio 10.5 Glucose 270 H Calcium 8.8 Total Bilirubin 0.30 AST 50 H ALT 77 H Alkaline Phosphatase 88 Total Protein 7.5 Albumin 3.6 Globulin 3.9 Albumin/Globulin Ratio 0.9 Urine Color Yellow Urine Clarity Clear Urine pH 8.0 Ur Specific Florien 1.010 Urine Protein Negative Urine Glucose (UA) 1000 H Urine Ketones 5 H Urine Occult Blood 50 H Urine Nitrite Negative Urine Bilirubin Negative Urine Urobilinogen Normal Ur Leukocyte Esterase Negative Urine RBC 0-5 SEEN Urine WBC 0 SEEN Ur Squamous Epith Cells 0 SEEN Amorphous Sediment R Urine Bacteria RARE Urine Mucus 0 SEEN Radiography Diagnostic Testing: Clinical Impression(s) from Imaging Studies Abdomen/Pelvis CT 02/27/23 02:22 IMPRESSION: 1. Mild right hydronephrosis to the level of a elongated stone versus 2 closely adjacent stones in the proximal right ureter, 1-2 cm distal to the right UPJ. 2. Bilateral nephrolithiasis. 3. Soft tissue stranding and slight fluid density near the right kidney. 4. Hepatomegaly and fatty liver. 5. Sigmoid diverticulosis. No evidence of diverticulitis. Appendectomy. 6. Small fat-containing left inguinal hernia. 7. Postoperative changes of the spine. 8. Prostatomegaly. Electronically Signed: Mai Jean-Baptiste MD at 3:16 EDT , Discharge Plan Triage Chief Complaint: Abd Pain ED Provider: Dominguez Delgado Dx/Rx/DC Orders Clinical Impression: Renal colic, Kidney stone on right side Instructions: ED Kidney Stone w/ Colic Prescriptions: New tamsulosin [Flomax] 0.4 mg capsule 0.4 mg PO DAILY Qty: 14 0RF ketorolac 10 mg tablet 10 mg PO 4X/DAY PRN PRN (Reason: pain) 5 Days Qty: 20 0RF oxycodone-acetaminophen [Percocet] 5-325 mg tablet 1 tab PO Q6H PRN (Reason: pain) 3 Days Qty: 12 0RF amoxicillin-pot clavulanate 875-125 mg tablet 1 tab PO BID 7 Days Qty: 14 0RF No Action omeprazole 40 mg Capsule,Delayed Release(Dr/Ec) 40 mg PO DAILY montelukast [Singulair] 10 mg Tablet 10 mg PO DAILY albuterol sulfate 90 mcg/actuation Hfa Aerosol Inhaler 1 puff INHALATION Q6H PRN (Reason: SOB) multivitamin Capsule 1 cap PO DAILY amlodipine-benazepril 10-20 mg Capsule 1 cap PO DAILY budesonide-formoterol [Symbicort] 160-4.5 mcg/actuation Hfa Aerosol Inhaler 2 puff INHALATION BID acetaminophen [Tylenol] 325 mg Tablet 650 mg PO Q4H PRN PRN (Reason: TEMP > 100.5 F) Qty: 0 0RF gabapentin 600 mg tablet See Rx Instructions .ROUTE .COMPLEX Qty: 105 0RF Rx Instructions: TAke 1 tablet twice a day and 1 and 1/2 tablet 90 minutes prior to going to bed. clindamycin HCl 300 mg capsule 300 mg PO Q12H tramadol 50 mg tablet 50 mg PO Q8H Patient Comments: TAKE 1 TABLET BY MOUTH 3iTIMES A DAY FOR 7 DAYS Primary Care Provider: Rainer Mills Referrals: Vinicius Abernathy MD [Med Staff - Active Staff] - Rainer Mills DO [Primary Care Provider] - Activity Restrictions/Additional Instructions: Please follow-up with urology as you will most likely need stent placement in order to pass your kidney stone. If you develop a fever over 100.4 or you have intractable pain despite taking your medications please return to the ER for repeat evaluation. Also please stop the clindamycin and begin taking the Augmentin as this will cover both soft tissue and urine for potential infection. Disposition Disposition: Home, Self Care Discharge Date/Time: 02/27/23 03:55
== END 2023-02-27 03:55 | disposition home or self-care (01) ==
PROVIDERS: Emergency Provider Emergency Medicine; PCP Preventive Medicine Occupational Medicine; Visit Provider Emergency Medicine
DX: N13.2 Hydronephrosis with renal and ureteral calculous obstruction (principal); N23 Unspecified renal colic; I10 Essential (primary) hypertension; Z99.89 Dependence on other enabling machines and devices; J45.909 Unspecified asthma, uncomplicated; Z79.899 Other long term (current) drug therapy; Z79.51 Long term (current) use of inhaled steroids; K21.9 Gastro-esophageal reflux disease without esophagitis; Z90.49 Acquired absence of other specified parts of digestive tract
CPT/HCPCS: 74176; 80053; 81001; 85025; 87086; 96361; 96374; 96375; 99283; J7030; A4216; J2405

== ENCOUNTER 2023-05-31 06:52 | Day surgery (SDC) | payer BC, SELFPAY ==
[2023-05-31] VITALS (9 sets, daily range): BP systolic 138–177; BP diastolic 73–94; PULSE 66–81; RESP 16; TEMP 36.1–36.8; O2SAT 92–99; BMI 40.1
--- OUTSIDE RECORDS SUMMARY | 2023-05-31 06:55 | XMS RPT_ITS | CCD ---
Author Name Unknown Address [address] [place] [address] Organization [facility] Care Team Providers Care Reservoir Engineer Name Role Phone RAFAELA SALAZAR DO Primary Care Physician [phone] Gabi Beyer PT Unavailable Unavailable RAFAELA SALAZAR DO Primary Care Unavailable RAFAELA SALAZAR DO Attending Unavailable RAFAELA SALAZAR DO Primary Care Unavailable RAFAELA SALAZAR DO Attending Unavailable LINDSAY CONCEPCION, DR ULICES MCKEON Attending RAFAELA Tejada DO Primary Care Unavailable RAFAELA SALAZAR DO Attending Unavailable RAFAELA SALAZAR DO Primary Care Unavailable RAFAELA SALAZAR DO Primary Care Unavailable RAFAELA SALAZAR DO Attending Unavailable Allergies Allergy Classification Reported Allergen(s) Allergy Type Date of Onset Reaction(s) Facility (4 sources) ceFAZolin; Translations: [cefazolin] Drug Allergy Lip swelling (finding) [facility] Work Phone: Medications Current Medications Medication Drug Class(es) Dates Sig (Normalized) Sig (Original) acetaminophen 325 mg / HYDROcodone bitartrate 5 mg oral tablet (1 source) Opioid Agonist Start: 03-23-2021 End: 03-28-2021 Benson 325- 5 mg oral tablet Dose = 1 tab(s), Oral, q4h, PRN Pain, scale 1-6, X 5 day(s), # 15 tab(s), 0 Refill(s), Acute post-operative pain, 129.5 Start Date: 03/23/21 Stop Date: 03/28/21 Status: Ordered albuterol MDI (90 mcg/inh) CFC free inhalation aerosol (6 sources) Start: 01-28-2023 take 2 puff(s) by inhalation every four hours as needed for wheezing albuterol MDI (90 mcg/inh) CFC free inhalation aerosol 2 puff(s), Inhalation, q4h, PRN Wheezing, # 1 EA, 2 Refill(s), Pharmacy: [facility]/pharmacy #[id number], 185.25, cm, 11/06/22 10:55:00 EDT, Height, kg, 11/06/22 10:55:00 EDT, Dosing Weight Start Date: 01/28/23 Status: Ordered Completed/Discontinued Medications Medication Drug Class(es) Dates Sig (Normalized) Sig (Original) morphine sulfate 15 mg extended release oral tablet (1 source) Opioid Agonist Start: 07-03-2021 morphine 15 mg/8 to 12 hr oral tablet, extended release Dose : 15 mg = 1 tab(s), Oral, q12h, 0 Refill(s), 141.36 Start Date: 07/03/21 Status: Ordered Problems Problem Classification Problem Date Documented Date Episodic/Chronic Asthma (8 sources) Asthma; Translations: [Uncomplicated moderate persistent asthma] 03-16-2021 Chronic Blindness and vision defects (6 sources) Visual disturbance 12-08-2019 Episodic Diabetes mellitus without complication (2 sources) Abnormal glucose level 09-21-2022 Episodic Esophageal disorders (6 sources) Gastroesophageal reflux disease 03-06-2019 Chronic Essential hypertension (7 sources) Hypertensive disorder; Translations: [Essential hypertension] 12-22-2019 Chronic Other connective tissue disease (6 sources) Muscle weakness of limb 12-08-2019 Episodic Other injuries and conditions due to external causes (4 sources) Compartment syndrome of lower limb 07-03-2021 Episodic Other liver diseases (2 sources) Elevated liver enzymes level 09-21-2022 Episodic Other nervous system disorders (1 source) Postoperative pain ; Translations: [Other acute postprocedural pain] Onset: 03-23-2021 Episodic Other screening for suspected conditions (not mental disorders or infectious disease) (1 source) Encounter for screening for malignant neoplasm of prostate; Translations: [Screening for malignant neoplasm done] Episodic Other skin disorders (3 sources) Cyst of skin 03-07-2022 Episodic Other skin disorders (2 sources) Mass of neck 11-13-2022 Episodic Residual codes; unclassified (4 sources) History of operative procedure on lumbar spinal structure 07-03-2021 Episodic Rheumatoid arthritis and related disease (6 sources) 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 Chronic Spondylosis; intervertebral disc disorders; other back problems (6 sources) Intervertebral disc disorder 10-21-2020 Chronic Spondylosis; intervertebral disc disorders; other back problems (18 sources) Lumbago with sciatica; Translations: [Radiculitis] 09-29-2020 Episodic Unclassified (2 sources) Cyst 03-03-2021 Unclassified (6 sources) Patient encounter status 03-07-2022 Results Test Name Value Interpretation Reference Range Facil ity Vital Signs Date Time Vital Sign Value Performing Clinician Faci lity 03-23-2021 15:52-0400 Diastolic Blood Pressure NBP 90 1 DONOVAN GOYAL MD [facility] 03-23-2021 15:52-0400 Heart rate 89 /min DONOVAN GOYAL MD [facility] 03-23-2021 15:52-0400 Systolic Blood Pressure NBP 141 1 DONOVAN GOYAL MD [facility] 03-23-2021 15:37-0400 Diastolic Blood Pressure NBP 82 1 DONOVAN GOYAL MD [facility] 03-23-2021 15:37-0400 Heart rate 84 /min DONOVAN GOYAL MD [facility] 03-23-2021 15:37-0400 Systolic Blood Pressure NBP 130 1 DONOVAN GOYAL MD [facility] 03-23-2021 14:50-0400 Diastolic Blood Pressure NBP 89 1 DONOVAN GOYAL MD [facility] 03-23-2021 14:50-0400 Heart rate 83 /min DONOVAN GOYAL MD [facility] 03-23-2021 14:50-0400 Systolic Blood Pressure NBP 130 1 DONOVAN GOYAL MD [facility] 03-23-2021 14:35-0400 Respiratory rate 0 /min DONOVAN GOYAL MD [facility] 03-23-2021 14:30-0400 Respiratory rate 0 /min DONOVAN GOYAL MD [facility] 03-23-2021 14:25-0400 Respiratory rate 16 /min DONOVAN GOYAL MD [facility] 03-23-2021 13:45-0400 Body temperature 96.8 [degF] DONOVAN GOYAL MD [facility] 03-23-2021 12:04-0400 Body temperature 98.42 [degF] DONOVAN GOYAL MD [facility] 03-23-2021 12:04-0400 Heart rate 77 /min DONOVAN GOYAL MD [facility] 03-20-2021 08:15-0400 Body height 185.4 cm DONOVAN GOYAL MD [facility] 03-20-2021 08:15-0400 Body weight 129.5 kg DONOVAN GOYAL MD [facility] 03-20-2021 08:15-0400 Body weight 37.67 kg/m2 DONOVAN GOYAL MD [facility] 03-20-2021 08:15-0400 diastolic 94 mm[Hg] DONOVAN GOYAL MD [facility] 03-20-2021 08:15-0400 Heart rate 86 /min DONOVAN GOYAL MD [facility] 03-20-2021 08:15-0400 Respiratory rate 18 /min DONOVAN GOYAL MD [facility] 03-20-2021 08:15-0400 systolic 162 mm[Hg] DONOVAN GOYAL MD [facility] Encounters Encounter Date Encounter Type Care Provider Facility Start: 03-14-2023 End: 03-15-[address] ULICES MONTOYA MD Facility:[facility] Start: 03-14-2023 End: 03-14-[address] ULICES MONTOYA MD [facility] Start: 11-16-2022 End: 11-17-2022 ambulatory RAFAELA SALAZAR DO Facility:[facility] Start: 11-16-2022 End: 11-16-2022 Patient encounter procedure RAFAELA SALAZAR DO [facility] Start: 09-26-2022 ambulatory RAFAELA SALAZAR DO Facil ity:B Start: 09-25-2022 End: 09-26-2022 ambulatory RAFAELA SALAZAR DO Facility:[facility] Start: 09-20-2022 End: 09-21-2022 ambulatory RAFAELA SALAZAR DO Facility:[facility] Start: 09-20-2022 End: 09-20-2022 Patient encounter procedure RAFAELA SALAZAR DO [facility] Start: 11-02-2021 End: 11-02-2021 Patient encounter procedure CHARLENE BRADLEY DO [facility] Start: 03-23-2021 End: 03-23-2021 SAME DAY STAY DONOVAN GOYAL MD [facility] Start: 03-20-2021 End: 03-20-2021 Admission to establishment DONOVAN GOYAL MD [facility] Procedures Date Procedure Procedure Detail Performing Clinician Start: 03-23-2021 Cyst - pilonidal (disorder) CHARLENE BRADLEY DO Immunizations Immunization Date Immunization Notes Care Provider [facility] 09-22-2020 SARS-CoV-2 (COVID-19 ) [id number] vaccine DONOVAN GOYAL MD [facility] Payers Date Payer Category Payer Unknown [id number] 2022 Unknown [id number] 1970 Unknown [id number] [id number] 1970 Unknown [id number] [id number] 1971 Unknown [id number] [id number] 1971 Unknown [id number] [id number] [id number] 1971 Unknown [id number] [id number] Social History Date Type Detail Facility Start: 12-07-2019 Never smoked t obacco (finding) [facility] Sex Assigned At Male [facility] Medical Equipment Procedure Code Equipment Code Equipment Origin al Text Equipment Identifier Dates FDA Start: 09-23-2018 FDA Start: 09-23-2018 Unknown Unknown 09/23/18 Unknown Unknown FDA Start: 09-23-2018 Unknown Unknown 09/23/18 Unknown Unknown FDA Start: 09-23-2018 Unknown Unknown 09/23/18 Unknown Unknown FDA Start: 09-23-2018 Unknown Unknown 09/23/18 Unknown Unknown FDA Start: 09-23-2018 Clinical Notes 03-23-2021 to 11-16-2022 Radiology[facility]iology[facility]atory[facility]iology Note Date & Type Note Facility 11-16-2022 Note ORIGINAL EXAMINATION: SOFT TISSUE ULTRASOUND 11/16/2022 1:31 pm COMPARISON: MR brain 12/09/2019. 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 Patient felt lump for 2 months, increasing in size. FINDINGS: The area of concern along the right submandibular gland was imaged. There is a well-circumscribed hypoechoic lesion within the right submandibular gland with increased vascularity on Doppler interrogation. This lesion measures 1 x 1.1 x 1 cm. There is posterior acoustic enhancement noted. No other lesion identified. No definitive sinus tract formation. IMPRESSION: The 1.1 cm lesion in the right submandibular gland is suspicious for malignancy. Tissue sampling is recommended. I have personally reviewed the images of this examination, agree with resident's findings and interpretation. Interpreted by: Stuart Reyes MD Preliminary Report By: Arnold Acosta Electronically signed By Stuart Reyes MD Dictated Date: 11/16/2022 3:05:42 PM Prelim Date: 11/16/2022 6:53:51 PM Sign Date: 11/16/2022 6:53:51 PM Ordering Provider: [facility] 11-16-2022 Note ORIGINAL EXAMINATION: SOFT TISSUE ULTRASOUND 11/16/2022 1:31 pm COMPARISON: MR brain 12/09/2019. 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 Patient felt lump for 2 months, increasing in size. FINDINGS: The area of concern along the right submandibular gland was imaged. There is a well-circumscribed hypoechoic lesion within the right submandibular gland with increased vascularity on Doppler interrogation. This lesion measures 1 x 1.1 x 1 cm. There is posterior acoustic enhancement noted. No other lesion identified. No definitive sinus tract formation. IMPRESSION: The 1.1 cm lesion in the right submandibular gland is suspicious for malignancy. Tissue sampling is recommended. I have personally reviewed the images of this examination, agree with resident's findings and interpretation. Interpreted by: Stuart Reyes MD Preliminary Report By: Arnold Acosta Electronically signed By Stuart Reyes MD Dictated Date: 11/16/2022 3:05:42 PM Prelim Date: 11/16/2022 6:53:51 PM Sign Date: 11/16/2022 6:53:51 PM Ordering Provider: [facility] 09-27-2022 Evaluation + Plan note Future Scheduled TestsUS Abdomen Limited 09/27/22 [facility] 03-23-2021 Hospital Discharg e instructions Patient Education 03/23/2021 15:03:26 General Anesthesia, Adult, Care After General Anesthesia, Adult, Care After This sheet gives you information about how to care for yourself after your procedure. Your health care provider may also give you more specific instructions. If you have problems or questions, contact your health care provider. What can I expect after the procedure? After the procedure, the following side effects are common: Pain or discomfort at the IV site. Nausea. Vomiting. Sore throat. Trouble concentrating. Feeling cold or chills. Weak or tired. Sleepiness and fatigue. Soreness and body aches. These side effects can affect parts of the body that were not involved in surgery. Follow these instructions at home: For at least 24 hours after the procedure: Have a responsible adult stay with you. It is important to have someone help care for you until you are awake and alert. Rest as needed. Do not: ?Participate in activities in which you could fall or become injured. ?Drive. ?Use heavy machinery. ?Drink alcohol. ?Take sleeping pills or medicines that cause drowsiness. ?Make important decisions or sign legal documents. ?Take care of children on your own. Eating and drinking Follow any instructions from your health care provider about eating or drinking restrictions. When you feel hungry, start by eating small amounts of foods that are soft and easy to digest (bland), such as toast. Gradually return to your regular diet. Drink enough fluid to keep your urine pale yellow. If you vomit, rehydrate by drinking water, juice, or clear broth. General instructions If you have sleep apnea, surgery and certain medicines can increase your risk for breathing problems. Follow instructions from your health care provider about wearing your sleep device: ?Anytime you are sleeping, including during daytime naps. ?While taking prescription pain medicines, sleeping medicines, or medicines that make you drowsy. Return to your normal activities as told by your health care provider. Ask your health care provider what activities are safe for you. Take lzlo-dhf-smryqlx and prescription medicines only as told by your health care provider. If you smoke, do not smoke without supervision. Keep all follow-up visits as told by your health care provider. This is important. Contact a health care provider if: You have nausea or vomiting that does not get better with medicine. You cannot eat or drink without vomiting. You have pain that does not get better with medicine. You are unable to pass urine. You develop a skin rash. You have a fever. You have redness around your IV site that gets worse. Get help right away if: You have difficulty breathing. You have chest pain. You have blood in your urine or stool, or you vomit blood. Summary After the procedure, it is common to have a sore throat or nausea. It is also common to feel tired. Have a responsible adult stay with you for the first 24 hours after general anesthesia. It is important to have someone help care for you until you are awake and alert. When you feel hungry, start by eating small amounts of foods that are soft and easy to digest (bland), such as toast. Gradually return to your regular diet. Drink enough fluid to keep your urine pale yellow. Return to your normal activities as told by your health care provider. Ask your health care provider what activities are safe for you. This information is not intended to replace advice given to you by your health care provider. Make sure you discuss any questions you have with your health care provider. Document Released: 08/26/2001 Document Revised: 05/23/2018 Document Reviewed: 01/03/2018 [employer] Patient Education 2020 [employer]. 03/23/2021 15:02:45 Pilonidal Cyst Drainage, Care After Pilonidal Cyst Drainage, Care After This sheet gives you information about how to care for yourself after your procedure. Your health care provider may also give you more specific instructions. If you have problems or questions, contact your health care provider. What can I expect after the procedure? After the procedure, it is common to have: Pain that gets better when you take medicine. Some fluid or blood coming from your wound. Follow these instructions at home: Medicines Take mmmk-qaj-uaralyp and prescription medicines only as told by your health care provider. If you were prescribed an antibiotic medicine, take it as told by your health care provider. Do not stop taking the antibiotic even if you start to feel better. Lifestyle Do not do activities that irritate or put pressure on your buttocks for about 2 weeks, or as long as told by your health care provider. These activities include bike riding, running, and anything that involves a twisting motion. Do not sit for long periods at a time without getting up to move around. Sleep on your side instead of your back. Avoid wearing tight underwear and tight pants. Bathing Do not take baths or showers, swim, or use a hot tub until your health care provider approves. This depends on the type of wound you have from surgery. While bathing, clean your buttocks area gently with soap and water. After bathing: ?Pat the area dry with a soft, clean towel. ?Cover the area with a clean bandage (dressing), if told to by your health care provider. General instructions If you are taking prescription pain medicine, take actions to prevent or treat constipation. Your health care provider may recommend that you: ? Drink enough fluid to keep your urine pale yellow. ?Eat foods that are high in fiber, such as fresh fruits and vegetables, whole grains, and beans. ?Limit foods that are high in fat and processed sugars, such as fried or sweet foods. ? Take an maxt-kim-nwgownj or prescription medicine for constipation. You will need to have a caregiver help you manage wound care and dressing changes. Your caregiver should: ?Wash his or her hands with soap and water before changing your dressing. If soap and water are not available, your caregiver should use hand switcher. ?Check your wound every day for signs of infection, such as: ?Redness, swelling, or more pain. ?More fluid or blood. ?Warmth. ?Pus or a bad smell. ?Follow any additional instructions from your health care provider on how to care for your wound, such as wound cleaning, wound flushing (irrigation), or packing your wound with a dressing. Keep all follow-up visits as told by your health care provider. This is important. If you had incision and drainage with wound packing: Return to your health care provider as instructed to have your packing material changed or removed. Keep the area dry until your packing has been removed. After the packing has been removed, you may start taking showers. If you had marsupialization: You may start taking showers the day after surgery, or when your health care provider approves. Remove your dressing before you shower, but let the water from the shower moisten your dressing before you remove it. This will make it easier to remove. Ask your health care provider when you can stop using a dressing. If you had incision and drainage without wound packing: Change your dressing as directed. Leave stitches (sutures), skin glue, or adhesive strips in place. These skin closures may need to stay in place for 2 weeks or longer. If adhesive strip edges start to loosen and curl up, you may trim the loose edges. Do not remove adhesive strips completely unless your health care provider tells you to do that. Contact a health care provider if: You have redness, swelling, or more pain around your wound. You have more fluid or blood coming from your wound. You have new bleeding from your wound. Your wound feels warm to the touch. There is pus or a bad smell coming from your wound. You have pain that does not get better with medicine. You have a fever or chills. You have muscle aches. You are dizzy. You feel generally sick. Summary After a procedure to drain a pilonidal cyst, it is common to have some fluid or blood coming from your wound. If you were prescribed an antibiotic medicine, take it as told by your health care provider. Do not stop taking the antibiotic even if you start to feel better. Return to your health care provider as instructed to have any packing material changed or removed. This information is not intended to replace advice given to you by your health care provider. Make sure you discuss any questions you have with your health care provider. Document Released: 06/20/2007 Document Revised: 03/12/2019 Document Reviewed: 05/12/2018 [employer] Patient Education 2020 [employer]. Follow Up Care 03/16/2021 15:02:12 With:DONOVAN GOYAL MD, Surgery, Surgery Address: [phone] When: Unknown Comments:Follow-up as IN 2 WEEKS , CALL OFFICE WITH ANY QUESTIONS [facility] Evaluation + Plan note Future Appointments Appointment Date:07/21/2021 08:00:00 AM Scheduled Provider:RAFAELA SALAZAR DO Location:[facility] Appointment Type:PC OV Future Scheduled TestsCT Angiography Head w/ Contrast 04/18/20CT Angiography Neck w/ Contrast 04/18/20XR Pelvis Complete Minimum 3 Views 09/29/20XR Spine Lumbar Flex/Ext w/Obliques 09/20/20 [facility] Evaluation + Plan note Future Appointments Appointment Date:01/02/2022 03:00:00 PM Scheduled Provider:RAFAELA SALAZAR DO Location:[facility] Appointment Type:PC OV [facility] Evaluation + Plan note Future Appointments Appointment Date:03/06/2023 01:30:00 PM Scheduled Provider:RAFAELA SALAZAR DO Location:[facility] Appointment Type:PC OV Follow Up Future Scheduled TestsAlbumin/Creatinine Ratio, Random Urine 09/05/22 [facility] Evaluation + Plan note Future Appointments Appointment Date:03/06/2023 01:30:00 PM Scheduled Provider:RAFAELA SALAZAR DO Location:[facility] Appointment Type:PC OV Follow Up Future Scheduled TestsUS Abdomen Limited 09/27/22 [facility] Hospital course Narrative No data available for this section [facility] Hospital Discharge instructions No data available for this section [facility] Progress note No data available for this section [facility] Summary Purpose Family History No Family History Records Found Advance Directives No Advanced Directives Records Found Additional Source Comments Care Team (unrecognized sect ion and content) Personnel Name: RAFAELA SALAZAR DO Address: [address] [place] [address] Name: Becca Beyer Clerk Gabi PT Care Team Personnel Name: Becca Beyer Clerk Gabi PT Position: P3 Scheduling - Bog Cutter Advanced Member Role: Other Name: RAFAELA SALAZAR DO Position: P4 Physician - Primary Care Member Role: Primary Care Physician Address: Address: [address] [place] [address] Care Team Related Persons Name: CAPO BETH Care Team Personnel Name: Becca Beyer Clerk Gabi PT Position: P3 Scheduling - Bog Cutter Advanced Member Role: Other Name: RAFAELA SALAZAR DO Position: P4 Physician - Primary Care Member Role: Primary Care Physician Address: Address: [address] [place] [address] Care Team Related Persons Name: CAPO BETH Care Team Personnel Name: Becca Beyer Clerk Gabi PT Position: P3 Scheduling - Bog Cutter Advanced Member Role: Other Name: RAFAELA SALAZAR DO Position: P4 Physician - Primary Care Member Role: Primary Care Physician Address: Address: [address] [place] [address] Care Team Related Persons Name: CAPO BETH Address: Home [address] [place] [address] (unrecognized sect ion and content) No Status Records Found INFORMATION SOURCE (unrecogn ized section and content) FOR RECORDS PERTAINING TO PATIENTS WHO ARE OR HAVE BEEN ENROLLED IN A CHEMICAL DEPENDENCY/SUBSTANCEABUSE PROGRAM, SOME INFORMATION MAY BE OMITTED. This clinical summary was aggregated from multiple sources. Caution should be exercised in using it in the provision of clinical care. This summary normalizes information from multiple sources, and as a consequence, information in this document may materially change the coding, format and clinical context of patient data. In addition, data may be omitted in some cases. CLINICAL DECISIONS SHOULD BE BASED ON THE PRIMARY CLINICAL RECORDS. [facility] [employer] [facility]. provides no warranty or guarantee of the accuracy or completeness of information in this document.
[2023-05-31] MEDS: Lactated Ringers 1,000 ML 15 ML IV (07:19)
--- NOTE | 2023-05-31 07:30 | RAD_ITS ---
STUDY: X-RAY - THORACIC SPINE REASON FOR EXAM: Male, 52 years old. SPINAL CORD STIM INSERTION TECHNIQUE: 1 view(s) of the thoracic spine were obtained. COMPARISON: None. FINDINGS: 247 seconds of fluoroscopy of the thoracic spine was utilized in the operating room during dorsal column spinal stimulator placement and 3 images are submitted for interpretation. . RAD/Fluoroscopy 1 Hr or Less IMPRESSION: Fluoroscopy during dorsal column spinal stimulator placement. Electronically Signed: Mike Chaidez MD at 16:54 EST ,
[2023-05-31] MEDS: Vancomycin HCl 2,000 MG in 0.9% Normal Saline (500mL Bag) 500 ML 250 MG IV (09:00)
[2023-05-31] MEDS: Lidocaine 1% /Epi 1:100 (20ml) 20 ML Vial ×2 (09:15)
[2023-05-31] MEDS: Bupivacaine 0.25% 30 ML Vial (09:15)
[2023-05-31 11:03] LABS: Bedside Glucose 209 mg/dL (74-106)
[2023-05-31] MEDS: Ketorolac 30 MG/ML Syringe IV (11:45)
== END 2023-05-31 12:56 | disposition home or self-care (01) ==
LOC: SDC 06:53 → AC 06:54
PROVIDERS: PCP Preventive Medicine Occupational Medicine; Referring Provider Anesthesiology Pain Medicine; Visit Provider Anesthesiology Pain Medicine
PROC: (CPT 63685; principal; 2023-05-31 08:15)
DX: Z45.42 Encounter for adjustment and management of neurostimulator (principal); M54.50 Low back pain, unspecified; J45.909 Unspecified asthma, uncomplicated; K21.9 Gastro-esophageal reflux disease without esophagitis; Z87.442 Personal history of urinary calculi; Z87.2 Personal history of diseases of the skin and subcutaneous tissue; I10 Essential (primary) hypertension; G47.30 Sleep apnea, unspecified; Z99.89 Dependence on other enabling machines and devices; Z79.899 Other long term (current) drug therapy; M96.1 Postlaminectomy syndrome, not elsewhere classified
CPT/HCPCS: 63650; 63685; 00620; 76000; 82962; C1713; C1778; J7040; J7120; J2405

== ENCOUNTER → 2023-06-08 | Outpatient (CLI) | payer BC, SELFPAY ==
--- NOTE | 2023-06-08 07:57 | CT_ITS ---
STUDY: CT LUMBAR SPINE WITHOUT CONTRAST REASON FOR EXAM: Male, 52 years old. POSTLAMINECTOMY SYNDROME RADIATION DOSAGE (If Supplied By Facility): CTDIvol = ( 42.76 ) mGy, DLP = ( 1392.41 ) mGycm TECHNIQUE: The patient was scanned in a multi detector CT scanner. High resolution transaxial imaging was performed. Images were obtained from T12 to S1. Sagittal and coronal images were reconstructed. Individualized dose optimization techniques were used for this CT. COMPARISON: None FINDINGS: Normal lumbar lordosis. There is no substantial scoliosis. Normal vertebrae of the lumbar spine. Recent placement of dorsal column spinal stimulator in the lower thoracic spine with some subcutaneous emphysema. L1-2: Normal endplates. Normal disc height and morphology. Normal bilateral facet joints. Normal central canal and bilateral lateral recesses. Normal bilateral intervertebral neural foramina. L2-3: Normal endplates. Normal disc height and morphology. Normal bilateral facet joints. Normal central canal and bilateral lateral recesses. Normal bilateral intervertebral neural foramina. L3-4: Mild bilateral facet hypertrophy and ligamentum flavum hypertrophy. No disc protrusion, spinal stenosis, or neural foraminal stenosis. L4-5: Status post discectomy, interbody fusion, posterior decompression, and transpedicular fixation with anatomic alignment with no spinal stenosis or neural foraminal stenosis. L5-S1: Status post discectomy, interbody fusion, posterior decompression, and transpedicular fixation with anatomic alignment with no spinal stenosis or neural foraminal stenosis. Normal visualized paraspinous soft tissue structures. CT/Spine Lumbar without Contrast IMPRESSION: Postsurgical changes and degenerative disc disease as described above. Electronically Signed: Mike Chaidez MD at 23:32 EST ,
--- OUTSIDE RECORDS SUMMARY | 2023-06-08 07:57 | XMS RPT_ITS | CCD ---
Author Name Unknown Address [address] [place] [address] Organization [facility] Care Team Providers Care Trouble Operator Name Role Phone RAFAELA SALAZAR DO Primary Care Physician [phone] Gabi Beyer PT Unavailable Unavailable RAFAELA SALAZAR [...] Translations: [cefazolin] Drug Allergy Lip swelling (finding) [facility] Work Phone: Medications Current Medications Medication Drug Class(es) Dates Sig (Normalized) Sig (Original) acetaminophen 325 mg / HYDROcodone bitartrate 5 mg oral tablet (1 source) Opioid Agonist Start: 03-23-2021 End: 03-28-2021 [place] 325- 5 mg oral tablet Dose = [...] Wheezing, # 1 EA, 2 Refill(s), Pharmacy: [facility]/pharmacy #[id number], 185.25, cm, 11/06/22 10:55:00 EDT, Height, [...] Pressure NBP 90 1 DONOVAN GOYAL MD [facility] 03-23-2021 15:52-0400 Heart rate 89 /min DONOVAN GOYAL MD [facility] 03-23-2021 15:52-0400 Systolic Blood Pressure NBP 141 1 DONOVAN GOYAL MD [facility] 03-23-2021 15:37-0400 Diastolic Blood Pressure NBP 82 1 DONOVAN GOYAL MD [facility] 03-23-2021 15:37-0400 Heart rate 84 /min DONOVAN GOYAL MD [facility] 03-23-2021 15:37-0400 Systolic Blood Pressure NBP 130 1 DONOVAN GOYAL MD [facility] 03-23-2021 14:50-0400 Diastolic Blood Pressure NBP 89 1 DONOVAN GOYAL MD [facility] 03-23-2021 14:50-0400 Heart rate 83 /min DONOVAN GOYAL MD [facility] 03-23-2021 14:50-0400 Systolic Blood Pressure NBP 130 1 DONOVAN GOYAL MD [facility] 03-23-2021 14:35-0400 Respiratory rate 0 /min DONOVAN GOYAL MD [facility] 03-23-2021 14:30-0400 Respiratory rate 0 /min DONOVAN GOYAL MD [facility] 03-23-2021 14:25-0400 Respiratory rate 16 /min DONOVAN GOYAL MD [facility] 03-23-2021 13:45-0400 Body temperature 96.8 [degF] DONOVAN GOYAL MD [facility] 03-23-2021 12:04-0400 Body temperature 98.42 [degF] DONOVAN GOYAL MD [facility] 03-23-2021 12:04-0400 Heart rate 77 /min DONOVAN GOYAL MD [facility] 03-20-2021 08:15-0400 Body height 185.4 cm DONOVAN GOYAL MD [facility] 03-20-2021 08:15-0400 Body weight 129.5 kg DONOVAN GOYAL MD [facility] 03-20-2021 08:15-0400 Body weight 37.67 kg/m2 DONOVAN GOYAL MD [facility] 03-20-2021 08:15-0400 diastolic 94 mm[Hg] DONOVAN GOYAL MD [facility] 03-20-2021 08:15-0400 Heart rate 86 /min DONOVAN GOYAL MD [facility] 03-20-2021 08:15-0400 Respiratory rate 18 /min DONOVAN GOYAL MD [facility] 03-20-2021 08:15-0400 systolic 162 mm[Hg] DONOVAN GOYAL MD [facility] Encounters Encounter Date Encounter Type Care Provider Facility Start: 03-14-2023 End: 03-15-[address] UILCES MONTOYA MD Facility:[facility] Start: 03-14-2023 End: 03-14-[address] ULICES MONTOYA MD [facility] Start: 11-16-2022 End: 11-17-2022 ambulatory RAFAELA SALAZAR DO Facility:[facility] Start: 11-16-2022 End: 11-16-2022 Patient encounter procedure RAFAELA SALAZAR DO [facility] Start: 09-26-2022 ambulatory RAFAELA SALAZAR DO Facil ity:[facility] Start: 09-25-2022 End: 09-26-2022 ambulatory RAFAELA SALAZAR DO Facility:[facility] Start: 09-20-2022 End: 09-21-2022 ambulatory RAFAELA SALAZAR DO Facility:[facility] Start: 09-20-2022 End: 09-20-2022 Patient encounter procedure RAFAELA SALAZAR DO [facility] Start: 11-02-2021 End: 11-02-2021 Patient encounter procedure CHARLENE BRADLEY DO [facility] Start: 03-23-2021 End: 03-23-2021 SAME DAY STAY DONOVAN GOYAL MD [facility] Start: 03-20-2021 End: 03-20-2021 Admission to establishment DONOVAN GOYAL MD [facility] Procedures Date Procedure Procedure Detail Performing Clinician Start: 03-23-2021 Cyst - pilonidal (disorder) CHARLENE BRADLEY DO Immunizations Immunization Date Immunization Notes Care Provider [facility] 09-22-2020 SARS-CoV-2 (COVID-19 ) [id number] vaccine DONOVAN GOYAL MD [facility] Payers Date Payer Category Payer Unknown [id number] 2022 Unknown [id number] 1970 Unknown [id number] [id number] 1970 Unknown [id number] [id number] 1970 Unknown [id number] [id number] [id number] 1970 Unknown [id number] [id number] [id number] 1970 Unknown [id number] [id number] [id number] Social History Date Type Detail Facility Start: 12-07-2019 Never smoked t obacco (finding) [facility] Sex Assigned At Male [facility] Medical Equipment Procedure Code Equipment Code Equipment [...] ORDERING SYSTEM PROVIDED HISTORY: Reason for Exam: Review Trainer neck mass at the angle of the [...] ORDERING SYSTEM PROVIDED HISTORY: Reason for Exam: Review Trainer neck mass at the angle of the [...] note Future Scheduled TestsUS Abdomen Limited 09/27/22 [facility] 03-23-2021 Hospital Discharg e instructions Patient Education [...] what activities are safe for you. Take lhaf-dhr-quikhrt and prescription medicines only as told by [...] 08/26/2001 Document Revised: 05/23/2018 Document Reviewed: 01/03/2018 [employer] Patient Education 2020 [employer]. 03/23/2021 15:02:45 Pilonidal Cyst Drainage, Care After [...] Follow these instructions at home: Medicines Take zdez-jzh-lpajfpt and prescription medicines only as told by [...] fried or sweet foods. ? Take an uuin-jtn-wqareiq or prescription medicine for constipation. You will need to have a caregiver help you manage wound care and dressing changes. Your caregiver should: ?Wash his or her hands with soap and water before changing your dressing. If soap and water are not available, your caregiver should use hand transplanter orchid. ?Check your wound every day for signs [...] 06/20/2007 Document Revised: 03/12/2019 Document Reviewed: 05/12/2018 [employer] Patient Education 2020 [employer]. Follow Up Care 03/16/2021 15:02:12 With:DONOVAN GOYAL MD, Surgery, Surgery Address: [id number] When: Unknown Comments:Follow-up as IN 2 WEEKS , CALL OFFICE WITH ANY QUESTIONS [facility] Evaluation + Plan note Future Appointments Appointment Date:07/21/2021 08:00:00 AM Scheduled Provider:RAFAELA SALAZAR DO Location:[facility] Appointment Type:PC OV Future Scheduled TestsCT Angiography Head w/ Contrast 04/18/20CT Angiography Neck w/ Contrast 04/18/20XR Pelvis Complete Minimum 3 Views 09/29/20XR Spine Lumbar Flex/Ext w/Obliques 09/20/20 [facility] Evaluation + Plan note Future Appointments Appointment Date:01/02/2022 03:00:00 PM Scheduled Provider:RAFAELA SALAZAR DO Location:[facility] Appointment Type:PC OV [facility] Evaluation + Plan note Future Appointments Appointment Date:03/06/2023 01:30:00 PM Scheduled Provider:RAFAELA SALAZAR DO Location:[facility] Appointment Type:PC OV Follow Up Future Scheduled TestsAlbumin/Creatinine Ratio, Random Urine 09/05/22 [facility] Evaluation + Plan note Future Appointments Appointment Date:03/06/2023 01:30:00 PM Scheduled Provider:RAFAELA SALAZAR DO Location:[facility] Appointment Type:PC OV Follow Up Future Scheduled TestsUS Abdomen Limited 09/27/22 [facility] Hospital course Narrative No data available for this section [facility] Hospital Discharge instructions No data available for this section [facility] Progress note No data available for this section [facility] Summary Purpose Family History No Family History Records Found Advance Directives No Advanced Directives Records Found Additional Source Comments Care Team (unrecognized sect ion and content) Personnel Name: RAFAELA SALAZAR DO Address: [address] [place] [address] Name: Becca Beyer Clerk Gabi PT Care Team Personnel Name: Becca Beyer Clerk Gabi PT Position: P3 Scheduling - Director Corporate Sales Advanced Member Role: Other Name: RAFAELA SALAZAR DO Position: P4 Physician - Primary Care Member Role: Primary Care Physician Address: Address: [address] [place] [address] Care Team Related Persons Name: CAPO BETH Care Team Personnel Name: Becca Beyer Clerk Gabi PT Position: P3 Scheduling - Director Corporate Sales Advanced Member Role: Other Name: RAFAELA SALAZAR DO Position: P4 Physician - Primary Care Member Role: Primary Care Physician Address: Address: [address] [place] [address] Care Team Related Persons Name: CAPO BETH Care Team Personnel Name: Becca Beyer Clerk Gabi PT Position: P3 Scheduling - Director Corporate Sales Advanced Member Role: Other Name: RAFALEA SALAZAR DO Position: P4 Physician - Primary Care Member Role: Primary Care Physician Address: Address: [address] [place] [address] Care Team Related Persons Name: CAPO BETH Address: Home [address] [place] [address] (unrecognized sect ion and content) No Status [...] BE BASED ON THE PRIMARY CLINICAL RECORDS. [facility] [employer] [facility]. provides no warranty or guarantee of the accuracy or completeness of information in this document.
== END | disposition home or self-care (01) ==
PROVIDERS: PCP Preventive Medicine Occupational Medicine; Referring Provider Anesthesiology Pain Medicine; Visit Provider Anesthesiology Pain Medicine
DX: M96.1 Postlaminectomy syndrome, not elsewhere classified (principal)
CPT/HCPCS: 72131

== ENCOUNTER → 2023-08-27 | Outpatient (CLI) | payer BC, SELFPAY ==
--- NOTE | 2023-08-27 | ASPOS_PTH ---
PATIENT: LJ BETH LOC: LAB U#:[id number] AGE/SX: 52/M ROOM: RE08/27/[address]: Dr. Lj Madera MD : 1970 BED: DIS: 08/27/2023 SPEC #: [id number] RECD: 08/27/23 11:42 STATUS: PRADEEP CARLA #: [id number] BRIAN: 08/27/23 00:[address]: Lj Madera DEPT: CYTOLOGY RECD BY: Michelle Glover ENTERED: 08/27/23 11:42 SP TYPE: ASP HERE OTHR DR: Dr. Rainer Mills, DO Tissues: Preauricular region Procedures: Surgery Specimen Level IV Cytology Other Fine Needle Asp on Site HEADER OPERATION: Fine needle aspiration, Left pre-auricular mass PRE-OP DIAGNOSIS: Left pre-auricular mass TISSUE SUBMITTED: Smears and fluid for cytology DIAGNOSIS CYTOLOGY Left pre-auricular mass (smears and cellblock); Consistent with benign salivary gland cyst. See comment. AM/mr 08/28/2023 COMMENT A fine needle aspiration was performed and the specimen is evaluated at the time of FNA by Dr. Yoder. Immediate Evaluation = Consistent with benign cyst contents . Smears and sections of cell block show rare benign epithelial cells with abundant proteinaceous debris and with rare microcalcifications. Scattered viable macrophages are also identified. Clinical correlation is suggested. CYTOLOGY STUDY Slides are reviewed. CYTOLOGY GROSS Received is 4.0 ml of yellow oily fluid labeled with the patient's name, and designated Left pre-auricular mass. 6 imprints and 4 paps are made from the submitted fluid and the rest is added to CytoLyt for cell block preparation. Submitted for cytology study. Mr 08/27/2023TC:5 CPT: 73807,31856,[id number]
== END | disposition home or self-care (01) ==
LOC: LAB 09:15
PROVIDERS: PCP Preventive Medicine Occupational Medicine; Referring Provider Otolaryngology; Visit Provider Otolaryngology
DX: R22.9 Localized swelling, mass and lump, unspecified (principal)
CPT/HCPCS: 10021; 88161; 88305

== ENCOUNTER → 2023-10-24 | Outpatient (CLI) | payer BC, SELFPAY ==
--- NOTE | 2023-10-24 14:47 | CT_ITS ---
EXAM: CT NECK WITH INTRAVENOUS CONTRAST CLINICAL INDICATION: Localized swelling, mass and lump, neck TECHNIQUE: Helically acquired images were obtained of the neck with intravenous contrast. This CT exam was performed using one or more of the following dose reduction techniques: automated exposure control, adjustment of the mA and/or kV according to patient size, and/or use of iterative reconstruction technique. CONTRAST: IV 75mL Isovue-370 COMPARISON: 07/29/2023 FINDINGS: NASOPHARYNX: Unremarkable. SUPRAHYOID NECK: Unremarkable. Oropharynx, oral cavity, parapharyngeal space and retropharyngeal space are unremarkable. INFRAHYOID NECK: Unremarkable. The larynx, hypopharynx and supraglottis are unremarkable. SUBMANDIBULAR/PAROTID GLANDS: There is a solid mass in the left parotid gland that measures 3.0 x 2.1 x 2.5 cm is not significantly changed from the reference. THYROID: Unremarkable. No enlarged or calcified nodules. BONES/JOINTS: No acute fracture. SOFT TISSUES: Unremarkable. VASCULATURE: No acute findings. LYMPH NODES: Unremarkable. No lymphadenopathy. LUNG APICES: Unremarkable as visualized. CT/Soft Tissue Neck WITH Contrast IMPRESSION: Persistent solid mass in the superior aspect of the left parotid gland which is stable in size. This may represent perhaps a pleomorphic adenoma or Eddie''s tumor along with other benign or malignant processes. Electronically Signed: Chencho Delgado MD at 18:58 EDT ,
== END | disposition home or self-care (01) ==
LOC: CT 14:44
PROVIDERS: PCP Preventive Medicine Occupational Medicine; Referring Provider Otolaryngology; Visit Provider Otolaryngology
DX: R22.1 Localized swelling, mass and lump, neck (principal)
CPT/HCPCS: 70491; Q9967; A4216

== ENCOUNTER → 2024-03-26 | Outpatient (CLI) | payer BC, SELFPAY ==
--- OUTSIDE RECORDS SUMMARY | 2024-03-26 12:23 | XMS RPT_ITS | CCD ---
Author Organization [facility] Inform ion [facility] Care Team Providers Care Defensive Secondary Coach Name Role Phone RAFAELA MILLS DO Primary Care Physician [phone] Pepito PT, Gabi Unavailable Unavailable Unavailable Primary Care Provider Unavailabl e RAFAELA MILLS DO Attending Unavailable RAFAELA MILLS DO Primary Care Unavailable RAFAELA MILLS DO Attending Unavailable RAFAELA MILLS DO Primary Care Unavailable LINDSAY CONCEPCION, DR ULICES MCKEON Attending Mela labRAFAELA Hoffmann DO Primary Care Unavailable RAFAELA MILLS DO Attending Unavailable RAFAELA MILLS DO Primary Care Unavailable RAFAELA MILLS DO Attending Unavailable RAFAELA MILLS DO Primary Care Unavailable Selvin CONCEPCION, Emile Unavailable EMILE TAVAREZ Attending Unavailable SELVIN, EMILE Admitting Unavailable EMILE TAVAREZ Attending Unavailable PROVIDER, UNKNOWN Admitting Unavailable PROVIDER, UNKNOWN Admitting Unavailable EMILE TAVAREZ Attending Unavailable ARNOLD DANIELSON Referring Unavailabl e PROVIDER, UNKNOWN Admitting Unavailable PROVIDER, UNKNOWN Attending Unavailable EMILE TAVAREZ Referring Unavailable PROVIDER, UNKNOWN Attending Unavailable PROVIDER, UNKNOWN Admitting Unavailable Allergies Allergy Classification Reported Allergen(s) Allergy Type Date of Onset Reaction(s) Facility Cephalosporins (antibiotic) (2 sources) ceFAZolin Drug Allergy 2 [facility] ceFAZolin; Translations: [cefazolin] Drug Allergy 2 Lip swelling (finding), Swelling [facility] Medications Current Medications Medication Drug Class(es) Dates Sig (Normalized) Sig (Original) acetaminophen 500 mg oral tablet (3 sources) Start: 02-07-2024 take 2 tablets by mouth every eight hours acetaminophen (TYLENOL) 500 MG tablet Take 2 Tablets by mouth every 8 hours. 90 Tablet 02/07/2024 Active Start: 02-07-2024 650 mg, Oral, EVERY 4 HOURS PRN, Starting on Sat02/07/24 at 1430, Until Discontinued, Mild Pain (pain score 1,2,3), Fever 38.5 C and higher, Post-op acetaminophen 325 mg / HYDROcodone bitartrate 5 mg oral tablet (1 source) Opioid Agonist Start: 03-23-2021 End: 03-28-2021 Palmetto 325- 5 mg oral tablet Dose = 1 tab(s), Oral, q4h, PRN Pain, scale 1-6, X 5 day(s), # 15 tab(s), 0 Refill(s), Acute post-operative pain, 129.5 Start Date: 03/23/21 Stop Date: 03/28/21 Status: Ordered [id number] 200 actuat albuterol 0.09 mg/actuat metered dose inhaler (12 sources) beta2-Adrenergic Agonist Start: 02-07-2024 Start: 11-12-2023 albuterol (PRO VENTIL HFA) INHALATION HFA inhaler (VENTOLIN,PROAIR,PROVENTIL) 90mcg 11/12/2023 Active albuterol MDI (90 mcg/inh) CFC free inhalation aerosol (7 sources) Start: 07-03-2023 take 2 puff(s) by inhalation every four hours as needed for wheezing albuterol MDI (90 mcg/inh) CFC free inhalation aerosol 2 puff(s), Inhalation, q4h, PRN Wheezing, # 1 EA, 1 Refill(s), Pharmacy: [facility]/pharmacy #[id number], 183, cm, 07/03/23 8:02:00 EST, Height, kg, 07/03/23 8:02:00 EST, Dosing Weight Start Date: 07/03/23 Status: Ordered Start: 01-28-2023 take 2 puff(s) by in halation every four hours as needed for wheezing albuterol MDI (90 mcg/inh) CFC free inhalation aerosol 2 puff(s), Inhalation, q4h, PRN Wheezing, # 1 EA, 2 Refill(s), Pharmacy: [facility]/pharmacy #[id number], 185.25, cm, 11/06/22 10:55:00 EDT, Height, kg, 11/06/22 10:55:00 EDT, Dosing Weight Start Date: 01/28/23 Status: Ordered Start: 09-05-2022 take 2 puff(s) by in halation every four hours as needed for wheezing albuterol MDI (90 mcg/inh) CFC free inhalation aerosol 2 puff(s), Inhalation, q4h, PRN PRN Wheezing, # 1 EA, 2 Refill(s), Pharmacy: [facility]/pharmacy #[id number], 183, cm, 09/05/22 13:26:00 EDT, Height, kg, 09/05/22 13:26:00 EDT, Dosing Weight Start Date: 09/05/22 Status: Ordered Start: 06-02-2021 take 2 puff(s) by in halation every four hours as needed for wheezing albuterol MDI (90 mcg/inh) CFC free inhalation aerosol 2 puff(s), Inhalation, q4h, PRN Wheezing, # 1 EA, 1 Refill(s), Pharmacy: [facility]/pharmacy #[id number], 187, cm, 04/18/21 10:32:00 EST, Height, kg, 04/24/21 14:54:00 EST, Dosing Weight Start Date: 06/02/21 Status: Ordered Start: 02-27-2021 take 2 puff(s) by in halation every four hours as needed for wheezing albuterol MDI (90 mcg/inh) CFC free inhalation aerosol 2 puff(s), Inhalation, q4h, PRN Wheezing, # 1 EA, 1 Refill(s), Pharmacy: [facility]/pharmacy #[id number], 185, cm, 01/20/21 8:00:00 EDT, Height, kg, 01/20/21 8:00:00 EDT, Dosing Weight Start Date: 02/27/21 Status: Ordered amLODIPine 10 mg / benazepril hydrochloride 20 mg oral capsule (10 sources) Dihydropyridine Calcium Channel Ju, Angiotensin Converting Enzyme Inhibitor Start: 11-26-2023 take 10-20 capsules by mouth once daily amlodipine-benazepril (LOTREL) 10-20 MG per capsule Take by mouth daily. 11/26/2023 Active Start: 07-03-2023 take 1 capsule by mo [facility] once daily amlodipine-benazepril 10 mg-20 mg oral capsule Dose = 1 cap(s), Oral, qDay, # 90 cap(s), 3 Refill(s), Pharmacy: [facility]/pharmacy #[id number], Hypertension, 183, cm, 07/03/23 8:02:00 EST, Height, kg, 07/03/23 8:02:00 EST, Dosing Weight Start Date: 07/03/23 Status: Ordered Start: 09-05-2022 take 1 capsule by [facility] once daily amlodipine-benazepril 10 mg-20 mg oral capsule Dose = 1 cap(s), Oral, qDay, # 90 cap(s), 3 Refill(s), Pharmacy: [facility]/pharmacy #[id number], Hypertension, 183, cm, 09/05/22 13:26:00 EDT, Height, kg, 09/05/22 13:26:00 EDT, Dosing Weight Start Date: 09/05/22 Status: Ordered Start: 03-03-2021 take 1 capsule by [facility] once daily amlodipine-benazepril 10 mg-20 mg oral capsule Dose = 1 cap(s), Oral, qDay, # 90 cap(s), 3 Refill(s), Pharmacy: [facility]/pharmacy #[id number], Hypertension, 185, cm, 03/03/21 15:49:00 EDT, Height, kg, 03/03/21 15:49:00 EDT, Dosing Weight Start Date: 03/03/21 Status: Ordered aspirin 81 mg delayed release oral tablet (6 sources) Platelet Aggregation Inhibitor, Nonsteroidal Anti-inflammatory Drug Start: 11-07-2020 aspirin 81 mg ora l delayed release tablet Dose : 81 mg = 1 tab(s), Oral, Daily, 0 Refill(s) Start Date: 11/07/20 Status: Ordered Start: 11-07-2020 aspirin 81 mg oral delayed release tablet Dose : 81 mg = 1 tab(s), Oral, Daily, 0 Refill(s) Start Date: 11/07/20 Status: Ordered Continuous Glucose Sensor (FreeStyle Bharat 3 Sensor) (11 sources) Start: 10-16-2023 Continuous Glu cose Sensor (FreeStyle Bharat 3 Sensor) CHECK BLOOD SUGAR DIRECTED.REPLACE EVERY 14 DAYS. 10/16/2023 Suspended Start: 10-16-2023 Continuous Glu cose Sensor (FreeStyle Bharat 3 Sensor) CHECK BLOOD SUGAR DIRECTED.REPLACE EVERY 14 DAYS. 10/16/2023 Active cyclobenzaprine hydrochloride 5 mg oral tablet (1 source) Muscle Relaxant Start: 10-21-2020 cyclobenzaprine 5 mg oral tablet Dose : 5 mg = 1 tab(s), Oral, TID, PRN Muscle spasm, 0 Refill(s) Start Date: 10/21/20 Status: Ordered 0.4 ml enoxaparin sodium 100 mg/ml prefilled syringe (1 source) Low Molecular Weight Heparin Start: 02-07-2024 meloxicam 15 mg oral tablet (15 sources) Nonsteroidal Anti-inflammatory Drug Start: 12-20-2021 meloxicam (MOBIC) 15 MG tablet Take 15 mg by mouth. 12/20/2021 Active 24 hr metFORMIN hydrochloride 500 mg extended release oral tablet (11 sources) Biguanide Start: 10-02-2023 take 4 tablets by mouth once daily metformin (GLUCOPHAGE-XR) 500 MG XR tablet Take 2,000 mg by mouth daily. 10/02/2023 Active montelukast 10 mg oral tablet (6 sources) Leukotriene Receptor Antagonist Start: 09-05-2022 Singulair 10 mg oral tablet Dose : 10 mg = 1 tab(s), Oral, qDay, # 90 tab(s), 3 Refill(s), Pharmacy: [facility]/pharmacy #[id number], 183, cm, 09/05/22 13:26:00 EDT, Height, kg, 09/05/22 13:26:00 EDT, Dosing Weight Start Date: 09/05/22 Status: Ordered Start: 07-03-2021 Singulair 10 m g oral tablet Dose : 10 mg = 1 tab(s), Oral, qDay, 0 Refill(s) Start Date: 07/03/21 Status: Ordered Start: 03-03-2021 montelukast 10 mg oral tablet Dose : 10 mg = 1 tab(s), Oral, qDay, # 90 tab(s), 3 Refill(s), Pharmacy: [facility]/pharmacy #[id number], Asthma, moderate persistent, 185, cm, 03/03/21 15:49:00 EDT, Height, kg, 03/03/21 15:49:00 EDT, Dosing Weight Start Date: 03/03/21 Status: Ordered omeprazole 40 mg delayed release oral capsule (18 sources) Proton Pump Inhibitor Start: 09-05-2022 End: 06-27-2024 omeprazole 40 mg oral delayed release capsule Dose : 40 mg = 1 cap(s), Oral, qDay, # 90 cap(s), 3 Refill(s), Pharmacy: [facility]/pharmacy #[id number], 183, cm, 07/03/23 8:02:00 EST, Height, kg, 07/03/23 8:02:00 EST, Dosing Weight Start Date: 07/03/23 Stop Date: 06/27/24 Status: Ordered Start: 03-03-2021 End: 02-26-2022 omeprazole 40 mg oral delaye d release capsule Dose : 40 mg = 1 cap(s), Oral, qDay, # 90 cap(s), 3 Refill(s), Pharmacy: [facility]/pharmacy #[id number], 185, cm, 03/03/21 15:49:00 EDT, Height, kg, 03/03/21 15:49:00 EDT, Dosing Weight Start Date: 03/03/21 Stop Date: 02/26/22 Status: Ordered 2 ml ondansetron 2 mg/ml injection (1 source) Serotonin-3 Receptor Antagonist Start: 02-07-2024 End: 02-11-2024 Vit-Fe Fumarate-FA (M-VIT ORAL) (3 sources) Vit-Fe Fumarate-FA (M-VIT ORAL) Take by mouth. Suspended Vit-Fe Fumarate-FA (M-VIT ORAL) Take by mouth. Active sennosides, jail 8.6 mg oral tablet (2 sources) Start: 02-07-2024 take 1 tablet by arash th once daily as needed for constipation senna (SENOKOT) 8.6 MG tablet Take 1 Tablet by mouth daily as needed for Constipation. 30 Tablet 02/07/2024 Active Stool Softener with Laxative (2 sources) Start: 07-03-2021 take 1 tablet by arash th twice daily Stool Softener with Laxative Dose = 2 tab(s), Oral, BID, 0 Refill(s) Start Date: 07/03/21 Status: Ordered Symbicort 160 mcg-4.5 mcg/inh Inhaler (7 sources) Start: 07-03-2023 take 1 dose by inhalation twice daily Symbicort 160 mcg-4.5 mcg/inh Inhaler Dose = 2 puff(s), Inhalation, BID, # 3 EA, 3 Refill(s), Pharmacy: [facility]/pharmacy #[id number], 183, cm, 07/03/23 8:02:00 EST, Height, kg, 07/03/23 8:02:00 EST, Dosing Weight Start Date: 07/03/23 Status: Ordered Start: 03-13-2023 take 1 dose by inhal ation twice daily Symbicort 160 mcg-4.5 mcg/inh Inhaler Dose = 2 puff(s), Inhalation, BID, # 3 EA, 3 Refill(s), Pharmacy: [facility]/pharmacy #[id number], 185.25, cm, 11/06/22 10:55:00 EDT, Height, kg, 11/06/22 10:55:00 EDT, Dosing Weight Start Date: 03/13/23 Status: Ordered Start: 09-05-2022 take 1 dose by inhal ation twice daily Symbicort 160 mcg-4.5 mcg/inh Inhaler Dose = 2 puff(s), Inhalation, BID, # 3 EA, 3 Refill(s), Pharmacy: [facility]/pharmacy #[id number], 183, cm, 09/05/22 13:26:00 EDT, Height, kg, 09/05/22 13:26:00 EDT, Dosing Weight Start Date: 09/05/22 Status: Ordered Start: 11-21-2020 take 1 dose by inhal ation twice daily Symbicort 160 mcg-4.5 mcg/inh Inhaler Dose = 2 puff(s), Inhalation, BID, # 3 EA, 3 Refill(s), Pharmacy: [facility]/pharmacy #[id number], 185.4, cm, 11/07/20 10:59:00 EDT, Height, kg, 11/07/20 10:59:00 EDT, Dosing Weight Start Date: 11/21/20 Status: Ordered Completed/Discontinued Medications Medication Drug Class(es) Dates Sig (Normalized) Sig (Original) azithromycin 500 mg oral tablet (9 sources) Macrolide Antimicrobial Start: 08-22-2023 End: 01-20-2024 take 1 tablet by mouth once daily azithromycin (ZITHROMAX) 500 MG tablet TAKE 1 TABLET BY MOUTH EVERY DAY FOR 5 DAYS 08/22/2023 01/20/2024 Discontinued (Therapy completed) bacitracin zinc 0.5 unt/mg topical ointment (1 source) Start: 02-07-2024 apply 1 dose topically three times daily Topical, 3 TIMES DAILY, First dose on Sat02/07/24 at 1530, Until Discontinued, Post-op 60 actuat budesonide 0.08 mg/actuat / formoterol fumarate 0.0045 mg/actuat metered dose inhaler (4 sources) Corticosteroid, beta2-Adrenergic Agonist Start: 02-07-2024 take 2 puff(s) by inhalation twice daily 2 Puff, Inhalation, 2 TIMES DAILY RT, First dose on Sat02/07/24 at 2000, Until Discontinued, Post-op Start: 07-03-2023 take 1 dose by inhal ation twice daily budesonide-formoterol (Symbicort) 80-4.5 MCG/ACT inhaler Dose = 2 puff(s), Inhalation, BID, # 3 EA, 3 Refill(s), Pharmacy: [facility]/pharmacy #[id number], 183, cm, 07/03/23 8:02:00 EST, Height, kg, 07/03/23 8:02:00 EST, Dosing Weight 07/03/2023 Active calcium chloride 0.0014 meq/ml / potassium chloride 0.004 meq/ml / sodium chloride 0.103 meq/ml / sodium lactate 0.028 meq/ml injectable solution (1 source) Start: 02-07-2024 End: 02-07-2024 Intravenous, at 75 mL/hr, CONTINUOUS, Starting on Sat02/07/24 at 0700, Until Sat02/07/24 at 1811 docusate sodium 100 mg oral capsule (1 source) Start: 02-07-2024 take 100 mg by mouth twice daily 100 mg, Oral, 2 TIMES DAILY, First dose on Sat02/07/24 at 1530, Until Discontinued, Post-op gabapentin 300 mg oral capsule (17 sources) Anti-epileptic Agent Start: 02-07-2024 take 300 mg by mouth three times daily 300 mg, Oral, 3 TIMES DAILY, First dose on Sat02/07/24 at 1530, Until Discontinued, Post-op Start: 11-07-2023 gabapentin (NE URONTIN) 600 MG tablet 3 times daily. 11/07/2023 Active Start: 07-03-2021 gabapentin 600 mg oral tablet Dose : 600 mg = 1 tab(s), Oral, QID, # 90 tab(s), 0 Refill(s), 141.36 Start Date: 07/03/21 Status: Ordered 1 ml HYDROmorphone hydrochloride 1 mg/ml cartridge (1 source) Opioid Agonist Start: 02-07-2024 End: 02-07-2024 0.5 mg, Intravenous Push, PACU EVERY 15 MIN PRN X 4 DOSES, 4 doses, Starting on Sat02/07/24 at 0654, Until Sat02/07/24 at 1430, Severe Pain (pain score 7,8,9,10), PACU Now insulin lispro 100 unt/ml injectable solution (1 source) Insulin Analog Start: 02-07-2024 inject 2-12 [IU] by subcutaneous injection four times daily at bedtime 2-12 Units, Subcutaneous, 4 TIMES DAILY BEFORE MEALS & AT BEDTIME, First dose on Sat02/07/24 at 1700, Until Discontinued morphine sulfate 15 mg extended release oral tablet (1 source) Opioid Agonist Start: 07-03-2021 morphine 15 mg/8 to 12 hr oral tablet, extended release Dose : 15 mg = 1 tab(s), Oral, q12h, 0 Refill(s), 141.36 Start Date: 07/03/21 Status: Ordered oxyCODONE hydrochloride 5 mg oral tablet (5 sources) Opioid Agonist Start: 02-08-2024 10 mg, Oral, EVERY 6 HOURS PRN, Starting on Sat02/08/24 at 0035, Until Discontinued, Severe Pain (pain score 7,8,9,10) Start: 02-07-2024 End: 02-13-2024 take 1 tablet by mouth every six hours as needed for pain oxyCODONE 5 MG immediate release tablet Indications: Parotid mass , Post-op pain Take 1 Tablet by mouth every 6 hours as needed for Pain for up to 5 days. 20 Tablet 02/07/2024 02/13/2024 Active Start: 02-07-2024 End: 02-08-2024 take 10 mg by mouth every four hours as needed for pain 10 mg, Oral, EVERY 4 HOURS PRN, Starting on Sat02/07/24 at 1430, Until 02/08/24 at 0035, Severe Pain (pain score 7,8,9,10), Post-op Start: 02-07-2024 take 5 mg by mouth e very four hours as needed 5 mg, Oral, EVERY 4 HOURS PRN, Starting on Sat02/07/24 at 1430, Until Discontinued, Moderate Pain (pain score 4,5,6), Post-op Start: 07-03-2021 oxyCODONE 10 m g oral tablet ( IMMEDIATE release ) Dose : 10 mg = 1 tab(s), Oral, q4h, PRN for pain, # 12 tab(s), 0 Refill(s), 141.36 Start Date: 07/03/21 Status: Ordered pantoprazole 20 mg delayed release oral tablet (1 source) Proton Pump Inhibitor Start: 02-08-2024 take 20 mg by mouth once daily 30 minutes before breakfast 20 mg, Oral, DAILY 30 MIN BEFORE BREAKFAST, First dose on 02/08/24 at 0830, Until Discontinued, Post-op Problems Problem Classification Problem Date Documented Date Episodic/Chronic Asthma (9 sources) Asthma; Translations: [Uncomplicated moderate persistent asthma] 03-16-2021 Chronic Blindness and vision defects (6 sources) Visual disturbance 12-08-2019 Episodic Diabetes mellitus without complication (3 sources) Abnormal glucose level; Translations: [Prediabetes] 09-21-2022 Episodic Diseases of mouth; excluding dental (17 sources) Mass of parotid gland; Translations: [Other diseases of salivary glands] Onset: 11-12-2023 11-12-2023 Episodic Esophageal disorders (7 sources) Gastroesophageal reflux disease 03-06-2019 Chronic Essential hypertension (8 sources) Hypertensive disorder; Translations: [Essential hypertension] 12-22-2019 Chronic Other and unspecified benign neoplasm (1 source) Pleomorphic adenoma of parotid gland; Translations: [Benign neoplasm of parotid gland] 02-14-2024 Episodic Other connective tissue disease (7 sources) Muscle weakness of limb 12-08-2019 Episodic Other injuries and conditions due to external causes (5 sources) Compartment syndrome of lower limb 07-03-2021 Episodic Other liver diseases (3 sources) Elevated liver enzymes level 09-21-2022 Episodic Other nervous system disorders (2 sources) Postoperative pain ; Translations: [Other acute postprocedural pain] Onset: 03-23-2021 Episodic Other nutritional; endocrine; and metabolic disorders (1 source) Severe obesity 07-03-2023 Chronic Other nutritional; endocrine; and metabolic disorders (14 sources) Body mass index 30+ - obesity; Translations: [Body mass index (BMI) 38.0-38.9, adult] Onset: 11-12-2023 11-17-2023 Chronic Other screening for suspected conditions (not mental disorders or infectious disease) (1 source) Encounter for screening for malignant neoplasm of prostate; Translations: [Screening for malignant neoplasm done] Episodic Other skin disorders (4 sources) Cyst of skin 03-07-2022 Episodic Other skin disorders (3 sources) Mass of neck; Translations: [Localized swelling, mass and lump, neck] 11-13-2022 Episodic Other skin disorders (1 source) Mass of preauricular region 07-03-2023 Episodic Residual codes; unclassified (5 sources) History of operative procedure on lumbar spinal structure 07-03-2021 Episodic Rheumatoid arthritis and related disease (7 sources) 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 Chronic Spondylosis; intervertebral disc disorders; other back problems (7 sources) Intervertebral disc disorder 10-21-2020 Chronic Spondylosis; intervertebral disc disorders; other back problems (20 sources) Lumbago with sciatica; Translations: [Radiculitis] 09-29-2020 Episodic Unclassified (2 sources) Cyst 03-03-2021 Unclassified (8 sources) Patient encounter status 03-07-2022 Unclassified (1 source) Postprocedural state finding 07-03-2023 Results Test Name Value Interpretation Reference Range Facility Progress Noteson 02-14-2024 Station Operator Authentication Interface Message Text Patient identified by first, last name and date of . Patient notified that provider is running behind @11:40 Renae Paiz., AVELINA Normal [facility] Station Operator Authentication Interface Message Text HPI: Arnold Buchanan was seen 02/14/2024 in the [facility] for follow up visit history of bilateral parotid lesion (L > R) and now s/p left parotidectomy on 02/07/24. Final path c/w with oncocytoma . History and review of systems is negative for changes since last visit except patient is postop. Overall doing well. Pain well controlled. Denies any fevers, chills, drainage, swelling or bleeding. He slept on the left side of his face and woke up with some burning sensation this morning. Denies any facial weakness. His left earlobe is still numb . Drain was removed at home without significant issues INTRAOPERATIVE FINDINGS (02/07/24): 1. Cystic, mobile left superficial parotid mass (approx 2.5 x 3 cm); small violation of tumor capsule with cystic contents, completely excised and wound bed irrigated with sterile water 2. Given depth of facial neve and superficial nature of cystic lesion, extracapsular tumor dissection performed. Distal branches of facial nerve were not encountered during tumor dissection despite attempts for retrograde dissection 3. Proximal main trunk of facial nerve and pes identified and preserved intact but unable to stimulate with NIMs probe or checkpoint stimulator despite being anatomically intact during the case. Facial nerve exam House-[facility]ackmann 06/08 in post-operative period. Past Medical History: Diagnosis Date Body mass index (BMI) 38.0-38.9, adult 11/12/2023 Obese Parotid mass 11/12/2023 Past Surgical History: Procedure Laterality Date ANKLE SURGERY SCOPE B/L APPENDECTOMY; ESOPHAGEAL DILITATION MULTI LITHOTRIPSY MONITORING, INTERSTITIAL FLUID PRESSURE W/DEVICE INSERTION, DETECTION MUSCLE COMPARTMENT SYNDROME B/L LOWER EXT PAROTIDECTOMY N/A 02/07/2024 Procedure: Left PAROTIDECTOMY; Surgeon: Emile Tavarez MD; Location: PERIOPERATIVE SERVICES; Service: Otolaryngology RELEASE, CARPAL TUNNEL B/L REPAIR, ROTATOR CUFF L SPINE STIMULATOR SPINE SURGERY X4 WITH HARDWARE TONSILLECTOMY Current Outpatient Medications Medication Sig Dispense Refill acetaminophen (TYLENOL) 500 MG tablet Take 2 Tablets by mouth every 8 hours. 90 Tablet 0 senna (SENOKOT) 8.6 MG tablet Take 1 Tablet by mouth daily as needed for Constipation. 30 Tablet 0 oxyCODONE 5 MG immediate release tablet Take 1 Tablet by mouth every 6 hours as needed for Pain for up to 5 days. 20 Tablet 0 Vit-Fe Fumarate-FA (M-VIT ORAL) Take by mouth. budesonide-formoterol (Symbicort) 80-4.5 MCG/ACT inhaler Dose = 2 puff(s), Inhalation, BID, # 3 EA, 3 Refill(s), Pharmacy: [facility]/pharmacy #[id number], 183, cm, 07/03/23 8:02:00 EST, Height, kg, 07/03/23 8:02:00 EST, Dosing Weight amlodipine-benazepril (LOTREL) 10-20 MG per capsule Take by mouth daily. albuterol (PROVENTIL HFA) INHALATION HFA inhaler (VENTOLIN,PROAIR,PROVEN TIL) 90mcg Continuous Glucose Sensor (FreeStyle Bharat 3 Sensor) CHECK BLOOD SUGAR DIRECTED.REPLACE EVERY 14 DAYS. gabapentin (NEURONTIN) 600 MG tablet 3 times daily. meloxicam (MOBIC) 15 MG tablet Take 15 mg by mouth. metformin (GLUCOPHAGE-XR) 500 MG XR tablet Take 2,000 mg by mouth daily. omeprazole (PRILOSEC) 40 MG capsule 1 CAP(S) ORAL EVERY DAY No current facility-administered medications for this visit. Allergies Allergen Reactions Cefazolin Swelling Other Reaction(s): Lip swelling PHYSICAL EXAM: There were no vitals taken for this visit. Documented vital signs from today's visit reviewed. Physical exam including head and neck examination of the oral cavity, oropharynx, larynx, and hypopharynx including indirect mirror exam as well as inspection and palpation of the face, parotid and neck is remarkable for findings consistent with posttreatment postoperative changes and negative for new lesions, masses or lymphadenopathy. Healing well. Incisions clean, dry and intact. Mildly tender to palpation superior to the inferior aspect of the incision line. Mild erythema and cellulitic changes adjacent to the incision. Face symmetric with no facial weakness. Left earlobe numbness. No purulence, dehiscence, or fluctuance appreciated on exam. Airway is adequate. IMAGIN10/24/23 (CT Neck w/ contrast at OSH), unable to personally review the images today but we will request PATHOLOGY: 02/07/24 Final Diagnosis A. 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 One benign lymph node (0/1). See Immunohistochemistry Results and Special Stains. . I certify that I personally conducted the diagnostic evaluation of the above specimen(s) and have rendered the final diagnosis(es). at 1608 Pathology was reviewed. ASSESSMENT/PLAN: Arnold Buchanan is a 53 year old male who presents to clinic today for follow up histor (more content not included)... Normal [facility] Anesthesia Postprocedure Mady luationon 02-07-2024 Station Operator Authentication Interface Message Text Anesthesia Postoperative Assessment: Vital Signs (most recent): BP 156/105 Pulse 98 Temp 36.7 ???C (98 ???F) (Temporal) Resp 24 SpO2 94% Anesthesia Post Evaluation Level of consciousness: awake Post-procedure exam normal. Body temperature, hydration status, PONV and pain evaluated and addressed. Pain management: adequate Hydration status: normal PONV:No nausea/vomiting reported Cardiopulmonary status stable Respiratory status: acceptable Cardiovascular status: acceptable ANESTHESIA NOTABLE EVENTS: No notable events documented. 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 DILATATION ESOPHAGUS Patient Active Problem List: Parotid mass [K11.8] Body mass index (BMI) 38.0-38.9, adult [Z68.38] Spinal cord stimulator. Has been turned off by patient Physical Exam Airway Mallampati: IV TM distance: Adequate Micrognathia: Not present Jaw opening: Adequate Neck flexion: Adequate Dental PE (+) intact Pulmonary - pulmonary exam normal Cardiovascular - cardiovascular exam normal Neuro - neurological exam normal Plan Anesthesia plan: general; (ETT) Anesthesia risks / alternatives discussed pre-op Questions answered / anesthesia plan accepted Past medical history, surgical history, allergies, and medications reviewed. Pertinent laboratory tests, EKG, imaging, and consults reviewed and I have personally seen and evaluated the patient, repeating hope portions of the history and physical examination. Attestation: Anesthesia options were discussed with the patient and/or legal artist representative. The risks, benefits and alternatives were reviewed. Questions regarding anesthesia were answered. Patient and/or legal artist representative knows such anesthetics and procedures may be performed by Resident physicians, Certified Anesthesiologist Assistants, or Certified Nurse Anesthetists under the supervision of a physician. The patient /or the patient's legal artist representative agree with the plan for anesthesia. MHPATFORM Normal [facility] Station Operator Authentication Interface Message Text Patient taken to PACU. Patient was drowsy, comfortable, and stable on arrival. Anesthesia Transfer of Care Note Past Medical History: Past Medical History: Diagnosis Date Body mass index (BMI) 38.0-38.9, adult 11/12/2023 Obese Parotid mass 11/12/2023 Sleep Apnea/Positive STOP-BANG: Yes Problem List: Patient Active Problem List: Parotid mass [K11.8] Body mass index (BMI) 38.0-38.9, adult [Z68.38] Past Surgical History: Review of patient's past surgical history indicates: TONSILLECTOMY SPINE SURGERY X4 WITH HARDWARE ANKLE SURGERY SCOPE B/L RELEASE, CARPAL TUNNEL B/L SPINE STIMULATOR REPAIR, ROTATOR CUFF L LITHOTRIPSY APPENDECTOMY; ESOPHAGEAL DILITATION MULTI MONITORING, INTERSTITIAL FLUID PRESSURE W/PATY* B/L LOWER EXT Allergies: Cefazolin Basic Operating Room Facts: Surgeon(s): Emile Tavarez MD Anesthesiologist: José Luis Mcfadden DO CAA: Amanda Wise CAA; Edgar Ballesteros CAA TANK OPERATOR: Karel Mojica APRN-RICKY Anesthesia Student: Berto Song; Riri Padilla Left PAROTIDECTOMY (Face) Intraoperative Events: No acute event ASA: 3 EBL: Not documented Urine Not documented Lactated Ringers and NaCl 0.9%: Fluid Totals (Filter: LR and NaCl 0.9% Medications Shown) Medication Calculated Total Lactated Ringers 1,000 mL / 1 bag Lactated Ringers 600 mL / 1 bag Cell Saver: Not documented Blood Volume Values: Blood Products None MTP Blood: MTP PRBC: Not documented MTP FFP: Not documented MTP PLT: Not documented MTP Cryo: Not documented MTP Whole Blood: Not documented Current Vasoactive Medications: {Vasoactive Medications: None Lines, Drains, Airways Peripheral IV Access: 02/07/2421 18 gauge Posterior;Right Hand (Active) Site Assessment WNL;Dressing intact 02/07/24713 Infusion Status Port #1 Patent;Positive blood return 02/07/24713 Peripheral IV Access: 02/07/2448 20 gauge Left Forearm (Active) Airway Insertion Details [REMOVED] Advanced Airway: Reinforced;ETT, Oral;Cuffed # 7.5 (Removed) 02/07/2443 Pre-Oxygenation/ Induction: Mask Rapid Sequence Induction?: Yes Mask Ventilation: w/oral airway;Easy Blade Type: Hyperangulated Blade Size: 4 Visualization: Grade 1 Airway Type: Reinforced;ETT, Oral;Cuffed Airway Size: # 7.5 Post Insertion Assessment: Confirmation: Equal bilateral breath sounds, CO2 confirmed # Attempts >1: Special Equipment: Glidescope;Bite block placed Present on Admission?: Previously Removed / Not Present: Removal Reason: Not Removed at Discharge: Removed 02/07/24 1225 Location (cm) 24 02/07/24742 Measured from: Lips 02/07/24742 Secured via: Taped 02/07/24742 All non-working IVs have been removed: Yes Laboratory Data: CBC (last 3 years, up to 8 values) No lab values to display. BMP (last 3 years, up to 8 values) No lab values to display. Basic Metabolic Panel No lab values to display. No results found for: INR No result for BNP LFT's (last 3 years, up to 8 values) No lab values to display. Arterial Blood Gases None Hand off Completed: Yes 1. The patient was identified. 2. Pertinent medical history was relayed. 3. A brief discussion was had about any pertinent surgical/ procedural issues. 4. Intraoperative/ anesthetic management issue and concerns were discussed. 5. Plans for the early post-operative period relayed. 6. An opportunity for questions and acknowledgment of understanding of the report was received. [place] [employer] [facility] Blood Attestationon 02-07-20 Station Operator Authentication Interface Message Text Blood Attestation: ATTESTATION OF INFORMED CONSENT FOR BLOOD: The transfusion of blood and/or blood components were discussed with the patient and/or legal artist representative. The risks, benefits and alternatives were reviewed. Questions regarding blood transfusions were answered. The patient /or the patient's legal artist representative agree with the plan for transfusion of blood and/or blood components. Normal The [facility] CBC panel Auto (Bld)on 02-06 Erythrocyte distribution width (RBC) [Ratio] 13.9 % 11.5 - 14.5 % [facility] Hematocrit (Bld) [Volume fraction] 45.5 % 41.0 - 53.0 % [facility] Hemoglobin (Bld) [Mass/Vol] 15.3 g/dL 13.9 - 16.3 g/dL [facility] Interpretation and review of laboratory results Abnormal [facility] MCH (RBC) [Entitic mass] 31.6 pg 26.0 - 34.0 pg [facility] MCHC (RBC) [Mass/Vol] 33.7 g/dL 32.0 - 35.9 g/dL [facility] MCV (RBC) [Entitic vol] 94 fL 80 - 100 fL [facility] Platelet mean volume (Bld) [Entitic vol] 7.2 fL Low 7.5 - 11.2 fL [facility] Platelets (Bld) [#/Vol] 241 10*3/uL 150 - 400 K/uL [facility] RBC (Bld) [#/Vol] 4.85 10*6/uL [facility] WBC (Bld) [#/Vol] 13.9 10*3/uL High 4.5 - 11.5 K/[facility]L [facility] COMPLETE BLOOD COUNTon 02-06 Erythrocyte distribution width (RBC) [Ratio] 13.9 % Normal 11.5-14.5 The [facility] Comment on above: Performed By: #### C BC #### S PATHOLOGY LABORATORY [address] [place] [address], Hematocrit (Bld) [Volume fraction] 45.5 % Normal 41.0-53.0 The [facility] Comment on above: Performed By: #### C BC #### S [facility] [address] [place], [place], Hemoglobin (Bld) [Mass/Vol] 15.3 g/dL Normal 13.9-16.3 The [facility] Comment on above: Performed By: #### C BC #### S PATH[facility] LAB[facility] [address] [place], [place], MCH (RBC) [Entitic mass] 31.6 pg Normal 26.0-34.0 The [facility] Comment on above: Performed By: #### C BC #### [facility] [address] [place], [place], MCHC (RBC) [Mass/Vol] 33.7 g/dL Normal 32.0-35.9 The [facility] Comment on above: Performed By: #### C BC #### [facility] [address], [place], MCV (RBC) [Entitic vol] 94 fL Normal 80-100 The [facility] Comment on above: Performed By: #### C BC #### [facility] [address] [place], [place], Platelet mean volume (Bld) [Entitic vol] 7.2 fL Low 7.5-11.2 The [facility] Comment on above: Performed By: #### C BC #### [facility] [address] [place], [place], Platelets (Bld) [#/Vol] 241 10*3/uL Normal 150-400 The [facility] Comment on above: Performed By: #### C BC #### [facility] [address] [place], [place], RBC (Bld) [#/Vol] 4.85 10*6/uL Normal 4.50-5.90 The [facility] Comment on above: Performed By: #### C BC #### [facility] [address] [place], [place], WBC (Bld) [#/Vol] 13.9 10*3/uL High 4.5-11.5 The [facility] Comment on above: Performed By: #### C BC #### [facility] [address] [place], [place], GLUCOSE, FINGERSTICK-IN OFFI CEon 02-07-2024 Glucose [Mass/Vol] 200 mg/dL High 68 - 110 mg/dL [facility] Comment on above: Notified MARISA LIZ MD Interpretation and review of laboratory results Abnormal [facility] Glucose [Mass/Vol] 200 mg/dL High 68-110 [facility] Comment on above: Result Comment: Luda castillo RN, APN, MD Performed By: #### 8 [id number] ####NURSING GLUCOSE [id number] [facility] [place] [place], [address] Glucose [Mass/Vol] 173 mg/dL High 68 - 110 mg/dL [facility] Interpretation and review of laboratory results Abnormal [facility] Glucose [Mass/Vol] 173 mg/dL High 68-110 [facility] Comment on above: Performed By: #### 8 2948 #### NURSING GLUCOSE PROGRAM [address] [place], [address] Glucose [Mass/Vol] 119 mg/dL High 68 - 110 mg/dL [facility] Comment on above: Notified MARISA LIZ MD Interpretation and review of laboratory results Abnormal [facility] Glucose [Mass/Vol] 119 mg/dL High 68-110 [facility] Comment on above: Result Comment: Luda castillo RN, APN, MD Performed By: #### 8 2948 #### NURSING GLUCOSE PROGRAM [address] [place], [address] OP Noteon 02-07-2024 Station Operator Authentication Interface Message Text Operative Report DATE OF SERVICE: 02/07/2024 PATIENT:Arnold Buchanan PREOPERATIVE DIAGNOSIS: 1. Left superficial parotid mass POSTOPERATIVE DIAGNOSIS: 1. Left superficial parotid mass PROCEDURE: 1. Left superficial parotidectomy with dissection and preservation of facial nerve, CPT 60219. SURGEON: Emile Tavarez MD PARKING MANAGER: Columba Oropeza MD; Johnathon Johnson MD ANESTHESIA: General endotracheal. ESTIMATED BLOOD LOSS: 15 mL COMPLICATIONS: None CONDITION: Stable to PACU. INTRAOPERATIVE FINDINGS: 1. Cystic, mobile left superficial parotid mass (approx 2.5 x 3 cm); small violation of tumor capsule with cystic contents, completely excised and wound bed irrigated with sterile water 2. Given depth of facial neve and superficial nature of cystic lesion, extracapsular tumor dissection performed. Distal branches of facial nerve were not encountered during tumor dissection despite attempts for retrograde dissection 3. Proximal main trunk of facial nerve and pes identified and preserved intact but unable to stimulate with NIMs probe or checkpoint stimulator despite being anatomically intact during the case. Facial nerve exam House-Brackmann 1/6 in post-operative period. SPECIMEN: 1. Left superficial parotid mass INDICATIONS AND CONSENT: Arnold Buchanan is a 53 year old who presented to the Otolaryngology clinic with a history of a left parotid mass of uncertain etiology and additional small right parotid mass. 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 I had recommended repeat FNA but patient declined and wanted to move forward with definitive surgical excision. They were therefore offered the aforementioned procedures. The procedure, risks, benefits, alternatives, potential complications, possible outcomes as well as the option of no treatment were reviewed with the patient who indicated they understood and wished to proceed forward with the procedure. Informed consent was obtained. DESCRIPTION OF PROCEDURE: On 02/07/2024, the patient was identified in the preoperative area, consent confirmed, and transported to the operating suite. They were then transferred to the operating room table and placed in a supine position. After induction of general endotracheal anesthesia, the bed was rotated 180 degrees and a proper surgeon initiated time out was performed. A shoulder roll was placed for gentle cervical extension. EMG electrodes were placed in the orbicularis malathi and orbicularis oculi muscle and grounding electrodes were placed in the left deltoid muscle. The electrodes were then connected to the nerve monitoring system and found to be functioning appropriately. A modified jorje incision was marked and then infiltrated with 1% lidocaine with 1:100,000 epinephrine. Afterallowing for adequate vasoconstrictive and anesthetic effects, the patient was then prepped and draped in the usual sterile fashion. We then began our parotidectomy. A 15 blade scalpel was used to incise our preplanned incision through the skin, dermis, and subcutaneous tissue starting in the preauricular region. Dissection was carried through the platysmal inferiorly and superiorly to the level of the superficial musculoaponeurotic system. Anterior and inferior subcutaneous and subplatysmal flaps were then created. The ear lobule was then retracted in a posterior superior direction and the facial skin flap retracted in an anterior direction. Elevation continued anteriorly and inferiorly until we identified the anterior and inferior borders of the parotid gland respectively. Once the flaps were created, they were then retracted with paredes stays. We then identified and dissected along the anterior medial border of the sternocleidomastoid muscle and it from the parotidomasseteric fascia thus freeing up our lateral parotid border. The greater auricular nerve was identified and the posterior branch to the lobule was dissected and preserved intact. Next, we bluntly dissected through the parotidomasseteric fascia superiorly along the external auditory canal until the tragal pointer and bony external auditory canal were identified. Using the tympanomastoid suture line, dissection was performed in the area of the stylomastoid foramen. The main trunk of the facial nerve and the pes anserinus was identified in this region. However, the presumed facial nerve did not stimulate. During dissection, a small rent in the cyst capsule was created and cystic contents were spiilled. The opening was closed with a 2-0 silk in a figure-8 fashion. The wound was then copiously irrigated with sterile water. Given the depth of the facial nerve, we elected to perform a combination of extracapsular dissection and retrograde approach. The meticulous dissection began adjacent to the lesion and continued along the anterior border of the lesion. There were no identifia (more content not included)... Normal [facility] [employer] [facility] Progress Noteson 02-07-2024 Station Operator Authentication Interface Message Text 02/07/24 1713 Vital Signs BP 164/100 MAP (mmHg) [address] Johnson notified of critical BP value of 164/100. Dr. Johnson read back critical results. New orders received. Will continue to monitor and notify MD team if BP still elevated upon recheck. Normal [facility] [employer] [facility] PAT Call Historyon Station Operator Authentication Interface Message Text Telephone History Arnold Buchanan, [id number] 01/20/2024 53 year old 290 lbs 6' 1 Patient was identified by name and date of . Madison Can RN Date of Surgery: 02/06 Surgeon: SELVIN Type of Surgery: Left PAROTIDECTOMY GRAFT, DERMIS FA HISTORY OF PRESENT ILLNESS: PAT Telephone History for scheduled surgery with DR. SELVIN WINSTON STOP-BANG Row Name 01/20/24 1308 History of sleep apnea? Yes WEARS CPAP SLEEP STUDY NOT FOUND EXERCISE CAPACITY: <4 mets and Uses a cane - MULTI SPINE SX, BLE fasciotomy ALLERGIES: Cefazolin PREVIOUS ANESTHETIC EXPERIENCES AND INTUBATION HISTORY: Awareness under anesthesia DURING CTR FAMILY HISTORY OF ANESTHETIC COMPLICATIONS: No PAST MEDICAL HISTORY: Past Medical History: Diagnosis Date Body mass index (BMI) 38.0-38.9, adult 11/12/2023 Obese Parotid mass 11/12/2023 PROBLEM LIST: Patient Active Problem List: Parotid mass [K11.8] Body mass index (BMI) 38.0-38.9, adult [Z68.38] Past Medical History and Review of Systems Pulmonary (+) sleep apnea on CPAP, COPD, asthma (DAILY INHALERS) Dental ROS (+) teeth problems missing Endo (+) diabetes mellitus (120 DAILY) type 2 well controlled, 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 DILATATION ESOPHAGUS PAST SURGICAL HISTORY: Past Surgical History: Procedure Laterality Date ANKLE SURGERY SCOPE B/L APPENDECTOMY; ESOPHAGEAL DILITATION MULTI LITHOTRIPSY MONITORING, INTERSTITIAL FLUID PRESSURE W/DEVICE INSERTION, DETECTION MUSCLE COMPARTMENT SYNDROME B/L LOWER EXT RELEASE, CARPAL TUNNEL B/L REPAIR, ROTATOR CUFF L SPINE STIMULATOR SPINE SURGERY X4 WITH HARDWARE TONSILLECTOMY SOCIAL HISTORY: Social History Socioeconomic History Marital status: Tobacco Use Smoking status: Never Smokeless tobacco: Never Substance and Sexual Activity Alcohol use: Yes Comment: ONCE A WEEK ABOUT 8-12 BOOZE Drug use: Yes Types: Marijuana/THC Comment: EDIBLE Sexual activity: Yes Partners: Female Comment: Social Determinants of Health Received from [facility] Intimate Partner Violence PAIN ASSESSMENT: Severity: 7 Location: GENERAL LABORATORY DATA: Type AND Screen (Last result in the past 30 days) No lab values to display. CBC (last 3 years, up to 8 values) No lab values to display. BMP (last 3 years, up to 8 values) No lab values to display. Basic Metabolic Panel No lab values to display. PT/PTT/INR (last 3 years, up to 8 values) No lab values to display. Arterial Blood Gases None No result for BNP LFT's (last 3 years, up to 8 values) No lab values to display. Urinalysis No lab values to display. No results found for: HBA1C No results found for: TSH TESTS REVIEWED: CXRay: No Chest x-ray found EKG: Last ECG Date: Not Found ECHO: Echocardiogram date: Not Found No results found for this basename: LVEF Stress test date: Last StressTest: none found going back to 12/03/2013 CURRENT MEDICATION LIST: Current Outpatient Medications Medication Sig Dispense Refill Vit-Fe Fumarate-FA (M-VIT ORAL) Take by mouth. budesonide-formoterol (Symbicort) 80-4.5 MCG/ACT inhaler Dose = 2 puff(s), Inhalation, BID, # 3 EA, 3 Refill(s), Pharmacy: [facility]/pharmacy #[id number], 183, cm, 07/03/23 8:02:00 EST, Height, kg, 07/03/23 8:02:00 EST, Dosing Weight amlodipine-benazepril (LOTREL) 10-20 MG per capsule Take by mouth daily. albuterol (PROVENTIL HFA) INHALATION HFA inhaler (VENTOLIN,PROAIR,PROVEN TIL) 90mcg Continuous Glucose Sensor (FreeStyle Bharat 3 Sensor) CHECK BLOOD SUGAR DIRECTED.REPLACE EVERY 14 DAYS. gabapentin (NEURONTIN) 600 MG tablet 3 times daily. meloxicam (MOBIC) 15 MG tablet Take 15 mg by mouth. metformin (GLUCOPHAGE-XR) 500 MG XR tablet Take 2,000 mg by mouth daily. omeprazole (PRILOSEC) 40 MG capsule 1 CAP(S) ORAL EVERY DAY No current facility-administered medications for this visit. CURRENT MEDICATIONS: Aspirin: No NSAIDS: Yes Other Antiplatelet Medication: No Anticoagulants: No Steroids: No PATIENT MEDICATION INSTRUCTIONS: On the morning of your surgery, please take only the following medications, with a small sip of water: On the morning of your surgery, please take only the following medications, with a small sip of water: budesonide-formoterol (Symbicort) 80-4.5 MCG/ACT inhaler albuterol (PROVENTIL HFA) INHALATION HFA inhaler (VENTOLIN,PROAIR,PROVEN TIL) 90mcg gabapentin (NEURONTIN) 600 MG tablet metformin (GLUCOPHAGE-XR) 500 MG XR tablet omeprazole (PRILOSEC) 40 MG capsule Do not take any Aspirin 7 days before the surgery. Do not take any Ibuprofen products/NSAIDs 3 days before surgery. May take over the counter Acetami (more content not included)... Normal [facility] [employer] [facility] Telephone Encounteron 2023 Station Operator Authentication Interface Message Text Brief ENT Telephone Note Called patient after reviewing outside CT scan of left parotid lesion. We reviewed management options at length again. He would like to move forward with surgery with left parotidectomy.I reviewed with Mr. Buchanan risks, benefits, alternatives, and possible outcomes of surgery/treatment including but not limited to: bleeding, infection, scar formation/cosmetic deformity, poor wound healing/wound breakdown, possible need for additional treatment measures if the future depending for example on findings or histopathologic outcome, as well as general risks including heart attack, stroke and . Additionally, risks pertaining to parotidectomy were reviewed including facial weakness/paralysis which could be temporary or permanent, sialocele/fistula, Gail's syndrome, firstbite syndrome, expected numbness, and expected change in facial/neck contour. All questions answered and pt verbalized understanding of the plan. Emile Tavarez MD Otolaryngology - Head and Neck Surgery [facility] Pager: [phone] Normal [facility] [employer] [facility] Telephone Encounteron 2023 Station Operator Authentication Interface Message Text Dr Tavarez, Patient calling stating that the two of you have been missing phone calls. Please call patient at [phone] Lynn Connell Normal [facility] [employer] [facility] Telephone Encounteron 2023 Station Operator Authentication Interface Message Text Brief ENT Telephone Note Called patient to inform him that I had a chance to review his CT scan from the outside hospital. I was unable to reach by phone today and left him a voicemail. We will tentatively new work on scheduling surgery for left-sided parotidectomy in the near future that we will try to reach out to patient. to discuss definitive plan Emile Tavarez MD Otolaryngology - Head and Neck Surgery [facility] Pager: [phone] Normal [facility] [employer] [facility] Addendum Noteon 11-27-2023 Station Operator Authentication Interface Message Text Addended by: EMILE TAVAREZ on: 11/27/2023 11:18 PM Modules accepted: Orders Normal [facility] Progress Noteson 11-12-2023 Station Operator Authentication Interface Message Text OTOLARYNGOLOGY - HEAD AND NECK SURGERY CLINIC NOTE CHIEF COMPLAINT: Chief Complaint Patient presents with New patient, to establish relationship Neck mass HPI: Arnold Buchanan is a 52 year old male with PMH significant for asthma, DMII, HTNwho presents today, 11/12/2023, [facility] at the request of Referring Provider: Arnold Danielson MD for my opinion and further evaluation of parotid masses. Per review of outside notes from Dr. Danielson, patient has had had an FNA of the right parotid lesion which was negative as well as an FNA of the left parotid lesion. Today, pt reports right sided parotid lesion about 1 yr ago. It tends to fluctuate in size. He has had an FNA biopsy in the past that was benign. He reports that he also notice a new left parotid lesion a couple months ago. After the biopsy, it was more swollen. Stable in size since and no significant changes. NO prior history of parotid issues prior to 1 yr ago. Denies dry mouth or previous chronic sialadenitis. Denies pain, facial weakness, skin changes, purulent drainage. Denies fevers, chills, unintentionalweight loss, night sweats, otalgia, sore throat, oral bleeding, dysphagia, odynophagia, voice changes, shortness of breath, hemoptysis or new lesions/masses. Denies history of radiation or previous of head/neck surgery other than PE tubes and tonsillectomy as a kid. Denies history of cardiac or pulmonary issues other than asthma Able to walk/up downstairs without issues. Not currently on any anticoagulation or antiplatelet therapy. Occasional smoker. Denies history of significant alcohol use. Currently retired. ROS: Constitutional: Negative for fever, chills, and weight loss overweight gain. Skin: Negative for rash, itchiness, dryness HENT: Negative for ear pain, sore throat and hoarseness. Negative for difficulty swallowing. Cardiovascular: Negative for chest pain and dyspnea on exertion (Can climb up 2 floors). Respiratory: Negative for shortness of breath and increased work of breathing. Gastrointestinal: Negative for nausea and vomiting. Neurological: Negative for headaches. Lymph/Heme: Negative for lymphadenopathy or easy bruising Musculoskeletal: Negative for joint or muscle pain Psychiatric: The patient is not nervous/anxious. All other systems are negative except for that listed in the HPI. Past Medical/Surgical History: He has no past medical history on file. His has no past surgical history on file. Past Family/Social History: His family history is not on file. He Medications/Allergies/I mmunizations: His current medication(s) include: @CMEDLISTP@ Allergies: Cefazolin, Immunizations: Immunization History Administered Date(s) Administered Moderna Monovalent (12+ yrs) COVID-19 vaccine, mRNA, spike protein, LNP, PF, 100 mcg/0.5 mL (EZH=063) 08/25/2020, 09/22/2020 PHYSICAL EXAM: Vital Signs: Ht 6' 1 (1.854 m) Wt 290 lb (131.5 kg) BMI 38.26 kg/m??? General: Well-developed, well-nourished. In no acute distress. Communication and Voice: Clear pitch and clarity Respiratory Respiratory effort: Equal inspiration and expiration without stridor Neuro: Appropriate mood and affect; Cranial nerves II-XII are intact Head and Face Inspection: Normocephalic and atraumatic without mass or lesion Palpation: Facial skeleton intact without bony stepoffs Facial Strength: Facial motility symmetric and full bilaterally Eyes: No nystagmus with normal extraocular motion bilaterally ENT External nose: No scar or anatomic deformity TMJ: No pain to palpation with full mobility Salivary Glands: Slightly firm, mobile right tail of parotid lesion just posterior and slightly inferior to the angle of the mandible (approx 1.5 x 1.5 cm). No overlying skin changes, induration, erythema or fluctuance appreciated. Soft, cystic like lesion overlying the superior aspect of the left parotid/pre-auricular region, mildly tender to palpation. Mobile, with no overlying skin changes or tethering. Lips: No lesion. Oral cavity: Moist mucosa. No mass or lesion. Oropharynx: No mass or lesion. Tonsillar fossa symmetric. Base of tongue soft without mass or induration on palpation Neck Trachea: Midline trachea. Thyroid: No mass or nodularity. Lymphatics: No palpable cervical lymphadenopathy. Pathologic Review: 08/28/23 personally reviewed Radiologic Review: 10/24/23 (CT Neck w/ contrast at OSH), unable to personally review the images today but we will request Laboratory/Other Studies: N/a ASSESSMENT/PLAN: 52-year-old female with history of bilateral parotid masses of unclear etiology. Right tail of parotid mass was previously biopsied by an outside ENT and was noted to be benign. 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 He was referred here today by Dr. Danielson ([facility]) for further evaluation and management - we disc (more content not included)... Normal [employer] CT SOFT TISSUE NECK W/ CONTR Natty 07-30-2023 CT SOFT TISSUE NECK W/ CONTRAST ORIGINAL HISTORY: Soft tissue mass COMPARISON: Ultrasound 16 November 2022. MR 09 December 2019. TECHNIQUE: Axial CT of the neck following uncomplicated administration of intravenous contrast, with sagittal and coronal reformats. This exam was performed according to our departmental dose optimization program, and includes the following measures where applicable: automated exposure control, adjustment of the mAs and/or kVp according to patient size and/or exam, and an iterative reconstruction algorithm. FINDINGS: There is an irregular 2.8 cm nodule in the left parotid gland. Otherwise, there is no lymphadenopathy. The remaining major salivary glands and the thyroid gland are unremarkable in appearance. The airway is midline and symmetric. The major vascular structures are patent. The visualized portion of the base of brain is unremarkable in appearance. The lung apices are clear. IMPRESSION: Left parotid nodule. Allowing for differences in modality this is increased in size since the comparison ultrasound, 2.8 versus is 1.1 cm in maximum diameter. The lesion appears to be new since the MR of 09 December 2019. The differential diagnosis includes benign and malignant etiologies. Interpreted by: Joe Valadez MD Preliminary Report By: Joe Valadez MD Electronically signed By Joe Valadez MD Dictated Date: 07/30/2023 9:27:21 AM Prelim Date: 07/30/2023 9:31:31 AM Sign Date: 07/30/2023 9:31:31 AM Ordering Provider: RAFAELA Rodriguez [facility] ([place]) .Auto Diffon 07-03-2023 Basophil, Absolute 0.0 10 3/mcL Normal 0.0-0.2 [facility] ([place]) Comment on above: Performed By: #### A RADHA Silva, ANEU, GFR, CBC, CMP #### [id number] [place], [place] [address] Basophils/100 WBC (Bld) 0.5 % Normal 0.0-2.5 [facility] ([place]) Comment on above: Performed By: #### A RADHA Silva, ANEU, GFR, CBC, CMP #### [address] [address] Eosinophil, Absolute 0.2 10 3/mcL Normal 0.0-0.4 [facility] ([place]) Comment on above: Performed By: #### A 1C, ADIFF, ANEU, GFR, CBC, CMP #### [address] [address] Eosinophils/100 WBC (Bld) 1.9 % Normal 0.0-7.0 [facility] ([place]) Comment on above: Performed By: #### A 1C, ADIFF, ANEU, GFR, CBC, CMP #### [address] [address] Lymphocyte, Absolute 1.9 10 3/mcL Normal 0.8-3.9 [facility] ([place]) Comment on above: Performed By: #### A 1C, ADIFF, ANEU, GFR, CBC, CMP #### [address] [address] Lymphocytes/100 WBC (Bld) 24.1 % Normal 10.0-50.0 [facility] ([place]) Comment on above: Performed By: #### A 1C, ADIFF, ANEU, GFR, CBC, CMP #### [address] [address] Monocyte, Absolute 0.7 10 3/mcL Normal 0.2-1.0 [facility] ([place]) Comment on above: Performed By: #### A 1C, ADIFF, ANEU, GFR, CBC, CMP #### [address] [address] Monocytes/100 WBC (Bld) 8.8 % Normal 1.7-13.0 [facility] ([place]) Comment on above: Performed By: #### A 1C, ADIFF, ANEU, GFR, CBC, CMP #### [address] [address] Neutrophils/100 WBC (Bld) 64.7 % Normal 37.0-80.0 [facility] ([place]) Comment on above: Performed By: #### A 1C, ADIFF, ANEU, GFR, CBC, CMP #### [address] [address] .GFRon 07-03-2023 GFR Non- 86 ml/min/1.73sqm Normal [facility] ([place]) Comment on above: Result Comment: GFR Population mean for , Non- Americans Ages 20-29 = 116 mL/min/1.73 sq.m. Ages 30-39 = 107 mL/min/1.73 sq.m. Ages 40-49 = 99 mL/min/1.73 sq.m. Ages 50-59 = 93 mL/min/1.73 sq.m. Ages 60-69 = 85 mL/min/1.73 sq.m. Ages 70+ = 75 mL/min/1.73 sq.m. Chronic Kidney Disease: Less than 60 mL/min/1.73 square meters End Stage Renal Disease: Less than 15 mL/min/1.73 square meters Performed By: #### A 1C, ADIFF, ANEU, GFR, CBC, CMP #### [address] [address] GFR 104 ml/min/1.73sqm Normal [facility] ([place]) Comment on above: Result Comment: GFR Population mean for , Non- Americans Ages 20-29 = 116 mL/min/1.73 sq.m. Ages 30-39 = 107 mL/min/1.73 sq.m. Ages 40-49 = 99 mL/min/1.73 sq.m. Ages 50-59 = 93 mL/min/1.73 sq.m. Ages 60-69 = 85 mL/min/1.73 sq.m. Ages 70+ = 75 mL/min/1.73 sq.m. Chronic Kidney Disease: Less than 60 mL/min/1.73 square meters End Stage Renal Disease: Less than 15 mL/min/1.73 square meters Performed By: #### A 1C, ADIFF, ANEU, GFR, CBC, CMP #### [address] [address] .NEUABSon 07-03-2023 Neutrophil, Absolute 5.2 10 3/mcL Normal 2.9-6.2 [facility] ([place]) Comment on above: Performed By: #### A 1C, ADIFF, ANEU, GFR, CBC, CMP #### [address] [address] A1Con 07-03-2023 HbA1c (Bld) [Mass fraction] 7.9 % High 4.3-6.4 [facility] ([place]) Comment on above: Performed By: #### A 1C, ADIFF, ANEU, GFR, CBC, CMP #### [place] [address] CBCon 07-03-2023 Erythrocyte distribution width (RBC) [Ratio] 13.8 % Normal 11.5-14.5 [facility] ([place]) Comment on above: Performed By: #### A 1C, ADIFF, ANEU, GFR, CBC, CMP #### [place] [address] Hematocrit (Bld) [Volume fraction] 45.9 % Normal 42.0-52.0 [facility] ([place]) Comment on above: Performed By: #### A 1C, ADIFF, ANEU, GFR, CBC, CMP #### [place] [address] Hgb 15.7 G/dL Normal 14.0-18.0 [facility] ([place]) Comment on above: Performed By: #### A 1C, ADIFF, ANEU, GFR, CBC, CMP #### [place] [address] MCH (RBC) [Entitic mass] 32.0 pg High 27.0-31.2 [facility] ([place]) Comment on above: Performed By: #### A 1C, ADIFF, ANEU, GFR, CBC, CMP #### [place] [address] MCHC 34.3 G/dL Normal 31.8-35.4 [facility] ([place]) Comment on above: Performed By: #### A 1C, ADIFF, ANEU, GFR, CBC, CMP #### [address] [address] MCV (RBC) [Entitic vol] 93.3 fL Normal 80.0-94.0 [facility] ([place]) Comment on above: Performed By: #### A 1C, ADIFF, ANEU, GFR, CBC, CMP #### [address] [address] Platelet 227 10 3/mcL Normal 130-400 [facility] ([place]) Comment on above: Performed By: #### A 1C, ADIFF, ANEU, GFR, CBC, CMP #### [address] [address] Platelet mean volume (Bld) [Entitic vol] 7.3 fL Low 7.4-10.4 [facility] ([place]) Comment on above: Performed By: #### A 1C, ADIFF, ANEU, GFR, CBC, CMP #### [address] [address] RBC 4.92 10 6/mcL Normal 4.04-6.13 [facility] ([place]) Comment on above: Performed By: #### A 1C, ADIFF, ANEU, GFR, CBC, CMP #### [address] [address] WBC 8.0 10 3/mcL Normal 4.6-10.8 [facility] ([place]) Comment on above: Performed By: #### A 1C, ADIFF, ANEU, GFR, CBC, CMP #### [address] [address] CMPon 07-03-2023 Albumin Level 3.6 G/dL Normal 3.5-5.0 [facility] ([place]) Comment on above: Performed By: #### A 1C, ADIFF, ANEU, GFR, CBC, CMP #### [address] [address] Albumin/Globulin [Mass ratio] 1.0 {ratio} Low 1.1-2.5 [facility] ([place]) Comment on above: Performed By: #### A 1C, ADIFF, ANEU, GFR, CBC, CMP #### [address] [address] ALP [Catalytic activity/Vol] 85 U/L Normal 40-135 [facility] ([place]) Comment on above: Performed By: #### A 1C, ADIFF, ANEU, GFR, CBC, CMP #### [address] [address] ALT [Catalytic activity/Vol] 90 U/L High 16-63 [facility] ([place]) Comment on above: Performed By: #### A 1C, ADIFF, ANEU, GFR, CBC, CMP #### [address] [address] AST [Catalytic activity/Vol] 88 U/L High 10-40 [facility] ([place]) Comment on above: Performed By: #### A 1C, ADIFF, ANEU, GFR, CBC, CMP #### [address] [address] Bili Total 0.6 mg/dL Normal 0.2-1.0 [facility] ([place]) Comment on above: Result Comment: Use of this assay is not recommended for patients undergoing treatment with eltrombopag due to the potential for falsely elevated results. Performed By: #### A 1C, ADIFF, ANEU, GFR, CBC, CMP #### [address] [address] BUN/Creatinine Ratio 19 ratio Normal 7-27 [facility] ([place]) Comment on above: Performed By: #### A Ricardo, ADIFF, ANEU, GFR, CBC, CMP #### [address] [address] Calcium [Mass/Vol] 9.4 mg/dL Normal 8.4-10.2 [facility] ([place]) Comment on above: Performed By: #### A 1C, ADIFF, ANEU, GFR, CBC, CMP #### [address] [address] Chloride [Moles/Vol] 101 mmol/L Normal 98-107 [facility] ([place]) Comment on above: Performed By: #### A 1C, ADIFF, ANEU, GFR, CBC, CMP #### [address] [address] CO2 [Moles/Vol] 28 mmol/L Normal 22-29 [facility] ([place]) Comment on above: Performed By: #### A 1C, ADIFF, ANEU, GFR, CBC, CMP #### [address] [address] Electrolyte Balance 10.0 mEq/L Normal 4.0-15.0 [facility] ([place]) Comment on above: Performed By: #### A 1C, ADIFF, ANEU, GFR, CBC, CMP #### [address] [address] Globulin 3.7 G/dL Normal [facility] ([place]) Comment on above: Performed By: #### A 1C, ADIFF, ANEU, GFR, CBC, CMP #### [address] [address] Glucose [Mass/Vol] 166 mg/dL High 70-105 [facility] ([place]) Comment on above: Performed By: #### A 1C, ADIFF, ANEU, GFR, CBC, CMP #### [address] [address] Potassium [Moles/Vol] 4.6 mmol/L Normal 3.5-5.1 [facility] ([place]) Comment on above: Performed By: #### A 1C, ADIFF, ANEU, GFR, CBC, CMP #### [address] [address] Sodium [Moles/Vol] 139 mmol/L Normal 136-145 [facility] ([place]) Comment on above: Performed By: #### A 1C, ADIFF, ANEU, GFR, CBC, CMP #### [address] [address] Total Protein 7.3 G/dL Normal 6.4-8.2 [facility] ([place]) Comment on above: Performed By: #### A 1C, ADIFF, ANEU, GFR, CBC, CMP #### [address] [address] Urea nitrogen [Mass/Vol] 18 mg/dL Normal 7-18 [facility] ([place]) Comment on above: Performed By: #### A 1C, ADIFF, ANEU, GFR, CBC, CMP #### [id number] [place], [place] [address] Creatinine [Mass/Vol] 0.93 mg/dL Normal 0.70-1.30 [facility] ([place]) Comment on above: Performed By: #### A 1C, ADIFF, ANEU, GFR, CBC, CMP #### [id number] [place], [place] [address] LABORATORYOrdered By: Gabby Mendoza on 07-03-2023 Albumin DL <= 20 mg/L (U) [Mass/Vol] 8162 mcg/dL Invalid Interpretation Code AO ADM SS Albumin/Creatinine DL <= 20 mg/L (U) [Mass ratio] 29 mcg/mg Normal 0 - 30 mcg/mg AO ADM SS Creatinine (U) [Mass/Vol] 276.7 mg/dL High 39.0 - 259.0 mg/dL AO ADM SS LABORATORYOrdered By: [employer] on 07-03-2023 Albumin BCP dye [Mass/Vol] 3.6 G/dL Normal 3.5 - 5.0 G/dL AO ADM SS Albumin/Globulin [Mass ratio] 1.0 {ratio} Low 1.1 - 2.5 ratio AO ADM SS ALP [Catalytic activity/Vol] 85 U/L Normal 40 - 135 U/L AO ADM SS ALT With P-5'-P [Catalytic activity/Vol] 90 U/L High 16 - 63 U/L AO ADM SS AST With P-5'-P [Catalytic activity/Vol] 88 U/L High 10 - 40 U/L AO ADM SS Basophil, Absolute 0.0 103/mcL Normal 0.0 - 0.2 10^3/mcL AO Workflow SS Basophils/100 WBC (Bld) 0.5 % Normal 0.0 - 2.5 % AO Workflow SS Bilirubin [Mass/Vol] 0.6 mg/dL Normal 0.2 - 1 .0 mg/dL AO ADM SS Comment on above: Interpretive Data: U se of this assay is not recommended for patients undergoing treatment with eltrombopag due to the potential for falsely elevated results. Calcium [Mass/Vol] 9.4 mg/dL Normal 8.4 - 10. 2 mg/dL AO ADM SS Chloride [Moles/Vol] 101 mmol/L Normal 98 - 10 7 mmol/L AO ADM SS CO2 [Moles/Vol] 28 mmol/L Normal 22 - 29 mmol/L AO ADM SS Creatinine [Mass/Vol] 0.93 mg/dL Normal 0.70 - 1.30 mg/dL AO ADM SS Electrolyte Balance 10.0 mEq/L Normal 4.0 - 15 .0 mEq/L AO ADM SS Eosinophil, Absolute 0.2 103/mcL Normal 0.0 - 0 .4 10^3/mcL AO Workflow SS Eosinophils/100 WBC (Bld) 1.9 % Normal 0.0 - 7.0 % AO Workflow SS Erythrocyte distribution width (RBC) [Ratio] 13.8 % Normal 11.5 - 14.5 % AO Workflow SS GFR/1.73 sq M.predicted among blacks MDRD (S/P/Bld) [Vol rate/Area] 104 ml/min/1.73sqm Invalid Interpretation Code AO Chemistry S Comment on above: Interpretive Data: GFR Population mean for , Non- Americans Ages 20-29 = 116 mL/min/1.73 sq.m. Ages 30-39 = 107 mL/min/1.73 sq.m. Ages 40-49 = 99 mL/min/1.73 sq.m. Ages 50-59 = 93 mL/min/1.73 sq.m. Ages 60-69 = 85 mL/min/1.73 sq.m. Ages 70+ = 75 mL/min/1.73 sq.m. Chronic Kidney Disease: Less than 60 mL/min/1.73 square meters End Stage Renal Disease: Less than 15 mL/min/1.73 square meters GFR/1.73 sq M.predicted among non-blacks MDRD (S/P/Bld) [Vol rate/Area] 86 ml/min/1.73sqm Invalid Interpretation Code AO Chemistry S Comment on above: Interpretive Data: GFR Population mean for , Non- Americans Ages 20-29 = 116 mL/min/1.73 sq.m. Ages 30-39 = 107 mL/min/1.73 sq.m. Ages 40-49 = 99 mL/min/1.73 sq.m. Ages 50-59 = 93 mL/min/1.73 sq.m. Ages 60-69 = 85 mL/min/1.73 sq.m. Ages 70+ = 75 mL/min/1.73 sq.m. Chronic Kidney Disease: Less than 60 mL/min/1.73 square meters End Stage Renal Disease: Less than 15 mL/min/1.73 square meters Globulin 3.7 G/dL Invalid Interpretation Code AO ADM SS Glucose [Mass/Vol] 166 mg/dL High 70 - 105 mg/dL AO ADM SS HbA1c (Bld) [Mass fraction] 7.9 % High 4.3 - 6.4 % AO ADM SS Hematocrit (Bld) [Volume fraction] 45.9 % Normal 42.0 - 52.0 % AO Workflow SS Hemoglobin (Bld) [Mass/Vol] 15.7 G/dL Normal 14.0 - 18.0 G/dL AO Workflow SS Lymphocyte, Absolute 1.9 103/mcL Normal 0.8 - 3 .9 10^3/mcL AO Workflow SS Lymphocytes/100 WBC (Bld) 24.1 % Normal 10.0 - 50.0 % AO Workflow SS MCH (RBC) [Entitic mass] 32.0 pg High 27.0 - 31.2 pg AO Workflow SS MCHC 34.3 G/dL Normal 31.8 - 35.4 G/dL AO Workflow SS MCV (RBC) [Entitic vol] 93.3 fL Normal 80.0 - 94.0 fL AO Workflow SS Monocyte, Absolute 0.7 103/mcL Normal 0.2 - 1.0 10^3/mcL AO Workflow SS Monocytes/100 WBC (Bld) 8.8 % Normal 1.7 - 13.0 % AO Workflow SS Neutrophil, Absolute 5.2 103/mcL Normal 2.9 - 6 .2 10^3/mcL AO Workflow SS Neutrophils/100 WBC (Bld) 64.7 % Normal 37.0 - 80.0 % AO Workflow SS Platelet mean volume (Bld) [Entitic vol] 7.3 fL Low 7.4 - 10.4 fL AO Workflow SS Platelets (Bld) [#/Vol] 227 103/mcL Normal 130 - 400 10^3/mcL AO Workflow SS Potassium [Moles/Vol] 4.6 mmol/L Normal 3.5 - 5.1 mmol/L AO ADM SS Protein [Mass/Vol] 7.3 G/dL Normal 6.4 - 8.2 G/dL AO ADM SS RBC (Bld) [#/Vol] 4.92 106/mcL Normal 4.04 - 6.1 3 10^6/mcL AO Workflow SS Sodium [Moles/Vol] 139 mmol/L Normal 136 - 145 mmol/L AO ADM SS Urea nitrogen [Mass/Vol] 18 mg/dL Normal 7 - 18 mg/dL AO ADM SS Urea nitrogen/Creatinine [Mass ratio] 19 ratio Normal 7 - 27 ratio AO ADM SS WBC (Bld) [#/Vol] 8.0 103/mcL Normal 4.6 - 10.8 10^3/mcL AO Workflow SS MALBRon 07-03-2023 U Creatinine 276.7 mg/dL High 39.0-259.0 [facility] ([place]) Comment on above: Performed By: #### M ALBR #### [address] [address] U Microalb 8162 mcg/dL Normal [facility] ([place]) Comment on above: Performed By: #### M ALBR #### [id number] [place], [place] [address] U Ratio Alb/Cre 29 mcg/mg Normal 0-30 [facility] ([place]) Comment on above: Performed By: #### M ALBR #### [address] [address] LABORATORYOrdered By: SYSTEM SYSTEM on 09-20-2022 Albumin BCP dye [Mass/Vol] 3.9 G/dL Invalid Interpretation Code 3.5 - 5.0 G/dL AO ADM SS Albumin/Globulin [Mass ratio] 1.3 {ratio} Invalid Interpretation Code 1.1 - 2.5 ratio AO ADM SS ALP [Catalytic activity/Vol] 78 U/L Invalid Interpretation Code 40 - 135 U/L AO ADM SS ALT With P-5'-P [Catalytic activity/Vol] 152 U/L Invalid Interpretation Code 16 - 63 U/L AO ADM SS AST With P-5'-P [Catalytic activity/Vol] 122 U/L Invalid Interpretation Code 10 - 40 U/L AO ADM SS Bilirubin [Mass/Vol] 0.5 mg/dL Invalid Interpretation Code 0.2 - 1.0 mg/dL AO ADM SS Calcium [Mass/Vol] 9.2 mg/dL Invalid Interpretation Code 8.4 - 10.2 mg/dL AO ADM SS Chloride [Moles/Vol] 104 mmol/L Invalid Interpretation Code 98 - 107 mmol/L AO ADM SS CO2 [Moles/Vol] 27 mmol/L Invalid Interpretation Code 22 - 29 mmol/L AO ADM SS Creatinine [Mass/Vol] 0.99 mg/dL Invalid Interpretation Code 0.70 - 1.30 mg/dL AO ADM SS Electrolyte Balance 12.0 mEq/L Invalid Interpretation Code 4.0 - 15.0 mEq/L AO ADM SS GFR/1.73 sq M.predicted among blacks MDRD (S/P/Bld) [Vol rate/Area] 97 ml/min/1.73sqm Invalid Interpretation Code AO Chemistry S GFR/1.73 sq M.predicted among non-blacks MDRD (S/P/Bld) [Vol rate/Area] 80 ml/min/1.73sqm Invalid Interpretation Code AO Chemistry S Globulin 3.1 G/dL Invalid Interpretation Code AO ADM SS Glucose [Mass/Vol] 123 mg/dL Invalid Interpretation Code 70 - 105 mg/dL AO ADM SS Potassium [Moles/Vol] 4.5 mmol/L Invalid Interpretation Code 3.5 - 5.1 mmol/L AO ADM SS Prostate specific Ag [Mass/Vol] 2.79 ng/mL Invalid Interpretation Code 0.00 - 4.00 ng/mL AO ADM SS Protein [Mass/Vol] 7.0 G/dL Invalid Interpretation Code 6.4 - 8.2 G/dL AO ADM SS Sodium [Moles/Vol] 143 mmol/L Invalid Interpretation Code 136 - 145 mmol/L AO ADM SS Urea nitrogen [Mass/Vol] 14 mg/dL Invalid Interpretation Code 7 - 18 mg/dL AO ADM SS Urea nitrogen/Creatinine [Mass ratio] 14 ratio Invalid Interpretation Code 7 - 27 ratio AO ADM SS LABORATORYOrdered By: Je Ngo on 11-02-2021 Creatinine [Mass/Vol] 0.97 mg/dL Invalid Interpretation Code 0.70 - 1.30 mg/dL AO ADM SS LABORATORYOrdered By: SYSTEM SYSTEM on 11-02-2021 GFR 100 ml/min/1.73sqm Invalid Interpretation Code AO Chemistry S GFR Non- 82 ml/min/1.73sqm Invalid Interpretation Code AO Chemistry S LABORATORYOrdered By: Je Ngo on 03-20-2021 Basophil, Absolute 0.00 103/mcL Invalid Interpretation Code 0.00 - 0.19 10^3/mcL AO Auto Heme SS Basophils/100 WBC (Bld) 0.4 % Invalid Interpretation Code 0.0 - 2.5 % AO Auto Heme SS Calcium [Mass/Vol] 9.0 mg/dL Invalid Interpretation Code 8.4 - 10.2 mg/dL AO ADM SS Chloride [Moles/Vol] 102 mmol/L Invalid Interpretation Code 98 - 107 mmol/L AO ADM SS CO2 [Moles/Vol] 27 mmol/L Invalid Interpretation Code 22 - 29 mmol/L AO ADM SS Creatinine [Mass/Vol] 0.95 mg/dL Invalid Interpretation Code 0.70 - 1.30 mg/dL AO ADM SS Electrolyte Balance 9.0 mEq/L Invalid Interpretation Code AO ADM SS Eosinophil, Absolute 0.20 103/mcL Invalid Interpretation Code 0.00 - 0.40 10^3/mcL AO Auto Heme SS Eosinophils/100 WBC (Bld) 1.8 % Invalid Interpretation Code 0.0 - 7.0 % AO Auto Heme SS Erythrocyte distribution width (RBC) [Ratio] 14.0 % Invalid Interpretation Code 11.5 - 14.5 % AO Auto Heme SS Glucose [Mass/Vol] 130 mg/dL Invalid Interpretation Code 70 - 105 mg/dL AO ADM SS Hematocrit (Bld) [Volume fraction] 46.0 % Invalid Interpretation Code 42.0 - 52.0 % AO Auto Heme SS Hemoglobin (Bld) [Mass/Vol] 15.7 G/dL Invalid Interpretation Code 14.0 - 18.0 G/dL AO Auto Heme SS Lymphocyte, Absolute 2.00 103/mcL Invalid Interpretation Code 0.77 - 3.85 10^3/mcL AO Auto Heme SS Lymphocytes/100 WBC (Bld) 21.1 % Invalid Interpretation Code 10.0 - 50.0 % AO Auto Heme SS MCH (RBC) [Entitic mass] 32.4 pg Invalid Interpretation Code 27.0 - 31.2 pg AO Auto Heme SS MCHC (RBC) [Mass/Vol] 34.1 G/dL Invalid Interpretation Code 31.8 - 35.4 G/dL AO Auto Heme SS MCV (RBC) [Entitic vol] 95.0 fL Invalid Interpretation Code 80.0 - 94.0 fL AO Auto Heme SS Monocyte, Absolute 0.90 103/mcL Invalid Interpretation Code 0.15 - 1.00 10^3/mcL AO Auto Heme SS Monocytes/100 WBC (Bld) 9.8 % Invalid Interpretation Code 1.7 - 13.0 % AO Auto Heme SS Neutrophil, Absolute 6.20 103/mcL Invalid Interpretation Code 2.85 - 6.16 10^3/mcL AO Auto Heme SS Neutrophils/100 WBC (Bld) 66.9 % Invalid Interpretation Code 37.0 - 80.0 % AO Auto Heme SS Platelet mean volume (Bld) [Entitic vol] 7.5 fL Invalid Interpretation Code 7.4 - 10.4 fL AO Auto Heme SS Platelets (Bld) [#/Vol] 254 103/mcL Invalid Interpretation Code 130 - 400 10^3/mcL AO Auto Heme SS Potassium [Moles/Vol] 4.1 mmol/L Invalid Interpretation Code 3.5 - 5.1 mmol/L AO ADM SS RBC (Bld) [#/Vol] 4.85 106/mcL Invalid Interpretation Code 4.04 - 6.13 10^6/mcL AO Auto Heme SS Sodium [Moles/Vol] 138 mmol/L Invalid Interpretation Code 136 - 145 mmol/L AO ADM SS Urea nitrogen [Mass/Vol] 15 mg/dL Invalid Interpretation Code 7 - 18 mg/dL AO ADM SS Urea nitrogen/Creatinine [Mass ratio] 16 ratio Invalid Interpretation Code 7 - 27 ratio AO ADM SS WBC (Bld) [#/Vol] 9.30 103/mcL Invalid Interpretation Code 4.60 - 10.80 10^3/mcL AO Auto Heme SS LABORATORYOrdered By: SYSTEM SYSTEM on 03-20-2021 GFR 102 ml/min/1.73sqm Invalid Interpretation Code AO Chemistry S GFR Non- 84 ml/min/1.73sqm Invalid Interpretation Code AO Chemistry S Vital Signs Date Time Vital Sign Value Performing Clinician Facility 02-14-2024 11:34-0400 Body temperature 97.81 [degF] Emile Tavarez MD Work Phone: [email or web address] 02-08-2024 10:27-0400 Body temperature 97.81 [degF] Emile Tavarez MD Work Phone: [facility] 02-08-2024 10:27-0400 Diastolic blood pressure 66 mm[Hg] Emile Tavarez MD [facility] Phone[facility] 02-08-2024 10:27-0400 Heart rate 71 /min Emile Tavarez MD Work Phone: [employer] 02-08-2024 10:27-0400 Respiratory rate 18 /min Emile Tavarez MD [facility] 02-08-2024 10:27-0400 SaO2% (BldA) [Mass fraction] 94 % Emile Tavarez MD Work Phone: [employer] 02-08-2024 10:27-0400 Systolic blood pressure 134 mm[Hg] Emile Tavarez MD [facility] 02-07-2024 15:24-0400 Body height 185.4 cm Emile Tavarez MD Work Phone: [employer] 02-07-2024 15:24-0400 Body mass index (BMI) [Ratio] 38.26 kg/m2 Emile Tavarez MD Work Phone: [employer] 02-07-2024 15:24-0400 Body weight 131.54 kg Emile Tavarez MD [facility] 01-20-2024 13:07-0400 Body height 185.4 cm Madison Can RN [employer] 01-20-2024 13:07-0400 Body mass index (BMI) [Ratio] 38.26 kg/m2 Madison Can RN [employer] 01-20-2024 13:07-0400 Body weight 131.54 kg Madison Can RN [employer] 11-12-2023 13:26-0400 Diastolic blood pressure 89 mm[Hg] Emile Tavarez MD [facility] 11-12-2023 13:26-0400 Heart rate 74 /min Emile Tavarez MD [facility] 11-12-2023 13:26-0400 Systolic blood pressure 150 mm[Hg] Emile Tavarez MD Work Phone: [facility] 11-12-2023 13:22-0400 Body height 185.4 cm Emile Tavarez MD Work Phone: [facility] 11-12-2023 13:22-0400 Body mass index (BMI) [Ratio] 38.26 kg/m2 Emile Tavarez MD Work Phone: [facility] 11-12-2023 13:22-0400 Body weight 131.54 kg Emile Tavarez MD Work Phone: [facility] 03-23-2021 15:52-0400 Diastolic Blood Pressure NBP 90 1 DONOVAN GOYAL MD [facility] 03-23-2021 15:52-0400 Heart rate 89 /min DONOVAN GOYAL MD [facility] 03-23-2021 15:52-0400 Systolic Blood Pressure NBP 141 1 DONOVAN GOYAL MD [facility] 03-23-2021 15:37-0400 Diastolic Blood Pressure NBP 82 1 DONOVAN GOYAL MD [facility] 03-23-2021 15:37-0400 Heart rate 84 /min DONOVAN GOYAL MD [facility] 03-23-2021 15:37-0400 Systolic Blood Pressure NBP 130 1 DONOVAN GOYAL MD [facility] 03-23-2021 14:50-0400 Diastolic Blood Pressure NBP 89 1 DONOVAN GOYAL MD [facility] 03-23-2021 14:50-0400 Heart rate 83 /min DONOVAN GOYAL MD [facility] 03-23-2021 14:50-0400 Systolic Blood Pressure NBP 130 1 DONOVAN GOYAL MD [facility] 03-23-2021 14:35-0400 Respiratory rate 0 /min DONOVAN GOYAL MD [facility] 03-23-2021 14:30-0400 Respiratory rate 0 /min DONOVAN GOYAL MD [facility] 03-23-2021 14:25-0400 Respiratory rate 16 /min DONOVAN GOYAL MD [facility] 03-23-2021 13:45-0400 Body temperature 96.8 [degF] DONOVAN GOYAL MD [facility] 03-23-2021 12:04-0400 Body temperature 98.42 [degF] DONOVAN GOYAL MD [facility] 03-23-2021 12:04-0400 Heart rate 77 /min DONOVAN GOYAL MD [facility] 03-20-2021 08:15-0400 Body height 185.4 cm DONOVAN GOYAL MD [facility] 03-20-2021 08:15-0400 Body weight 129.5 kg DONOVAN GOYAL MD [facility] 03-20-2021 08:15-0400 Body weight 37.67 kg/m2 DONOVAN GOYAL MD [facility] 03-20-2021 08:15-0400 diastolic 94 mm[Hg] DONOVAN GOYAL MD [facility] 03-20-2021 08:15-0400 Heart rate 86 /min DONOVAN GOYAL MD [facility] 03-20-2021 08:15-0400 Respiratory rate 18 /min DONOVAN GOYAL MD [facility] 03-20-2021 08:15-0400 systolic 162 mm[Hg] DONOVAN GOYAL MD [facility] Encounters Encounter Date Encounter Type Care Provider Facility Start: 02-14-2024 End: 02-14-2024 Patient encounter procedure Emile Tavarez MD Work Phone: [facility] Otolaryngology (ENT) Comment on above: Parotid mass (Primar y Dx); Parotid oncocytoma Start: 02-14-2024 End: 02-14-2024 ambulatory EMILE TAVAREZ Facility:[facility] Start: 02-07-2024 End: 02-08-2024 Evaluation and management of inpatient Emile Tavarez MD Work Phone: [address] Comment on above: Parotid mass (Primar y Dx); Body mass index (BMI) 38.0-38.9, adult; Post-op pain Start: 01-20-2024 End: 01-20-2024 Nursing evaluation of patient and report Madison Can RN [facility] Pre-Admission Testing Comment on above: Preop testing (Prima ry Dx) Start: 01-20-2024 End: 01-20-2024 Patient encounter status Madison Can RN [facility] Start: 01-20-2024 ambulatory UNKNOWN PROVIDER Facili ty:[facility] Start: 01-20-2024 Encounter for other preprocedural examination [facility] Start: 12-30-2023 ambulatory RAFAELA MILLS DO Facil ity:B Start: 12-03-2023 End: 12-03-2023 Letter encounter Emile Tavarez MD Work Phone: [facility] Otolaryngology (ENT) Start: 12-02-2023 End: 12-03-2023 Telephone encounter Emile Tavarez MD Work Phone: [facility] Otolaryngology (ENT) Comment on above: Return Patient Phone Call Start: 12-01-2023 End: 12-01-2023 Telephone encounter Emile Tavarez MD Work Phone: [facility] Otolaryngology (ENT) Comment on above: Discuss results test /procedures Start: 11-25-2023 End: 11-25-2023 ambulatory EMILE TAVAREZ Facility:[facility] Start: 11-25-2023 End: 11-25-2023 Subsequent hospital visit by physician Hetal [facility] Radiology Comment on above: Parotid mass Start: 11-12-2023 End: 11-17-2023 Office consultation new/estab patient 60 min Emile Tavarez MD Work Phone: [facility] Otolaryngology Comment on above: Parotid mass (Primar y Dx); Body mass index (BMI) 38.0-38.9, adult Start: 11-12-2023 End: 11-17-2023 ambulatory UNKNOWN PROVIDER Facility:[facility] Start: 11-05-2023 End: 11-05-2023 Transcribe Orders Rafaela Mills DO Work Phone: [facility] Physician Referral Service Start: 07-29-2023 End: 07-29-2023 ambulatory RAFAELA MILLS DO Facility:B Start: 07-11-2023 ambulatory RAFAELA MILLS DO Facil ity:B Start: 07-03-2023 End: 07-03-2023 ambulatory RAFAELA MILLS DO Facility:B Start: 07-03-2023 End: 07-03-2023 Patient encounter procedure RAFAELA MILLS DO [facility] Start: 03-14-2023 End: 03-14-[address] ULICES MONTOYA MD Facility:B Start: 03-14-2023 End: 03-14-[address] ULICES MONTOYA MD [facility] Start: 11-16-2022 End: 11-16-2022 Patient encounter procedure RAFAELA MILLS DO [facility] Start: 09-20-2022 End: 09-20-2022 Patient encounter procedure RAFAELA MILLS DO [facility] Start: 11-02-2021 End: 11-02-2021 Patient encounter procedure CHARLENE BRADLEY DO [facility] Start: 03-23-2021 End: 03-23-2021 SAME DAY STAY DONOVAN GOYAL MD [facility] Start: 03-20-2021 End: 03-20-2021 Admission to establishment DONOVAN GOYAL MD [facility] Procedures Date Procedure Procedure Detail Performing Clinician Start: 02-07-2024 Blood count complete automated DeTila Oropeza MD Work Phone: Start: 02-07-2024 Glucose blood reagent strip Emile Tavarez MD Work Phone: Start: 02-07-2024 Glucose blood reagent strip Emile Tavarez MD Work Phone: Start: 02-07-2024 Glucose blood reagent strip Emile Tavarez MD Work Phone: Start: 11-25-2023 Radiology Comparison study - date and time Emile Tavarez MD Work Phone: Start: 05-31-2023 Stimulator, device ( physical object) RAFAELA MILLS DO Start: 03-23-2021 Cyst - pilonidal (disorder) CHARLENE BRADLEY DO Comment on above: Excision Pilonidal C yst, Excision Inclusion Cyst Left Scapula Start: 09-23-2018 Cystoscopic operatio n for ureteric calculus DONOVAN GOYAL MD Comment on above: with left ureteral s tent placement Start: 12-01-2013 Back fusion DONOVAN CAMPBELL MD Appendectomy DONOVAN Bailey Appendectomy DONOVAN Bailey Arthroscopy of ankle DONOVAN COYNE MD Decompression of med dustin nerve DONOVAN GOYAL MD Comment on above: BILATERAL Dilation of esophagus DONOVAN ENRIQUEZ MD Repair of musculoten dinous cuff of shoulder DONOVAN GOYAL MD Tonsillectomy DONOVAN GOYAL MD Plan of Treatment Date Care Activity Detail Author Start: 04-03-2024 End: 04-03-2024 Patient encounter procedure 04/03/2024 9:45 AM EDT Office Visit [facility] Otolaryngology (ENT) [address] [place] [id number] Emile Tavarez MD [address] [place] [address] [facility] Otolaryngology (ENT) Start: 03-03-2024 Influenza vaccination Influenza Vacc ine (#1) [facility] Start: 02-14-2024 End: 02-14-2024 Patient encounter procedure 02/14/2024 11:30 AM EDT Office Visit [facility] Otolaryngology (ENT) [id number] Emile Tavarez MD [address] [place] [id number] [facility] Otolaryngology (ENT) Start: 02-07-2024 End: 02-07-2024 Admission to same day surgery center [facility] Main OR Comment on above: Left PAROTIDECTOMY Start: 02-07-2024 End: 02-07-2024 GRAFT, DERMIS FAT [facility] Start: 02-07-2024 End: 02-07-2024 PAROTIDECTOMY [facility] Start: 02-07-2024 Subsequent hospital visit by physician [facility] Main OR Start: 02-02-2024 COVID-19 Vaccine ( season) COVID-19 Vaccine ( season) [facility] Start: 12-24-2023 End: 12-24-2023 Nursing evaluation of patient and report 12/24/2023 1:00 PM EDT Nurse Visit [facility] Pre-Admission Testing [id number] [facility], MAR[address] [place] [address] [facility] Pre-Admission Testing Start: 11-12-2023 End: 11-11-2024 DOWNLOAD [facility]ine [employer] IMAGES TO [employer] DOWNLOAD [facility]AGES TO [facility] Imaging Routine Parotid mass Expected: 11/12/2023, Expires: 11/11/2024 [facility] Work Phone: Comment on above: Expected: 11/12/2023 , Expires: 11/11/2024 Start: 02-01-2023 COVID-19 Vaccine ( season) COVID-19 Vaccine ( season) [facility] Start: 02-01-2023 COVID-19 Vaccine ( season) COVID-19 Vaccine ( season) [facility] Start: 12-28-2021 Shingles (RZV) Vacci ne (1 of 2) Shingles (RZV) Vaccine (1 of 2) [facility] Start: 12-28-2016 Screening for malignant neoplasm of colon [facility] Start: 12-28-2006 Lipid panel Cholesterol [facility] Start: 12-28-1990 Hepatitis A (HAV) Vaccine (optional start 19+ years) Hepatitis A (HAV) Vaccine (optional start 19+ years) [facility] Start: 12-28-1990 Hepatitis B vaccination Hepatitis B (HBV) Vaccine (1 of 3 - 19+ 3-dose series) [facility] Start: 12-28-1990 Tetanus vaccination Tetanus (T d or Tdap) Booster [facility] Start: 12-28-1989 Hepatitis C screening Hepatitis C An tibody [facility] Start: 12-28-1989 Tetanus + diphtheria + acellular pertussis vaccine (product) Tdap Booster [facility] Start: 12-28-1986 HIV screening HIV Test [facility] Start: 1970 Screening for malignant neoplasm of colon Colonoscopy [facility] End: 02-08-2024 Creatinine blood CREATININE Lab Routine One time for 1 Occurrences starting 02/08/2024 until 02/08/2024 [facility] Work Phone: Comment on above: One time for 1 Occur rences starting 02/08/2024 until 02/08/2024 GRAFT, DERMIS FAT GRAFT, DERMIS FAT Routine scheduled Parotid mass Body mass index (BMI) 38.0-38.9, adult [facility] PAROTIDECTOMY PAROTIDECTOMY Ro utine scheduled Parotid mass Body mass index (BMI) 38.0-38.9, adult [facility] Surgical pathology procedure [facility] Work Phone: Comment on above: Release Upon Jie massey for 1 Occurrences starting 02/07/2024 Immunizations Immunization Date Immunization Notes Care Provider Fa cility 09-22-2020 SARS-CoV-2 (COVID-19 ) mRNA-1273 vaccine DONOVAN GOYAL MD [facility] Comment on above: Result Comment: 2020: [id number] 08-25-2020 SARS-CoV-2 (COVID-19 ) mRNA-1273 vaccine DONOVAN GOYAL MD [facility] Comment on above: Result Comment: 2020: [id number] Payers Date Payer Category Payer Unknown [employer] H[employer] PATH[employer] X HMO [id number] 2023-Present [address] [place] [address] HMO [id number] 2023 Unknown [id number] 1970 Unknown [id number] 1971 Unknown [id number] 1971 Unknown [id number]. 1971 Unknown [id number] 1970 Unknown [id number]. 1971 Unknown [id number]. 1971 Unknown [id number] 1971 Unknown [id number] 1971 Unknown [id number] 1970 Unknown [id number] Social History Date Type Detail Facility Start: 12-07-2019 End: 01-20-2024 Never smoked tobacco (finding) [facility] Sex Assigned At Male [facility] Tobacco smoking stat [facility] Tobacco [facility] consumption [facility] Start: 1970 Sex assigned at [facility] Start: 01-20-2024 End: 02-07-2024 Gender identity Not on file [facility] Start: 01-20-2024 Tobacco use and exposure Smokeless tobacco non-user [facility] Start: 01-20-2024 End: 02-14-2024 Alcoholic beverage intake Current drinker of alcohol (finding) [facility] Start: 01-20-2024 End: 02-07-2024 History of Social function [facility] Start: 01-20-2024 Alcohol Comment ONCE A WEEK AB OUT 01-12 BOE [facility] Medical Equipment Procedure Code Equipment Code Equipment Origin al Text Equipment Identifier Dates FDA Start: 09-23-2018 FDA Start: 09-23-2018 Unknown Unknown 09/23/18 Unknown Unknown FDA Start: 09-23-2018 Unknown Unknown 09/23/18 Unknown Unknown FDA Start: 09-23-2018 Unknown Unknown 09/23/18 Unknown Unknown FDA Start: 09-23-2018 Unknown Unknown 09/23/18 Unknown Unknown FDA Start: 09-23-2018 Unknown Unknown 09/23/18 Unknown Unknown FDA Start: 09-23-2018 Clinical Notes 03-23-2021 to 02-14-2024 Renae Paiz - 02/14/2024 11:47 AM Emile Hawkins MD - 02/14/2024 11:30 AM Karel Enciso RN - 02/07/2024 5:30 PM EDTBlood Attestation - José Luis Mcfadden - 02/07/2024 7:10 AM EDTRadiology Note Date & Type Note Facility 02-14-2024 History of Present illness Narrative Patient identified by first, last name and date of . Patient notified that provider is running behind @11:40 Renae Paiz., MTA Images from the original note were not included. HPI: Arnold Buchanan was seen 02/14/2024 in the [facility] for follow up visit history of bilateral parotid lesion (L > R) and now s/p left parotidectomy on 02/07/24. Final path c/w with oncocytoma . History and review of systems is negative for changes since last visit except patient is postop. Overall doing well. Pain well controlled. Denies any fevers, chills, drainage, swelling or bleeding. He slept on the left side of his face and woke up with some burning sensation this morning. Denies any facial weakness. His left earlobe is still numb . Drain was removed at home without significant issues INTRAOPERATIVE FINDINGS (02/07/24): 1. Cystic, mobile left superficial parotid mass (approx 2.5 x 3 cm); small violation of tumor capsule with cystic contents, completely excised and wound bed irrigated with sterile water 2. Given depth of facial neve and superficial nature of cystic lesion, extracapsular tumor dissection performed. Distal branches of facial nerve were not encountered during tumor dissection despite attempts for retrograde dissection 3. Proximal main trunk of facial nerve and pes identified and preserved intact but unable to stimulate with NIMs probe or checkpoint stimulator despite being anatomically intact during the case. Facial nerve exam House-Brackmann 1/6 in post-operative period. Past Medical History: Diagnosis Date Body mass index (BMI) 38.0-38.9, adult 11/12/2023 Obese Parotid mass 11/12/2023 Past Surgical History: Procedure Laterality Date ANKLE SURGERY SCOPE B/L APPENDECTOMY; ESOPHAGEAL DILITATION MULTI LITHOTRIPSY MONITORING, INTERSTITIAL FLUID PRESSURE W/DEVICE INSERTION, DETECTION MUSCLE COMPARTMENT SYNDROME B/L LOWER EXT PAROTIDECTOMY N/A 02/07/2024 Procedure: Left PAROTIDECTOMY; Surgeon: Emile Tavarez MD; Location: PERIOPERATIVE SERVICES; Service: Otolaryngology RELEASE, CARPAL TUNNEL B/L REPAIR, ROTATOR CUFF L SPINE STIMULATOR SPINE SURGERY X4 WITH HARDWARE TONSILLECTOMY Current Outpatient Medications Medication Sig Dispense Refill acetaminophen (TYLENOL) 500 MG tablet Take 2 Tablets by mouth every 8 hours. 90 Tablet 0 senna (SENOKOT) 8.6 MG tablet Take 1 Tablet by mouth daily as needed for Constipation. 30 Tablet 0 oxyCODONE 5 MG immediate release tablet Take 1 Tablet by mouth every 6 hours as needed for Pain for up to 5 days. 20 Tablet 0 Vit-Fe Fumarate-FA (M-VIT ORAL) Take by mouth. budesonide-formoterol (Symbicort) 80-4.5 MCG/ACT inhaler Dose = 2 puff(s), Inhalation, BID, # 3 EA, 3 Refill(s), Pharmacy: [facility]/pharmacy #[id number], 183, cm, 07/03/23 8:02:00 EST, Height, kg, 07/03/23 8:02:00 EST, Dosing Weight amlodipine-benazepril (LOTREL) 10-20 MG per capsule Take by mouth daily. albuterol (PROVENTIL HFA) INHALATION HFA inhaler (VENTOLIN,PROAIR,PROVENTIL) 90mcg Continuous Glucose Sensor (FreeStyle Bharat 3 Sensor) CHECK BLOOD SUGAR DIRECTED.REPLACE EVERY 14 DAYS. gabapentin (NEURONTIN) 600 MG tablet 3 times daily. meloxicam (MOBIC) 15 MG tablet Take 15 mg by mouth. metformin (GLUCOPHAGE-XR) 500 MG XR tablet Take 2,000 mg by mouth daily. omeprazole (PRILOSEC) 40 MG capsule 1 CAP(S) ORAL EVERY DAY No current facility-administered medications for this visit. Allergies Allergen Reactions Cefazolin Swelling Other Reaction(s): Lip swelling PHYSICAL EXAM: There were no vitals taken for this visit. Documented vital signs from today's visit reviewed. Physical exam including head and neck examination of the oral cavity, oropharynx, larynx, and hypopharynx including indirect mirror exam as well as inspection and palpation of the face, parotid and neck is remarkable for findings consistent with posttreatment postoperative changes and negative for new lesions, masses or lymphadenopathy. Healing well. Incisions clean, dry and intact. Mildly tender to palpation superior to the inferior aspect of the incision line. Mild erythema and cellulitic changes adjacent to the incision. Face symmetric with no facial weakness. Left earlobe numbness. No purulence, dehiscence, or fluctuance appreciated on exam. Airway is adequate. IMAGIN10/24/23 (CT Neck w/ contrast at OSH), unable to personally review the images today but we will request PATHOLOGY: 02/07/24 Final Diagnosis A. 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 One benign lymph node (0/1). See Immunohistochemistry Results and Special Stains. . I certify that I personally conducted the diagnostic evaluation of the above specimen(s) and have rendered the final diagnosis(es). at 1608 Pathology was reviewed. ASSESSMENT/PLAN: Arnold Buchanan is a 53 year old male who presents to clinic today for follow up history of bilateral parotid lesion (L > R) and now s/p left parotidectomy on 02/07/24. Final path c/w with benign oncocytoma, completely excised Overall, INOCENCIO, healing well. -we reviewed the pathology at length today -counseled patient to transition to Vaseline/Aquaphor TID over the incision instead of bacitracin due to some erythema and cellulitic changes -avoid any strenuous activity for at least another week -recommend follow up me in 6-8 weeks or sooner as needed Emile Tavarez MD Otolaryngology - Head and Neck Surgery [facility] Pager: [phone] documented in this encounter [facility] 02-07-2024 History of Present illness Narrative 02/07/24 1713 Vital Signs BP 164/100 MAP (mmHg) [address] Johnson notified of critical BP value of 164/100. Dr. Johnson read back critical results. New orders received. Will continue to monitor and notify MD team if BP still elevated upon recheck. documented in this encounter [facility] 02-07-2024 Note DISCHARGE SUMMARY [address] [id number] Arnold Buchanan Date of : 1970 53 year old male Attending Emile Tavarez MD Date of Admission 02/07/2024 Date of Discharge 02/08/24 Final Diagnosis: Parotid mass Hospital Problems as of 02/08/2024 * (Principal) Parotid mass Body mass index (BMI) 38.0-38.9, adult No discharge procedures on file. Future Appointments Date Time Provider Department Center 02/14/2024 11:30 AM Emile Tavarez MD [facility] Condition at Discharge improved Symptoms to look out for after discharge: New or Severe Pain, Inability to urinate/Empty bowel, Fever, Shortness of breath, Chest Pain, Headache, Unable to keep down fluids, Dizziness and Drainage/Bleeding from wound or surgical site Activity no heavy lifting and no strenuous activity Diet no restrictions Disposition home Functional Status ambulatory CPAP/BiPAP: CPAP This patient is not being discharged to a facility, and does not require completion of the facility form. Reason for Hospitalization Left Parotid lesion Significant Findings S/p left parotidectomy Hospital Course The patient is a 53 year old male who underwent left parotidectomy with Dr. Tavarez on 02/07/24. The patient was transferred to the PACU postoperatively and then to the regular nursing floor. Postoperative course was otherwise uncomplicated. On day of discharge, patient was tolerating diet, pain controlled on oral pain medications, afebrile, voiding, and baseline ambulatory status. The patient will follow up as an outpatient. Because the DANITA drain output was high, the drain was left in place and the patient was given care instructions and instructions on how to take the drain out once the output was appropriately low. I provided the patient and/or family/surrogate with the following information: Explanation of the primary diagnosis, and secondary diagnoses where applicable, including test results, Discussion of any new medications and treatments, including expected benefits and potential major side effects, Explanation of previous treatments or medications that are discontinued, Discussion of post-hospital day-to-day care needs, and Follow-up plans, and warning signs that should prompt more urgent follow-up [facility] 02-07-2024 Progress note Formatting of t his note is different from the original. Blood Attestation: ATTESTATION OF INFORMED CONSENT FOR BLOOD: The transfusion of blood and/or blood components were discussed with the patient and/or legal artist representative. The risks, benefits and alternatives were reviewed. Questions regarding blood transfusions were answered. The patient /or the patient s legal artist representative agree with the plan for transfusion of blood and/or blood components. [facility]: 02-07-2024 Miscellaneous Notes Blood Attestation: ATTESTATION OF INFORMED CONSENT FOR BLOOD: The transfusion of blood and/or blood components were discussed with the patient and/or legal artist representative. The risks, benefits and alternatives were reviewed. Questions regarding blood transfusions were answered. The patient /or the patient s legal artist representative agree with the plan for transfusion of blood and/or blood components. documented in this encounter [facility] 02-07-2024 History and physical note OTOLARYNGOLOGY HEAD AND NECK SURGICAL HISTORY AND PHYSICAL NOTE History of Present Illness 53 year old male here today for surgery. Patient reports no changes since last appointment on 12/03/23 Surgical Attestation: I have personally reviewed the patient's medical history and performed the physical examination below immediately before the procedure. Medications, allergies, and pertinent laboratory and diagnostic tests were also reviewed at this time. Surgery is still indicated: yes Consent reviewed and signed by patient/legal guardian: yes Operative site verified and marked (if applicable): yes 10-point review of systems is otherwise negative. Past Medical History Past Medical History: Diagnosis Date Body mass index (BMI) 38.0-38.9, adult 11/12/2023 Obese Parotid mass 11/12/2023 Past Surgical History Review of patient's past surgical history indicates: TONSILLECTOMY SPINE SURGERY X4 WITH HARDWARE ANKLE SURGERY SCOPE B/L RELEASE, CARPAL TUNNEL B/L SPINE STIMULATOR REPAIR, ROTATOR CUFF L LITHOTRIPSY APPENDECTOMY; ESOPHAGEAL DILITATION MULTI MONITORING, INTERSTITIAL FLUID PRESSURE W/PATY* B/L LOWER EXT Family History No family history on file. Social History Social History Tobacco Use Smoking status: Never Smokeless tobacco: Never Substance Use Topics Alcohol use: Yes Comment: ONCE A WEEK ABOUT 8-12 BOOZE Medications Allergies Allergies Allergen Reactions Cefazolin Swelling Other Reaction(s): Lip swelling Physical Exam There were no vitals taken for this visit. General: Lying in bed NAD, conversant, A&Ox3 HEENT: Normocephalic and atraumatic without mass or lesion Respiratory: Equal inspiration and expiration without stridor Cardiovascular: Regular rate Oral Cavity: Mucous membranes moist Relevant Labs Basic Metabolic Panel No lab values to display. No intake or output data in the 24 hours ending 02/06/24 1826 CBC/PT/INR No lab values to display. Imaging: CT neck with contrast from 10/24/23 showing a 3cm left parotid mass Assessment and Plan Mr. Buchanan is a 53 year old male - OR today for left parotidectomy, possible fat graft Discussed with attending Emile Tavarez MD De'Andre Warren, MD De'Andre Warren, MD [facility] 02-07-2024 History and physical note OTOLARYNGOLOGY HEAD AND NECK SURGICAL HISTORY AND PHYSICAL NOTE History of Present Illness 53 year old male here today for surgery. Patient reports no changes since last appointment on 12/03/23 Surgical Attestation: I have personally reviewed the patient's medical history and performed the physical examination below immediately before the procedure. Medications, allergies, and pertinent laboratory and diagnostic tests were also reviewed at this time. Surgery is still indicated: yes Consent reviewed and signed by patient/legal guardian: yes Operative site verified and marked (if applicable): yes 10-point review of systems is otherwise negative. Past Medical History Past Medical History: Diagnosis Date Body mass index (BMI) 38.0-38.9, adult 11/12/2023 Obese Parotid mass 11/12/2023 Past Surgical History Review of patient's past surgical history indicates: TONSILLECTOMY SPINE SURGERY X4 WITH HARDWARE ANKLE SURGERY SCOPE B/L RELEASE, CARPAL TUNNEL B/L SPINE STIMULATOR REPAIR, ROTATOR CUFF L LITHOTRIPSY APPENDECTOMY; ESOPHAGEAL DILITATION MULTI MONITORING, INTERSTITIAL FLUID PRESSURE W/PATY* B/L LOWER EXT Family History No family history on file. Social History Social History Tobacco Use Smoking status: Never Smokeless tobacco: Never Substance Use Topics Alcohol use: Yes Comment: ONCE A WEEK ABOUT 8-12 BOOZE Medications Allergies Allergies Allergen Reactions Cefazolin Swelling Other Reaction(s): Lip swelling Physical Exam There were no vitals taken for this visit. General: Lying in bed NAD, conversant, A&Ox3 HEENT: Normocephalic and atraumatic without mass or lesion Respiratory: Equal inspiration and expiration without stridor Cardiovascular: Regular rate Oral Cavity: Mucous membranes moist Relevant Labs Basic Metabolic Panel No lab values to display. No intake or output data in the 24 hours ending 02/06/24 1826 CBC/PT/INR No lab values to display. Imaging: CT neck with contrast from 10/24/23 showing a 3cm left parotid mass Assessment and Plan Mr. Buchanan is a 53 year old male - OR today for left parotidectomy, possible fat graft Discussed with attending Emile Tavarez MD De'Andre Warren, MD De'Andre Warren, MD documented in this encounter [facility] 02-07-2024 Note OTOLARYNGOLOGY HEAD AND NECK SURGICAL HISTORY AND PHYSICAL NOTE History of Present Illness 53 year old male here today for surgery. Patient reports no changes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 Pager: [phone] [facility] 12-03-2023 Miscellaneous Notes Brief ENT Telephone Note Called patient after reviewing outside CT scan of left parotid lesion. We reviewed management options at length again. He would like to move forward with surgery with left parotidectomy.I reviewed with Mr. Buchanan risks, benefits, alternatives, and possible outcomes of surgery/treatment including but not limited to: bleeding, infection, scar formation/cosmetic deformity, poor wound healing/wound breakdown, possible need for additional treatment measures if the future depending for example on findings or histopathologic outcome, as well as general risks including heart attack, stroke and . Additionally, risks pertaining to parotidectomy were reviewed including facial weakness/paralysis which could be temporary or permanent, sialocele/fistula, Gail's syndrome, first bite syndrome, expected numbness, and expected change in facial/neck contour. All questions answered and pt verbalized understanding of the plan. Emile Tavarez MD Otolaryngology - Head and Neck Surgery [facility] Pager: [phone] Dr Tavarez, Patient calling stating that the two of you have been missing phone calls. Please call patient at [phone] Lynn Connell documented in this encounter [facility] 12-02-[address] Tavarez, Patient calling stating that the two of you have been missing phone calls. Please call patient at [phone] Lynn Connell [facility] 12-01-2023 Telephone encounter Note Brief ENT Telephone Note Called patient to inform him that I had a chance to review his CT scan from the outside hospital. I was unable to reach by phone today and left him a voicemail. We will tentatively new work on scheduling surgery for left-sided parotidectomy in the near future that we will try to reach out to patient. to discuss definitive plan Emile Tavarez MD Otolaryngology - Head and Neck Surgery [facility] Pager: [phone] [facility] 12-01-2023 Miscellaneous Notes Brief ENT Telephone Note Called patient to inform him that I had a chance to review his CT scan from the outside hospital. I was unable to reach by phone today and left him a voicemail. We will tentatively new work on scheduling surgery for left-sided parotidectomy in the near future that we will try to reach out to patient. to discuss definitive plan Emile Tavarez MD Otolaryngology - Head and Neck Surgery [facility] Pager: [phone] documented in this encounter [facility] 11-27-2023 Note Addended by: Rosa TAVAREZ on: 11/27/2023 11:18 PM Modules accepted: Orders [facility] 11-27-2023 Note Addended by: Rosa TAVAREZ on: 11/27/2023 11:18 PM Modules accepted: Orders [facility] 11-27-2023 Note Addended by: Rosa TAVAREZ on: 11/27/2023 11:18 PM Modules accepted: Orders [facility] 11-27-2023 Miscellaneous Notes Addended by: EMILE TAVAREZ on: 11/27/2023 11:18 PM Modules accepted: Orders documented in this encounter [facility] 11-27-2023 Miscellaneous Notes Addended by: EMILE TAVAREZ on: 11/27/2023 11:18 PM Modules accepted: Orders documented in this encounter [facility] 11-12-2023 History of Present illness Narrative Images from the original note were not included. OTOLARYNGOLOGY - HEAD & NECK SURGERY CLINIC NOTE CHIEF COMPLAINT: Chief Complaint Patient presents with New patient, to establish relationship Neck mass HPI: Arnold Buchanan is a 52 year old male with PMH significant for asthma, DMII, HTNwho presents today, 11/12/2023, at the [facility] at the request of Referring Provider: Arnold Danielson MD for my opinion and further evaluation of parotid masses. Per review of outside notes from Dr. Danielson, patient has had had an FNA of the right parotid lesion which was negative as well as an FNA of the left parotid lesion. Today, pt reports right sided parotid lesion about 1 yr ago. It tends to fluctuate in size. He has had an FNA biopsy in the past that was benign. He reports that he also notice a new left parotid lesion a couple months ago. After the biopsy, it was more swollen. Stable in size since and no significant changes. NO prior history of parotid issues prior to 1 yr ago. Denies dry mouth or previous chronic sialadenitis. Denies pain, facial weakness, skin changes, purulent drainage. Denies fevers, chills, unintentionalweight loss, night sweats, otalgia, sore throat, oral bleeding, dysphagia, odynophagia, voice changes, shortness of breath, hemoptysis or new lesions/masses. Denies history of radiation or previous of head/neck surgery other than PE tubes and tonsillectomy as a kid. Denies history of cardiac or pulmonary issues other than asthma Able to walk/up downstairs without issues. Not currently on any anticoagulation or antiplatelet therapy. Occasional smoker. Denies history of significant alcohol use. Currently retired. ROS: Constitutional: Negative for fever, chills, and weight loss overweight gain. Skin: Negative for rash, itchiness, dryness HENT: Negative for ear pain, sore throat and hoarseness. Negative for difficulty swallowing. Cardiovascular: Negative for chest pain and dyspnea on exertion (Can climb up 2 floors). Respiratory: Negative for shortness of breath and increased work of breathing. Gastrointestinal: Negative for nausea and vomiting. Neurological: Negative for headaches. Lymph/Heme: Negative for lymphadenopathy or easy bruising Musculoskeletal: Negative for joint or muscle pain Psychiatric: The patient is not nervous/anxious. All other systems are negative except for that listed in the HPI. Past Medical/Surgical History: He has no past medical history on file. His has no past surgical history on file. Past Family/Social History: His family history is not on file. He Medications/Allergies/Immunization s: His current medication(s) include: @CMEDLISTP@ Allergies: Cefazolin, Immunizations: Immunization History Administered Date(s) Administered Moderna Monovalent (12+ yrs) COVID-19 vaccine, mRNA, spike protein, LNP, PF, 100 mcg/0.5 mL (ZUK=901) 08/25/2020, 09/22/2020 PHYSICAL EXAM: Vital Signs: Ht 6' 1 (1.854 m) Wt 290 lb (131.5 kg) BMI 38.26 kg/m General: Well-developed, well-nourished. In no acute distress. Communication and Voice: Clear pitch and clarity Respiratory Respiratory effort: Equal inspiration and expiration without stridor Neuro: Appropriate mood and affect; Cranial nerves II-XII are intact Head and Face Inspection: Normocephalic and atraumatic without mass or lesion Palpation: Facial skeleton intact without bony stepoffs Facial Strength: Facial motility symmetric and full bilaterally Eyes: No nystagmus with normal extraocular motion bilaterally ENT External nose: No scar or anatomic deformity TMJ: No pain to palpation with full mobility Salivary Glands: Slightly firm, mobile right tail of parotid lesion just posterior and slightly inferior to the angle of the mandible (approx 1.5 x 1.5 cm). No overlying skin changes, induration, erythema or fluctuance appreciated. Soft, cystic like lesion overlying the superior aspect of the left parotid/pre-auricular region, mildly tender to palpation. Mobile, with no overlying skin changes or tethering. Lips: No lesion. Oral cavity: Moist mucosa. No mass or lesion. Oropharynx: No mass or lesion. Tonsillar fossa symmetric. Base of tongue soft without mass or induration on palpation Neck Trachea: Midline trachea. Thyroid: No mass or nodularity. Lymphatics: No palpable cervical lymphadenopathy. Pathologic Review: 08/28/23 personally reviewed Radiologic Review: 10/24/23 (CT Neck w/ contrast at OSH), unable to personally review the images today but we will request Laboratory/Other Studies: N/a ASSESSMENT/PLAN: 52-year-old female with history of bilateral parotid masses of unclear etiology. Right tail of parotid mass was previously biopsied by an outside ENT and was noted to be benign. 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 He was referred here today by Dr. Danielson ([facility]) for further evaluation and management - we discussed the management options at length today including the role for repeat FNA in review of the pathology here at [facility] versus surgery (which would likely entail starting with the left-sided parotid lesion) versus observation - I discussed that most of these masses are tumors with about 80% being benign tumors and 20% being malignant. I reviewed the options with Mr. Buchanan including surgery which would serve in a definitive diagnostic capacity as well as likely serve in a therapeutic role for the large majority of such tumors. The option of no treatment was also reviewed, but I explained the risks of no treatment including potential for progressive growth with increased risks including facial paralysis if treatment is elected at that time, as well as possibility of malignancy which could either exist currently or develop in the future and could then carry life-threatening risks if untreated. As such, Surgery, if elected would therefore involve parotidectomy. I reviewed with Mr. Buchanan risks, benefits, alternatives, and possible outcomes of surgery/treatment including but not limited to: bleeding, infection, scar formation/cosmetic deformity, poor wound healing/wound breakdown, possible need for additional treatment measures if the future depending for example on findings or histopathologic outcome, as well as general risks including heart attack, stroke and . Additionally, risks pertaining to parotidectomy were reviewed including facial weakness/paralysis which could be temporary or permanent, sialocele/fistula, Gail's syndrome, first bite syndrome, expected numbness, and expected change in facial/neck contour. After review of the various options, Mr. Buchanan would like to proceed with surgery for the left-sided parotid lesion given its increase in size and concerns from a functional and cosmetic standpoint. He did not want to pursue an additional fine-needle biopsy despite my recommendation. -I counseled the patient at length that I would like to review the images myself prior to moving forward with scheduling surgery as some lesions may require additional imaging and workup including possible MRI. He was in agreement with this plan and we will plan to obtain images from the outside hospital -after reviewing the images, I will plan to call him and we can schedule surgery in the near future. I believe that Mr. Buchanan has a good understanding of the issues involved and I answered all of his questions. Thank you so much for allowing me to participate in the care of this patient. Please feel free to contact me if you have any questions or concerns. Emile Tavarez MD Otolaryngology - Head and Neck Surgery [facility] Pager: [phone] documented in this encounter [facility] 11-12-2023 History of Present illness Narrative Images from the original note were not included. OTOLARYNGOLOGY - HEAD & NECK SURGERY CLINIC NOTE CHIEF COMPLAINT: Chief Complaint Patient presents with New patient, to establish relationship Neck mass HPI: Arnold Buchanan is a 52 year old male with PMH significant for asthma, DMII, HTNwho presents today, 11/12/2023, at the [facility] at the request of Referring Provider: Arnold Danielson MD for my opinion and further evaluation of parotid masses. Per review of outside notes from Dr. Danielson, patient has had had an FNA of the right parotid lesion which was negative as well as an FNA of the left parotid lesion. Today, pt reports right sided parotid lesion about 1 yr ago. It tends to fluctuate in size. He has had an FNA biopsy in the past that was benign. He reports that he also notice a new left parotid lesion a couple months ago. After the biopsy, it was more swollen. Stable in size since and no significant changes. NO prior history of parotid issues prior to 1 yr ago. Denies dry mouth or previous chronic sialadenitis. Denies pain, facial weakness, skin changes, purulent drainage. Denies fevers, chills, unintentionalweight loss, night sweats, otalgia, sore throat, oral bleeding, dysphagia, odynophagia, voice changes, shortness of breath, hemoptysis or new lesions/masses. Denies history of radiation or previous of head/neck surgery other than PE tubes and tonsillectomy as a kid. Denies history of cardiac or pulmonary issues other than asthma Able to walk/up downstairs without issues. Not currently on any anticoagulation or antiplatelet therapy. Occasional smoker. Denies history of significant alcohol use. Currently retired. ROS: Constitutional: Negative for fever, chills, and weight loss overweight gain. Skin: Negative for rash, itchiness, dryness HENT: Negative for ear pain, sore throat and hoarseness. Negative for difficulty swallowing. Cardiovascular: Negative for chest pain and dyspnea on exertion (Can climb up 2 floors). Respiratory: Negative for shortness of breath and increased work of breathing. Gastrointestinal: Negative for nausea and vomiting. Neurological: Negative for headaches. Lymph/Heme: Negative for lymphadenopathy or easy bruising Musculoskeletal: Negative for joint or muscle pain Psychiatric: The patient is not nervous/anxious. All other systems are negative except for that listed in the HPI. Past Medical/Surgical History: He has no past medical history on file. His has no past surgical history on file. Past Family/Social History: His family history is not on file. He Medications/Allergies/Immunization s: His current medication(s) include: @CMEDLISTP@ Allergies: Cefazolin, Immunizations: Immunization History Administered Date(s) Administered Moderna Monovalent (12+ yrs) COVID-19 vaccine, mRNA, spike protein, LNP, PF, 100 mcg/0.5 mL (AHX=730) 08/25/2020, 09/22/2020 PHYSICAL EXAM: Vital Signs: Ht 6' 1 (1.854 m) Wt 290 lb (131.5 kg) BMI 38.26 kg/m General: Well-developed, well-nourished. In no acute distress. Communication and Voice: Clear pitch and clarity Respiratory Respiratory effort: Equal inspiration and expiration without stridor Neuro: Appropriate mood and affect; Cranial nerves II-XII are intact Head and Face Inspection: Normocephalic and atraumatic without mass or lesion Palpation: Facial skeleton intact without bony stepoffs Facial Strength: Facial motility symmetric and full bilaterally Eyes: No nystagmus with normal extraocular motion bilaterally ENT External nose: No scar or anatomic deformity TMJ: No pain to palpation with full mobility Salivary Glands: Slightly firm, mobile right tail of parotid lesion just posterior and slightly inferior to the angle of the mandible (approx 1.5 x 1.5 cm). No overlying skin changes, induration, erythema or fluctuance appreciated. Soft, cystic like lesion overlying the superior aspect of the left parotid/pre-auricular region, mildly tender to palpation. Mobile, with no overlying skin changes or tethering. Lips: No lesion. Oral cavity: Moist mucosa. No mass or lesion. Oropharynx: No mass or lesion. Tonsillar fossa symmetric. Base of tongue soft without mass or induration on palpation Neck Trachea: Midline trachea. Thyroid: No mass or nodularity. Lymphatics: No palpable cervical lymphadenopathy. Pathologic Review: 08/28/23 personally reviewed Radiologic Review: 10/24/23 (CT Neck w/ contrast at OSH), unable to personally review the images today but we will request Laboratory/Other Studies: N/a ASSESSMENT/PLAN: 52-year-old female with history of bilateral parotid masses of unclear etiology. Right tail of parotid mass was previously biopsied by an outside ENT and was noted to be benign. 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 He was referred here today by Dr. Danielson ([facility]) for further evaluation and management - we discussed the management options at length today including the role for repeat FNA in review of the pathology here at [facility] versus surgery (which would likely entail starting with the left-sided parotid lesion) versus observation - I discussed that most of these masses are tumors with about 80% being benign tumors and 20% being malignant. I reviewed the options with Mr. Buchanan including surgery which would serve in a definitive diagnostic capacity as well as likely serve in a therapeutic role for the large majority of such tumors. The option of no treatment was also reviewed, but I explained the risks of no treatment including potential for progressive growth with increased risks including facial paralysis if treatment is elected at that time, as well as possibility of malignancy which could either exist currently or develop in the future and could then carry life-threatening risks if untreated. As such, Surgery, if elected would therefore involve parotidectomy. I reviewed with Mr. Buchanan risks, benefits, alternatives, and possible outcomes of surgery/treatment including but not limited to: bleeding, infection, scar formation/cosmetic deformity, poor wound healing/wound breakdown, possible need for additional treatment measures if the future depending for example on findings or histopathologic outcome, as well as general risks including heart attack, stroke and . Additionally, risks pertaining to parotidectomy were reviewed including facial weakness/paralysis which could be temporary or permanent, sialocele/fistula, Gail's syndrome, first bite syndrome, expected numbness, and expected change in facial/neck contour. After review of the various options, Mr. Buchanan would like to proceed with surgery for the left-sided parotid lesion given its increase in size and concerns from a functional and cosmetic standpoint. He did not want to pursue an additional fine-needle biopsy despite my recommendation. -I counseled the patient at length that I would like to review the images myself prior to moving forward with scheduling surgery as some lesions may require additional imaging and workup including possible MRI. He was in agreement with this plan and we will plan to obtain images from the outside hospital -after reviewing the images, I will plan to call him and we can schedule surgery in the near future. I believe that Mr. Buchanan has a good understanding of the issues involved and I answered all of his questions. Thank you so much for allowing me to participate in the care of this patient. Please feel free to contact me if you have any questions or concerns. Emile Tavarez MD Otolaryngology - Head and Neck Surgery [facility] Pager: [phone] documented in this encounter [facility] 11-12-2023 History of Present illness Narrative Images from the original note were not included. OTOLARYNGOLOGY - HEAD & NECK SURGERY CLINIC NOTE CHIEF COMPLAINT: Chief Complaint Patient presents with New patient, to establish relationship Neck mass HPI: Arnold Buchanan is a 52 year old male with PMH significant for asthma, DMII, HTNwho presents today, 11/12/2023, at the [facility] at the request of Referring Provider: Arnold Danielson MD for my opinion and further evaluation of parotid masses. Per review of outside notes from Dr. Danielson, patient has had had an FNA of the right parotid lesion which was negative as well as an FNA of the left parotid lesion. Today, pt reports right sided parotid lesion about 1 yr ago. It tends to fluctuate in size. He has had an FNA biopsy in the past that was benign. He reports that he also notice a new left parotid lesion a couple months ago. After the biopsy, it was more swollen. Stable in size since and no significant changes. NO prior history of parotid issues prior to 1 yr ago. Denies dry mouth or previous chronic sialadenitis. Denies pain, facial weakness, skin changes, purulent drainage. Denies fevers, chills, unintentionalweight loss, night sweats, otalgia, sore throat, oral bleeding, dysphagia, odynophagia, voice changes, shortness of breath, hemoptysis or new lesions/masses. Denies history of radiation or previous of head/neck surgery other than PE tubes and tonsillectomy as a kid. Denies history of cardiac or pulmonary issues other than asthma Able to walk/up downstairs without issues. Not currently on any anticoagulation or antiplatelet therapy. Occasional smoker. Denies history of significant alcohol use. Currently retired. ROS: Constitutional: Negative for fever, chills, and weight loss overweight gain. Skin: Negative for rash, itchiness, dryness HENT: Negative for ear pain, sore throat and hoarseness. Negative for difficulty swallowing. Cardiovascular: Negative for chest pain and dyspnea on exertion (Can climb up 2 floors). Respiratory: Negative for shortness of breath and increased work of breathing. Gastrointestinal: Negative for nausea and vomiting. Neurological: Negative for headaches. Lymph/Heme: Negative for lymphadenopathy or easy bruising Musculoskeletal: Negative for joint or muscle pain Psychiatric: The patient is not nervous/anxious. All other systems are negative except for that listed in the HPI. Past Medical/Surgical History: He has no past medical history on file. His has no past surgical history on file. Past Family/Social History: His family history is not on file. He Medications/Allergies/Immunization s: His current medication(s) include: @CMEDLISTP@ Allergies: Cefazolin, Immunizations: Immunization History Administered Date(s) Administered Moderna Monovalent (12+ yrs) COVID-19 vaccine, mRNA, spike protein, LNP, PF, 100 mcg/0.5 mL (CKV=055) 08/25/2020, 09/22/2020 PHYSICAL EXAM: Vital Signs: Ht 6' 1 (1.854 m) Wt 290 lb (131.5 kg) BMI 38.26 kg/m General: Well-developed, well-nourished. In no acute distress. Communication and Voice: Clear pitch and clarity Respiratory Respiratory effort: Equal inspiration and expiration without stridor Neuro: Appropriate mood and affect; Cranial nerves II-XII are intact Head and Face Inspection: Normocephalic and atraumatic without mass or lesion Palpation: Facial skeleton intact without bony stepoffs Facial Strength: Facial motility symmetric and full bilaterally Eyes: No nystagmus with normal extraocular motion bilaterally ENT External nose: No scar or anatomic deformity TMJ: No pain to palpation with full mobility Salivary Glands: Slightly firm, mobile right tail of parotid lesion just posterior and slightly inferior to the angle of the mandible (approx 1.5 x 1.5 cm). No overlying skin changes, induration, erythema or fluctuance appreciated. Soft, cystic like lesion overlying the superior aspect of the left parotid/pre-auricular region, mildly tender to palpation. Mobile, with no overlying skin changes or tethering. Lips: No lesion. Oral cavity: Moist mucosa. No mass or lesion. Oropharynx: No mass or lesion. Tonsillar fossa symmetric. Base of tongue soft without mass or induration on palpation Neck Trachea: Midline trachea. Thyroid: No mass or nodularity. Lymphatics: No palpable cervical lymphadenopathy. Pathologic Review: 08/28/23 personally reviewed Radiologic Review: 10/24/23 (CT Neck w/ contrast at OSH), unable to personally review the images today but we will request Laboratory/Other Studies: N/a ASSESSMENT/PLAN: 52-year-old female with history of bilateral parotid masses of unclear etiology. Right tail of parotid mass was previously biopsied by an outside ENT and was noted to be benign. 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 He was referred here today by Dr. Danielson ([facility]) for further evaluation and management - we discussed the management options at length today including the role for repeat FNA in review of the pathology here at [facility] versus surgery (which would likely entail starting with the left-sided parotid lesion) versus observation - I discussed that most of these masses are tumors with about 80% being benign tumors and 20% being malignant. I reviewed the options with Mr. Buchanan including surgery which would serve in a definitive diagnostic capacity as well as likely serve in a therapeutic role for the large majority of such tumors. The option of no treatment was also reviewed, but I explained the risks of no treatment including potential for progressive growth with increased risks including facial paralysis if treatment is elected at that time, as well as possibility of malignancy which could either exist currently or develop in the future and could then carry life-threatening risks if untreated. As such, Surgery, if elected would therefore involve parotidectomy. I reviewed with Mr. Buchanan risks, benefits, alternatives, and possible outcomes of surgery/treatment including but not limited to: bleeding, infection, scar formation/cosmetic deformity, poor wound healing/wound breakdown, possible need for additional treatment measures if the future depending for example on findings or histopathologic outcome, as well as general risks including heart attack, stroke and . Additionally, risks pertaining to parotidectomy were reviewed including facial weakness/paralysis which could be temporary or permanent, sialocele/fistula, Gail's syndrome, first bite syndrome, expected numbness, and expected change in facial/neck contour. After review of the various options, Mr. Buchanan would like to proceed with surgery for the left-sided parotid lesion given its increase in size and concerns from a functional and cosmetic standpoint. He did not want to pursue an additional fine-needle biopsy despite my recommendation. -I counseled the patient at length that I would like to review the images myself prior to moving forward with scheduling surgery as some lesions may require additional imaging and workup including possible MRI. He was in agreement with this plan and we will plan to obtain images from the outside hospital -after reviewing the images, I will plan to call him and we can schedule surgery in the near future. I believe that Mr. Buchanan has a good understanding of the issues involved and I answered all of his questions. Thank you so much for allowing me to participate in the care of this patient. Please feel free to contact me if you have any questions or concerns. Emile Tavarez MD Otolaryngology - Head and Neck Surgery [facility] Pager: [phone] documented in this encounter [facility] 11-16-2022 Note ORIGINAL EXAMINATION: SOFT TISSUE ULTRASOUND 11/16/2022 1:31 pm COMPARISON: MR brain 12/09/2019. HISTORY: ORDERING SYSTEM PROVIDED HISTORY: Reason for Exam: [employer] Developer neck mass at the angle of the [...] Sign Date: 11/16/2022 6:53:51 PM Ordering Provider: [facility] 11-16-2022 Note ORIGINAL EXAMINATION: SOFT TISSUE ULTRASOUND 11/16/2022 1:31 pm COMPARISON: MR brain 12/09/2019. HISTORY: ORDERING SYSTEM PROVIDED HISTORY: Reason for Exam: [employer] Developer neck mass at the angle of the [...] Sign Date: 11/16/2022 6:53:51 PM Ordering Provider: [facility] 09-27-2022 Evaluation + Plan note Future Scheduled TestsUS Abdomen Limited 09/27/22 [facility] 03-23-2021 Hospital Discharge instructions Patient Education 03/23/2021 15:03:26 General Anesthesia, [...] what activities are safe for you. Take slfs-wgy-dugolxa and prescription medicines only as told by [...] 08/26/2001 Document Revised: 05/23/2018 Document Reviewed: 01/03/2018 [employer] Patient Education 2020 [employer]. 03/23/2021 15:02:45 Pilonidal Cyst Drainage, Care After [...] Follow these instructions at home: Medicines Take tnzm-nkv-eracasc and prescription medicines only as told by [...] fried or sweet foods. ? Take an atct-mdf-mlibxiv or prescription medicine for constipation. You will need to have a caregiver help you manage wound care and dressing changes. Your caregiver should: ?Wash his or her hands with soap and water before changing your dressing. If soap and water are not available, your caregiver should use hand baker second. ?Check your wound every day for signs [...] 06/20/2007 Document Revised: 03/12/2019 Document Reviewed: 05/12/2018 [employer] Patient Education 2020 [employer]. Follow Up Care 03/16/2021 15:02:12 With:DONOVAN GOYAL MD, Surgery, Surgery Address: [phone] When: Unknown Comments:Follow-up as IN 2 WEEKS , CALL OFFICE WITH ANY QUESTIONS [facility] Evaluation + Plan note Future Appointments Appointment Date:07/21/2021 08:00:00 AM Scheduled Provider:RAFAELA MILLS DO Location:[facility] Appointment Type:PC OV Future Scheduled TestsCT Angiography Head w/ Contrast 04/18/20CT Angiography Neck w/ Contrast 04/18/20XR Pelvis Complete Minimum 3 Views 09/29/20XR Spine Lumbar Flex/Ext w/Obliques 09/20/20 [facility] Evaluation + Plan note Future Appointments Appointment Date:01/02/2022 03:00:00 PM Scheduled Provider:RAFAELA MILLS DO Location:[facility] Appointment Type:PC OV [facility] Evaluation + Plan note Future Appointments Appointment Date:03/06/2023 01:30:00 PM Scheduled Provider:RAFAELA MILLS DO Location:[facility] Appointment Type:PC OV Follow Up Future Scheduled TestsAlbumin/Creatinine Ratio, Random Urine 09/05/22 [facility] Evaluation + Plan note Future Appointments Appointment Date:03/06/2023 01:30:00 PM Scheduled Provider:RAFAELA MILLS DO Location:[facility] Appointment Type:PC OV Follow Up Future Scheduled TestsUS Abdomen Limited 09/27/22 [facility] Evaluation + Plan note Future Appointments Appointment Date:01/01/2024 09:00:00 AM Scheduled Provider:RAFAELA MILLS DO Location:[facility] Appointment Type:PC OV Future Scheduled TestsCT Soft Tissue Neck w/ Contrast 07/03/23US Abdomen Limited 09/27/22 [facility] Evaluation note Diagnosis Neck mass- Primary Swelling, mass, or lump in head and neck [facility] Diagnosis Parotid mass- Primary Swelling, mass, or lump in head and neck Body mass index (BMI) 38.0-38.9, adult [facility]* Diagnosis Parotid mass Swelling, mass, or lump in head and neck [facility]* Diagnosis Parotid mass- Primary Swelling, mass, or lump in head and neck Body mass index (BMI) 38.0-38.9, adult [facility]* Diagnosis Parotid mass- Primary Swelling, mass, or lump in head and neck Body mass index (BMI) 38.0-38.9, adult [facility]* Diagnosis Parotid mass Swelling, mass, or lump in head and neck Body mass index (BMI) 38.0-38.9, adult Preop testing- Primary Preoperative examination, unspecified Parotid mass Swelling, mass, or lump in head and neck Body mass index (BMI) 38.0-38.9, adult [facility]* Diagnosis Parotid mass- Primary Swelling, mass, or lump in head and neck Parotid mass Swelling, mass, or lump in head and neck Body mass index (BMI) 38.0-38.9, adult Post-op pain Other acute postoperative pain Body mass index (BMI) 38.0-38.9, adult [facility]* Diagnosis Parotid mass- Primary Swelling, mass, or lump in head and neck 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 * Parotidectomy Discharge Instructions (Syrian) * Parotidectomy (Syrian) [facility] Attachments The following attachments cannot be sent through Care Everywhere. * Parotidectomy Discharge Instructions (Syrian) * Parotidectomy (Syrian) [facility] Attachments The following attachments cannot be sent through Care Everywhere. * Parotidectomy Discharge Instructions (Syrian) * Parotidectomy (Syrian) [facility] No data available for this section [facility] Reason for Referral Specialty Diagnoses / Procedures Referred By Otoniel vasquez Referred To Contact Diagnoses Parotid mass Post-op pain [address] [place] [address] Referral ID Status Reason Start Date Expiration Date Visits Re quested Visits Authorized [id number] Closed 02/07/2024 08/05/2024 3 3 Specialty Diagnoses / Procedures Referred By Otoniel vasquez Referred To Contact Anesthesiology Diagnoses Parotid mass Body mass index (BMI) 38.0-38.9, adult Emile Tavarez MD [address] [place] [address] [facility] PRE ADMISSION TESTING [address] [place] [address] Referral ID Status Reason Start Date Expiration Date V isits Requested Visits Authorized [id number] Authorized 11/27/2023 11/26/2024 1 1 Scheduling Instructions Your surgical team will reach out to you to schedule a pre-admission testing appointment. Question Answer Reason for consult? Recommended PAT Risk Score Specialty Diagnoses / Procedures Referred By Contac t Referred To Contact Radiology Diagnoses Parotid mass Procedures CT NEURO IMAGE IMPORT(SYEDA) DOWNLOAD POWERSHARE IMAGES TO Emile Montero MD [address] [place] [address] [facility] DIAGNOSTIC RADIOLOGY [address] [place] [address] [place] [address] Referral ID Status Reason Start Date Expiration Date Visits Re quested Visits Authorized [id number] Closed 11/12/2023 11/11/2024 1 1 Specialty Diagnoses / Procedures Referred By Contac t Referred To Contact Radiology Diagnoses Parotid mass Procedures DOWNLOAD POWERSHARE IMAGES TO [facility] Emile Tavarez MD [address] [place] [address] [facility] DIAGNOSTIC RADIOLOGY [address] [place] [address] [place] [address] Referral ID Status Reason Start Date Expiration Date V isits Requested Visits Authorized [id number] Authorized 11/12/2023 11/11/2024 1 1 Specialty Diagnoses / Procedures Referred By Contac t Referred To Contact Ent-Otolaryngology Diagnoses Neck mass Rafaela Mills, DO [address] [place] [id number] Emile Tavarez MD [address] [place] [address] Referral ID Status Reason Start Date Expiration Date V isits Requested Visits Authorized [id number] Authorized 11/05/2023 11/04/2024 3 3 Scheduling Instructions Please call the Otolaryngology/Allergy (ENT) Clinic at to schedule an appointment if one was not made for you today. Question Answer Patient to be evaluated for: Head & Neck / Swelling / Mass Summary Purpose Family History No Family History Records Found Advance Directives No Advanced Directives Records Found Date Activated Date Inactivated Comments 02/07/2024 2:30 PM Question Answer Comments Documentation of decision pr ocess for this code status: Discussed with patient or surrogate. This is the code status chosen by the patient/surrogate. Date Activated Date Inactivated Comments 02/07/2024 2:30 PM 02/08/2024 1:47 PM Question Answer Comments Documentation of decision pr ocess for this code status: Discussed with patient or surrogate. This is the code status chosen by the patient/surrogate. Additional Source Comments Care Team (unrecognized sect ion and content) Defensive Secondary Coach Relationship Specialty Start Date End Date Emile Tavarez MD [address] [place], [place] [id number] Physician Otolaryngology 12/07/23 Defensive Secondary Coach Relationship Specialty Start Date End Date Emile Tavarez MD [address] [place] [id number] Physician Otolaryngology 12/07/23 Defensive Secondary Coach Relationship Specialty Start Date End Date Emile Tavarez MD [address] [place] [id number] Physician Otolaryngology 12/07/23 Reason for Visit (unrecogniz ed section and content) Reason Comments New patient, to establish relationship N melisa mass Specialty Diagnoses / Procedures Referred By Otoniel t Referred To Contact Ent-Otolaryngology Diagnoses Neck mass Rafaela Mills, DO [address] [place] [address] Emile Tavarez MD [address] [place] [address] Referral ID Status Reason Start Date Expiration Date V isits Requested Visits Authorized [id number] Authorized 11/05/2023 11/04/2024 3 3 Specialty Diagnoses / Procedures Referred By Otoniel vasquez Referred To Contact Radiology Diagnoses Parotid mass Procedures CT NEURO IMAGE IMPORT(SYEDA) DOWNLOAD POWERSHARE IMAGES TO Emile Montero MD [address] [place] [address] [facility] DIAGNOSTIC RADIOLOGY [address] [place] [address] Referral ID Status Reason Start Date Expiration Date Visits Re quested Visits Authorized [id number] Closed 11/12/2023 11/11/2024 1 1 Reason Comments New patient, to establish relationship N melisa mass Reason Onset Date Comments Discuss results test/procedures 12/01/2023 Reason Onset Date Comments Return Patient Phone Call 12/02/2023 Specialty Diagnoses / Procedures Referred By Otoniel vasquez Referred To Contact General Surgery Diagnoses Parotid mass Body mass index (BMI) 38.0-38.9, adult Parotid mass [K11.8] Body mass index (BMI) 38.0-38.9, adult [Z68.38] Procedures EXCISION, PAROTID TUMOR/PAROTID GLAND; LATERAL LOBE, W/NERVE DISSECTION, PRESERVATION, FACIAL NERVE GRAFTING OF AUTOLOGOUS SOFT TISSUE, OTHER, HARVESTED BY DIRECT EXCISION (EG, FAT, DERMIS, FASCIA) Left PAROTIDECTOMY GRAFT, DERMIS FAT Emile Tavarez MD [address] [place] [address] [employer] [address] [place] [id number] Phone: [phone] Referral ID Status Reason Start Date Expiration Date Visits Re quested Visits Authorized [id number] 3 3 Reason Comments Post Op Check (unrecognized sect ion and content) No Status Records FoundNo Status Records Found INFORMATION SOURCE (unrecogn ized section and content) DATE CREATED AUTHOR 01/01/2024 [facility] ([place]) DATE CREATED AUTHOR AUTHOR'S ORGANIZ ATION 02/15/2024 [employer] Scheduled Active and Recently Administ ered Medications (unrecognized section and content) Medication Order 02/06/2024 02/07/2024 02/08/2024 ampicillin-sulbactam (Unasyn) 3000 mg in NS 100 mL ivpb (COMPLETED) 3,000 mg, Intravenous, ONCE, 1 dose, On Sat02/07/24 at 0700 0743 (Mistaken Entry - Provider: SOTO Fairbanks)0752 (Given - Provider: SOTO Fairbanks)0950 (Given - Provider: SOTO Fairbanks)1148 (Given - Provider: SOTO Fairbanks) bacitracin 500 UNIT/GM ointment Topical, 3 TIMES DAILY, First dose on Sat02/07/24 at 1530, Until Discontinued, Post-op 152 (Given - Provider: Karel Barnes RN)2030 (Given - Provider: Aminta Turner RN) 0600 (Given - Provider: Aminta Turner RN)1400 (Due)2200 (Due) budesonide-formoterol (SYMBICORT) 80-4.5 MCG/ACT inhaler 2 Puff, Inhalation, 2 TIMES DAILY RT, First dose on Sat02/07/24 at 2000, Until Discontinued, Post-op 214 (Given - Provider: Kenia Ortiz, RT) 1200 (Due - Provider: Marlee Moya, RT)2000 (Due) docusate sodium (COLACE) capsule 100 mg, Oral, 2 TIMES DAILY, First dose on Sat02/07/24 at 1530, Until Discontinued, Post-op 1522 (Given - Provider: Karel Barnes RN)1957 (Given - Provider: Aminta Turner RN) 0933 (Given - Provider: Ned Hope LPN)2100 (Due) enoxaparin (LOVENOX) 40 MG/0.4ML injection 40 mg 40 mg, Subcutaneous, 2 TIMES DAILY, First dose on Sat02/07/24 at 1530, Until Discontinued, Post-op 1530 (Hold/Not Given - Provider: Karel Barnes RN - Reason: Other - Comment: order not verified by pharmacy. Will administer when available)2100 (Hold/Not Given - Provider: Aminta Turner RN - Reason: Other - Comment: not verified by pharmacy) 0900 (Hold/Not Given - Provider: Ned Hope LPN - Reason: Medication unavailable)2100 (Due) gabapentin (NEURONTIN) capsule 300 mg, Oral, 3 TIMES DAILY, First dose on Sat02/07/24 at 1530, Until Discontinued, Post-op 1522 (Given - Provider: Karel Barnes RN)1955 (Given - Provider: Aminta Turner RN) 0653 (Given - Provider: Aminta Turner RN)1400 (Due)2200 (Due) insulin lispro (HumaLOG) 100 UNIT/ML injection 2-12 Units, Subcutaneous, 4 TIMES DAILY BEFORE MEALS & AT BEDTIME, First dose on Sat02/07/24 at 1700, Until Discontinued 171 (Given - Provider: Karel Barnes RN - Comment: CGM reading of 250)1999 (Given - Provider: Aminta Turner RN) 0800 (Hold/Not Given - Provider: Ned Hope LPN - Reason: Not indicated)1200 (Due)1700 (Due)2200 (Due) pantoprazole (PROTONIX) tablet 20 mg, Oral, DAILY 30 MIN BEFORE BREAKFAST, First dose on Sat02/08/24 at 0830, Until Discontinued, Post-op 0933 (Given - Provid er: Ned Hope LPN) Continuous Medication Order 02/06/2024 02/07/2024 02/08/2024 lactated ringers iv infusion (CANCELED) Intravenous, at 75 mL/hr, CONTINUOUS, Starting on Sat02/07/24 at 0700, Until Sat02/07/24 at 1811 1439 (IV New Bag - Provider: Karel Barnes RN)181 (IV Stop - Provider: Karel Barnes RN) PRN Medication Order 02/06/2024 02/07/2024 02/08/2024 acetaminophen (TYLENOL) tablet 650 mg, Oral, EVERY 4 HOURS PRN, Starting on Sat02/07/24 at 1430, Until Discontinued, Mild Pain (pain score 1,2,3), Fever 38.5 C and higher, Post-op 1955 (Given - Provider: Aminta Turner RN) 004 (Given - Provider: Aminta Turner RN)0653 (Given - Provider: Aminta Turner RN) albuterol (PROVENTIL HFA) 108 (90 Base) MCG/ACT HFA inhaler 2 Puff, Inhalation, EVERY 4 HOURS PRN, Starting on Sat02/07/24 at 1430, Until Discontinued, Shortness of Breath, Wheezing, Post-op bacitracin 500 UNIT/GM ointment (CANCELED) PRN, Starting on Sat02/07/24 at 1231, Until Sat02/07/24 at 1246, Intra-op 1231 (Given - Provider: Emile Tavarez MD) HYDROmorphone (DILAUDID) 1 mg/mL injection (CANCELED) 0.5 mg, Intravenous Push, PACU EVERY 15 MIN PRN X 4 DOSES, 4 doses, Starting on Sat02/07/24 at 0654, Until Sat02/07/24 at 1430, Severe Pain (pain score 7,8,9,10), PACU Now 1330 (Given - Provider: Edgar Poole RN) lidocaine-epinephrine (XYLOCAINE) 1 %-1:[id number] injection SOLN (CANCELED) PRN, Starting on Sat02/07/24 at 0813, Until Sat02/07/24 at 1246, Intra-op 0813 (Given - Provider: Johnathon Johnson MD) ondansetron (ZOFRAN) 4 MG/2ML injection 4 mg, Intravenous Push, EVERY 6 HOURS PRN, Starting on Sat02/07/24 at 1430, Until Sat02/11/24 at 1429, Nausea, Post-op oxyCODONE (ROXICODONE) 5 mg/5 mL oral solution (CANCELED) 10 mg, Oral, EVERY 4 HOURS PRN, Starting on Sat02/07/24 at 1430, Until Sat02/08/24 at 0035, Severe Pain (pain score 7,8,9,10), Post-op 1552 (Given - Provider: Karel Barnes, MARISA)1956 (Given - Provider: Amitna Turner RN) oxyCODONE immediate release tablet 5 mg, Oral, EVERY 4 HOURS PRN, Starting on Sat02/07/24 at 1430, Until Discontinued, Moderate Pain (pain score 4,5,6), Post-op 1057 (Given - Provid er: Ned Hope LPN) oxyCODONE immediate release tablet 10 mg, Oral, EVERY 6 HOURS PRN, Starting on 02/08/24 at 0035, Until Discontinued, Severe Pain (pain score 7,8,9,10) 0042 (Given - Provid er: Aminta Turner RN)0653 (Given - Provider: Aminta Turner RN) FOR RECORDS PERTAINING TO PATIENTS WHO ARE [...] BE BASED ON THE PRIMARY CLINICAL RECORDS. [employer] [facility]. provides no warranty or guarantee of the accuracy or completeness of information in this document.
== END | disposition home or self-care (01) ==
LOC: CT 10:47
PROVIDERS: PCP Preventive Medicine Occupational Medicine; Referring Provider Urology; Visit Provider Urology
DX: R10.9 Unspecified abdominal pain (principal)

== ENCOUNTER → 2024-03-26 | Outpatient (CLI) | payer BC, SELFPAY ==
--- NOTE | 2024-03-26 09:54 | RAD_ITS ---
STUDY: X-RAY - ABDOMEN/PELVIS REASON FOR EXAM: Male, 53 years old. ABD PAIN/HX OF URINARY CALCULI TECHNIQUE: COMPARISON: None. FINDINGS: Normal visualized lung bases. There is an unremarkable bowel gas pattern. There is no demonstrated free abdominal air. The visualized liver, spleen and kidneys are grossly normal in size and morphology. No calcifications over the renal shadows. Normal soft tissue structures. Degenerative vertebral changes. Surgical fusion at L4-S1. Stimulator electrodes in the lower thoracic levels. RAD/Abdomen Single View IMPRESSION: No acute pathology of the abdomen and pelvis. Electronically Signed: Yunier Can DO at 16:44 EDT ,
--- NOTE | 2024-03-26 13:18 | CT_ITS ---
STUDY: CT ABDOMEN AND PELVIS WITH AND WITHOUT CONTRAST REASON FOR EXAM: Male, 53 years old. ABD PAIN RADIATION DOSAGE (If Supplied By Facility): CTDIvol = ( 22.13 ) mGy, DLP = ( 2504.73 ) mGycm TECHNIQUE: Transaxial images were obtained from the dome of the diaphragm to the symphysis pubis with oral contrast. Oral and amp; IV Gastrografin and amp; 100mL Isovue-300 was administered. Sagittal and coronal images were reconstructed. Individualized dose optimization techniques were used for this CT. COMPARISON: Comparison is made with prior study dated February 27, 2023. FINDINGS: The visualized lung bases are unremarkable. Coronary artery calcification. There is decreased attenuation of the liver consistent with steatosis. Mild hepatomegaly. Normal gallbladder and extrahepatic biliary system. Normal spleen. Normal pancreas. Normal bilateral adrenal glands. Normal right kidney. There is a 2 mm nonobstructive calculus in the posterior midportion of the left kidney. Normal visualized stomach. Normal small intestine. There are multiple colonic diverticula consistent with diverticulosis. The appendix is visualized and appears normal. There is scattered atherosclerotic calcification of the abdominal aorta, without a demonstrated aneurysm. Normal inferior vena cava. Normal retroperitoneum. Normal urinary bladder. The prostate is enlarged and measures 5.2 cm x 6 cm. Central prostatic calcification. Small bilateral benign-appearing inguinal lymph nodes. Prior intrapedicular screw and bjorn fixation at the L4-L5 and L5-S1 levels. CT/CT Abd/Pelvis W/WO Contrast IMPRESSION: Hepatomegaly and diffuse fatty infiltration of the liver. Sigmoid diverticulosis. Prostatic enlargement. Nonobstructive left intrarenal calculus. Electronically Signed: Corky Yi MD at 13:46 EDT ,
== END | disposition home or self-care (01) ==
LOC: LAB 09:43 → RAD 09:48
PROVIDERS: PCP Preventive Medicine Occupational Medicine; Referring Provider Nurse Practitioner; Visit Provider Nurse Practitioner
DX: R10.9 Unspecified abdominal pain (principal); Z87.442 Personal history of urinary calculi
CPT/HCPCS: 74018; 74178; Q9967